=== PATIENT | female | born 1970 | race Caucasian/White ===

== ENCOUNTER → 2016-04-17 | Outpatient (CLI) | payer MEDICARE, MEDICAID ==
[~2016-04-17] MED LIST: AMLO10TA2 PO; ASPI325T PO; ATOR1TAB21 PO; BUPR75TA5 PO; BUTA50TA PO; CETI10TA PO; COLA100C PO; CYCL5TA PO; LEVO100T5 PO; MELO7.5S PO; NEXI20CA PO; ULTR50TA PO; VITA100T20 PO; VITA50003 PO; ZANA2CAP PO
--- NOTE | 2016-04-17 15:49 | REP ---
Pelvic ultrasound performed transabdominally and transvaginally, 04/17/2016: Indication: History of complex right adnexal cyst. Prior hysterectomy 10/18; patient is not on hormonal replacement therapy. Findings: The patient is G2, P2. Uterus is surgically absent. Right ovary measures 7 x 6 x 4.8 cm and contains multiple cysts, the largest measures 4.3 x 6 x 3.8 cm and is simple. There are septations within the right ovary. Perfusion was also noted within the right ovary. Left ovary measures 4.2 x 2.6 x 2.4 cm and contains small follicles as well as a small hyperechoic focus of 4 mm diameter, which could represent calcification and/or tiny dermoid. Perfusion was also documented to the left ovary. There are a few left ovarian follicles, largest 11.8 mm in maximal dimension. There is no free fluid in cul-de-sac. Impression:1. Prior hysterectomy.2. Enlarged right ovary with multiple cysts, largest 4.3 x 6 x 3.8 cm and simple. Right adnexa has complex cystic apperance. This does represent a new finding when compared with prior pelvic ultrasound 10/30/2013. MIL[employer] POW[employer] GR[employer]ER evaluation is recommended.3. 4 mm echogenic focus and/or calcification within left ovary. Tiny dermoid is not excluded. Additionally there are two left ovarian follicles, largest 10.5 mm diameter.4. Perfusion noted to bilateral ovaries; therefore no evidence of torsion.5. No free fluid in cul-de-sac. Signed by Ana Squires MD 04/18/2016 07:51 P
== END ==
LOC: M SMT 14:06
PROVIDERS: ATTEND Specialist
DX: N83.291 Other ovarian cyst, right side (principal); Z90.710 Acquired absence of both cervix and uterus; Q50.39 Other congenital malformation of ovary; I10 Essential (primary) hypertension

== ENCOUNTER 2016-05-02 12:30 | Outpatient (RCR) | payer MEDICAID, MEDICARE ==
[2016-05-06] MEDS ORDERED: LEVO137T2 PO (11:21)
[2016-05-06] MEDS ORDERED: BUPR1TAB17 PO (11:21)
[2016-05-08] MEDS ORDERED: TRAZ100T4 PO (08:57)
== END 2016-05-07 ==
LOC: M PT 12:30
PROVIDERS: ATTEND Psychiatry & Neurology Neurology
DX: Z51.89 Encounter for other specified aftercare (principal); M54.2 Cervicalgia; K21.9 Gastro-esophageal reflux disease without esophagitis
CPT/HCPCS: 92507; 92524; 97161; G8978; G8979; G9171; G9172

== ENCOUNTER 2016-05-08 08:01 | Day surgery (SDC) | payer MEDICARE ==
[~2016-05-08] VITALS: Ht 172.7 cm; Wt 75.1 kg
[~2016-05-08 08:01] MED LIST changes: +BUPR1TAB17 PO; +LEVO137T2 PO
[2016-05-08] MEDS ORDERED: LR 1,000 ML IV SCH ×2 (08:15→14:45)
[2016-05-08] MEDS ORDERED: TRAZ100T4 PO (08:57)
[2016-05-08] MEDS ORDERED: ATENOLOL 25 MG TAB PO ONE (09:00)
[2016-05-08] MEDS: buPROPion **XL** TABLET 150MG (WELLBUTRIN XL) PO SCH (09:00)
[2016-05-08] MEDS ORDERED: BUPIVACAINE HCL 0.25% 30 ML VIAL As Ordered ONE (09:38)
[2016-05-08] MEDS ORDERED: SCOPOLAMINE 1.5 MG TRANSDERMAL As Ordered ONE (09:57)
[2016-05-08] MEDS ORDERED: BUPIVACAINE HCL 0.25% 30 ML VIAL XX ONE (10:00)
[2016-05-08] MEDS ORDERED: SCOPOLAMINE 1.5 MG TRANSDERMAL TOP ONE (10:15)
[2016-05-08] MEDS ORDERED: dexameTHASONE 4 MG/ML 1ML VIAL (J1100) As Ordered ONE (10:17)
[2016-05-08] MEDS ORDERED: MIDAZOLAM INJ 2 MG/2 ML VIAL (J2250) As Ordered ONE (10:17)
[2016-05-08] MEDS ORDERED: fentaNYL 100 MCG/2 ML INJECTION (J3010) As Ordered ONE (10:17)
[2016-05-08] MEDS ORDERED: METOCLOPRAMIDE INJ 10MG/2ML VIAL (J2765) As Ordered ONE (10:18)
[2016-05-08] MEDS ORDERED: HYDROmorphone HCL 2 MG/ML 1ML VIAL (J1170) As Ordered ONE (10:36)
[2016-05-08] MEDS ORDERED: PROPOFOL 200 MG/20 ML VIAL As Ordered ONE ×2 (10:38→14:01)
[2016-05-08] MEDS ORDERED: ROCURONIUM BROMIDE 50 MG/5 ML VIAL As Ordered ONE ×2 (10:38→12:28)
[2016-05-08] MEDS ORDERED: ONDANSETRON 4MG/2ML VIAL (J2405) As Ordered ONE ×2 (10:39→16:39)
[2016-05-08] MEDS ORDERED: KETOROLAC 60 MG/2 ML VIAL (J1885) As Ordered ONE (11:04)
[2016-05-08] MEDS ORDERED: DESFLURANE 240 ML INHALANT As Ordered ONE (11:13)
[2016-05-08] MEDS ORDERED: ePHEDrine SULFATE 25 MG/5 ML(5MG/ML) SYRINGE As Ordered ONE (12:55)
[2016-05-08] MEDS ORDERED: GLYCOPYRROLATE INJ 0.2 MG/ML 2 ML VIAL As Ordered ONE ×2 (14:05)
[2016-05-08] MEDS ORDERED: NEOSTIGMINE 1MG/ML 5 ML SYRINGE (J2710) As Ordered ONE (14:05)
[2016-05-08] MEDS ORDERED: PERCOCET 5MG/325MG TAB PO PRN ×3 (14:30→14:45)
[2016-05-08] MEDS ORDERED: fentaNYL 100 MCG/2 ML INJECTION (J3010) IV PRN (14:45)
[2016-05-08] MEDS ORDERED: HYDROmorphone HCL 1 MG/ML SYRINGE (J1170) IV PRN (14:45)
[2016-05-08] MEDS ORDERED: ONDANSETRON 4MG/2ML VIAL (J2405) IV PRN ×2 (14:45→17:30)
[2016-05-08] MEDS: LR 1,000 ML IV SCH (17:30)
[2016-05-08 17:50] VITALS: BP 152/86
[2016-05-08] MEDS ORDERED: tiZANidine 4 MG TAB PO PRN (18:15)
[2016-05-08 18:20] VITALS: BP 153/72
[2016-05-08] MEDS: amLODIPine 10 MG TAB PO SCH (18:46)
[2016-05-08] MEDS: PANTOPRAZOLE 40MG TAB (PROTONIX) PO SCH (18:46)
[2016-05-08 18:50] VITALS: BP 153/73
[2016-05-08 19:50] VITALS: BP 156/85
[2016-05-08 21:00] VITALS: BP 162/57
[2016-05-08] MEDS ORDERED: traZODone 100 MG TAB PO SCH (21:00)
[2016-05-08] MEDS ORDERED: NORCO, ANEXSIA 5/325MG TABLET (HYDROcodone/ACETAMINOPHEN) PO PRN (21:45)
[2016-05-08] MEDS: NORCO, ANEXSIA 5/325MG TABLET (HYDROcodone/ACETAMINOPHEN) PO PRN (22:00)
[2016-05-08 22:30] VITALS: BP 144/80
[2016-05-09] MEDS: LR 1,000 ML IV SCH (01:30)
[2016-05-09 04:00] VITALS: BP 105/59
[2016-05-09] MEDS ORDERED: LEVOTHYROXINE 0.137 MG TAB (137MCG) PO SCH (06:00)
[2016-05-09] MEDS: NORCO, ANEXSIA 5/325MG TABLET (HYDROcodone/ACETAMINOPHEN) PO PRN (07:55)
[2016-05-09 08:00] VITALS: BP 124/75
--- NOTE | 2016-05-09 08:02 | RO ---
DATE OF PROCEDURE: 05/08/2016 PREPROCEDURE DIAGNOSIS: Right ovarian complex mass. POSTPROCEDURE DIAGNOSIS: Right ovarian complex mass. PROCEDURE: Laparoscopic bilateral salpingo-oophorectomy. SURGEON: Dr. Spencer Miner SUPERVISOR KENNEL: Dr. Shona Dacosta ANESTHESIA: General endotracheal. ESTIMATED BLOOD LOSS: 100 mL. FINDINGS: 6 cm complex cystic mass involving the right ovary. Surgically absent uterus. Adhesions of the normal appearing left ovary to the left pelvic sidewall and sigmoid colon. OPERATIVE SUMMARY: The patient taken to the operating room where general endotracheal anesthesia was induced. She was prepped and draped in sterile fashion in the dorsal lithotomy position. A sponge stick was placed in the vagina. A Randall catheter was placed. A periumbilical incision was made with a scalpel. Veress needle was placed through the incision while tenting up on the skin of the abdomen. Intraabdominal location of the Veress needle was assessed with use of a saline filled syringe. The pneumoperitoneum was created. A 10 mm trocar using Visiport was inserted through this incision. Three 5 mm suprapubic ports were placed under direct visualization without difficulty. Attention was turned to the right ovary. with one grasping instrument. The IP ligament was coagulated using the harmonic scalpel and incised. Specimen was left in the lateral part of the pelvis. Attention was turned to the left ovary. The left ovary was densely adherent to the sigmoid colon and pelvic sidewall. Grasping instrument used to elevate the ovary. Endoshears were used to sharply dissect adhesions from the ovary. Once the ovary was freed from surrounding attachments, the IP ligament was isolated and coagulated with the harmonic scalpel and incised. The remainder of the ovary was then dissected sharply off the left pelvic sidewall. The left ovary was removed through the umbilical port. The large right ovarian mass which had previously been left in pelvis could not initially be found. The patient was placed in several different positions to help locate the lost specimen. Fluid was placed in the abdomen to see if that would help visualize the specimen. After several attempts, the ultrasound was used on the abdomen externally to see if the cystic mass could be identified. There appeared to be a cystic mass in the right upper quadrant near the liver. However, there was still difficulty in identifying the location of the specimen. Dr. Grant Levy from general surgery was asked to assist and through a concerted effort of multiple surgeons the specimen was located in the right upper quadrant under the gallbladder. The specimen was removed, placed in an Endo Catch bag and removed through the umbilical port. The pneumoperitoneum was released. All instruments were removed. The umbilical port was closed with interrupted suture of #0 Vicryl. The skin was closed with #4-0 Monocryl subcuticular sutures. Sponge, instrument and needle counts were correct. The patient was extubated and went to recovery room in stable condition.
[2016-05-09] MEDS: buPROPion **XL** TABLET 150MG (WELLBUTRIN XL) PO SCH (09:43)
[2016-05-09] MEDS: PANTOPRAZOLE 40MG TAB (PROTONIX) PO SCH (09:43)
[2016-05-09 09:44] VITALS: BP 124/75
[2016-05-09] MEDS: amLODIPine 10 MG TAB PO SCH (09:44)
[2016-05-11] MEDS ORDERED: **NOTE PATIENT COMMENT** MISC XX ONE (10:00)
== END 2016-05-09 12:45 | disposition home or self-care (01) ==
LOC: M SDC 08:01 → M MSPAV 17:50 → M PED 22:30 → M SDC 05-09 12:45
PROVIDERS: ATTEND Specialist
DX: N83.201 Unspecified ovarian cyst, right side (principal); E03.9 Hypothyroidism, unspecified; G47.33 Obstructive sleep apnea (adult) (pediatric); G43.909 Migraine, unspecified, not intractable, without status migrainosus; I10 Essential (primary) hypertension; T88.59XD Other complications of anesthesia, subsequent encounter; R94.31 Abnormal electrocardiogram [ECG] [EKG]; E78.00 Pure hypercholesterolemia, unspecified; D64.9 Anemia, unspecified; R06.83 Snoring; Z88.0 Allergy status to penicillin; Z91.040 Latex allergy status; Z91.018 Allergy to other foods; Z79.899 Other long term (current) drug therapy; Z86.73 Personal history of transient ischemic attack (TIA), and cerebral infarction without residual deficits; Z96.1 Presence of intraocular lens
CPT/HCPCS: 36415; 58661; 85014; 85018; 88307; J1100; J1170; J1885; J2250; J2405; J2710; J2765; J3010

== ENCOUNTER → 2016-07-24 | Outpatient (CLI) | payer MEDICARE ==
[~2016-07-24] MED LIST changes: -COLA100C PO; +COLA100C3 PO; +TRAZ100T4 PO
--- NOTE | 2016-07-24 12:17 | REP ---
MRI LUMBAR SPINE WITHOUT CONTRAST: HISTORY: Back pain. COMPARISON: 03/23/2008 Decreased signal intensity on T2-weighted images is present in the L1-2 and L5-S1 intervertebral discs. The discs are decreased in height. These findings are consistent with disc degeneration. A disc bulge is present at the T12-L1 level. There is minimal effacement of the thecal sac without spinal cord compression. The T12 neural foramina are patent on sagittal images. There is no disc bulge or herniation at the L1-2 through L3-4 levels. There is hypertrophy of the posterior articulating facets at the L2-3 and L3-4 levels. The nerves exit the neural foramina without compression. A diffuse disc bulge is present at the L4-5 level. There is minimal compression of the thecal sac. There is hypertrophy of the posterior articulating facets. The L4 nerves exit the neural foramina without compression. A diffuse disc bulge and small central disc extrusion are present at the L5-S1 level. The disc extrusion is slightly increased in size. There is minimal compression of the left S1 nerve. The disc extrusion abuts the thecal sac and right S1 nerve. There is hypertrophy of the posterior articulating facets. There is compression of the L5 nerves in the neural foramina. The conus medullaris is normal in appearance terminating at the level of the T12-L1 intervertebral disc. Increased signal intensity on T2-weighted images is present in the endplates of the L5 and S1 vertebral bodies. This represents degenerative change. IMPRESSION: 1. Diffuse disc bulge at the L4-5 level with minimal thecal sac compression. 2. Diffuse disc bulge and small central disc extrusion at the L5-S1 level with minimal compression at the left S1 nerve. There is compression of the L5 nerves in the neural foramina. The disc extrusion is slightly increased in size. The left S1 nerve compression is a new finding. Signed by Spencer Stock MD 07/24/2016 12:21 P
== END ==
LOC: M RAD 10:05
PROVIDERS: ATTEND Orthopaedic Surgery
DX: M51.27 Other intervertebral disc displacement, lumbosacral region (principal)

== ENCOUNTER → 2016-08-26 | Outpatient (CLI) | payer MEDICARE ==
[~2016-08-26] VITALS: Ht 154.9 cm; Wt 68.0 kg
[~2016-08-26] MED LIST changes: +ATEN25TA PO; +CLOP75TA2 PO; +LIDOCAINE 2% INJ 100 MG/5 ML SDV (FOR ANES.) As Ordered ONE; +LYRI100C10 PO; +METH-107 PO; +NS 1,000 ML IV ONE; +PERCOCET PO; +PRED10TA PO; +PROPOFOL 200 MG/20 ML VIAL As Ordered ONE; +ROBA500T PO; +XANA0.25 PO
--- NOTE | 2016-08-26 11:16 | ROOR ---
Patient Name: Pina Grider Procedure Date: 08/26/2016 10:57 AM Date of : 1970 Age: 45 Room: [facility] Gender: Female Note Status: Finalized Procedure: Upper Endoscopy + Biopsies Indications: Dysphagia, Heartburn Providers: Berto Tom MD Referring MD: DARSHAN MERCADO Requesting Provider: Medicines: Monitored Anesthesia Care Complications: No immediate complications. Procedure: Pre-Anesthesia Assessment: - The heart rate, respiratory rate, oxygen saturations, blood pressure, adequacy of pulmonary ventilation, and response to care were monitored throughout the procedure. The Endoscope was introduced through the mouth, and advanced to the second part of duodenum. The upper GI endoscopy was accomplished without difficulty. The patient tolerated the procedure well. Findings: The Z-line was irregular and was found 30 cm from the incisors. Multiple biopsies were obtained with cold forceps for evaluation to rule out Miner's Esophagus randomly at the gastroesophageal junction. A small hiatal hernia was present. No other significant abnormalities were identified in a careful examination of the stomach. The exam of the duodenum was otherwise normal. Impression: - Z-line irregular, 30 cm from the incisors. - Small hiatal hernia. - Multiple biopsies were obtained at the gastroesophageal junction. - The examination was otherwise normal. Recommendation: - Patient has a contact number available for emergencies. The signs and symptoms of potential delayed complications were discussed with the patient. Return to normal activities tomorrow. Written discharge instructions were provided to the patient. - High fiber diet. - Discharge patient to home. - Follow an antireflux regimen. - Continue present medications. - Await pathology results. - Telephone GI clinic for pathology results in 1 week. - Check Portal Online for Path Results.([email or web address]) - Repeat upper endoscopy for surveillance based on pathology results. - Return to referring physician. - The findings and recommendations were discussed with the patient's family. Berto Tom MD Berto Tom MD 08/26/2016 11:15:46 AM This report has been signed electronically. Number of Addenda: 0 Note Initiated On: 08/26/2016 10:57 AM Estimated Blood Loss: Estimated blood loss: none.
[2016-08-26 11:45] VITALS: BP 137/86
== END | disposition home or self-care (01) ==
LOC: M OPP 10:12
PROVIDERS: ATTEND Internal Medicine Gastroenterology
DX: R12 Heartburn (principal); R13.10 Dysphagia, unspecified; K22.8 Other specified diseases of esophagus; K44.9 Diaphragmatic hernia without obstruction or gangrene; I10 Essential (primary) hypertension; E78.5 Hyperlipidemia, unspecified; E03.9 Hypothyroidism, unspecified; D64.9 Anemia, unspecified; F41.9 Anxiety disorder, unspecified; F32.9 Major depressive disorder, single episode, unspecified; G47.8 Other sleep disorders; G47.30 Sleep apnea, unspecified; R06.83 Snoring; K25.9 Gastric ulcer, unspecified as acute or chronic, without hemorrhage or perforation; K21.9 Gastro-esophageal reflux disease without esophagitis; Z88.0 Allergy status to penicillin; Z91.040 Latex allergy status; Z79.82 Long term (current) use of aspirin; Z79.899 Other long term (current) drug therapy; Z80.42 Family history of malignant neoplasm of prostate; Z80.3 Family history of malignant neoplasm of breast

== ENCOUNTER → 2016-08-27 | Outpatient (CLI) | payer MEDICARE ==
[~2016-08-27] MED LIST changes: -LIDOCAINE 2% INJ 100 MG/5 ML SDV (FOR ANES.) As Ordered ONE; -NS 1,000 ML IV ONE; -PROPOFOL 200 MG/20 ML VIAL As Ordered ONE
--- NOTE | 2016-08-27 10:23 | REP ---
Chest two views HISTORY: Bronchitis Comparison: 01/15/2016 The lungs are clear. The heart is upper limits of normal in size. The pulmonary vasculature is normal in appearance. The bony structure is intact. IMPRESSION: No acute disease. Signed by Spencer Stock MD 08/27/2016 10:16 A
== END ==
LOC: M WUC 09:41
PROVIDERS: ATTEND Emergency Medicine
DX: J20.9 Acute bronchitis, unspecified (principal); S83.411A Sprain of medial collateral ligament of right knee, initial encounter; S93.602A Unspecified sprain of left foot, initial encounter; M17.11 Unilateral primary osteoarthritis, right knee; X58.XXXA Exposure to other specified factors, initial encounter; Y93.9 Activity, unspecified; Y92.9 Unspecified place or not applicable; Y99.8 Other external cause status

== ENCOUNTER → 2016-08-27 | Outpatient (CLI) | payer MEDICARE ==
--- NOTE | 2016-08-27 10:21 | REP ---
Clinical: Pain without history of trauma Technique: AP, lateral, bilateral oblique views left foot . Findings: The osseous structures and joint spaces are intact and normal. There is no evidence for acute fracture or dislocation. Surrounding soft tissues are unremarkable. No subcutaneous emphysema or radiodense foreign body. Impression: Normal examination. Signed by Sekou Robert MD 08/27/2016 10:13 A
--- NOTE | 2016-08-27 10:22 | REP ---
Clinical: Sprain. Technique: AP, lateral, bilateral oblique and sunrise views of the right knee. Findings: Mild to early moderate tricompartmental arthritic degenerative changes are appreciated including cortical irregularities to the femoral condyles, subtle early osteophyte formation along the lateral tibial plateau and femoral condyle as well as spurring along the lateral margin of the patella. Increased sclerosis to the tibial plateau and posterior margin of the patella are noted with associated joint space narrowing. There is no acute fracture dislocation. No obvious effusion. Impression: Early moderate tricompartmental osteoarthritic degenerative changes. Signed by Sekou Robert MD 08/27/2016 10:15 A
== END ==
LOC: M WUC 09:32
PROVIDERS: ATTEND Physician Assistant
DX: S83.411A Sprain of medial collateral ligament of right knee, initial encounter (principal); S93.602A Unspecified sprain of left foot, initial encounter; M17.11 Unilateral primary osteoarthritis, right knee; X58.XXXA Exposure to other specified factors, initial encounter; Y93.9 Activity, unspecified; Y92.9 Unspecified place or not applicable; Y99.8 Other external cause status; J20.9 Acute bronchitis, unspecified

== ENCOUNTER 2016-08-28 14:27 | Outpatient (RCR) | payer MEDICARE ==
[~2016-08-28 14:27] MED LIST changes: -PRED10TA PO; -ROBA500T PO; -XANA0.25 PO
[2016-08-29] MEDS ORDERED: XANA0.25 PO (18:21)
[2016-08-29] MEDS ORDERED: ROBA500T PO (20:17)
[2016-08-29] MEDS ORDERED: PRED10TA PO (20:17)
== END 2016-09-04 ==
LOC: M PT 14:27
PROVIDERS: ATTEND Orthopaedic Surgery
DX: Z51.89 Encounter for other specified aftercare (principal); M51.26 Other intervertebral disc displacement, lumbar region
CPT/HCPCS: 97110; 97140; 97162; G8978; G8979

== ENCOUNTER 2016-08-29 18:02 | Emergency (ER) | payer MEDICAID, MEDICARE, OTHER ==
[~2016-08-29] VITALS: Ht 154.9 cm; Wt 68.0 kg
[2016-08-29] MEDS ORDERED: XANA0.25 PO (18:21)
[2016-08-29] MEDS ORDERED: predniSONE 20 MG TAB PO ONE (20:00)
[2016-08-29] MEDS ORDERED: KETOROLAC 60 MG/2 ML VIAL (J1885) IM ONE (20:00)
[2016-08-29] MEDS ORDERED: METHOCARBAMOL 500 MG TAB PO ONE (20:00)
[2016-08-29] MEDS ORDERED: PERCOCET 5MG/325MG TAB PO ONE (20:00)
[2016-08-29] MEDS ORDERED: ROBA500T PO (20:17)
[2016-08-29] MEDS ORDERED: PRED10TA PO (20:17)
[2016-08-29 21:21] VITALS: BP 132/90
== END 2016-08-29 21:23 | disposition home or self-care (01) ==
LOC: M ED 19:25
DX: M54.16 Radiculopathy, lumbar region (principal); M54.31 Sciatica, right side; M25.561 Pain in right knee; G89.29 Other chronic pain; F33.9 Major depressive disorder, recurrent, unspecified; G47.33 Obstructive sleep apnea (adult) (pediatric); E07.9 Disorder of thyroid, unspecified; Z79.899 Other long term (current) drug therapy; Z79.82 Long term (current) use of aspirin; Z88.0 Allergy status to penicillin; Z91.040 Latex allergy status
CPT/HCPCS: 96372; 99282; J1885

== ENCOUNTER 2016-09-12 16:34 | Emergency (ER) | payer MEDICARE, MEDICAID ==
[~2016-09-12] VITALS: Ht 154.9 cm; Wt 68.0 kg
[~2016-09-12 16:34] MED LIST changes: -BUPR1TAB17 PO; +BUPR1TAB53 PO; -COLA100C3 PO; +COLA100C5 PO; -LYRI100C10 PO; -METH-107 PO; +METH1TAB40 PO; +PRED10TA2 PO; +PREG100CA PO; +ROBA500T PO; +TRAZ-136 PO; -TRAZ100T4 PO; -ULTR50TA PO; +ULTR50TA8 PO; +VITA1CAP40 PO; -VITA50003 PO; +XANA0.25 PO
[2016-09-12] MEDS ORDERED: METHOCARBAMOL 500 MG TAB PO ONE (17:30)
[2016-09-12] MEDS ORDERED: HYDROmorphone HCL 1 MG/ML SYRINGE (J1170) IM ONE (17:30)
[2016-09-12 18:03] VITALS: BP 162/91
== END 2016-09-12 18:57 | disposition home or self-care (01) ==
LOC: M ED 17:09
DX: M25.561 Pain in right knee (principal); I10 Essential (primary) hypertension; E78.00 Pure hypercholesterolemia, unspecified; G47.30 Sleep apnea, unspecified; E03.9 Hypothyroidism, unspecified; F32.9 Major depressive disorder, single episode, unspecified; D75.9 Disease of blood and blood-forming organs, unspecified; Z86.39 Personal history of other endocrine, nutritional and metabolic disease; E66.9 Obesity, unspecified; Z88.0 Allergy status to penicillin; Z91.040 Latex allergy status; Z79.82 Long term (current) use of aspirin; Z79.899 Other long term (current) drug therapy
CPT/HCPCS: 96372; 99283; J1170

== ENCOUNTER → 2016-10-16 | Outpatient (CLI) | payer MEDICARE, MEDICAID ==
[~2016-10-16] MED LIST changes: +CLAR1TAB2 PO; +DEBR6.5S4 AS; +FLUC10TA PO; +FOLI400T PO; +KETO10TAB PO; +MELO7.5T7 PO; +PRED20TA PO; +RISP0.5T3 PO; +ROPI0.5T PO; +VITA100072 PO; +ZITHTAB PO; +ZONI100C2 PO
[2016-10-17 10:23] LABS: ALBUMIN 3.8 GM/DL (3.2-5.2); ALBUMIN/GLOBULIN RATIO 1.23 (1.00-1.93); ALKALINE PHOSPHATASE 66 U/L (45-117); ALT/SGPT 15 U/L (12-78); ANION GAP 5 MEQ/L (8-16); AST/SGOT 9 U/L (15-37); BILIRUBIN,TOTAL 0.3 MG/DL (0.2-1.0); BLOOD UREA NITROGEN 14 MG/DL (7-18); CALCIUM LEVEL 9.3 MG/DL (8.5-10.1); CARBON DIOXIDE LEVEL 31 MEQ/L (21-32); CHLORIDE LEVEL 104 MEQ/L (98-107); GLOMERULAR FILTRATION RATE > 60.0 (>58); GLUCOSE, FASTING 97 MG/DL (70-105); POTASSIUM SERUM 3.9 MEQ/L (3.5-5.1); SODIUM LEVEL 140 MEQ/L (136-145); THYROXINE (T4) 12.1 UG/DL (4.5-12.0); TOTAL PROTEIN 6.9 GM/DL (6.4-8.2)
[2016-10-21 10:29] LABS: ALBUMIN 4.13 GM/DL (3.29-5.55); ALBUMIN % 59.8 % (55.8-66.1); GAMMA GLOBULIN % 14.4 % (11.1-18.8)
[2016-10-22 00:11] LABS: Lyme Disease IgG/IgM Antibodie <0.91 ISR (0.00-0.90); Lyme Disease IgM Ab Quantitati <0.80 index (0.00-0.79); SJOGREN'S ANTI SS-A <0.2 AI (0.0-0.9); SJOGREN'S ANTI SS-B <0.2 AI (0.0-0.9)
== END ==
LOC: M SMT 12:13
PROVIDERS: ATTEND Psychiatry & Neurology Neurology
DX: D50.9 Iron deficiency anemia, unspecified (principal); I10 Essential (primary) hypertension; E03.9 Hypothyroidism, unspecified; E78.5 Hyperlipidemia, unspecified; Z79.899 Other long term (current) drug therapy

== ENCOUNTER → 2016-10-24 | Outpatient (REF) | payer MEDICARE, MEDICAID | LOC: M LAB REF 17:12 | PROVIDERS: ATTEND Physician Assistant Medical | DX: N76.0 Acute vaginitis (principal) ==

== ENCOUNTER 2016-11-09 18:38 | Emergency (ER) | payer MEDICARE, MEDICAID ==
[~2016-11-09] VITALS: Ht 154.9 cm; Wt 70.5 kg
[~2016-11-09 18:38] MED LIST changes: -CLAR1TAB2 PO; -DEBR6.5S4 AS; -FLUC10TA PO; -FOLI400T PO; -KETO10TAB PO; -MELO7.5T7 PO; -PRED20TA PO; -RISP0.5T3 PO; -ROPI0.5T PO; -VITA100072 PO; -ZITHTAB PO; -ZONI100C2 PO
[2016-11-09] MEDS ORDERED: NS 1,000 ML IV ONE (20:45)
--- NOTE | 2016-11-09 21:10 | REPUSA ---
CT of the head Clinical history: CVA. Technique: Multiple axial CT images were obtained through the head without administration of contrast . Findings: The ventricles and sulci are symmetric bilaterally. There is no evidence of acute hemorrhag e or infarct. There is no midline shift, mass effect, or extra-axial fluid collection. The osseous st ructures are unremarkable. The visualized paranasal sinuses and mastoid air cells are clear. Impression: Negative study.
[2016-11-09 21:19] LABS: BASO % 0.6 % (0.0-1.0); EOS # 0.2 K/mm3 (0.0-0.50); LARGE UNSTAINED CELL # 0.1 K/mm3 (0.0-0.4); LARGE UNSTAINED CELL % 1.9 % (0.0-4.0); LYMPH # 1.5 K/mm3 (1.5-4.5); LYMPH % 30.6 % (24.0-44.0); MEAN CORPUSCULAR HGB CONC 33.3 g/dl (32.0-36.5); MONO # 0.2 K/mm3 (0.0-0.8); MONO % 4.9 % (0.0-5.0); NEUTROPHILS # 2.9 K/mm3 (1.8-7.7); NEUTROPHILS % 56.9 % (36.0-66.0); PLATELET COUNT, AUTOMATED 242 k/mm3 (150-450); RED CELL DISTRIBUTION WIDTH 14.4 % (11.5-14.5)
[2016-11-09 21:46] LABS: ALBUMIN 4.2 GM/DL (3.2-5.2); ALBUMIN/GLOBULIN RATIO 1.24 (1.00-1.93); ALKALINE PHOSPHATASE 77 U/L (45-117); ALT/SGPT 17 U/L (12-78); AST/SGOT 12 U/L (15-37); BILIRUBIN,DIRECT < 0.1 MG/DL (0.0-0.2); BILIRUBIN,TOTAL 0.3 MG/DL (0.2-1.0); TOTAL PROTEIN 7.6 GM/DL (6.4-8.2)
[2016-11-09 21:48] LABS: ANION GAP 9 MEQ/L (8-16); BLOOD UREA NITROGEN 17 MG/DL (7-18); CALCIUM LEVEL 9.2 MG/DL (8.5-10.1); CARBON DIOXIDE LEVEL 27 MEQ/L (21-32); CHLORIDE LEVEL 106 MEQ/L (98-107); CREATININE FOR GFR 1.07 MG/DL (0.55-1.02); GLOMERULAR FILTRATION RATE > 60.0 (>58); GLUCOSE, FASTING 107 MG/DL (70-105); POTASSIUM SERUM 3.4 MEQ/L (3.5-5.1); SODIUM LEVEL 142 MEQ/L (136-145)
[2016-11-09 23:32] VITALS: BP 144/98
[2016-11-09] MEDS ORDERED: FLUC10TA PO (23:52)
[2016-11-09] MEDS ORDERED: DEBR6.5S4 AS (23:54)
--- NOTE | 2016-11-10 08:09 | ECGEPIP ---
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
--- NOTE | 2016-11-10 11:25 | REP ---
CHEST PA AND LATERAL: 11/09/2016. Comparison: 08/27/2016, 01/15/2016. Clinical history: Cough. Findings: Two-view show the lungs well inflated. CP angles are sharply defined. Heart has left ventricular configuration. Slight left ventricular enlargement on the lateral view. Transverse diameter is upper limits normal. The aorta is normal and the airway intact. There is no mediastinal or hilar mass. No infiltrate, nodule, atelectasis or other acute finding. Cervical fusion noted with anterior and posterior hardware in the lower cervical spine. Impression: 1. Borderline heart size with some left ventricular enlargement suggested on the lateral view but no vascular redistribution, pulmonary edema or acute infiltrate. No definite effusion. Signed by Scar Yu MD 11/10/2016 06:01 P
== END 2016-11-10 00:13 | disposition home or self-care (01) ==
LOC: M ED 18:38
DX: B34.9 Viral infection, unspecified (principal); B37.0 Candidal stomatitis; H61.22 Impacted cerumen, left ear

== ENCOUNTER 2016-11-14 01:27 | Emergency (ER) | payer MEDICARE, MEDICAID ==
[~2016-11-14] VITALS: Ht 154.9 cm; Wt 68.2 kg
[~2016-11-14 01:27] MED LIST changes: +DEBR6.5S4 AS; +FLUC10TA PO
[2016-11-14 01:38] VITALS: BP 113/77
[2016-11-14] MEDS ORDERED: FOLI400T PO (01:52)
[2016-11-14] MEDS ORDERED: MELO7.5T7 PO (01:52)
[2016-11-14] MEDS ORDERED: ROPI0.5T PO (01:52)
[2016-11-14] MEDS ORDERED: VITA100072 PO (01:52)
[2016-11-14] MEDS ORDERED: RISP0.5T3 PO (01:52)
[2016-11-14] MEDS ORDERED: ZONI100C2 PO (01:52)
[2016-11-14] MEDS ORDERED: NS 1,000 ML IV ONE (04:15)
[2016-11-14 04:41] LABS: BASO % 0.5 % (0.0-1.0); EOS # 0.3 K/mm3 (0.0-0.50); EOS % 5.8 % (0.0-3.0); LARGE UNSTAINED CELL # 0.1 K/mm3 (0.0-0.4); LARGE UNSTAINED CELL % 1.4 % (0.0-4.0); LYMPH # 1.6 K/mm3 (1.5-4.5); LYMPH % 31.9 % (24.0-44.0); MEAN CORPUSCULAR HEMOGLOBIN 29.2 pg (27.0-33.0); MEAN CORPUSCULAR HGB CONC 34.1 g/dl (32.0-36.5); MEAN CORPUSCULAR VOLUME 85.6 fl (80.0-96.0); MONO # 0.3 K/mm3 (0.0-0.8); MONO % 5.6 % (0.0-5.0); NEUTROPHILS # 2.7 K/mm3 (1.8-7.7); NEUTROPHILS % 54.7 % (36.0-66.0); PLATELET COUNT, AUTOMATED 241 k/mm3 (150-450); RED CELL DISTRIBUTION WIDTH 14.7 % (11.5-14.5); WHITE BLOOD COUNT 4.8 K/mm3 (4.0-10.0)
[2016-11-14 04:55] LABS: ERYTHROCYTE SEDIMENTATION RATE 21 mm/hr (0-20)
[2016-11-14 04:59] LABS: ANION GAP 8 MEQ/L (8-16); BLOOD UREA NITROGEN 12 MG/DL (7-18); CALCIUM LEVEL 8.9 MG/DL (8.5-10.1); CARBON DIOXIDE LEVEL 27 MEQ/L (21-32); CHLORIDE LEVEL 108 MEQ/L (98-107); CREATININE FOR GFR 0.89 MG/DL (0.55-1.02); GLOMERULAR FILTRATION RATE > 60.0 (>58); GLUCOSE, FASTING 94 MG/DL (70-105); POTASSIUM SERUM 3.4 MEQ/L (3.5-5.1); SODIUM LEVEL 143 MEQ/L (136-145)
[2016-11-14] MEDS ORDERED: dexameTHASONE 20 MG/5 ML VIAL (J1100) IV ONE (05:30)
[2016-11-14] MEDS ORDERED: KETOROLAC 30 MG/ML VIAL (J1885) IV ONE (05:30)
[2016-11-14 05:57] LABS: ABG BASE EXCESS -4.1 (-2.0-2.0); ABG PARTIAL PRESSURE CO2 38.3 mmHg (35.0-45.0); ABG PARTIAL PRESSURE O2 98.6 mmHg (75.0-100.0); ABG STANDARD HCO3 21.1 MEQ/L (22.0-26.0); ABG TOTAL CO2 22.2 MEQ/L (22.0-29.0); ABG pH (ARTERIAL) 7.357 UNITS (7.350-7.450)
[2016-11-14] MEDS ORDERED: KETO10TAB PO (06:36)
[2016-11-14] MEDS ORDERED: PRED20TA PO (06:36)
--- NOTE | 2016-11-14 09:44 | REP ---
PA and lateral chest: Comparison is 11/09/2016. The lung bowie are clear and unchanged. Cardiac size is borderline enlarged, unchanged. The manny and mediastinum are normal. There is internal fixation of the visualized cervical spine, unchanged. There is thoracic scoliosis convex right, unchanged. Impression: There are no acute cardiopulmonary findings. Signed by Gino Oseguera MD 11/14/2016 08:08 A
== END 2016-11-14 06:58 | disposition home or self-care (01) ==
LOC: M ED 01:27
DX: J20.8 Acute bronchitis due to other specified organisms (principal)
CPT/HCPCS: 36600; 71020; 80048; 82550; 82803; 83605; 85025; 85652; 87040; 96374; 96375; 99283; J1100; J1885

== ENCOUNTER → 2016-12-16 | Outpatient (CLI) | payer MEDICARE, MEDICAID ==
[~2016-12-16] MED LIST changes: +CLAR1TAB2 PO; +FOLI400T PO; +KETO10TAB PO; +MELO7.5T7 PO; +PRED20TA PO; +RISP0.5T3 PO; +ROPI0.5T PO; +VITA100072 PO; +ZITHTAB PO; +ZONI100C2 PO
[2016-12-16 13:58] LABS: MEAN CORPUSCULAR HGB CONC 32.7 g/dl (32.0-36.5); MEAN CORPUSCULAR VOLUME 88.7 fl (80.0-96.0); RED CELL DISTRIBUTION WIDTH 15.2 % (11.5-14.5); WHITE BLOOD COUNT 4.8 K/mm3 (4.0-10.0)
[2016-12-16 14:35] LABS: BASOPHILS 2 % (0-4); EOSINOPHILS 9 % (0-5)
[2016-12-16 15:06] LABS: URIC ACID 4.5 MG/DL (2.6-6.0)
[2016-12-18 00:06] LABS: Lyme Disease IgG/IgM Antibodie <0.91 ISR (0.00-0.90); Lyme Disease IgM Ab Quantitati <0.80 index (0.00-0.79)
== END ==
LOC: M SMT 11:54
PROVIDERS: ATTEND Physician Assistant Surgical
DX: M17.11 Unilateral primary osteoarthritis, right knee (principal); Z79.899 Other long term (current) drug therapy

== ENCOUNTER → 2016-12-20 | Outpatient (CLI) | payer MEDICARE, MEDICAID ==
--- NOTE | 2016-12-20 11:50 | REP ---
BILATERAL SI JOINTS: 12/20/2016. COMPARISON: CT 02/23/2016. FINDINGS: Four views are provided. Pelvic ring is intact. The SI joints are without narrowing or sclerosis inferiorly. There is no erosive change. There are degenerative disc changes at L5-S1 with vacuum phenomenon and sclerosis of the endplates. Multiple pelvic phleboliths are noted. There is a metallic density over the lower abdomen upper pelvis seen on CT just deep to the rectus fascia in the anterior abdomen as a metallic surgical density. Hip joint spaces are symmetric. IMPRESSION: 1. Negative SI joint series for erosion, narrowing or acute finding. There is minor sclerosis on the iliac margins in the mid and upper aspect of the joints in a symmetric fashion as on previous CT. 2. Degenerative disc disease at L5-S1 with vacuum phenomenon and sclerosis. Minor degenerative changes in the hips. Signed by Scar Yu MD 12/20/2016 03:53 P
[2016-12-20 13:43] LABS: ALBUMIN 4.2 GM/DL (3.2-5.2); ALKALINE PHOSPHATASE 84 U/L (45-117); ALT/SGPT 17 U/L (12-78); ANION GAP 8 MEQ/L (8-16); AST/SGOT 8 U/L (15-37); BILIRUBIN,TOTAL 0.4 MG/DL (0.2-1.0); BLOOD UREA NITROGEN 11 MG/DL (7-18); CALCIUM LEVEL 9.3 MG/DL (8.5-10.1); CARBON DIOXIDE LEVEL 29 MEQ/L (21-32); CHLORIDE LEVEL 106 MEQ/L (98-107); GLOMERULAR FILTRATION RATE > 60.0 (>58); GLUCOSE, FASTING 96 MG/DL (70-105); POTASSIUM SERUM 4.1 MEQ/L (3.5-5.1); SODIUM LEVEL 143 MEQ/L (136-145); TOTAL PROTEIN 7.7 GM/DL (6.4-8.2)
[2016-12-20 13:56] LABS: VITAMIN B12 LEVEL 458 PG/ML (247-911)
[2016-12-23 12:06] LABS: ALBUMIN % 59.7 % (55.8-66.1); GAMMA GLOBULIN % 14.1 % (11.1-18.8)
== END ==
LOC: M SMT 10:31
PROVIDERS: ATTEND Internal Medicine Rheumatology
DX: M35.9 Systemic involvement of connective tissue, unspecified (principal); D51.0 Vitamin B12 deficiency anemia due to intrinsic factor deficiency; Z79.899 Other long term (current) drug therapy; M51.37 Other intervertebral disc degeneration, lumbosacral region; M54.5 Low back pain

== ENCOUNTER → 2016-12-31 | Outpatient (CLI) | payer MEDICARE, MEDICAID ==
[2017-01-06 10:24] LABS: E005-IgE Dog Dander 2.98 kU/L (Class III); G002-IgE Bermuda Grass 1.32 kU/L (Class II); G008-IgE Kentucky Bluegrass 4.13 kU/L (Class IV); M002 IgE Cladosporium herbaru < 0.10 kU/L (Class 0); M003 IgE Aspergillus fumigatu 3.05 kU/L (Class III); T001-IgE Maple/Box Elder 2.11 kU/L (Class III); T003-IgE Common Silver Birch 8.75 kU/L (Class IV); T007-IgE Oak, White 7.18 kU/L (Class IV); T008-IgE Elm, American 5.43 kU/L (Class IV); T041-IgE Hickory, White 9.58 kU/L (Class IV); W001-IgE Ragweed, Short 9.46 kU/L (Class IV); W009-IgE Plantain, English 2.95 kU/L (Class III); W014-IgE Pigweed, Rough 2.05 kU/L (Class III)
[2017-01-07 00:06] LABS: IGE RECEPTOR ABY 1 3.5 (<10)
[2017-01-17 14:50] LABS: ANTI-IgA ANTIBODY 235
== END ==
LOC: M SMT 13:07
PROVIDERS: ATTEND Physician Assistant Medical
DX: R53.83 Other fatigue (principal); R05 Cough

== ENCOUNTER 2017-02-02 21:08 | Emergency (ER) | payer MEDICARE, MEDICAID ==
[~2017-02-02] VITALS: Ht 154.9 cm; Wt 68.2 kg
[2017-02-02 21:08] VITALS: BP 164/102
[~2017-02-02 21:08] MED LIST changes: -CLAR1TAB2 PO; -ZITHTAB PO
[2017-02-02] MEDS ORDERED: ZITHTAB PO (22:09)
[2017-02-02] MEDS ORDERED: CLAR1TAB2 PO (22:09)
[2017-02-02] MEDS ORDERED: PSEUDOEPHEDRINE 30 MG TAB PO ONE (22:10)
[2017-02-02] MEDS ORDERED: AZITHROMYCIN 250 MG TAB PO ONE (22:15)
== END 2017-02-02 22:39 | disposition home or self-care (01) ==
LOC: M ED 21:08
DX: J02.9 Acute pharyngitis, unspecified (principal); J01.90 Acute sinusitis, unspecified

== ENCOUNTER → 2017-03-10 | Outpatient (REF) | payer MEDICARE, MEDICAID ==
[~2017-03-10] MED LIST changes: +CLAR1TAB2 PO; +ZITHTAB PO
== END ==
LOC: M LAB REF 13:31
PROVIDERS: ATTEND Nurse Practitioner Family
DX: R35.0 Frequency of micturition (principal)
CPT/HCPCS: 51798; 81001; 87086; G0463

== ENCOUNTER → 2017-04-11 | Outpatient (REF) | payer MEDICARE, MEDICAID | LOC: M LAB REF 16:32 | DX: J02.9 Acute pharyngitis, unspecified (principal) | CPT/HCPCS: 87081 ==

== ENCOUNTER → 2017-05-02 | Outpatient (CLI) | payer MEDICARE, MEDICAID | LOC: M PAIN 09:15 | DX: G89.29 Other chronic pain (principal); M79.7 Fibromyalgia; M54.2 Cervicalgia; M15.9 Polyosteoarthritis, unspecified; G43.909 Migraine, unspecified, not intractable, without status migrainosus; E78.5 Hyperlipidemia, unspecified; G47.33 Obstructive sleep apnea (adult) (pediatric); J45.909 Unspecified asthma, uncomplicated; E07.9 Disorder of thyroid, unspecified; Z79.01 Long term (current) use of anticoagulants; Z79.82 Long term (current) use of aspirin; Z79.899 Other long term (current) drug therapy; Z88.0 Allergy status to penicillin; Z91.040 Latex allergy status; Z91.041 Radiographic dye allergy status; Z86.73 Personal history of transient ischemic attack (TIA), and cerebral infarction without residual deficits | CPT/HCPCS: G0463 ==

== ENCOUNTER → 2017-05-05 | Outpatient (CLI) | payer MEDICARE, MEDICAID ==
[2017-05-05 20:44] LABS: ALBUMIN 4.1 GM/DL (3.2-5.2); ALBUMIN/GLOBULIN RATIO 1.28 (1.00-1.93); ALKALINE PHOSPHATASE 65 U/L (45-117); ALT/SGPT 35 U/L (12-78); ANION GAP 5 MEQ/L (8-16); AST/SGOT 15 U/L (7-37); BILIRUBIN,TOTAL 0.6 MG/DL (0.2-1.0); BLOOD UREA NITROGEN 14 MG/DL (7-18); C REACTIVE PROTEIN QUANTITATIV < 0.30 MG/DL (0.00-0.30); CALCIUM LEVEL 8.7 MG/DL (8.5-10.1); CARBON DIOXIDE LEVEL 33 MEQ/L (21-32); CHLORIDE LEVEL 100 MEQ/L (98-107); CREATININE FOR GFR 0.95 MG/DL (0.55-1.30); FREE T4 0.78 NG/DL (0.76-1.46); GLOMERULAR FILTRATION RATE > 60.0 (>58); GLUCOSE, FASTING 89 MG/DL (70-100); POTASSIUM SERUM 3.8 MEQ/L (3.5-5.1); SODIUM LEVEL 138 MEQ/L (136-145); TOTAL PROTEIN 7.3 GM/DL (6.4-8.2)
[2017-05-05 20:57] LABS: BASO % 0.2 % (0.0-1.0); EOS # 0.1 10^3/uL (0.0-0.50); EOS % 1.2 % (0.0-3.0); HEMATOCRIT 35.5 % (36.0-47.0); HEMOGLOBIN 11.3 g/dl (12.0-16.0); IMMATURE GRANULOCYTE # 0.1 10^3/uL (0-0); IMMATURE GRANULOCYTE % 1.2 % (0-0); LYMPH # 3.6 10^3/uL (1.5-4.5); LYMPH % 31.6 % (24.0-44.0); MEAN CORPUSCULAR HEMOGLOBIN 28.6 pg (27.0-33.0); MEAN CORPUSCULAR HGB CONC 31.8 g/dl (32.0-36.5); MEAN CORPUSCULAR VOLUME 89.9 fl (80.0-96.0); MONO # 0.8 10^3/uL (0.0-0.8); MONO % 7.2 % (0.0-5.0); NEUTROPHILS # 6.6 10^3/uL (1.8-7.7); NEUTROPHILS % 58.6 % (36.0-66.0); PLATELET COUNT, AUTOMATED 272 10^3/uL (150-450); RED BLOOD COUNT 3.95 10^6/uL (4.00-5.40); RED CELL DISTRIBUTION WIDTH 15.1 % (11.5-14.5); WHITE BLOOD COUNT 11.3 10^3/uL (4.0-10.0)
[2017-05-05 21:00] LABS: ESTIMATED AVERAGE GLUCOSE 131 MG/DL (60-110); HEMOGLOBIN A1c 6.2 %
[2017-05-05 21:41] LABS: ERYTHROCYTE SEDIMENTATION RATE 12 mm/hr (0-20)
[2017-05-08 00:06] LABS: Lyme Disease IgG/IgM Antibodie <0.91 ISR (0.00-0.90); Lyme Disease IgM Ab Quantitati <0.80 index (0.00-0.79); MUMPS VIRUS IgM ANTIBODY <0.80 AU (0.00-0.79)
== END ==
LOC: M WUC 14:43
DX: B37.0 Candidal stomatitis (principal); Z79.899 Other long term (current) drug therapy
CPT/HCPCS: 84443

== ENCOUNTER → 2017-05-06 | Outpatient (CLI) | payer MEDICARE, MEDICAID ==
[2017-05-10 15:10] LABS: CLASS DESCRIPTION 0 (.); F010-IGE SESAME SEED 5.02 kU/L (Class IV); F023-IGE CRAB <0.10 kU/L (Class 0); F024-IGE SHRIMP 0.41 kU/L (Class I); F033-IGE ORANGE 0.12 kU/L (Class 0/I); F036-IGE COCONUT 0.81 kU/L (Class II); F037-IGE MUSSEL 0.25 kU/L (Class 0/I); F044-IGE STRAWBERRY 0.67 kU/L (Class II); F049-IGE APPLE 3.47 kU/L (Class III); F080-IGE LOBSTER <0.10 kU/L (Class 0); F084-IGE KIWI FRUIT 0.51 kU/L (Class I); F087-IGE MELON <0.10 kU/L (Class 0); F094-IGE PEAR 3.55 kU/L (Class III); F095-IGE PEACH/NECTARINE 3.48 kU/L (Class III); F096-IGE AVOCADO 0.36 kU/L (Class I); F207-IGE CLAM <0.10 kU/L (Class 0); F210-IGE PINEAPPLE 0.68 kU/L (Class II); F224-IGE POPPY SEED 0.22 kU/L (Class 0/I); F242-IGE BING CHERRY 2.49 kU/L (Class III); F259-IGE GRAPE/WINE VINEGAR <0.10 kU/L (Class 0); F290-IGE OYSTER 0.34 kU/L (Class I); F338-IGE SCALLOP 0.14 kU/L (Class 0/I); F341-IGE CRANBERRY <0.10 kU/L (Class 0); F343-IGE RASPBERRY 0.18 kU/L (Class 0/I); IgE CANOLA/RAPE SEED <0.10 kU/L (<0.35); K084-IGE SUNFLOWER SEED 0.91 kU/L (Class II)
== END ==
LOC: M SMT 10:12
DX: T78.04XA Anaphylactic reaction due to fruits and vegetables, initial encounter (principal); T78.05XA Anaphylactic reaction due to tree nuts and seeds, initial encounter; Z91.018 Allergy to other foods
CPT/HCPCS: 82785

== ENCOUNTER → 2017-05-07 | Outpatient (RCR) | payer MEDICARE, MEDICAID | END | disposition home or self-care (01) | LOC: M PT 09:28 | DX: Z51.89 Encounter for other specified aftercare (principal); M79.7 Fibromyalgia; M54.2 Cervicalgia; M15.9 Polyosteoarthritis, unspecified | CPT/HCPCS: 97162 ==

== ENCOUNTER 2017-05-14 09:56 | Outpatient (RCR) | payer MEDICARE, MEDICAID | END 2017-06-04 | LOC: M PT 09:56 | DX: Z51.89 Encounter for other specified aftercare (principal); M79.7 Fibromyalgia; M54.2 Cervicalgia; M15.9 Polyosteoarthritis, unspecified | CPT/HCPCS: 97140 ==

== ENCOUNTER → 2017-05-23 | Outpatient (CLI) | payer MEDICARE, MEDICAID ==
[~2017-05-23] MED LIST changes: -AMLO10TA2 PO; -ASPI325T PO; -ATEN25TA PO; -ATOR1TAB21 PO; +BUPIVACAINE HCL 0.25% 10 ML VIAL As Ordered; +BUPIVACAINE HCL 0.25% 30 ML VIAL As Ordered; -BUPR1TAB53 PO; -BUPR75TA5 PO; -BUTA50TA PO; -CETI10TA PO; -CLAR1TAB2 PO; -CLOP75TA2 PO; -COLA100C5 PO; -CYCL5TA PO; -DEBR6.5S4 AS; -FLUC10TA PO; -FOLI400T PO; -KETO10TAB PO; -LEVO100T5 PO; -LEVO137T2 PO; -MELO7.5S PO; -MELO7.5T7 PO; -METH1TAB40 PO; -NEXI20CA PO; -PERCOCET PO; -PRED10TA2 PO; -PRED20TA PO; -PREG100CA PO; -RISP0.5T3 PO; -ROBA500T PO; -ROPI0.5T PO; -TRAZ-136 PO; +TRIAMCINOLONE ACETONIDE SUSP 40 MG/ML VIAL (J3301) As Ordered; -ULTR50TA8 PO; -VITA100072 PO; -VITA100T20 PO; -VITA1CAP40 PO; -XANA0.25 PO; -ZANA2CAP PO; -ZITHTAB PO; -ZONI100C2 PO; +diazePAM 5 MG TAB As Ordered; +oxyCODONE 5MG TAB As Ordered
== END ==
LOC: M PAIN 09:00
DX: G89.29 Other chronic pain (principal); M54.2 Cervicalgia; M25.511 Pain in right shoulder; M25.512 Pain in left shoulder; M54.5 Low back pain; M79.1 Myalgia; G43.909 Migraine, unspecified, not intractable, without status migrainosus; E78.5 Hyperlipidemia, unspecified; G47.33 Obstructive sleep apnea (adult) (pediatric); J30.89 Other allergic rhinitis; Z79.82 Long term (current) use of aspirin; Z79.899 Other long term (current) drug therapy; Z88.0 Allergy status to penicillin; Z91.040 Latex allergy status; Z91.02 Food additives allergy status; Z86.73 Personal history of transient ischemic attack (TIA), and cerebral infarction without residual deficits
CPT/HCPCS: J3301

== ENCOUNTER → 2017-06-17 | Outpatient (CLI) | payer MEDICARE, MEDICAID ==
[2017-06-18 09:29] LABS: HIV 1&2 SCREEN CENTAUR NEGATIVE (NEGATIVE)
== END ==
LOC: M WUC 11:46
DX: J02.9 Acute pharyngitis, unspecified (principal)
CPT/HCPCS: 36415

== ENCOUNTER → 2017-07-08 | Outpatient (CLI) | payer MEDICARE, MEDICAID | LOC: M PAIN 14:45 | DX: G89.29 Other chronic pain (principal); M79.1 Myalgia; M54.2 Cervicalgia; M25.511 Pain in right shoulder; M25.512 Pain in left shoulder; M54.5 Low back pain; E78.5 Hyperlipidemia, unspecified; G47.33 Obstructive sleep apnea (adult) (pediatric); J45.909 Unspecified asthma, uncomplicated; G43.909 Migraine, unspecified, not intractable, without status migrainosus; Z79.01 Long term (current) use of anticoagulants; Z79.82 Long term (current) use of aspirin; Z79.899 Other long term (current) drug therapy; Z88.0 Allergy status to penicillin; Z91.030 Bee allergy status; Z91.048 Other nonmedicinal substance allergy status | CPT/HCPCS: J3301 ==

== ENCOUNTER → 2017-07-31 | Outpatient (CLI) | payer MEDICARE, MEDICAID | LOC: M PAIN 10:45 | DX: G89.29 Other chronic pain (principal); M79.7 Fibromyalgia; M54.2 Cervicalgia; M15.9 Polyosteoarthritis, unspecified; G43.909 Migraine, unspecified, not intractable, without status migrainosus; D64.9 Anemia, unspecified; E78.5 Hyperlipidemia, unspecified; G47.33 Obstructive sleep apnea (adult) (pediatric); J45.909 Unspecified asthma, uncomplicated; Z86.73 Personal history of transient ischemic attack (TIA), and cerebral infarction without residual deficits; Z79.82 Long term (current) use of aspirin; Z79.891 Long term (current) use of opiate analgesic; Z79.899 Other long term (current) drug therapy; Z88.0 Allergy status to penicillin; Z91.040 Latex allergy status; Z91.048 Other nonmedicinal substance allergy status | CPT/HCPCS: G0463 ==

== ENCOUNTER → 2017-08-25 | Outpatient (CLI) | payer MEDICARE, MEDICAID ==
[2017-08-25 17:23] LABS: BASO % 0.3 % (0.0-1.0); EOS # 0.2 10^3/uL (0.0-0.50); EOS % 3.2 % (0.0-3.0); HEMATOCRIT 33.1 % (36.0-47.0); HEMOGLOBIN 10.9 g/dl (12.0-15.5); IMMATURE GRANULOCYTE % 0.3 % (0-3.0); LYMPH # 1.8 10^3/uL (1.5-4.5); LYMPH % 28.8 % (24.0-44.0); MEAN CORPUSCULAR HEMOGLOBIN 29.8 pg (27.0-33.0); MEAN CORPUSCULAR HGB CONC 32.9 g/dl (32.0-36.5); MEAN CORPUSCULAR VOLUME 90.4 fl (80.0-96.0); MONO # 0.5 10^3/uL (0.0-0.8); MONO % 7.4 % (0.0-5.0); NEUTROPHILS # 3.8 10^3/uL (1.8-7.7); PLATELET COUNT, AUTOMATED 229 10^3/uL (150-450); RED BLOOD COUNT 3.66 10^6/uL (4.00-5.40); RED CELL DISTRIBUTION WIDTH 14.7 % (11.5-14.5); WHITE BLOOD COUNT 6.3 10^3/uL (4.0-10.0)
[2017-08-25 17:35] LABS: TOTAL 25(OH) VITAMIN D 52.8 NG/ML (30.0-100.0)
[2017-08-25 17:36] LABS: ESTIMATED AVERAGE GLUCOSE 131 MG/DL (60-110); HEMOGLOBIN A1c 6.2 %
[2017-08-25 17:43] LABS: ALBUMIN 3.9 GM/DL (3.2-5.2); ALBUMIN/GLOBULIN RATIO 1.22 (1.00-1.93); ALKALINE PHOSPHATASE 69 U/L (45-117); ALT/SGPT 17 U/L (12-78); ANION GAP 6 MEQ/L (8-16); AST/SGOT 9 U/L (7-37); BILIRUBIN,TOTAL 0.3 MG/DL (0.2-1.0); BLOOD UREA NITROGEN 10 MG/DL (7-18); CALCIUM LEVEL 8.5 MG/DL (8.5-10.1); CARBON DIOXIDE LEVEL 30 MEQ/L (21-32); CHLORIDE LEVEL 105 MEQ/L (98-107); CHOLESTEROL LEVEL 195 MG/DL (<200); CHOLESTEROL RISK RATIO 2.954 (<5); CREATININE FOR GFR 0.91 MG/DL (0.55-1.30); FREE T4 0.88 NG/DL (0.76-1.46); GLOMERULAR FILTRATION RATE > 60.0 (>58); GLUCOSE, FASTING 99 MG/DL (70-100); HDL CHOLESTEROL 66 MG/DL (>40); LDL CHOLESTEROL 112.8 MG/DL (<100); NON-HDL-C 129 MG/DL; POTASSIUM SERUM 3.5 MEQ/L (3.5-5.1); SODIUM LEVEL 141 MEQ/L (136-145); TOTAL PROTEIN 7.1 GM/DL (6.4-8.2); TRIGLYCERIDES LEVEL 81 MG/DL (<150)
== END ==
LOC: M SMT 14:58
DX: E03.9 Hypothyroidism, unspecified (principal); R53.83 Other fatigue; I10 Essential (primary) hypertension; E55.9 Vitamin D deficiency, unspecified; Z79.899 Other long term (current) drug therapy
CPT/HCPCS: 84443

== ENCOUNTER → 2017-11-18 | Outpatient (CLI) | payer MEDICARE, MEDICAID | LOC: M PAIN 13:45 | DX: G89.29 Other chronic pain (principal); M79.1 Myalgia; M25.511 Pain in right shoulder; M25.512 Pain in left shoulder; M54.6 Pain in thoracic spine; M54.5 Low back pain; G43.909 Migraine, unspecified, not intractable, without status migrainosus; E78.5 Hyperlipidemia, unspecified; G47.33 Obstructive sleep apnea (adult) (pediatric); J45.909 Unspecified asthma, uncomplicated; Z79.01 Long term (current) use of anticoagulants; Z79.82 Long term (current) use of aspirin; Z79.899 Other long term (current) drug therapy; Z88.0 Allergy status to penicillin; Z91.040 Latex allergy status; Z91.02 Food additives allergy status; Z90.710 Acquired absence of both cervix and uterus; Z86.73 Personal history of transient ischemic attack (TIA), and cerebral infarction without residual deficits | CPT/HCPCS: J3301 ==

== ENCOUNTER 2017-12-10 05:33 | Emergency (ER) | payer MEDICARE, MEDICAID ==
[2017-12-10] MEDS: NALOXONE INJ 2 MG/2 ML SYRINGE (J2310) IV (06:23)
[2017-12-10 06:27] LABS: BEDSIDE GLUCOSE 124 MG/DL (70-105)
[2017-12-10 06:48] LABS: BASO % 0.3 % (0.0-1.0); EOS # 0.1 10^3/uL (0.0-0.50); EOS % 1.4 % (0.0-3.0); HEMOGLOBIN 12.3 g/dl (12.0-15.5); IMMATURE GRANULOCYTE % 0.2 % (0-3.0); LYMPH # 1.5 10^3/uL (1.5-4.5); LYMPH % 23.6 % (24.0-44.0); MEAN CORPUSCULAR HEMOGLOBIN 29.5 pg (27.0-33.0); MEAN CORPUSCULAR HGB CONC 33.2 g/dl (32.0-36.5); MEAN CORPUSCULAR VOLUME 88.7 fl (80.0-96.0); MONO # 0.6 10^3/uL (0.0-0.8); MONO % 8.8 % (0.0-5.0); NEUTROPHILS # 4.2 10^3/uL (1.8-7.7); NEUTROPHILS % 65.7 % (36.0-66.0); PLATELET COUNT, AUTOMATED 227 10^3/uL (150-450); RED BLOOD COUNT 4.17 10^6/uL (4.00-5.40); RED CELL DISTRIBUTION WIDTH 14.1 % (11.5-14.5); WHITE BLOOD COUNT 6.4 10^3/uL (4.0-10.0)
[2017-12-10 07:02] LABS: AMMONIA 28 uMOL/L (<32)
[2017-12-10 07:12] LABS: ALBUMIN 4.1 GM/DL (3.2-5.2); ALBUMIN/GLOBULIN RATIO 1.17 (1.00-1.93); ALKALINE PHOSPHATASE 72 U/L (45-117); ALT/SGPT 21 U/L (12-78); ANION GAP 10 MEQ/L (8-16); AST/SGOT 10 U/L (7-37); BILIRUBIN,DIRECT 0.2 MG/DL (0.0-0.2); BILIRUBIN,TOTAL 0.5 MG/DL (0.2-1.0); BLOOD UREA NITROGEN 9 MG/DL (7-18); CARBON DIOXIDE LEVEL 26 MEQ/L (21-32); CHLORIDE LEVEL 102 MEQ/L (98-107); CREATININE FOR GFR 0.92 MG/DL (0.55-1.30); ETHYL ALCOHOL (ETHANOL) < 0.003 % (0.000-0.010); FREE THYROXINE INDEX 4.4 % (1.3-4.8); GLOMERULAR FILTRATION RATE > 60.0 (>58); GLUCOSE, FASTING 132 MG/DL (70-100); POTASSIUM SERUM 3.2 MEQ/L (3.5-5.1); SODIUM LEVEL 138 MEQ/L (136-145); T UPTAKE 33 % (30-39); THYROXINE (T4) 13.4 UG/DL (4.5-12.0); TOTAL PROTEIN 7.6 GM/DL (6.4-8.2)
[2017-12-10 07:19] LABS: ACETAMINOPHEN LEVEL < 2.0 UG/ML (10.0-30.0)
[2017-12-10] MEDS: POTASSIUM CHLORIDE 10 MEQ SR TABLET PO (08:39)
[2017-12-10 10:33] LABS: AMPHETAMINES LEVEL URINE NEGATIVE (NEGATIVE); BARBITURATES URINE NEGATIVE (NEGATIVE); BENZODIAZEPINES URINE NEGATIVE (NEGATIVE); CANNABINOIDS URINE NEGATIVE (NEGATIVE); COCAINE METABOLITE URINE NEGATIVE (NEGATIVE); METHADONE URINE NEGATIVE (NEGATIVE); OPIATES URINE NEGATIVE (NEGATIVE); PHENCYCLIDINE URINE NEGATIVE (NEGATIVE)
== END 2017-12-10 11:09 | disposition home or self-care (01) ==
LOC: M ED 05:33
DX: R53.83 Other fatigue (principal); R25.1 Tremor, unspecified; I10 Essential (primary) hypertension; E78.5 Hyperlipidemia, unspecified; E03.9 Hypothyroidism, unspecified; F33.9 Major depressive disorder, recurrent, unspecified; M54.9 Dorsalgia, unspecified; G89.29 Other chronic pain; K21.9 Gastro-esophageal reflux disease without esophagitis; Z86.69 Personal history of other diseases of the nervous system and sense organs; Z91.040 Latex allergy status; Z91.02 Food additives allergy status; Z79.01 Long term (current) use of anticoagulants; Z88.0 Allergy status to penicillin; Z79.82 Long term (current) use of aspirin; Z79.899 Other long term (current) drug therapy; Z79.890 Hormone replacement therapy
CPT/HCPCS: J2310

== ENCOUNTER → 2017-12-11 | Outpatient (REF) | payer MEDICARE, MEDICAID ==
[2017-12-11 13:10] LABS: BASO % 0.4 % (0.0-1.0); EOS # 0.1 10^3/uL (0.0-0.50); EOS % 2.5 % (0.0-3.0); HEMATOCRIT 35.5 % (36.0-47.0); HEMOGLOBIN 11.2 g/dl (12.0-15.5); IMMATURE GRANULOCYTE % 0.4 % (0-3.0); LYMPH # 1.8 10^3/uL (1.5-4.5); LYMPH % 35.1 % (24.0-44.0); MEAN CORPUSCULAR HEMOGLOBIN 28.9 pg (27.0-33.0); MEAN CORPUSCULAR HGB CONC 31.5 g/dl (32.0-36.5); MEAN CORPUSCULAR VOLUME 91.5 fl (80.0-96.0); MONO # 0.5 10^3/uL (0.0-0.8); NEUTROPHILS # 2.7 10^3/uL (1.8-7.7); NEUTROPHILS % 51.6 % (36.0-66.0); PLATELET COUNT, AUTOMATED 225 10^3/uL (150-450); RED BLOOD COUNT 3.88 10^6/uL (4.00-5.40); RED CELL DISTRIBUTION WIDTH 14.4 % (11.5-14.5); WHITE BLOOD COUNT 5.2 10^3/uL (4.0-10.0)
[2017-12-11 13:32] LABS: ERYTHROCYTE SEDIMENTATION RATE 17 mm/hr (0-20)
[2017-12-11 15:13] LABS: ALBUMIN 4.1 GM/DL (3.2-5.2); ALBUMIN/GLOBULIN RATIO 1.32 (1.00-1.93); ALKALINE PHOSPHATASE 65 U/L (45-117); ALT/SGPT 19 U/L (12-78); ANION GAP 8 MEQ/L (8-16); AST/SGOT 8 U/L (7-37); BILIRUBIN,TOTAL 0.3 MG/DL (0.2-1.0); BLOOD UREA NITROGEN 12 MG/DL (7-18); C REACTIVE PROTEIN QUANTITATIV < 0.30 MG/DL (0.00-0.30); CALCIUM LEVEL 9.2 MG/DL (8.5-10.1); CARBON DIOXIDE LEVEL 29 MEQ/L (21-32); CHLORIDE LEVEL 105 MEQ/L (98-107); CREATININE FOR GFR 1.09 MG/DL (0.55-1.30); GLOMERULAR FILTRATION RATE > 60.0 (>58); GLUCOSE, FASTING 83 MG/DL (70-100); IMMUNOGLOBULIN G 962 MG/DL (681-1648); IMMUNOGLOBULIN M 78.7 MG/DL (40-230); POTASSIUM SERUM 3.9 MEQ/L (3.5-5.1); RHEUMATOID FACTOR QUANT < 10.0 IU/ML (<15.0); SODIUM LEVEL 142 MEQ/L (136-145); TOTAL PROTEIN 7.2 GM/DL (6.4-8.2)
[2017-12-14 00:07] LABS: ANA (HEP2) Negative (.)
[2017-12-14 00:07] LABS: CYCLIC CITRULLINATED PEPTIDE 5 units (0-19)
== END ==
LOC: M SFHCPLAZ 11:55
DX: R05 Cough (principal); M25.50 Pain in unspecified joint; Z23 Encounter for immunization
CPT/HCPCS: 80053

== ENCOUNTER → 2017-12-23 | Outpatient (CLI) | payer MEDICARE, MEDICAID | LOC: M RAD 15:46 | DX: I51.7 Cardiomegaly (principal); R05 Cough; F33.1 Major depressive disorder, recurrent, moderate | CPT/HCPCS: 71046 ==

== ENCOUNTER → 2017-12-24 | Outpatient (CLI) | payer MEDICARE, MEDICAID | LOC: M PAIN 10:45 | DX: M43.07 Spondylolysis, lumbosacral region (principal); M15.9 Polyosteoarthritis, unspecified; F32.9 Major depressive disorder, single episode, unspecified; F41.9 Anxiety disorder, unspecified; E03.9 Hypothyroidism, unspecified; I10 Essential (primary) hypertension; K21.9 Gastro-esophageal reflux disease without esophagitis; E78.5 Hyperlipidemia, unspecified; G47.30 Sleep apnea, unspecified; Z79.891 Long term (current) use of opiate analgesic; Z79.899 Other long term (current) drug therapy; J30.2 Other seasonal allergic rhinitis; Z88.0 Allergy status to penicillin; Z91.040 Latex allergy status; Z91.048 Other nonmedicinal substance allergy status | CPT/HCPCS: G0463 ==

== ENCOUNTER → 2018-01-01 | Outpatient (CLI) | payer MEDICARE, MEDICAID ==
[~2018-01-01] MED LIST changes: -BUPIVACAINE HCL 0.25% 10 ML VIAL As Ordered; -BUPIVACAINE HCL 0.25% 30 ML VIAL As Ordered; +ISOVUE-370 76% 100ML VIAL (Q9967) As Ordered; -TRIAMCINOLONE ACETONIDE SUSP 40 MG/ML VIAL (J3301) As Ordered; -diazePAM 5 MG TAB As Ordered; -oxyCODONE 5MG TAB As Ordered
== END ==
LOC: M RAD 15:50
DX: R05 Cough (principal); I51.7 Cardiomegaly
CPT/HCPCS: Q9967

== ENCOUNTER → 2018-01-19 | Outpatient (CLI) | payer MEDICARE, MEDICAID ==
[~2018-01-19] MED LIST changes: +BUPIVACAINE HCL 0.25% 30 ML VIAL As Ordered; -ISOVUE-370 76% 100ML VIAL (Q9967) As Ordered; +ISOVUE-M 300 61% 15ML VIAL (Q9967) As Ordered; +LIDOCAINE 1% SDV INJ 30 ML VIAL As Ordered; +TRIAMCINOLONE ACETONIDE SUSP 40 MG/ML VIAL (J3301) As Ordered; +diazePAM 5 MG TAB As Ordered; +oxyCODONE 5MG TAB As Ordered
== END ==
LOC: M PAIN 11:00
DX: G89.29 Other chronic pain (principal); M47.816 Spondylosis without myelopathy or radiculopathy, lumbar region; M47.817 Spondylosis without myelopathy or radiculopathy, lumbosacral region; F32.9 Major depressive disorder, single episode, unspecified; F41.9 Anxiety disorder, unspecified; F43.10 Post-traumatic stress disorder, unspecified; I10 Essential (primary) hypertension; E78.5 Hyperlipidemia, unspecified; I69.952 Hemiplegia and hemiparesis following unspecified cerebrovascular disease affecting left dominant side; M19.90 Unspecified osteoarthritis, unspecified site; G43.909 Migraine, unspecified, not intractable, without status migrainosus; G47.33 Obstructive sleep apnea (adult) (pediatric); J45.909 Unspecified asthma, uncomplicated; Z79.01 Long term (current) use of anticoagulants; Z79.891 Long term (current) use of opiate analgesic; Z79.899 Other long term (current) drug therapy; Z88.0 Allergy status to penicillin; Z91.02 Food additives allergy status; Z91.040 Latex allergy status; Z86.2 Personal history of diseases of the blood and blood-forming organs and certain disorders involving the immune mechanism; Z86.79 Personal history of other diseases of the circulatory system
CPT/HCPCS: J3301

== ENCOUNTER → 2018-01-28 | Outpatient (REF) | payer MEDICARE, MEDICAID ==
[2018-01-28 18:25] LABS: APPEARANCE, URINE CLEAR (CLEAR); BACTERIA, URINE AUTO NEGATIVE (NEGATIVE); BILIRUBIN, URINE AUTO NEGATIVE (NEGATIVE); BLOOD, URINE BLOOD NEGATIVE (NEGATIVE); COLOR, URINE STRAW (YELLOW); GLUCOSE, URINE (UA) AUTO NEGATIVE (NEGATIVE); KETONE, URINE AUTO NEGATIVE (NEGATIVE); LEUKOCYTE ESTERASE, URINE AUTO NEGATIVE (NEGATIVE); MUCUS, URINE SMALL (NEGATIVE); NITRITE, URINE AUTO NEGATIVE (NEGATIVE); PROTEIN, URINE AUTO NEGATIVE (NEGATIVE); RBC, URINE AUTO 0 /HPF (0-3); SPECIFIC GRAVITY URINE AUTO 1.012 (1.002-1.035); SQUAMOUS EPITHELIAL CELL UR AU 0 /HPF (0-6); UROBILINOGEN, URINE AUTO 0.2 mg/dL (0.0-2.0); WBC, URINE AUTO 1 /HPF (0-3)
== END ==
LOC: M LABNEURO 15:49
DX: N39.0 Urinary tract infection, site not specified (principal); R30.0 Dysuria
CPT/HCPCS: 81001

== ENCOUNTER → 2018-02-09 | Outpatient (CLI) | payer MEDICARE, MEDICAID | LOC: M PAIN 11:30 | DX: M79.7 Fibromyalgia (principal); M54.2 Cervicalgia; M15.9 Polyosteoarthritis, unspecified; I10 Essential (primary) hypertension; E78.5 Hyperlipidemia, unspecified; I69.354 Hemiplegia and hemiparesis following cerebral infarction affecting left non-dominant side; G43.909 Migraine, unspecified, not intractable, without status migrainosus; G47.33 Obstructive sleep apnea (adult) (pediatric); J45.909 Unspecified asthma, uncomplicated; F32.9 Major depressive disorder, single episode, unspecified; F41.9 Anxiety disorder, unspecified; F43.10 Post-traumatic stress disorder, unspecified; Z79.891 Long term (current) use of opiate analgesic; Z79.899 Other long term (current) drug therapy; Z88.0 Allergy status to penicillin; Z91.02 Food additives allergy status; Z91.040 Latex allergy status | CPT/HCPCS: G0463 ==

== ENCOUNTER → 2018-03-10 | Outpatient (REF) | payer MEDICARE, MEDICAID ==
[2018-03-10 19:19] LABS: ALBUMIN 3.8 GM/DL (3.2-5.2); ALBUMIN/GLOBULIN RATIO 1.23 (1.00-1.93); ALKALINE PHOSPHATASE 70 U/L (45-117); ALT/SGPT 21 U/L (12-78); ANION GAP 5 MEQ/L (8-16); AST/SGOT 9 U/L (7-37); BASO % 0.5 % (0.0-1.0); BILIRUBIN,TOTAL 0.3 MG/DL (0.2-1.0); BLOOD UREA NITROGEN 16 MG/DL (7-18); CALCIUM LEVEL 8.5 MG/DL (8.5-10.1); CARBON DIOXIDE LEVEL 32 MEQ/L (21-32); CHLORIDE LEVEL 103 MEQ/L (98-107); CREATININE FOR GFR 1.07 MG/DL (0.55-1.30); EOS # 0.1 10^3/uL (0.0-0.50); EOS % 2.2 % (0.0-3.0); GLOMERULAR FILTRATION RATE > 60.0 (>58); GLUCOSE, FASTING 80 MG/DL (70-100); HEMATOCRIT 35.8 % (36.0-47.0); HEMOGLOBIN 11.4 g/dl (12.0-15.5); IMMATURE GRANULOCYTE % 0.4 % (0-3.0); LYMPH # 1.7 10^3/uL (1.5-4.5); LYMPH % 31.1 % (24.0-44.0); MEAN CORPUSCULAR HEMOGLOBIN 28.8 pg (27.0-33.0); MEAN CORPUSCULAR HGB CONC 31.8 g/dl (32.0-36.5); MEAN CORPUSCULAR VOLUME 90.4 fl (80.0-96.0); MONO # 0.6 10^3/uL (0.0-0.8); MONO % 10.5 % (0.0-5.0); NEUTROPHILS # 3.1 10^3/uL (1.8-7.7); NEUTROPHILS % 55.3 % (36.0-66.0); PLATELET COUNT, AUTOMATED 252 10^3/uL (150-450); POTASSIUM SERUM 3.5 MEQ/L (3.5-5.1); RED BLOOD COUNT 3.96 10^6/uL (4.00-5.40); RED CELL DISTRIBUTION WIDTH 15.1 % (11.5-14.5); SODIUM LEVEL 140 MEQ/L (136-145); TOTAL PROTEIN 6.9 GM/DL (6.4-8.2); WHITE BLOOD COUNT 5.5 10^3/uL (4.0-10.0)
[2018-03-14 00:11] LABS: ZONISAMIDE LEVEL 7.5 ug/mL (10.0-40.0)
[2018-03-14 00:11] LABS: PREGABALIN LEVEL <0.5 ug/mL (.)
== END ==
LOC: M LABNEURO 11:52
DX: G43.909 Migraine, unspecified, not intractable, without status migrainosus (principal); G40.909 Epilepsy, unspecified, not intractable, without status epilepticus
CPT/HCPCS: 80053

== ENCOUNTER → 2018-04-09 | Outpatient (CLI) | payer MEDICARE, MEDICAID ==
[~2018-04-09] MED LIST changes: +AMLO10TA4 PO; +ASPI325T PO; +ATEN25TA PO; +ATOR1TAB21 PO; -BUPIVACAINE HCL 0.25% 30 ML VIAL As Ordered; +BUPR1TAB53 PO; +BUPR75TA5 PO; +BUTA50TA PO; +CETI10TA PO; +CLAR1TAB2 PO; +CLOP75TA2 PO; +COLA100C5 PO; +CYCL5TA PO; +DEBR6.5S4 AS; +E-Z-GAS II EFFERVESCENT PACKET (SODIUM BICARB./CITRIC ACID/SIMETHICONE) As Ordered ONE; +E-Z-HD 98% w/w 340GM SUSP BTL As Ordered ONE; +E-Z-PAQUE 96% w/w SUSP 176GM BTL As Ordered ONE; +FLUC10TA PO; +FOLI400T PO; -ISOVUE-M 300 61% 15ML VIAL (Q9967) As Ordered; +KETO10TAB PO; +LEVO100T5 PO; +LEVO137T2 PO; -LIDOCAINE 1% SDV INJ 30 ML VIAL As Ordered; +MELO7.5S PO; +MELO7.5T7 PO; +METH1TAB40 PO; +NEXI20CA PO; +PERCOCET PO; +PRED10TA2 PO; +PRED20TA PO; +PREG100CA PO; +RISP0.5T3 PO; +ROBA500T PO; +ROPI0.5T PO; +TRAZ-163 PO; -TRIAMCINOLONE ACETONIDE SUSP 40 MG/ML VIAL (J3301) As Ordered; +ULTR50TA8 PO; +VITA100072 PO; +VITA100T20 PO; +VITA50005 PO; +XANA0.25 PO; +ZANA2CAP PO; +ZITHTAB PO; +ZONI100C2 PO; -diazePAM 5 MG TAB As Ordered; -oxyCODONE 5MG TAB As Ordered
--- NOTE | 2018-04-09 17:00 | REP ---
Upper GI air contrast The procedure was performed under the direct supervision of Dr. Wilhelm. The images were reviewed with Dr. Wilhelm The varnish supervisor film shows no organomegaly or pathological masses. The intestinal gas pattern is non-specific. Liquid barium and gas producing crystals were given in the erect position as well as liquid barium in the prone oblique position in order to perform a double contrast upper GI examination. The oral and pharyngeal stages of deglutition are unremarkable. Esophageal transport is prompt and efficient and there is no esophagitis, stricture or mucosal ring. There is a hiatal hernia. There is gastroesophageal reflux demonstrated to the level of the thoracic inlet. Note is made of cervical fixation hardware. The stomach abbott are normally outlined . The rugal folds are smooth and regular. There is no gastritis neoplasm or ulcer disease. The duodenal abbott are normally outlined . The mucosal folds are smooth and regular. There is no duodenitis pancreatitis peptic ulcer disease or neoplasm. The visualized portion of the proximal small bowel appears normal in course and caliber. Impression: There is a hiatal hernia present. There is gastroesophageal reflux demonstrated to the level of the thoracic inlet. Otherwise, unremarkable double contrast upper GI examination. 1.6 minutes of fluoro time was utilized for this procedure. Reviewed by JOHN Johnson 04/09/2018 04:04 P Electronically Signed by Wm Wilhelm MD 04/09/2018 04:50 P
== END ==
LOC: M RAD 09:01
PROVIDERS: ATTEND Internal Medicine Gastroenterology
DX: K44.9 Diaphragmatic hernia without obstruction or gangrene (principal); K21.9 Gastro-esophageal reflux disease without esophagitis; R12 Heartburn; R05 Cough; M25.751 Osteophyte, right hip; M25.752 Osteophyte, left hip; M15.0 Primary generalized (osteo)arthritis

== ENCOUNTER → 2018-04-09 | Outpatient (CLI) | payer MEDICARE, MEDICAID ==
[~2018-04-09] MED LIST changes: -E-Z-GAS II EFFERVESCENT PACKET (SODIUM BICARB./CITRIC ACID/SIMETHICONE) As Ordered ONE; -E-Z-HD 98% w/w 340GM SUSP BTL As Ordered ONE; -E-Z-PAQUE 96% w/w SUSP 176GM BTL As Ordered ONE
--- NOTE | 2018-04-09 13:05 | REP ---
AP KNEES, ONE VIEW: HISTORY: Primary osteoarthritis. There is no acute fracture or dislocation. There is moderate narrowing of the medial knee joint spaces and mild narrowing of the lateral knee joint spaces. IMPRESSION: Degenerative change as described above. Electronically Signed by Spencer Stock MD 04/09/2018 01:12 P
--- NOTE | 2018-04-09 13:07 | REP ---
BILATERAL HANDS EIGHT VIEWS: HISTORY: Primary osteoarthritis. RIGHT HAND: There is no acute fracture or dislocation. The joint spaces are normal in appearance. IMPRESSION:There is no acute fracture or dislocation. LEFT HAND: There is no acute fracture or dislocation. The joint spaces are normal in appearance. IMPRESSION:There is no acute fracture or dislocation. Electronically Signed by Spencer Stock MD 04/09/2018 01:12 P
--- NOTE | 2018-04-09 13:08 | REP ---
Bilateral hip series: Four views: History: Primary osteoarthritis. Findings: Femoral heads are smooth and rounded bilaterally. Hip joint spaces are preserved. There is mild superior acetabular spurring noted bilaterally consistent with early osteoarthritis. Periarticular soft tissues are unremarkable. Barium is seen in small intestinal bowel loops from today's upper GI series. Impression: Minimal bilateral acetabular spurring superiorly. Otherwise negative. Electronically Signed by Wm Wilhelm MD 04/09/2018 05:05 P
== END ==
LOC: M RAD 10:47
PROVIDERS: ATTEND Internal Medicine Rheumatology
DX: M25.751 Osteophyte, right hip (principal); M25.752 Osteophyte, left hip; M15.0 Primary generalized (osteo)arthritis

== ENCOUNTER → 2018-05-05 | Outpatient (REF) | payer MEDICARE, MEDICAID ==
[~2018-05-05] MED LIST changes: -AMLO10TA4 PO; +AMLO10TA5 PO
[2018-05-05 19:11] LABS: APPEARANCE, URINE HAZY (CLEAR); BACTERIA, URINE AUTO NEGATIVE (NEGATIVE); BILIRUBIN, URINE AUTO NEGATIVE (NEGATIVE); BLOOD, URINE BLOOD 1+ (NEGATIVE); CALCIUM OXALATE CRYSTALS LARGE; COLOR, URINE YELLOW (YELLOW); GLUCOSE, URINE (UA) AUTO NEGATIVE (NEGATIVE); KETONE, URINE AUTO NEGATIVE (NEGATIVE); LEUKOCYTE ESTERASE, URINE AUTO NEGATIVE (NEGATIVE); MUCUS, URINE SMALL (NEGATIVE); NITRITE, URINE AUTO NEGATIVE (NEGATIVE); PROTEIN, URINE AUTO NEGATIVE (NEGATIVE); RBC, URINE AUTO 4 /HPF (0-3); SPECIFIC GRAVITY URINE AUTO 1.019 (1.002-1.035); SQUAMOUS EPITHELIAL CELL UR AU 1 /HPF (0-6); UROBILINOGEN, URINE AUTO 0.2 mg/dL (0.0-2.0); WBC, URINE AUTO 1 /HPF (0-3)
== END ==
LOC: M SMT 17:21
PROVIDERS: ATTEND Nurse Practitioner Family
DX: R31.29 Other microscopic hematuria (principal)
CPT/HCPCS: 51798; 81001; 87086; 88108; G0463

== ENCOUNTER → 2018-06-04 | Outpatient (CLI) | payer MEDICARE, MEDICAID ==
[~2018-06-04] MED LIST changes: +ISOVUE-370 76% 100ML VIAL (Q9967) As Ordered ONE
--- NOTE | 2018-06-04 13:50 | REP ---
Nickel: Microscopic hematuria. Technique: Pre post contrast CT examination using CT urogram technique including precontrast, contrast enhanced, and delayed images of the abdomen and pelvis with coronal and sagittal re-formations. 100 ml Isovue 370 intravenous contrast material administered without complication. Findings: Evaluation of the urinary tract system demonstrates normal appearance to the bilateral kidneys and ureters and bladder. No evidence for nephroureterolithiasis, renal cystic or mass lesion. No hydronephrosis or perinephric stranding. Liver, spleen, pancreas, gallbladder, and bilateral adrenal glands are normal. The enteric system is without obstruction or acute inflammatory process. Normal terminal ileum and appendix identified in the right lower quadrant. Pelvis demonstrates collapsed normal bladder and evidence of prior hysterectomy. No ascites. No free air. No adenopathy. Abdominal aorta without aneurysm or dissection. Surrounding musculoskeletal structures are intact. Lung bases are clear. Impression: 1. Normal appearance to the urinary tract system. 2. No acute abdominopelvic pathology appreciated. Electronically Signed by Sekou Robert MD 06/04/2018 01:42 P
== END ==
LOC: M RAD 12:38
PROVIDERS: ATTEND Nurse Practitioner Family
DX: R31.1 Benign essential microscopic hematuria (principal)
CPT/HCPCS: 74178; Q9967

== ENCOUNTER → 2018-06-29 | Outpatient (CLI) | payer MEDICARE, MEDICAID ==
[~2018-06-29] MED LIST changes: -ISOVUE-370 76% 100ML VIAL (Q9967) As Ordered ONE
--- NOTE | 2018-06-29 15:13 | REP ---
Clinical: Back pain. Comparison: 12/23/2017 . Technique: PA and lateral. Findings: The mediastinum and cardiac silhouette are normal. The lung bowie are clear and without acute consolidation, effusion, or pneumothorax. The skeletal structures are intact and normal. Impression: 1. No acute cardiopulmonary process. Electronically Signed by Sekou Robert MD 06/29/2018 03:05 P
--- NOTE | 2018-06-29 15:17 | REP ---
Clinical: Back pain. Disc like symptoms. Technique: AP and lateral views of the thoracic spine. Findings: Alignment is maintained. Moderate multilevel degenerative changes include endplate sclerosis with minimal disc space narrowing and marginal spurring/osteophyte formation. There is no evidence for acute fracture / compression injury or subluxation. Impression: Moderate multilevel degenerative spondylosis. Electronically Signed by Sekou Robert MD 06/29/2018 03:08 P
--- NOTE | 2018-06-29 15:18 | REP ---
Clinical: Back pain with disc like symptoms. Technique: AP and lateral views of the lumbosacral spine. Findings: Alignment and lordosis maintained. No evidence for acute fracture / dislocation. Advanced degenerative disc osteophyte complex and L5-S1 and T12-L1 as well as L1-L2 with endplate sclerosis, marginal osteophytosis, and disc space narrowing. Remainder examination is relatively normal for age. Impression: Advanced degenerative changes at the L5-L1, T12-L1, and L1-L2. Electronically Signed by Sekou Robert MD 06/29/2018 03:10 P
--- NOTE | 2018-06-29 15:29 | REP ---
CERVICAL SPINE, TWO VIEWS: HISTORY: Disc symptoms. COMPARISON: CT 06/25/2013. The patient is status post C4 to C6 anterior and C3 to C7 posterior spinal fusion. Metal hardware and bone graft material are present. There is no acute fracture or subluxation. The C3-4, C6-7, and C7-T1 intervertebral discs are decreased in height consistent with disc degeneration. Osteophytes are present on C6 and C7. There is loss of the normal lordotic curve. IMPRESSION: The patient is status post C4 to C6 anterior and C3 to C7 posterior spinal fusion. There is anatomic alignment. Electronically Signed by Spencer Stock MD 06/29/2018 03:46 P
== END ==
LOC: M RAD 14:26
PROVIDERS: ATTEND Chiropractor
DX: M25.78 Osteophyte, vertebrae (principal); Z98.1 Arthrodesis status; M47.817 Spondylosis without myelopathy or radiculopathy, lumbosacral region; M47.815 Spondylosis without myelopathy or radiculopathy, thoracolumbar region; M54.41 Lumbago with sciatica, right side; M99.01 Segmental and somatic dysfunction of cervical region; M54.13 Radiculopathy, cervicothoracic region

== ENCOUNTER → 2018-08-03 | Outpatient (CLI) | payer MEDICARE, MEDICAID ==
[~2018-08-03] MED LIST changes: +ASPI-1 PO; -ASPI325T PO; -CYCL5TA PO; +CYCL5TAB5 PO; +VITA100018 PO; -VITA100072 PO; -VITA100T20 PO; +VITA100T51 PO
--- NOTE | 2018-08-04 07:34 | REP ---
REASON: Knee pain. COMPARISON: None. There is tricompartmental marginal osteophytosis with medial compartmental and patellofemoral joint space narrowing. There is no acute fracture. IMPRESSION: Chronic changes as described above. Electronically Signed by Boris Kellogg DO 08/04/2018 04:33 P
== END ==
LOC: M WUC 19:25
PROVIDERS: ATTEND Physician Assistant
DX: M25.761 Osteophyte, right knee (principal)

== ENCOUNTER → 2018-10-16 | Outpatient (CLI) | payer MEDICARE, MEDICAID ==
--- NOTE | 2018-10-16 12:21 | REP ---
LEFT ANKLE SERIES: Two views. HISTORY: Plantar fascia fibromatosis. Comparison left ankle radiographs are from March 02, 2011. FINDINGS: AP and lateral views of the left ankle demonstrate minimal plantar calcaneal spurring. No soft tissue abnormality is appreciated. Ankle mortise is intact. No other bony finding. IMPRESSION: Minimal plantar calcaneal spurring. No erosive change. Otherwise negative. Electronically Signed by Wm Wilhelm MD 10/16/2018 12:41 P
--- NOTE | 2018-10-16 12:23 | REP ---
Left os calcis: Two views. History: Plantar fascial fibromatosis. Findings: Axial and lateral views of the left calcaneus compared with left foot radiographs from August 27, 2016. No erosive change is appreciated. The soft tissues about the calcaneus are unremarkable. Impression: Negative radiographs of the left os calcis. Electronically Signed by Wm Wilhelm MD 10/16/2018 12:42 P
[2018-10-16 14:22] LABS: FREE T4 0.51 NG/DL (0.76-1.46)
== END ==
LOC: M SMT 09:42
PROVIDERS: ATTEND Physician Assistant Medical
DX: M77.32 Calcaneal spur, left foot (principal); M72.2 Plantar fascial fibromatosis; E03.9 Hypothyroidism, unspecified
CPT/HCPCS: 36415; 73600; 73650; 84439; 84443; G0463

== ENCOUNTER → 2018-11-24 | Outpatient (CLI) | payer MEDICARE, MEDICAID ==
--- NOTE | 2018-11-24 19:53 | REP ---
LEFT HAND, FOUR VIEWS: There is no evidence of an acute fracture, dislocation or intrinsic bone disease. IMPRESSION: No fracture or dislocation. Electronically Signed by Gino Szymanski MD 11/25/2018 02:34 P
== END ==
LOC: M WUC 16:57
PROVIDERS: ATTEND Physician Assistant
DX: M79.642 Pain in left hand (principal)

== ENCOUNTER → 2019-03-10 | Outpatient (REF) | payer MEDICARE, MEDICAID ==
[~2019-03-10] MED LIST changes: +LEVO112T2 PO; +MONT10TA2 PO
== END ==
LOC: M LAB REF 16:55
PROVIDERS: ATTEND Physician Assistant Medical
DX: N39.0 Urinary tract infection, site not specified (principal)

== ENCOUNTER → 2019-03-26 | Outpatient (REF) | payer MEDICARE, MEDICAID ==
[2019-03-26 18:24] LABS: APPEARANCE, URINE CLEAR (CLEAR); BACTERIA, URINE AUTO NEGATIVE (NEGATIVE); BILIRUBIN, URINE AUTO NEGATIVE (NEGATIVE); BLOOD, URINE BLOOD NEGATIVE (NEGATIVE); COLOR, URINE YELLOW (YELLOW); GLUCOSE, URINE (UA) AUTO NEGATIVE (NEGATIVE); KETONE, URINE AUTO NEGATIVE (NEGATIVE); LEUKOCYTE ESTERASE, URINE AUTO NEGATIVE (NEGATIVE); MUCUS, URINE SMALL (NEGATIVE); NITRITE, URINE AUTO NEGATIVE (NEGATIVE); PROTEIN, URINE AUTO NEGATIVE (NEGATIVE); RBC, URINE AUTO 3 /HPF (0-3); SPECIFIC GRAVITY URINE AUTO 1.016 (1.002-1.035); SQUAMOUS EPITHELIAL CELL UR AU 3 /HPF (0-6); UROBILINOGEN, URINE AUTO 0.2 mg/dL (0.0-2.0); WBC, URINE AUTO 0 /HPF (0-3)
== END ==
LOC: M SMT 16:55
PROVIDERS: ATTEND Nurse Practitioner Family
DX: R10.9 Unspecified abdominal pain (principal)
CPT/HCPCS: 81001; 87086; G0463

== ENCOUNTER → 2019-04-13 | Outpatient (CLI) | payer MEDICARE, MEDICAID ==
--- NOTE | 2019-04-13 13:17 | REP ---
URINARY BLADDER ULTRASOUND: Real-time sonographic evaluation of the urinary bladder performed. Bladder measures 7.1 x 8.2 x 5.5 cm for a total volume of 209 mL. After voiding the postvoid residual is 23 mL which is 11% of the original volume. No bladder mass or calculus is seen. There are bilateral ureteral jets in the urinary bladder with Doppler color evaluation. IMPRESSION: Essentially unremarkable bladder ultrasound with mild postvoid residual of 11%. Electronically Signed by Gino Szymanski MD 04/14/2019 09:50 A
--- NOTE | 2019-04-13 13:33 | REP ---
RENAL ULTRASOUND: Real-time sonographic evaluation of the kidneys performed. Kidneys are normal in size and echotexture, right kidney measuring 10.2 x 4.3 x 4.1 cm and left kidney 11.3 x 4.6 x 5.0 cm. There is no hydronephrosis, renal mass, or nephrolithiasis bilaterally. IMPRESSION: Negative renal ultrasound. Electronically Signed by Gino Szymanski MD 04/14/2019 09:52 A
== END ==
LOC: M RAD 12:06
PROVIDERS: ATTEND Nurse Practitioner Family
DX: R10.9 Unspecified abdominal pain (principal)

== ENCOUNTER → 2019-11-04 | Outpatient (REF) | payer MEDICARE, MEDICAID ==
[~2019-11-04] MED LIST changes: -AMLO10TA5 PO; +AMLO1TAB25 PO; -MONT10TA2 PO; +MONT10TA4 PO; -ROPI0.5T PO; +ROPI0.5T3 PO; -TRAZ-163 PO; +TRAZ-257 PO; +ZONI100C17 PO; -ZONI100C2 PO
[2019-12-08 12:46] LABS: ALBUMIN 4.2 GM/DL (3.2-5.2); ALT/SGPT 18 U/L (12-78); BILIRUBIN,TOTAL 0.3 MG/DL (0.2-1.0); BLOOD UREA NITROGEN 11 MG/DL (7-18); CALCIUM LEVEL 8.8 MG/DL (8.5-10.1); CARBON DIOXIDE LEVEL 28 MEQ/L (21-32); CHLORIDE LEVEL 105 MEQ/L (98-107); CHOLESTEROL LEVEL 232 MG/DL (<200); CHOLESTEROL RISK RATIO 3.803 (<5); CREATININE FOR GFR 0.86 MG/DL (0.55-1.30); FREE T4 0.64 NG/DL (0.76-1.46); GLOMERULAR FILTRATION RATE > 60.0 (>51); GLUCOSE, FASTING 92 MG/DL (70-100); HDL CHOLESTEROL 61 MG/DL (>40); LDL CHOLESTEROL 144 MG/DL (<100); NON-HDL-C 171 MG/DL; POTASSIUM SERUM 3.9 MEQ/L (3.5-5.1); SODIUM LEVEL 140 MEQ/L (136-145); TOTAL PROTEIN 7.7 GM/DL (6.4-8.2); TRIGLYCERIDES LEVEL 135 MG/DL (<150)
== END ==
LOC: M SMT 16:52
PROVIDERS: ATTEND Physician Assistant Medical
DX: E78.2 Mixed hyperlipidemia (principal); E03.9 Hypothyroidism, unspecified

== ENCOUNTER 2020-03-24 13:53 | Outpatient (RCR) | payer MEDICAID, MEDICARE ==
[~2020-03-24 13:53] MED LIST changes: -MONT10TA4 PO; +MONT5TAB2 PO; +RISP-7 PO; -RISP0.5T3 PO
== END 2020-04-06 ==
LOC: M PT 13:53
PROVIDERS: ATTEND Nurse Practitioner Family
DX: Z51.89 Encounter for other specified aftercare (principal); M79.18 Myalgia, other site

== ENCOUNTER → 2020-04-26 | Outpatient (REF) | payer MEDICARE, MEDICAID ==
[~2020-04-26] MED LIST changes: +ADVA230A INH; +AMMO12CR7 TOP; +ASPI325T45 PO; +ATEN50TA2 PO; +AZEL0.05 OU; +AZIT-10 PO; +BUPR150T4 PO; +CLOB-24 TOP; +DEXI60CA2 PO; +DICL1GEL3 TOP; +FLUC150T PO; +FLUT05CR TOP; +FLUT15.820; +HYDR1CRE9 EXT; +HYDR50TA30 PO; +IPRA0.00 INH; +METH-1164 PO; -METH1TAB40 PO; +MONT10TA10 PO; -MONT5TAB2 PO; +NYST50SS SS; +OXYB10TA23 PO; +PANT40TA29 PO; +PREG50CA PO; +PROAAER10 INH; +TIZA4TAB4 PO; +TRAZ-189 PO
[2020-04-26 17:58] LABS: APPEARANCE, URINE CLEAR (CLEAR); BACTERIA, URINE AUTO NEGATIVE (NEGATIVE); BILIRUBIN, URINE AUTO NEGATIVE (NEGATIVE); BLOOD, URINE BLOOD NEGATIVE (NEGATIVE); COLOR, URINE YELLOW (YELLOW); GLUCOSE, URINE (UA) AUTO NEGATIVE (NEGATIVE); KETONE, URINE AUTO NEGATIVE (NEGATIVE); LEUKOCYTE ESTERASE, URINE AUTO TRACE (NEGATIVE); MUCUS, URINE SMALL (NEGATIVE); NITRITE, URINE AUTO NEGATIVE (NEGATIVE); PROTEIN, URINE AUTO 1+ mg/dL (NEGATIVE); RBC, URINE AUTO 1 /HPF (0-3); SQUAMOUS EPITHELIAL CELL UR AU 0 /HPF (0-6); UROBILINOGEN, URINE AUTO 0.2 mg/dL (0.0-2.0); WBC, URINE AUTO 3 /HPF (0-3)
== END ==
LOC: M SMT 17:02
PROVIDERS: ATTEND Nurse Practitioner Family
DX: R31.29 Other microscopic hematuria (principal)

== ENCOUNTER → 2020-04-26 | Outpatient (CLI) | payer MEDICARE, OTHER ==
[~2020-04-26] MED LIST changes: -METH-1164 PO; +METH1TAB40 PO; -MONT10TA10 PO; +MONT5TAB2 PO
== END ==
LOC: M LABSMTC 13:37
PROVIDERS: ATTEND Anesthesiology
DX: Z01.812 Encounter for preprocedural laboratory examination (principal); Z11.52 Encounter for screening for COVID-19; R31.29 Other microscopic hematuria
CPT/HCPCS: 81001; 87086; U0003

== ENCOUNTER → 2020-05-01 | Outpatient (CLI) | payer OTHER, MEDICAID ==
[~2020-05-01] MED LIST changes: +BUPIVACAINE HCL 0.25% 10ML VIAL As Ordered ONE; +BUPIVACAINE HCL 0.25% 30ML VIAL As Ordered ONE; +METH-1164 PO; -METH1TAB40 PO; +MONT10TA10 PO; -MONT5TAB2 PO; +diazePAM 5MG TABLET As Ordered ONE; +oxyCODONE 5MG TAB As Ordered ONE
--- NOTE | 2020-05-03 01:53 | ECWPNPC ---
PATIENT NAME: JESSICA SPARKS : 1970 GENDER: FEMALE VISIT DATE: 05/01/2020 DISCHARGE DATE: 05/01/20 1539 VISIT LOCKED DATE TIME: PHYSICIAN: CANDELARIO MORTENSEN MD RESOURCE: CANDELARIO MORTENSEN MD REASON FOR APPOINTMENT 1. TRIGGER POINT INJECTIONS BILATERAL LOW BACK HISTORY OF PRESENT ILLNESS GENERAL: -. FALL RISK SCREENING: SCREENING :NO FALLS REPORTED IN THE LAST YEAR PAIN SCREENING: PATIENT HAS A COMPLAINT OF ACUTE OR CHRONIC PAIN :YES LOCATION OF PAIN:LOW BACK, RIGHT HIP, THIGH(S) RIGHT LOW BACK THRU RIGHT BUTTOCK/HIP DOWN TO MID POSTERIOR RIGHT THIGH 10/10 LEFT LOW BACK RATED 5/10 INTENSITY OF PAIN (SCALE OF 1 TO 10):10 WHAT DOES YOUR PAIN FEEL LIKE:ACHING, BURNING, CONTINOUS, SHARP, STABBING, TENDER, THROBBING, SORE, SHOOTING DURATION:CONTINOUS, CONSTANT PAIN IS INCREASED BY:ACTIVITIES PAIN IS DECREASED BY:USE OF PAIN MEDICATIONS, OTHERS REST WITH PILLOW SUPPORT NURSING NOTE: -. PAIN CENTER INTAKE QUESTIONS: DO YOU HAVE A HISTORY OF MRSA? :YES WOUND DO YOU TAKE A BLOOD THINNERS? :YES ON PLAVIX. LAST DOSE 04/24 DO YOU HAVE ANY BLEEDING DISORDERS? :YES HX OF TRANSFUSION POSTOP ANY NEW NUMBNESS OR WEAKNESS IN YOUR LEGS OR ARMS? :NO ANY PACEMAKER,DEFIBRILLATOR, OR DORSAL COLUMN STIMULATOR? :NO DO YOU HAVE ANY RASHES OR OPEN SORES? :NO ARE YOU ALLERGIC TO IV DYE? :NO ARE YOU DIABETIC? :NO ANY NEW PROBLEMS WITH YOUR MEDICATIONS? :NO HAVE YOU RECEIVED A VACCINE IN THE PAST 30 DAYS? :NO DO YOU PLAN TO RECEIVE A VACCINE IN THE NEXT 21 DAYS? :NO DO YOU TAKE ANY IMMUNOSUPPRESSIVE MEDICATIONS? :NO ANY HISTORY OF SEIZURES? :YES LAST SEIZURE 03/26 ANY HISTORY OF CARDIAC ISSUES OR EVENTS? :NO DO YOU HAVE SLEEP APNEA? :YES DO YOU WEAR A CPAP?YES ANY RECENT HEAD INJURY? :NO DO YOU HAVE ANY NEW INFECTIONS? :NO IS THERE A CHANCE YOU COULD BE ? :NO ARE YOU BREAST FEEDING? :NO WHEN DID YOU LAST EAT? : -04/30 2100 WHEN DID YOU LAST DRINK? : -05/01 1130 WHAT DID YOU LAST DRINK? : -KOOLAID NAME OF PERSON DRIVING YOU HOME? : -SON JETT DO YOU HAVE ANY OTHER QUESTIONS OR CONCERNS? : - CURRENT MEDICATIONS TAKING VOLTAREN 1 % GEL 2G MAX 8G IN 24 HOURS TRANSDERMAL THREE TIMES DAILY NEEDED TAKING TRAZODONE HCL 100 MG TABLET 1 TABLET AT BEDTIME ORAL BEFORE BEDTIME NEEDED, NOTES: 04/30 TAKING FLUTICASONE PROPIONATE 50 MCG/ACT SUSPENSION NASAL DAILY TAKING TIZANIDINE HCL 4 MG TABLET 1 TAB ORAL BEFORE BEDTIME, NOTES: 04/30 TAKING BUPROPION HCL ER (XL) 150 MG TABLET EXTENDED RELEASE 24 HOUR 1 TAB ORALLY ONCE A DAY TAKING CLOPIDOGREL BISULFATE 75 MG TABLET 1 TAB ORAL DAILY, NOTES: 04/24 TAKING ATORVASTATIN CALCIUM 20 MG TABLET 1 TAB ORAL DAILY TAKING ATENOLOL 25 MG TABLET 1 TABLET ORAL BEFORE BEDTIME TAKING PRIMIDONE 50 MG TABLET 1 TAB ORAL TWICE DAILY TAKING ZONISAMIDE 100 MG CAPSULE 1 CAP ORAL TWICE DAILY TAKING OXYCODONE-ACETAMINOPHEN 7.5-325 MG TABLET (SCHEDULE II DRUG) (PRIOR AUTH: RX REF#:[id number]) ORAL BEFORE BEDTIME, NOTES: 04/27 TAKING MONTELUKAST SODIUM 10 MG TABLET 1 TAB ORAL BEFORE BEDTIME TAKING ADVAIR HFA 230-21 MCG/ACT AEROSOL (PRIOR AUTH: RX REF#:[id number]) INHALATION BEFORE BEDTIME TAKING PROAIR HFA 108 (90 BASE) MCG/ACT AEROSOL SOLUTION (PRIOR AUTH: RX REF#:[id number]) INHALATION BEFORE BEDTIME TAKING AMLODIPINE BESYLATE 10 MG TABLET 1 TAB ORAL DAILY, NOTES: 04/30 TAKING LEVOTHYROXINE SODIUM 200 MCG TABLET 1 TAB ORALLY DAILY TAKING DEXILANT 60 MG CAPSULE DELAYED RELEASE 1 CAPSULE ORAL BEFORE BEDTIME TAKING ASPIRIN 325 MG TABLET 1 TABLET ORALLY ONCE A DAY TAKING CETIRIZINE HCL 10 MG TABLET 1 TABLET ORALLY ONCE A DAY TAKING VITAMIN D (ERGOCALCIFEROL) 08632 UNIT CAPSULE 1 CAPSULE ORALLY TAKING LYRICA 100 MG CAPSULE 1 CAPSULE ORALLY AT BEDTIME, NOTES: 04/30 TAKING OXYBUTYNIN CHLORIDE ER 10 MG TABLET EXTENDED RELEASE 24 HOUR 1 TABLET ORALLY ONCE A DAY NOT-TAKING ROPINIROLE HCL 0.5 MG TABLET 1 TABLET ORAL THREE TIMES DAILY NOT-TAKING SERTRALINE HCL 100 MG TABLET 1 TAB ORALLY DAILY NOT-TAKING OMEPRAZOLE 40 MG CAPSULE DELAYED RELEASE 1 CAPSULE ORALLY ONCE A DAY NOT-TAKING FOLIC ACID 400 MCG TABLET 1 TABLET ORALLY ONCE A DAY, NOTES: NOT LATELY MEDICATION LIST REVIEWED AND RECONCILED WITH THE PATIENT PAST MEDICAL HISTORY MEDICAL HISTORY VERIFIED. ALLERGIES PENICILLIN (FOR ALLERGIES USE ONLY): HIVES - ALLERGY RED DYE: HIVES, RASH AND ITCHING - ALLERGY LATEX (FOR ALLERGY USE ONLY): HIVES - ALLERGY FRUITS: HIVES - ALLERGY NUTS: ANAPHYLAXIS - ALLERGY SURGICAL HISTORY HYSTERECTOMY TONSILLECTOMY CERVICAL FUSION 2008 FAMILY HISTORY FATHER: DIAGNOSED WITH UNSPECIFIED HEART DISEASE, OTHER MALIGNANT NEOPLASM OF UNSPECIFIED SITE MOTHER: UNSPECIFIED HEART DISEASE SIBLINGS: UNSPECIFIED HEART DISEASE, OTHER MALIGNANT NEOPLASM OF UNSPECIFIED SITE FATHER-LUNG CASIBLINGS-BROTHER PROSTATE CA( 03/2017),SISTER-LUNG& BONE CA, KIDNEY FAILURE. HEART DISEASE, DIABETES ALSO MEDICAL HX OF SIBLINGSMATERNAL SIDE- RHEUMATOID ARTHRITIS. SOCIAL HISTORY GENERAL: TOBACCO USE ARE YOU A:NONSMOKER LATEX QUESTIONNAIRE LATEX ALLERGY : HAVE YOU EVER DEVELOPED ANY TYPE OF REACTION AFTER HANDLING LATEX PRODUCTS SUCH RUBBER GLOVES, CONDOMS, DIAPHRAGMS, BALLOONS, SOCKS, OR UNDERWEAR?YES - PLEASE INDICATE :RUBBER GLOVES LATEX ALLERGY : HAVE YOU EVER DEVELOPED ANY TYPE OF REACTION DURING OR AFTER DENTAL APPOINTMENT, VAGINAL/RECTAL EXAMINATION, SURGICAL PROCEDURE, OR ANY OTHER EXPOSURE?YES - PLEASE INDICATE :DENTAL PROCEDURE LATEX RISK : HAVE YOU EVER HAD ANY DIFFICULTY BREATHING OR HIVES AFTER EATING OR HANDLING ANY FRUITS, OR VEGETABLES; SUCH KIWI, BANANAS, STONE FRUITS, OR CHESTNUTSYES - PLEASE INDICATE : KIWI, BANANAS, STONE FRUITS, CHESTNUTS LATEX RISK : DO YOU HAVE A PREVIOUS PERSONAL HISTORY OF MORE THAN NINE SURGERIES, SPINA BIFIDA, OR REPEATED CATHERIZATIONS? NO LATEX RISK : ARE YOU FREQUENTLY EXPOSED TO LATEX PRODUCTS IN YOUR OCCUPATION?NO DATE ASKED : 04/26/2020 TESTED BY PILL PACKER. POSITIVE FOR LATEX ALLERGY RECREATIONAL DRUG USE DRUG USE?NO CAFFEINE CAFFEINE USE?NO SABIANIST SABIANIST NO HOAHAOISM BELIEFS THAT WOULD IMPACT HEALTH CARE. LANGUAGE LANGUAGES SPOKEN:KINYARWANDA LEARNING BARRIERS / SPECIAL NEEDS BARRIERS TO LEARNING?NO HEARING IMPAIRED?YES :HEARING AIDES BLATERAL VISION IMPAIRED?YES :CORRECTIVE LENSES SPECIAL DEVICES?YES :CANE - HAS THE PATIENT BEEN EDUCATED REGARDING HIS/HER PLAN OF CARE?YES HAS THE PATIENT BEEN EDUCATED REGARDING PAIN, THE RISK FOR PAIN, THE IMPORTANCE OF EFFECTIVE PAIN MANAGEMENT, AND THE PAIN ASSESSMENT PROCESS?YES 09/11/17 1445 REVIEWED WITH PT. AD11/18/17 1505 REVIEWED WITH PT. AD01/19/18 REVIEWED WITH PTLinnea VALLADARES WITH PATIENT 02/09/18 1157. HOSPITALIZATION/MAJOR DIAGNOSTIC PROCEDURE SURGICALY RELATED VITAL SIGNS WT 161.0 LBS, HT 61 IN, BMI 30.42 INDEX, BP 158/81 MM HG, HR 78 /MIN, RR 18 /MIN, TEMP 97.9 F, OXYGEN SAT % 98%, SAFE IN ENV? (Y/N) YES, NA INITIALS AW 1356, REVIEWED BY: MILES RN. EXAMINATION GENERAL EXAMINATION: THE PATIENT IS ALERT, ORIENTED TIMES THREE AND COOPERATIVE. LUNGS ARE CLEAR TO AUSCULTATION. HEART SHOWS REGULAR RHYTHM, NO MURMURS AND NO GALLOPS. ASSESSMENTS MYALGIA - M79.1 (PRIMARY) TREATMENT MYALGIA MEDICATION: VALIUM TAB 10MG ORALLY (DIAZEPAM)LORE MONTANO 05/01/2020 2:35:08 PM > LOT# [id number]. EXP DATE 01/2022. ELBA MOORE 05/01/2020 2:37:18 PM > VERIFIED. LORE MONTANO 05/01/2020 2:42:10 PM > ADMINISTERED MEDICATION: OXYCODONE HCL TAB 10MG ORALLYFURMJETT,LORE 05/01/2020 2:35:49 PM > LOT# [id number]. EXP DATE 05/2021. ELBA MOORE 05/01/2020 2:37:55 PM > VERIFIED. LORE MONTANO 05/01/2020 2:42:31 PM > ADMINISTERED COMPLETION OF PROCEDURAL VISIT WHEN MEETS CRITERIA OTHERS NOTES: 04/28/20 1450 ATTEMPTED TO REACH PATIENT FOR PAT, PATIENT REPORTS ON PHONE WITH INSURANCE COMPANY ASKING FOR PHONE CALL BACK IN A HALF AN HOUR. Xuan MOORE RN BSN. PROCEDURES PAIN NURSING RECORD PROCEDURE IN ROOM 1350, PHYSICIAN IN ROOM 1511, START 1515, FINISH 1517, PHYSICIAN OUT OF ROOM 1518, OUT OF ROOM 1535, ECG N/A, PATIENT SHIELDED N/A, SAFETY STRAP N/A, PREP ALCOHOL BY DR MORTENSEN, DRESSING TEGADERM BY Harvey MONTANO RN LOC: LORE MONTANO 05/01/2020 2:52:56 PM > , 1. ALERT, ORIENTED RESP: LORE MONTANO 05/01/2020 2:52:59 PM > , 1. REGULAR, NO DYSPNEA COLOR: LORE MONTANO 05/01/2020 2:53:03 PM > , 1. PINK SKIN: LORE MONTANO 05/01/2020 2:53:08 PM > , 1. WARM, DRY POSITION: LORE MONTANO 05/01/2020 2:53:14 PM > , 5. SITTING VITALS: LORE MONTANO 05/01/2020 3:25:32 PM > 173/88 HR 66 16 100% R/A D/C V/S COMPLETION OF PROCEDURE APPOINTMENT: POST PAIN 9, DRESSING SITE DRY AND INTACT, IV N/A, GAIT STEADY, TEACHING COMPLETED, PATIENT ACKNOWLEDGES UNDERSTANDING YES, PROCEDURE APPOINTMENT COMPLETED AT 1535 PN TRIGGER POINT INJECTION NO STEROIDS PRE PROCEDURE DIAGNOSIS 1. MYALGIA 2. PAIN AT BILATERAL LOWER BACK AREA POST PROCEDURE DIAGNOSIS 1. MYALGIA 2. PAIN AT BILATERAL LOWER BACK AREA PROCEDURE TRIGGER POINT INJECTION AT BILATERAL LOWER BACK AREA SURGEON DR. CANDELARIO MORTENSEN EDITOR PUBLICATIONS NONE ANESTHESIA LOCAL PRE PROCEDURE NOTE THE PATIENT WITH HISTORY OF CHRONIC PAIN AT RIGHT AND LEFT LOWER BACK AREA. I EVALUATED THE PATIENT AND REVIEWED THE CHART. THERE IS EVIDENCE OF BANDS OF TISSUE WITH RESTRICTION OF MOVEMENT AND PRESENCE OF TRIGGER POINT AT THE RIGHT AND LEFT LOWER BACK AREA. I WENT OVER THE RISKS, ALTERNATIVES, AND BENEFITS ASSOCIATED WITH THIS PROCEDURE. THE PATIENT WOULD LIKE TO PROCEED AND GAVE CONSENT TO PERFORM THE PROCEDURE. THE PATIENT DENIES UNEXPLAINABLE WEIGHT LOSS, FEVER, CHILLS, OR NEW CHANGES IN URINARY OR BOWEL CONTROL. THE PATIENT IS COVID-19 NEGATIVE DESCRIPTION OF PROCEDURE THE PATIENT WAS BROUGHT TO THE PROCEDURE ROOM AND PLACED IN THE SITTING POSITION. THE AREA WAS CLEANED WITH ALCOHOL. THE PROCEDURE WAS DONE USING ASEPTIC STERILE TECHNIQUES. I CHECKED LATERALITY AND THE LEVEL WHERE THE PROCEDURE WAS GOING TO BE PERFORMED WITH THE PATIENT AND THE SUPPORTING STAFF AT THE MOMENT OF THE TIME OUT IN THE PROCEDURE ROOM. USING A 25-GAUGE NEEDLE, TRIGGER POINTS WERE INJECTED INTO THE RIGHT AND LEFT LOWER BACK AREA WITH A TOTAL OF 40 ML OF BUPIVACAINE 0.25%. AGREED WITH THE PATIENT THE PROCEDURE WAS DONE WITHOUT STEROIDS. THERE WAS NO EVIDENCE OF BLOOD, PARESTHESIA OR CEREBROSPINAL FLUID DURING THE PROCEDURE. THE PATIENT WAS SENT TO THE RECOVERY ROOM. THE PATIENT WAS MOVING THE EXTREMITIES AND DOING WELL. THERE WAS NO COMPLICATION DURING THE PROCEDURE. EBL LESS THAN 5 ML. POST PROCEDURE NOTE THE PROCEDURE DONE WAS DISCUSSED WITH THE PATIENT. THE PATIENT WILL BE SEEN IN A FOLLOW UP IN THE NEXT FEW WEEKS. I AM LOOKING FOR LONG LASTING PAIN RELIEF FOR THE PATIENT WITH THIS INTERVENTION. INSTRUCTIONS WERE GIVEN, QUESTIONS WERE ANSWERED, AND THE PATIENT EXPRESSED UNDERSTANDING AND AGREES WITH THE PLAN. I, SHIMON SORIANO, DOCUMENTED THE ABOVE INFORMATION ACTING A SCRIBE FOR DR. MORTENSEN. I HAVE REVIEWED THE ABOVE DOCUMENT, WRITTEN BY SHIMON SORIANO, WELLNESS NURSE, AND I VERIFY THAT IT IS ACCURATE PROCEDURE CODES 16814 INJ TRIGGER POINT / MUSCL DISPOSITION & COMMUNICATION FOLLOW UP FOLLOW UP WITH HAT BODY SORTER (REASON: POST TRIGGER POINT INJECTIONS BILATERAL LOW BACK) ELECTRONICALLY SIGNED BY CANDELARIO MORTENSEN MD, MD ON 05/02/2020 AT 01:54 PM EST DISCLAIMER : THIS IS A VISIT SUMMARY EXTRACTED FROM THE [employer] CHART. IT IS NOT A COPY OF THE [employer] PROGRESS NOTE. ELBERT
== END ==
LOC: M PAIN 13:30
PROVIDERS: ATTEND Anesthesiology
DX: M79.18 Myalgia, other site (principal); Z79.82 Long term (current) use of aspirin; Z79.899 Other long term (current) drug therapy; Z79.891 Long term (current) use of opiate analgesic; Z79.02 Long term (current) use of antithrombotics/antiplatelets; Z88.0 Allergy status to penicillin; Z91.018 Allergy to other foods; Z91.040 Latex allergy status; Z91.048 Other nonmedicinal substance allergy status

== ENCOUNTER → 2020-05-15 | Outpatient (CLI) | payer MEDICARE ==
[~2020-05-15] MED LIST changes: -BUPIVACAINE HCL 0.25% 10ML VIAL As Ordered ONE; -BUPIVACAINE HCL 0.25% 30ML VIAL As Ordered ONE; -diazePAM 5MG TABLET As Ordered ONE; -oxyCODONE 5MG TAB As Ordered ONE
--- NOTE | 2020-05-15 15:53 | REP ---
INDICATION: MODERATE PERSISTENT ASTHMA, UNCOMPLICATED COMPARISON: 03/31/2020 TECHNIQUE: PA and lateral. FINDINGS: The mediastinum and cardiac silhouette are normal. The lung bowie are clear and without acute consolidation, effusion, or pneumothorax. The skeletal structures are intact and normal. IMPRESSION: No acute cardiopulmonary process. <Electronically signed by Sekou Robert > 05/15/20 [id number]
== END ==
LOC: M RAD 15:14
PROVIDERS: ATTEND Nurse Practitioner Adult Health
DX: J45.40 Moderate persistent asthma, uncomplicated (principal)

== ENCOUNTER → 2020-05-15 | Outpatient (CLI) | payer MEDICARE, OTHER ==
--- NOTE | 2020-05-19 05:45 | ECWPNPC ---
PATIENT NAME: JESSICA SPARKS : 1970 GENDER: FEMALE VISIT DATE: 05/15/2020 DISCHARGE DATE: 05/15/20 1450 VISIT LOCKED DATE TIME: PHYSICIAN: QUINCY GONZALEZ RESOURCE: QUINCY GONZALEZ REASON FOR APPOINTMENT 1. POST TRIGGER POINT INJECTION BILATERAL NECK/MED HOLD HISTORY OF PRESENT ILLNESS GENERAL: HERE FOR POST PROCEDURE FOLLOW-UP. HAD TRIGGER POINT INJECTIONS BILATERAL LOW BACK ON 05/01/2020. REPORTING MARKED REDUCTION IN LOW BACK PAIN. STATES PAIN IS NOT INTENSE. CONTINUES TO HAVE SIGNIFICANT LOW BACK PAIN. MRI OF THE LUMBAR SPINE THAT I ORDERED AND WAS DONE ON 04/26/2020 IS REVIEWED WITH PATIENT. 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 DISCUSSED TREATMENT OPTIONS. PATIENT IS ON PLAVIX 75 MG DAILY. [facility] [place] IS PRIMARY CARE PROVIDER. WE WILL HAVE TO SEND A MED HOLD REQUEST.-. FALL RISK SCREENING: SCREENING :NO FALLS REPORTED IN THE LAST YEAR PAIN SCREENING: PATIENT HAS A COMPLAINT OF ACUTE OR CHRONIC PAIN :YES LOCATION OF PAIN:LOW BACK INTENSITY OF PAIN (SCALE OF 1 TO 10):4 WHAT DOES YOUR PAIN FEEL LIKE:TENDER, SHOOTING DURATION:INTERMITTENT PAIN IS INCREASED BY:ACTIVITIES PAIN IS DECREASED BY:USE OF PAIN MEDICATIONS NURSING NOTE: -. PAIN CENTER INTAKE QUESTIONS: DO YOU HAVE A HISTORY OF MRSA? :NO DO YOU TAKE A BLOOD THINNERS? :YES PLAVIX DO YOU HAVE ANY BLEEDING DISORDERS? :NO ANY NEW NUMBNESS OR WEAKNESS IN YOUR LEGS OR ARMS? :NO ANY PACEMAKER,DEFIBRILLATOR, OR DORSAL COLUMN STIMULATOR? :NO DO YOU HAVE ANY RASHES OR OPEN SORES? :NO ARE YOU ALLERGIC TO IV DYE? :NO ARE YOU DIABETIC? :NO ANY NEW PROBLEMS WITH YOUR MEDICATIONS? :NO HAVE YOU RECEIVED A VACCINE IN THE PAST 30 DAYS? :NO DO YOU PLAN TO RECEIVE A VACCINE IN THE NEXT 21 DAYS? :NO DO YOU NEED ANY PRESCRIPTION? :NO DO YOU TAKE ANY IMMUNOSUPPRESSIVE MEDICATIONS? :NO IS THERE A CHANCE YOU COULD BE ? :NO ARE YOU BREAST FEEDING? :NO CURRENT MEDICATIONS TAKING VOLTAREN 1 % GEL 2G MAX 8G IN 24 HOURS TRANSDERMAL THREE TIMES DAILY NEEDED TAKING TRAZODONE HCL 100 MG TABLET 1 TABLET AT BEDTIME ORAL BEFORE BEDTIME NEEDED, NOTES: 04/30 TAKING FLUTICASONE PROPIONATE 50 MCG/ACT SUSPENSION NASAL DAILY TAKING TIZANIDINE HCL 4 MG TABLET 1 TAB ORAL BEFORE BEDTIME TAKING BUPROPION HCL ER (XL) 150 MG TABLET EXTENDED RELEASE 24 HOUR 1 TAB ORALLY ONCE A DAY TAKING CLOPIDOGREL BISULFATE 75 MG TABLET 1 TAB ORAL DAILY TAKING ATORVASTATIN CALCIUM 20 MG TABLET 1 TAB ORAL DAILY TAKING ATENOLOL 25 MG TABLET 1 TABLET ORAL BEFORE BEDTIME TAKING PRIMIDONE 50 MG TABLET 1 TAB ORAL TWICE DAILY TAKING ZONISAMIDE 100 MG CAPSULE 1 CAP ORAL TWICE DAILY TAKING MONTELUKAST SODIUM 10 MG TABLET 1 TAB ORAL BEFORE BEDTIME TAKING ADVAIR HFA 230-21 MCG/ACT AEROSOL (PRIOR AUTH: RX REF#:[id number]) INHALATION BEFORE BEDTIME TAKING PROAIR HFA 108 (90 BASE) MCG/ACT AEROSOL SOLUTION (PRIOR AUTH: RX REF#:[id number]) INHALATION BEFORE BEDTIME TAKING AMLODIPINE BESYLATE 10 MG TABLET 1 TAB ORAL DAILY TAKING LEVOTHYROXINE SODIUM 200 MCG TABLET 1 TAB ORALLY DAILY TAKING DEXILANT 60 MG CAPSULE DELAYED RELEASE 1 CAPSULE ORAL BEFORE BEDTIME TAKING ASPIRIN 325 MG TABLET 1 TABLET ORALLY ONCE A DAY TAKING CETIRIZINE HCL 10 MG TABLET 1 TABLET ORALLY ONCE A DAY TAKING VITAMIN D (ERGOCALCIFEROL) 56253 UNIT CAPSULE 1 CAPSULE ORALLY TAKING LYRICA 100 MG CAPSULE 1 CAPSULE ORALLY AT BEDTIME TAKING OXYBUTYNIN CHLORIDE ER 10 MG TABLET EXTENDED RELEASE 24 HOUR 1 TABLET ORALLY ONCE A DAY TAKING OXYCODONE-ACETAMINOPHEN 7.5-325 MG TABLET (SCHEDULE II DRUG) (PRIOR AUTH: RX REF#:[id number]) ORAL BEFORE BEDTIME NOT-TAKING ROPINIROLE HCL 0.5 MG TABLET 1 TABLET ORAL THREE TIMES DAILY NOT-TAKING SERTRALINE HCL 100 MG TABLET 1 TAB ORALLY DAILY NOT-TAKING OMEPRAZOLE 40 MG CAPSULE DELAYED RELEASE 1 CAPSULE ORALLY ONCE A DAY NOT-TAKING FOLIC ACID 400 MCG TABLET 1 TABLET ORALLY ONCE A DAY, NOTES: NOT LATELY MEDICATION LIST REVIEWED AND RECONCILED WITH THE PATIENT PAST MEDICAL HISTORY MEDICAL HISTORY VERIFIED. ALLERGIES PENICILLIN (FOR ALLERGIES USE ONLY): HIVES - ALLERGY RED DYE: HIVES, RASH AND ITCHING - ALLERGY LATEX (FOR ALLERGY USE ONLY): HIVES - ALLERGY FRUITS: HIVES - ALLERGY SOCIAL HISTORY GENERAL: TOBACCO USE ARE YOU A:NONSMOKER ARE YOU A:NONSMOKER LATEX QUESTIONNAIRE LATEX ALLERGY : HAVE YOU EVER DEVELOPED ANY TYPE OF REACTION AFTER HANDLING LATEX PRODUCTS SUCH RUBBER GLOVES, CONDOMS, DIAPHRAGMS, BALLOONS, SOCKS, OR UNDERWEAR?YES - PLEASE INDICATE :RUBBER GLOVES LATEX ALLERGY : HAVE YOU EVER DEVELOPED ANY TYPE OF REACTION DURING OR AFTER DENTAL APPOINTMENT, VAGINAL/RECTAL EXAMINATION, SURGICAL PROCEDURE, OR ANY OTHER EXPOSURE?NO LATEX RISK : HAVE YOU EVER HAD ANY DIFFICULTY BREATHING OR HIVES AFTER EATING OR HANDLING ANY FRUITS, OR VEGETABLES; SUCH KIWI, BANANAS, STONE FRUITS, OR CHESTNUTSNO LATEX RISK : DO YOU HAVE A PREVIOUS PERSONAL HISTORY OF MORE THAN NINE SURGERIES, SPINA BIFIDA, OR REPEATED CATHERIZATIONS? NO LATEX RISK : ARE YOU FREQUENTLY EXPOSED TO LATEX PRODUCTS IN YOUR OCCUPATION?NO DATE ASKED : 05/15/2020 ALCOHOL USE: NO. RECREATIONAL DRUG USE DRUG USE?NO CAFFEINE CAFFEINE USE?YES SODA JUDAISM JUDAISM NONDEMOMINATIONAL [id number] YAZIDI LANGUAGE LANGUAGES SPOKEN:LIBYAN LEARNING BARRIERS / SPECIAL NEEDS CHANGE FROM LAST VISIT?YES BARRIERS TO LEARNING?NO HEARING IMPAIRED?YES TANGIRNAQ BOTH EARS, HEARING AID LEFT EAR. VISION IMPAIRED?YES GLASSES COGNITIVELY IMPAIRED?NO READINESS TO LEARN?YES LEARNING PREFERENCES?YES PREFERS HER EDUCATION VERBALLY AND ALSO WRITTEN LEARNING CAPABILITIES PRESENT?YES EMOTIONAL BARRIERS?NO SPECIAL DEVICES?YES :CANE NEEDED RN IMCU NEEDED?NO - HAS THE PATIENT BEEN EDUCATED REGARDING HIS/HER PLAN OF CARE?YES HAS THE PATIENT BEEN EDUCATED REGARDING PAIN, THE RISK FOR PAIN, THE IMPORTANCE OF EFFECTIVE PAIN MANAGEMENT, AND THE PAIN ASSESSMENT PROCESS?YES REVIEW OF SYSTEMS CONSTITUTIONAL: ANY RECENT FEVER NO . CHILLS NO . WEIGHT CHANGE OF UNKNOWN REASONS NO . GASTROENTEROLOGY: NEW UNEXPLAINABLE CHANGES IN BOWEL CONTROL NO . CONSTIPATION NO . GENITOURINARY: ANY NEW CHANGE IN BLADDER CONTROL? NO . NEUROLOGY: NEW ONSET DIZZINESS OR NEUROLOGICAL CHANGES NOT MENTIONED NO . NEW NUMBNESS OR PAIN PATTERNS NOT MENTIONED AND PERTINENT TO TODAY'S VISIT NO . CARDIOLOGY: NEW CHEST PRESSURE NO . NEW CHEST PAIN NO . RESPIRATORY: UNEXPLAINABLE COUGH NO . NEW SHORTNESS OF BREATH NO . VITAL SIGNS WT 159.8 LBS, HT 61 IN, BMI 30.19 INDEX, BP 130/77 MM HG, HR 70 /MIN, RR 18 /MIN, TEMP 97.5 F, OXYGEN SAT % 98%, SAFE IN ENV? (Y/N) YES, NA INITIALS HI 13:44T.CARL BUENO. EXAMINATION GENERAL EXAMINATION: GENERALAWAKE,ALERT ,PLEASANT . PSYCHAFFECT NORMAL . LUNGS:LUNG RAZO ARE CLEAR TO AUSCULTATION BILATERALLY. GOOD MOVEMENT OF AIR . HEART:S1, S2 IN A REGULAR RATE AND RHYTHM. NO SIGNIFICANT MURMURS, RUBS OR GALLOPS NOTED . LUMBAR:PALPATION: + FOR PAIN OVER L/S SPINE. + FOR PAIN OVER L/S PARASPINALS SPECIFIC POINT TENDERNESS OVER LUMBAR FACETS WITH FACET LOADING. NEUROLOGIC EXAM:NORMAL SENSATION LIGHT TOUCH BILAT. LOWER EXTREMITIES . ASSESSMENTS OTHER CHRONIC PAIN - G89.29 (PRIMARY) LUMBOSACRAL SPONDYLOLYSIS - M43.07 TREATMENT OTHER CHRONIC PAIN PAIN PROCEDURE LOGDATE OF PROCEDURE05/01/20PROCEDURE:TRIGGER POINT INJECTIONS BILATERAL LOW BACKAMOUNT OF PRE SEDATEVALIUM 10 MG & OXYCODONE 10 MGRESULT:IMPROVEMENT FOR SHORT TIME NOTES: BILATERAL LUMBAR THERAPEUTIC FACET BLOCK L4-5, L5-S1/MED HOLD SEND STOP PLAVIX 7 DAYS PRE-PROCEDURE TO DR. LINA LEMON [facility] [place]. SCHEDULE ONCE RECEIVED. PRINTED AND REVIEWD PRE-PROCEDURE WITH PATIENT BAIRON BUENO. PROCEDURE CODES FA211 ESTABILISHED PATIENT [facility] CHARGE DISPOSITION & COMMUNICATION FOLLOW UP POSTPROCEDURE (REASON: BILATERAL LUMBAR THERAPEUTIC FACET BLOCK L4-5, L5-S1/MED HOLD) ELECTRONICALLY SIGNED BY NANI LEONE ON 05/18/2020 AT 08:13 PM EST DISCLAIMER : THIS IS A VISIT SUMMARY EXTRACTED FROM THE [employer] CHART. IT IS NOT A COPY OF THE [employer] PROGRESS NOTE. ELBERT
== END ==
LOC: M PAIN 13:30
PROVIDERS: ATTEND Nurse Practitioner Family
DX: M43.07 Spondylolysis, lumbosacral region (principal); G89.29 Other chronic pain; Z88.0 Allergy status to penicillin; Z91.018 Allergy to other foods; Z91.02 Food additives allergy status; Z91.040 Latex allergy status; Z79.82 Long term (current) use of aspirin; Z79.891 Long term (current) use of opiate analgesic; Z79.899 Other long term (current) drug therapy
CPT/HCPCS: 71046; G0463

== ENCOUNTER → 2020-05-25 | Outpatient (CLI) | payer MEDICARE | LOC: M LABSMTC 13:24 | PROVIDERS: ATTEND Anesthesiology | DX: Z20.822 Contact with and (suspected) exposure to COVID-19 (principal) ==

== ENCOUNTER → 2020-05-30 | Outpatient (CLI) | payer MEDICARE ==
[~2020-05-30] MED LIST changes: +BUPIVACAINE HCL 0.25% 30ML VIAL As Ordered ONE; +ISOVUE-M 300 61% 15ML VIAL As Ordered ONE; +LIDOCAINE 1% SDV 30ML VIAL As Ordered ONE; +TRIAMCINOLONE ACETONIDE SUSP 40 MG/ML VIAL (J3301) As Ordered ONE; +diazePAM 5MG TABLET As Ordered ONE; +oxyCODONE 5MG TAB As Ordered ONE
--- NOTE | 2020-05-30 16:30 | REP ---
INDICATION: BILATERAL THERAPEUTIC LUMBAR FACET BLOCK L4-5, L5-S1. COMPARISON: None. TECHNIQUE: Four views. 24.8 seconds of fluoroscopy time is reported. FINDINGS: A sequence of 4 last image hold fluoroscopically obtained spot radiograph(s) of the lumbar spine document(s) needle position(s) and contrast injection associated with injection procedure. IMPRESSION: Procedural imaging. <Electronically signed by Lester Wilhelm > 05/30/20 6950
--- NOTE | 2020-06-01 01:11 | ECWPNPC ---
PATIENT NAME: JESSICA SPARKS : 1970 GENDER: FEMALE VISIT DATE: 05/30/2020 DISCHARGE DATE: 05/30/20 1416 VISIT LOCKED DATE TIME: PHYSICIAN: CANDELARIO MORTENSEN MD RESOURCE: CANDELARIO MORTENSEN MD REASON FOR APPOINTMENT 1. BILATERAL THERAPEUTIC LUMBAR FACET BLOCK L4-L5, L5-S1 HISTORY OF PRESENT ILLNESS GENERAL: -. FALL RISK SCREENING: SCREENING :NO FALLS REPORTED IN THE LAST YEAR PAIN SCREENING: PATIENT HAS A COMPLAINT OF ACUTE OR CHRONIC PAIN :YES LOCATION OF PAIN:LOW BACK, LEG(S) INTENSITY OF PAIN (SCALE OF 1 TO 10):4 WHAT DOES YOUR PAIN FEEL LIKE:ACHING, CONTINOUS, SHARP, STABBING, TENDER, THROBBING, SORE, SHOOTING DURATION:CONTINOUS, CONSTANT, AWAKENS FROM SLEEP THE PAIN KEEPS HER AWAKE PAIN IS INCREASED BY:ACTIVITIES ANYTHING PAIN IS DECREASED BY:OTHERS HEAT OCCASSIONALLY HELPS BUT FOR A SHORT PERIOD OF TIME PAIN HAS INTERFERED WITH THE FOLLOWING: EVERYTHING NURSING NOTE: -. PAIN CENTER INTAKE QUESTIONS: DO YOU HAVE A HISTORY OF MRSA? :YES WHEN SHE HAD NECK SURGERY DO YOU TAKE A BLOOD THINNERS? :YES PLAVIX LAST DOSE 05/01/20 DO YOU HAVE ANY BLEEDING DISORDERS? :NO ANY NEW NUMBNESS OR WEAKNESS IN YOUR LEGS OR ARMS? :NO ANY PACEMAKER,DEFIBRILLATOR, OR DORSAL COLUMN STIMULATOR? :NO DO YOU HAVE ANY RASHES OR OPEN SORES? :NO ARE YOU ALLERGIC TO IV DYE? :NO ARE YOU DIABETIC? :NO ANY NEW PROBLEMS WITH YOUR MEDICATIONS? :NO HAVE YOU RECEIVED A VACCINE IN THE PAST 30 DAYS? :NO DO YOU PLAN TO RECEIVE A VACCINE IN THE NEXT 21 DAYS? :NO DO YOU TAKE ANY IMMUNOSUPPRESSIVE MEDICATIONS? :NO ANY HISTORY OF SEIZURES? :YES FOLLOWS WITH [place] NEUROLOGICAL EEG TECHNICIAN [facility] [phone] ANY HISTORY OF CARDIAC ISSUES OR EVENTS? :YES STROKE AND HYPERTENSION DO YOU HAVE SLEEP APNEA? :YES DO YOU WEAR A CPAP?YES ANY RECENT HEAD INJURY? :NO DO YOU HAVE ANY NEW INFECTIONS? :NO IS THERE A CHANCE YOU COULD BE ? :NO ARE YOU BREAST FEEDING? :NO WHEN DID YOU LAST EAT? : 05/29 2099 WHEN DID YOU LAST DRINK? : 05/30 999 WHAT DID YOU LAST DRINK? : [place] NAME OF PERSON DRIVING YOU HOME? : SON JETT DO YOU HAVE ANY OTHER QUESTIONS OR CONCERNS? : NONE CURRENT MEDICATIONS TAKING VOLTAREN 1 % GEL 2G MAX 8G IN 24 HOURS TRANSDERMAL THREE TIMES DAILY NEEDED TAKING TRAZODONE HCL 100 MG TABLET 1 TABLET AT BEDTIME ORAL BEFORE BEDTIME NEEDED, NOTES: 05/28 TAKING FLUTICASONE PROPIONATE 50 MCG/ACT SUSPENSION NASAL DAILY TAKING TIZANIDINE HCL 4 MG TABLET 1 TAB ORAL BEFORE BEDTIME, NOTES: 05/28 TAKING BUPROPION HCL ER (XL) 150 MG TABLET EXTENDED RELEASE 24 HOUR 1 TAB ORALLY ONCE A DAY TAKING CLOPIDOGREL BISULFATE 75 MG TABLET 1 TAB ORAL DAILY, NOTES: 05/01 TAKING ATORVASTATIN CALCIUM 20 MG TABLET 1 TAB ORAL DAILY TAKING ATENOLOL 25 MG TABLET 1 TABLET ORAL BEFORE BEDTIME TAKING ZONISAMIDE 100 MG CAPSULE 1 CAP ORAL TWICE DAILY TAKING MONTELUKAST SODIUM 10 MG TABLET 1 TAB ORAL BEFORE BEDTIME TAKING ADVAIR HFA 230-21 MCG/ACT AEROSOL (PRIOR AUTH: RX REF#:[id number]) INHALATION BEFORE BEDTIME, NOTES: 05/29 999 TAKING PROAIR HFA 108 (90 BASE) MCG/ACT AEROSOL SOLUTION (PRIOR AUTH: RX REF#:[id number]) INHALATION BEFORE BEDTIME, NOTES: NONE RECENT TAKING AMLODIPINE BESYLATE 10 MG TABLET 1 TAB ORAL DAILY, NOTES: 05/29 999 TAKING LEVOTHYROXINE SODIUM 200 MCG TABLET 1 TAB ORALLY DAILY TAKING DEXILANT 60 MG CAPSULE DELAYED RELEASE 1 CAPSULE ORAL BEFORE BEDTIME TAKING ASPIRIN 325 MG TABLET 1 TABLET ORALLY ONCE A DAY TAKING CETIRIZINE HCL 10 MG TABLET 1 TABLET ORALLY ONCE A DAY TAKING VITAMIN D (ERGOCALCIFEROL) 21389 UNIT CAPSULE 1 CAPSULE ORALLY 2X/WEEK TAKING LYRICA 100 MG CAPSULE 1 CAPSULE ORALLY AT BEDTIME TAKING OXYBUTYNIN CHLORIDE ER 10 MG TABLET EXTENDED RELEASE 24 HOUR 1 TABLET ORALLY ONCE A DAY TAKING OXYCODONE-ACETAMINOPHEN 7.5-325 MG TABLET 1 TAB ORAL BEFORE BEDTIME-TAKES NEEDED, NOTES: 05/27 NOT-TAKING PRIMIDONE 50 MG TABLET 1 TAB ORAL TWICE DAILY NOT-TAKING ROPINIROLE HCL 0.5 MG TABLET 1 TABLET ORAL THREE TIMES DAILY NOT-TAKING SERTRALINE HCL 100 MG TABLET 1 TAB ORALLY DAILY NOT-TAKING OMEPRAZOLE 40 MG CAPSULE DELAYED RELEASE 1 CAPSULE ORALLY ONCE A DAY NOT-TAKING FOLIC ACID 400 MCG TABLET 1 TABLET ORALLY ONCE A DAY, NOTES: NOT LATELY MEDICATION LIST REVIEWED AND RECONCILED WITH THE PATIENT PAST MEDICAL HISTORY CVA 2011 URINARY FREQUENCY,MICROSCOPIC HEMATURIA,NOCTURIA MARJOR DEPRESSIVE DISORDER FIBROMYALGIA MYALGIA CHRONIC COUGH POLYARTHRALGIA GERD LOW BACK PAIN-SPONDYLOSIS OF LUMBOSACRAL REGION PERIPHERAL POLYNEUROPATHY ESSENTIAL HYPERTENSION AQUIRED HYPOTHYROIDISM PRIMARYY OSTEOARTHRITIS OF BOTH KNEES RIGHT FLANK PAIN SEIZURE ALLERGIES PENICILLIN (FOR ALLERGIES USE ONLY): HIVES - ALLERGY RED DYE: HIVES, RASH AND ITCHING - ALLERGY LATEX (FOR ALLERGY USE ONLY): HIVES - ALLERGY FRUITS: HIVES - ALLERGY SOCIAL HISTORY GENERAL: TOBACCO USE ARE YOU A:NONSMOKER LATEX QUESTIONNAIRE LATEX ALLERGY : HAVE YOU EVER DEVELOPED ANY TYPE OF REACTION AFTER HANDLING LATEX PRODUCTS SUCH RUBBER GLOVES, CONDOMS, DIAPHRAGMS, BALLOONS, SOCKS, OR UNDERWEAR?YES - PLEASE INDICATE :RUBBER GLOVES LATEX ALLERGY : HAVE YOU EVER DEVELOPED ANY TYPE OF REACTION DURING OR AFTER DENTAL APPOINTMENT, VAGINAL/RECTAL EXAMINATION, SURGICAL PROCEDURE, OR ANY OTHER EXPOSURE?NO LATEX RISK : HAVE YOU EVER HAD ANY DIFFICULTY BREATHING OR HIVES AFTER EATING OR HANDLING ANY FRUITS, OR VEGETABLES; SUCH KIWI, BANANAS, STONE FRUITS, OR CHESTNUTSNO LATEX RISK : DO YOU HAVE A PREVIOUS PERSONAL HISTORY OF MORE THAN NINE SURGERIES, SPINA BIFIDA, OR REPEATED CATHERIZATIONS? NO LATEX RISK : ARE YOU FREQUENTLY EXPOSED TO LATEX PRODUCTS IN YOUR OCCUPATION?NO DATE ASKED : 05/30/2020 RECREATIONAL DRUG USE DRUG USE?NO CAFFEINE CAFFEINE USE?NO MUSLIM MUSLIM NO BAPTIST BELIEFS THAT WOULD IMPACT HEALTH CARE. LANGUAGE LANGUAGES SPOKEN:JORDANIAN LEARNING BARRIERS / SPECIAL NEEDS CHANGE FROM LAST VISIT?YES BARRIERS TO LEARNING?NO HEARING IMPAIRED?YES [place] BOTH EARS, HEARING AID LEFT EAR. 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 (Y/N) Y, NA INITIALS ND 11:30, REVIEWED BY: Ramona GUTHRIE RN 1135. EXAMINATION GENERAL EXAMINATION: THE PATIENT IS ALERT, ORIENTED TIMES THREE AND COOPERATIVE. LUNGS ARE CLEAR TO AUSCULTATION. HEART SHOWS REGULAR RHYTHM, NO MURMURS AND NO GALLOPS. ASSESSMENTS SPONDYLOSIS WITHOUT MYELOPATHY OR RADICULOPATHY, LUMBAR REGION - M47.816 (PRIMARY) SPONDYLOSIS WITHOUT MYELOPATHY OR RADICULOPATHY, LUMBOSACRAL REGION - M47.817 TREATMENT SPONDYLOSIS WITHOUT MYELOPATHY OR RADICULOPATHY, LUMBAR REGION LAB: IV LACTATED RINGER'S AT [facility] (ORDERED FOR 05/30/2020) RONA GUTHRIE 05/30/2020 12:43:36 PM > IV STARTED 1ST ATTEMPT WITH # 22G IN LEFT HAND. RL INFUSING WITHOUT REDNESS OR SWELLING. RONA GUTHRIE 05/30/2020 2:17:48 PM > 100 ML TOTAL INFUSED SMC FACET BLOCK (PAIN)[id number] MEDICATION: VALIUM TAB 10MG ORALLY (DIAZEPAM)LYLA GUZMAN 05/30/2020 12:21:05 PM > VERIFIED RONA GUTHRIE 05/30/2020 12:24:24 PM > ADMINISTERED MEDICATION: OXYCODONE HCL TAB 10MG ORALLYLYLA GUZMAN 05/30/2020 12:21:17 PM > VERIFIED RONA GUTHRIE 05/30/2020 12:24:48 PM > ADMINISTERED COMPLETION OF PROCEDURAL VISIT WHEN MEETS CRITERIA PROCEDURES PAIN NURSING RECORD PROCEDURE IN ROOM 1318, PHYSICIAN IN ROOM 1324, START 1329, FINISH 1335, PHYSICIAN OUT OF ROOM 1336, ECG NORMAL SINUS, PATIENT SHIELDED YES, SAFETY STRAP YES, PREP CHLOROPREP, DRESSING TEGADERM BY DR. MORTENSEN LOC: RONA GUTHRIE 05/30/2020 12:41:22 PM > 1. ALERT, ORIENTED RONA GUTHRIE 05/30/2020 2:06:23 PM > 1. ALERT, ORIENTED RESP: RONA GUTHRIE 05/30/2020 12:41:25 PM > 1. REGULAR, NO DYSPNEA RONA GUTHRIE 05/30/2020 2:06:27 PM > 1. REGULAR, NO DYSPNEA COLOR: RONA GUTHRIE 05/30/2020 12:41:29 PM > 1. PINK RONA GUTHRIE 05/30/2020 2:06:31 PM > 1. PINK SKIN: RONA GUTHRIE 05/30/2020 12:41:33 PM > 1. WARM, DRY RONA GUTHRIE 05/30/2020 2:06:34 PM > 1. WARM, DRY POSITION: RONA GUTHRIE 05/30/2020 12:41:37 PM > 5. SITTING RONA GUTHRIE 05/30/2020 1:18:25 PM > 1. PRONE RONA GUTHRIE 05/30/2020 2:07:45 PM > 5. SITTING VITALS: RONA GUTHRIE 05/30/2020 1:20:19 PM > 146/96,67,16,100% RONA GUTHRIE 05/30/2020 1:35:23 PM > 147/94,80,16,99% RONA GUTHRIE 05/30/2020 1:43:01 PM > 149/92,74,16,99% RONA GUTHRIE 05/30/2020 2:07:52 PM > 169/96, 85,16,99% COMPLETION OF PROCEDURE APPOINTMENT: POST PAIN 0, DRESSING SITE DRY AND INTACT, IV DISCONTINUED, SITE CLEAR, CATHETER INTACT, GAIT STEADY, TEACHING COMPLETED, PATIENT ACKNOWLEDGES UNDERSTANDING YES, PROCEDURE APPOINTMENT COMPLETED AT 1415 PN LUMBAR FACET BLOCK THERAPEUTIC PRE PROCEDURE DIAGNOSIS LUMBAR SPONDYLOSIS, LUMBOSACRAL SPONDYLOSIS POST PROCEDURE DIAGNOSIS LUMBAR SPONDYLOSIS, LUMBOSACRAL SPONDYLOSIS PROCEDURE BILATERAL L4-L5 AND BILATERAL L5-S1 LUMBAR FACET THERAPEUTIC BLOCK SURGEON DR. CANDELARIO MORTENSEN CLASP MACHINE OPERATOR NONE ANESTHESIA LOCAL PRE PROCEDURE NOTE THE PATIENT HAS A HISTORY OF CHRONIC LOW BACK PAIN. I EVALUATED THE PATIENT AND REVIEWED THE CHART. I WENT OVER THE RISKS, ALTERNATIVES, AND BENEFITS ASSOCIATED WITH THIS PROCEDURE. THE PATIENT WOULD LIKE TO PROCEED AND GIVES CONSENT TO PERFORM THE PROCEDURE. THE PATIENT DENIES UNEXPLAINABLE WEIGHT LOSS, FEVER, CHILLS, OR NEW CHANGES IN URINARY OR BOWEL CONTROL. THE PATIENT IS COVID-19 NEGATIVE DESCRIPTION OF PROCEDURE THE PATIENT WAS BROUGHT TO THE PROCEDURE ROOM AND PLACED IN THE PRONE POSITION. THE LUMBOSACRAL AREA WAS CLEANED WITH CHLORAPREP SOLUTION AND DRAPED ASEPTICALLY. THE PROCEDURE WAS DONE UNDER STERILE CONDITIONS. A TIMEOUT WAS PERFORMED WHERE THE CONSENTED SITE WAS VERIFIED WITH EVERYONE IN THE ROOM. UNDER FLUOROSCOPIC GUIDANCE, THE TARGET POINT WAS SELECTED AT THE RIGHT AND LEFT L4-L5 AND RIGHT AND LEFT L5-S1 FACET JOINTS. TARGET POINT WAS SELECTED AFTER LATERAL ROTATION AND TILT OF THE MAGNIFIER OF THE C-ARM. I CONFIRMED AGAIN THE SITE OF TARGET. LIDOCAINE 0.5% WAS USED TO NUMB THE SKIN AND THE SUBCUTANEOUS TISSUE BELOW IT. SPINAL NEEDLES, 22-GAUGE, WERE ADVANCED UNDER FLUOROSCOPIC GUIDANCE AND FOLLOWING PATIENT FEEDBACK UNTIL THE TARGETS WERE TOUCHED. THE POSITION OF THE NEEDLES WAS VERIFIED WITH AP AND LATERAL VIEWS. AFTER PROPER POSITION OF THE NEEDLES WAS ACHIEVED, ISOVUE-M DYE 30%, 0.1 ML, WAS INJECTED SHOWING ADEQUATE SPREAD OF THE DYE. KENALOG 10MG WAS INJECTED AT EACH SITE. THEN, A SOLUTION OF 1.0 ML OF BUPIVACAINE 0.125% OF WAS USED TO FLUSH EACH SITE. THE MEDICATION WAS VERIFIED WITH THE NURSE. THERE WAS NO EVIDENCE OF BLOOD, PARESTHESIA OR CEREBROSPINAL FLUID DURING THE PROCEDURE. THE PATIENT WAS SENT TO THE RECOVERY ROOM. THE PATIENT WAS MOVING THE EXTREMITIES AND DOING WELL. THERE WERE NO COMPLICATIONS DURING THE PROCEDURE. ESTIMATED BLOOD LOSS WAS LESS THAN 5 ML. FLUOROSCOPY TIME WAS 24 SECONDS POST PROCEDURE NOTE THE PATIENT HAS A HISTORY OF SEIZURES. I WOULD LIKE FOR A CLEARANCE FROM [facility] NEUROLOGICAL EEG TECHNICIAN [facility] [phone]. I WOULD LIKE TO KNOW THE NATURE OF THE SEIZURES AND HOW WE SHOULD MOVE FORWARD FROM AN INTERVENTIONAL STAND POINT. THE PATIENT WILL BE SEEN IN A FOLLOW UP IN THE NEXT FEW WEEKS. I AM LOOKING FOR LONG LASTING RELIEF FOR THE PATIENT WITH THIS INTERVENTION. INSTRUCTIONS WERE GIVEN, QUESTIONS WERE ANSWERED, AND THE PATIENT EXPRESSED UNDERSTANDING AND AGREES WITH THE PLAN. I, SHIMON SORIANO, DOCUMENTED THE ABOVE INFORMATION ACTING A SCRIBE FOR DR. MORTENSEN. I HAVE REVIEWED THE ABOVE DOCUMENT, WRITTEN BY SHIMON SORIANO, MAINTENANCE SERVICE TECHNICIAN, AND I VERIFY THAT IT IS ACCURATE PROCEDURE CODES 30417 INJ PARAVERT F JNT L/S 1 LEV, MODIFIERS: 50 [id number] INJ PARAVERT F JNT L/S 2 LEV, MODIFIERS: 50 DISPOSITION & COMMUNICATION FOLLOW UP FOLLOW UP WITH DIRECTOR [employer] (REASON: POST BILATERAL LUMBAR FACET BLOCK THERAPEUTIC L4-L5, L5-S1.) ELECTRONICALLY SIGNED BY CANDELARIO MORTENSEN MD, MD ON 05/31/2020 AT 02:45 PM EST DISCLAIMER : THIS IS A VISIT SUMMARY EXTRACTED FROM THE [employer] CHART. IT IS NOT A COPY OF THE [employer] PROGRESS NOTE. ELBERT
== END ==
LOC: M PAIN 11:20
PROVIDERS: ATTEND Anesthesiology
DX: M47.816 Spondylosis without myelopathy or radiculopathy, lumbar region (principal); M47.817 Spondylosis without myelopathy or radiculopathy, lumbosacral region; G47.30 Sleep apnea, unspecified; M79.7 Fibromyalgia; K21.9 Gastro-esophageal reflux disease without esophagitis; E03.9 Hypothyroidism, unspecified; Z86.14 Personal history of Methicillin resistant Staphylococcus aureus infection; Z86.73 Personal history of transient ischemic attack (TIA), and cerebral infarction without residual deficits; Z86.59 Personal history of other mental and behavioral disorders; Z88.0 Allergy status to penicillin; Z91.018 Allergy to other foods; Z91.02 Food additives allergy status; Z91.040 Latex allergy status; Z79.82 Long term (current) use of aspirin; Z79.899 Other long term (current) drug therapy
CPT/HCPCS: 64493; 64494; J3301; Q9967

== ENCOUNTER → 2020-06-13 | Outpatient (CLI) | payer MEDICARE ==
[~2020-06-13] MED LIST changes: -BUPIVACAINE HCL 0.25% 30ML VIAL As Ordered ONE; +BUPR150T12 PO; -BUPR150T4 PO; -FOLI400T PO; +FOLI400T13 PO; -ISOVUE-M 300 61% 15ML VIAL As Ordered ONE; -LIDOCAINE 1% SDV 30ML VIAL As Ordered ONE; -TRIAMCINOLONE ACETONIDE SUSP 40 MG/ML VIAL (J3301) As Ordered ONE; -diazePAM 5MG TABLET As Ordered ONE; -oxyCODONE 5MG TAB As Ordered ONE
--- NOTE | 2020-06-14 01:56 | ECWPNPC ---
PATIENT NAME: JESSICA SPARKS : 1970 GENDER: FEMALE VISIT DATE: 06/13/2020 DISCHARGE DATE: 06/13/20 1515 VISIT LOCKED DATE TIME: PHYSICIAN: QUINCY GONZALEZ RESOURCE: QUINCY GONZALEZ REASON FOR APPOINTMENT 1. POST BILATERAL THERAPEUTIC LUMBAR FACET BLOCK L4-L5, L5-S1 HISTORY OF PRESENT ILLNESS GENERAL: HERE FOR POST PROCEDURE FOLLOW-UP. HAD BILATERAL THERAPEUTIC LUMBAR FACET BLOCK L4-5, L5-S1 ON 05/30/2020. REPORTING MARKED REDUCTION IN LOW BACK PAIN THAT CONTINUES TODAY. CHIEF AREA OF PAIN IS NECK PAIN. PAIN IS AGGRAVATED WITH RANGE OF JOINT MOTION OF HER NECK. HAS RESPONDED WELL TO TRIGGER POINT INJECTIONS IN THE PAST. -. FALL RISK SCREENING: SCREENING : NO FALLS REPORTED IN THE LAST YEAR. PAIN SCREENING: PATIENT HAS A COMPLAINT OF ACUTE OR CHRONIC PAIN :YES LOCATION OF PAIN:LOW BACK INTENSITY OF PAIN (SCALE OF 1 TO 10):2 WHAT DOES YOUR PAIN FEEL LIKE:STABBING, SHOOTING DURATION:CONTINOUS, CONSTANT, ALL DAY PAIN IS INCREASED BY:ACTIVITIES PAIN IS DECREASED BY:USE OF PAIN MEDICATIONS NURSING NOTE: -. PAIN CENTER INTAKE QUESTIONS: DO YOU HAVE A HISTORY OF MRSA? :NO DO YOU TAKE A BLOOD THINNERS? :YES PLAVIX DO YOU HAVE ANY BLEEDING DISORDERS? :NO ANY NEW NUMBNESS OR WEAKNESS IN YOUR LEGS OR ARMS? :NO ANY PACEMAKER,DEFIBRILLATOR, OR DORSAL COLUMN STIMULATOR? :NO DO YOU HAVE ANY RASHES OR OPEN SORES? :NO ARE YOU ALLERGIC TO IV DYE? :NO ARE YOU DIABETIC? :NO ANY NEW PROBLEMS WITH YOUR MEDICATIONS? :NO HAVE YOU RECEIVED A VACCINE IN THE PAST 30 DAYS? :NO DO YOU PLAN TO RECEIVE A VACCINE IN THE NEXT 21 DAYS? :NO DO YOU NEED ANY PRESCRIPTION? :NO DO YOU TAKE ANY IMMUNOSUPPRESSIVE MEDICATIONS? :NO IS THERE A CHANCE YOU COULD BE ? :NO ARE YOU BREAST FEEDING? :NO CURRENT MEDICATIONS TAKING VOLTAREN 1 % GEL 2G MAX 8G IN 24 HOURS TRANSDERMAL THREE TIMES DAILY NEEDED TAKING TRAZODONE HCL 100 MG TABLET 1 TABLET AT BEDTIME ORAL BEFORE BEDTIME NEEDED TAKING FLUTICASONE PROPIONATE 50 MCG/ACT SUSPENSION NASAL DAILY TAKING TIZANIDINE HCL 4 MG TABLET 1 TAB ORAL BEFORE BEDTIME TAKING BUPROPION HCL ER (XL) 150 MG TABLET EXTENDED RELEASE 24 HOUR 1 TAB ORALLY ONCE A DAY TAKING CLOPIDOGREL BISULFATE 75 MG TABLET 1 TAB ORAL DAILY TAKING ATORVASTATIN CALCIUM 20 MG TABLET 1 TAB ORAL DAILY TAKING ATENOLOL 25 MG TABLET 1 TABLET ORAL BEFORE BEDTIME TAKING ZONISAMIDE 100 MG CAPSULE 1 CAP ORAL TWICE DAILY TAKING MONTELUKAST SODIUM 10 MG TABLET 1 TAB ORAL BEFORE BEDTIME TAKING ADVAIR HFA 230-21 MCG/ACT AEROSOL (PRIOR AUTH: RX REF#:[id number]) INHALATION BEFORE BEDTIME TAKING PROAIR HFA 108 (90 BASE) MCG/ACT AEROSOL SOLUTION (PRIOR AUTH: RX REF#:[id number]) INHALATION BEFORE BEDTIME TAKING AMLODIPINE BESYLATE 10 MG TABLET 1 TAB ORAL DAILY TAKING LEVOTHYROXINE SODIUM 200 MCG TABLET 1 TAB ORALLY DAILY TAKING DEXILANT 60 MG CAPSULE DELAYED RELEASE 1 CAPSULE ORAL BEFORE BEDTIME TAKING ASPIRIN 325 MG TABLET 1 TABLET ORALLY ONCE A DAY TAKING CETIRIZINE HCL 10 MG TABLET 1 TABLET ORALLY ONCE A DAY TAKING VITAMIN D (ERGOCALCIFEROL) 31857 UNIT CAPSULE 1 CAPSULE ORALLY 2X/WEEK TAKING LYRICA 100 MG CAPSULE 1 CAPSULE ORALLY AT BEDTIME TAKING OXYBUTYNIN CHLORIDE ER 10 MG TABLET EXTENDED RELEASE 24 HOUR 1 TABLET ORALLY ONCE A DAY TAKING OXYCODONE-ACETAMINOPHEN 7.5-325 MG TABLET 1 TAB ORAL BEFORE BEDTIME-TAKES NEEDED NOT-TAKING PRIMIDONE 50 MG TABLET 1 TAB ORAL TWICE DAILY NOT-TAKING ROPINIROLE HCL 0.5 MG TABLET 1 TABLET ORAL THREE TIMES DAILY NOT-TAKING SERTRALINE HCL 100 MG TABLET 1 TAB ORALLY DAILY NOT-TAKING OMEPRAZOLE 40 MG CAPSULE DELAYED RELEASE 1 CAPSULE ORALLY ONCE A DAY NOT-TAKING FOLIC ACID 400 MCG TABLET 1 TABLET ORALLY ONCE A DAY, NOTES: NOT LATELY MEDICATION LIST REVIEWED AND RECONCILED WITH THE PATIENT PAST MEDICAL HISTORY MEDICAL HISTORY VERIFIED. ALLERGIES PENICILLIN (FOR ALLERGIES USE ONLY): HIVES - ALLERGY RED DYE: HIVES, RASH AND ITCHING - ALLERGY LATEX (FOR ALLERGY USE ONLY): HIVES - ALLERGY FRUITS: HIVES - ALLERGY SOCIAL HISTORY GENERAL: TOBACCO USE ARE YOU A:NONSMOKER LATEX QUESTIONNAIRE LATEX ALLERGY : HAVE YOU EVER DEVELOPED ANY TYPE OF REACTION AFTER HANDLING LATEX PRODUCTS SUCH RUBBER GLOVES, CONDOMS, DIAPHRAGMS, BALLOONS, SOCKS, OR UNDERWEAR?YES - PLEASE INDICATE :RUBBER GLOVES LATEX ALLERGY : HAVE YOU EVER DEVELOPED ANY TYPE OF REACTION DURING OR AFTER DENTAL APPOINTMENT, VAGINAL/RECTAL EXAMINATION, SURGICAL PROCEDURE, OR ANY OTHER EXPOSURE?NO LATEX RISK : HAVE YOU EVER HAD ANY DIFFICULTY BREATHING OR HIVES AFTER EATING OR HANDLING ANY FRUITS, OR VEGETABLES; SUCH KIWI, BANANAS, STONE FRUITS, OR CHESTNUTSNO LATEX RISK : DO YOU HAVE A PREVIOUS PERSONAL HISTORY OF MORE THAN NINE SURGERIES, SPINA BIFIDA, OR REPEATED CATHERIZATIONS? NO LATEX RISK : ARE YOU FREQUENTLY EXPOSED TO LATEX PRODUCTS IN YOUR OCCUPATION?NO DATE ASKED : 06/13/2020 ALCOHOL USE: NO. RECREATIONAL DRUG USE DRUG USE?NO CAFFEINE CAFFEINE USE?NO YARSANISM YARSANISM NO CONGREGATION BELIEFS THAT WOULD IMPACT HEALTH CARE. LANGUAGE LANGUAGES SPOKEN:TURKISH LEARNING BARRIERS / SPECIAL NEEDS CHANGE FROM LAST VISIT?YES BARRIERS TO LEARNING?NO HEARING IMPAIRED?YES [place] BOTH EARS, HEARING AID LEFT EAR. 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 CHILLS NO . WEIGHT CHANGE OF UNKNOWN REASONS NO . GASTROENTEROLOGY: NEW UNEXPLAINABLE CHANGES IN BOWEL CONTROL NO . CONSTIPATION NO . GENITOURINARY: ANY NEW CHANGE IN BLADDER CONTROL? NO . NEUROLOGY: NEW ONSET DIZZINESS OR NEUROLOGICAL CHANGES NOT MENTIONED NO . NEW NUMBNESS OR PAIN PATTERNS NOT MENTIONED AND PERTINENT TO TODAY'S VISIT NO . CARDIOLOGY: NEW CHEST PRESSURE NO . PATIENT DENIES NO . RESPIRATORY: UNEXPLAINABLE COUGH NO . NEW SHORTNESS OF BREATH NO . VITAL SIGNS WT 161 LBS, HT 61 IN, BMI 30.42 INDEX, BP 138/73 MM HG, HR 51 /MIN, RR 18 /MIN, TEMP 97.7 F, OXYGEN SAT % 100%, SAFE IN ENV? (Y/N) YEST.CARL BUENO. EXAMINATION GENERAL EXAMINATION: GENERAL AWAKE,ALERT ,PLEAASANT . PSYCH AFFECT NORMAL . LUNGS: LUNG RAZO ARE CLEAR TO AUSCULTATION BILATERALLY. GOOD MOVEMENT OF AIR . HEART: S1, S2 IN A REGULAR RATE AND RHYTHM. NO SIGNIFICANT MURMURS, RUBS OR GALLOPS NOTED . CERVICAL:TRIGGER POINTS: CERVICAL AND TRAPEZIUS BILAT..PAIN IS AGGREVATED WITH ROJM NECK. ASSESSMENTS OTHER CHRONIC PAIN - G89.29 (PRIMARY) MYALGIA, OTHER SITE - M79.18 TREATMENT OTHER CHRONIC PAIN PAIN PROCEDURE LOGDATE OF PROCEDURE05/30/2020ROCEDURE:BILATERAL THERAPEUTIC LUMBAR FACET BLOCK L4-L5,L5-L1ZZQIFV OF PRE SEDATEVALIUM 10MG, OXYCODONE 10MGRESULT:MARKED REDUCTION IN PAIN CONTINUES TODAY MEDICATION: VALIUM TAB 10MG ORALLY (DIAZEPAM) (ORDERED FOR 06/20/2020) MEDICATION: OXYCODONE HCL TAB 10MG ORALLY (ORDERED FOR 06/20/2020) NOTES: TRIGGER POINT INJECTIONS BILATERAL NECK, BILATERAL SHOULDERS, BILATERAL THORACIC. PROCEDURE CODES FA211 ESTABILISHED PATIENT [facility] CHARGE DISPOSITION & COMMUNICATION FOLLOW UP POST PROEDURE (REASON: TRIGGER POINT INJECTIONS BILATERAL NECK, BILATERAL SHOULDERS, BILATERAL THORACIC) ELECTRONICALLY SIGNED BY NANI LEONE ON 06/13/2020 AT 03:20 PM EST DISCLAIMER : THIS IS A VISIT SUMMARY EXTRACTED FROM THE [employer] CHART. IT IS NOT A COPY OF THE [employer] PROGRESS NOTE. ELBERT
== END ==
LOC: M PAIN 14:45
PROVIDERS: ATTEND Nurse Practitioner Family
DX: G89.29 Other chronic pain (principal); M79.18 Myalgia, other site; Z88.0 Allergy status to penicillin; Z91.018 Allergy to other foods; Z91.02 Food additives allergy status; Z91.040 Latex allergy status; Z79.82 Long term (current) use of aspirin; Z79.899 Other long term (current) drug therapy

== ENCOUNTER → 2020-06-25 | Outpatient (CLI) | payer MEDICARE | LOC: M LABSMTC 11:36 | PROVIDERS: ATTEND Anesthesiology | DX: Z20.828 Contact with and (suspected) exposure to other viral communicable diseases (principal) ==

== ENCOUNTER → 2020-06-30 | Outpatient (CLI) | payer MEDICARE ==
[~2020-06-30] MED LIST changes: +BUPIVACAINE HCL 0.25% 10ML VIAL As Ordered ONE; +BUPIVACAINE HCL 0.25% 30ML VIAL As Ordered ONE; +TRIAMCINOLONE ACETONIDE SUSP 40 MG/ML VIAL (J3301) As Ordered ONE; +diazePAM 5MG TABLET As Ordered ONE; +oxyCODONE 5MG TAB As Ordered ONE
--- NOTE | 2020-07-06 03:08 | ECWPNPC ---
PATIENT NAME: JESSICA SPARKS : 1970 GENDER: FEMALE VISIT DATE: 06/30/2020 DISCHARGE DATE: 06/30/20 1522 VISIT LOCKED DATE TIME: PHYSICIAN: CANDELARIO MORTENSEN MD RESOURCE: CANDELARIO MORTENSEN MD REASON FOR APPOINTMENT 1. TRIGGER POINT INJECTIONS BILATERAL NECK, BILATERAL SHOULDERS, BILATERAL THORACIC HISTORY OF PRESENT ILLNESS GENERAL: -. FALL RISK SCREENING: SCREENING : NO FALLS REPORTED IN THE LAST YEAR. PAIN SCREENING: PATIENT HAS A COMPLAINT OF ACUTE OR CHRONIC PAIN :YES LOCATION OF PAIN:NECK, LEFT SHOULDER, RIGHT SHOULDER, UPPER BACK, MID BACK INTENSITY OF PAIN (SCALE OF 1 TO 10):6 WHAT DOES YOUR PAIN FEEL LIKE:CONTINOUS, OTHER TIGHTNESS DURATION:CONTINOUS PAIN IS INCREASED BY:ACTIVITIES PAIN IS DECREASED BY:SITTING NURSING NOTE: -. PAIN CENTER INTAKE QUESTIONS: DO YOU HAVE A HISTORY OF MRSA? :NO DO YOU TAKE A BLOOD THINNERS? :YES PLAVIX DO YOU HAVE ANY BLEEDING DISORDERS? :NO ANY NEW NUMBNESS OR WEAKNESS IN YOUR LEGS OR ARMS? :NO ANY PACEMAKER,DEFIBRILLATOR, OR DORSAL COLUMN STIMULATOR? :NO DO YOU HAVE ANY RASHES OR OPEN SORES? :NO ARE YOU ALLERGIC TO IV DYE? :NO ARE YOU DIABETIC? :NO ANY NEW PROBLEMS WITH YOUR MEDICATIONS? :NO HAVE YOU RECEIVED A VACCINE IN THE PAST 30 DAYS? :NO DO YOU PLAN TO RECEIVE A VACCINE IN THE NEXT 21 DAYS? :NO DO YOU TAKE ANY IMMUNOSUPPRESSIVE MEDICATIONS? :NO ANY HISTORY OF SEIZURES? :YES EPILEPSY ANY HISTORY OF CARDIAC ISSUES OR EVENTS? :YES CVA 2007 DO YOU HAVE ANY KIDNEY OR LIVER DISEASE? :NO DO YOU HAVE SLEEP APNEA? :YES DO YOU WEAR A CPAP?YES ANY RECENT HEAD INJURY? :NO DO YOU HAVE ANY NEW INFECTIONS? :NO IS THERE A CHANCE YOU COULD BE ? :NO ARE YOU BREAST FEEDING? :NO WHEN DID YOU LAST EAT? : 06/29/20 1900 WHEN DID YOU LAST DRINK? : 1000 WHAT DID YOU LAST DRINK? : WATER NAME OF PERSON DRIVING YOU HOME? : SON DO YOU HAVE ANY OTHER QUESTIONS OR CONCERNS? : DENIES CURRENT MEDICATIONS TAKING VOLTAREN 1 % GEL 2G MAX 8G IN 24 HOURS TRANSDERMAL THREE TIMES DAILY NEEDED TAKING TRAZODONE HCL 100 MG TABLET 1 TABLET AT BEDTIME ORAL BEFORE BEDTIME NEEDED, NOTES: 06/29/20 2100 TAKING FLUTICASONE PROPIONATE 50 MCG/ACT SUSPENSION NASAL DAILY TAKING TIZANIDINE HCL 4 MG TABLET 1 TAB ORAL BEFORE BEDTIME, NOTES: 06/27/20 TAKING BUPROPION HCL ER (XL) 150 MG TABLET EXTENDED RELEASE 24 HOUR 1 TAB ORALLY ONCE A DAY TAKING CLOPIDOGREL BISULFATE 75 MG TABLET 1 TAB ORAL DAILY, NOTES: 06/30/20 0900 TAKING ATORVASTATIN CALCIUM 20 MG TABLET 1 TAB ORAL DAILY TAKING ATENOLOL 25 MG TABLET 1 TABLET ORAL BEFORE BEDTIME, NOTES: 06/30/20 0900 TAKING ZONISAMIDE 100 MG CAPSULE 1 CAP ORAL TWICE DAILY TAKING MONTELUKAST SODIUM 10 MG TABLET 1 TAB ORAL BEFORE BEDTIME TAKING ADVAIR HFA 230-21 MCG/ACT AEROSOL (PRIOR AUTH: RX REF#:[id number]) INHALATION BEFORE BEDTIME TAKING PROAIR HFA 108 (90 BASE) MCG/ACT AEROSOL SOLUTION (PRIOR AUTH: RX REF#:[id number]) INHALATION BEFORE BEDTIME TAKING AMLODIPINE BESYLATE 10 MG TABLET 1 TAB ORAL DAILY, NOTES: 06/30/20 0900 TAKING LEVOTHYROXINE SODIUM 200 MCG TABLET 1 TAB ORALLY DAILY TAKING DEXILANT 60 MG CAPSULE DELAYED RELEASE 1 CAPSULE ORAL BEFORE BEDTIME TAKING ASPIRIN 325 MG TABLET 1 TABLET ORALLY ONCE A DAY TAKING CETIRIZINE HCL 10 MG TABLET 1 TABLET ORALLY ONCE A DAY TAKING VITAMIN D (ERGOCALCIFEROL) 85236 UNIT CAPSULE 1 CAPSULE ORALLY 2X/WEEK TAKING LYRICA 100 MG CAPSULE 1 CAPSULE ORALLY AT BEDTIME TAKING OXYBUTYNIN CHLORIDE ER 10 MG TABLET EXTENDED RELEASE 24 HOUR 1 TABLET ORALLY ONCE A DAY TAKING OXYCODONE-ACETAMINOPHEN 7.5-325 MG TABLET 1 TAB ORAL BEFORE BEDTIME-TAKES NEEDED, NOTES: NOT RECENTLY NOT-TAKING PRIMIDONE 50 MG TABLET 1 TAB ORAL TWICE DAILY NOT-TAKING ROPINIROLE HCL 0.5 MG TABLET 1 TABLET ORAL THREE TIMES DAILY NOT-TAKING SERTRALINE HCL 100 MG TABLET 1 TAB ORALLY DAILY NOT-TAKING OMEPRAZOLE 40 MG CAPSULE DELAYED RELEASE 1 CAPSULE ORALLY ONCE A DAY NOT-TAKING FOLIC ACID 400 MCG TABLET 1 TABLET ORALLY ONCE A DAY, NOTES: NOT LATELY MEDICATION LIST REVIEWED AND RECONCILED WITH THE PATIENT PAST MEDICAL HISTORY EPILEPSY CVA-2008 GERD ALLERGIES PENICILLIN (FOR ALLERGIES USE ONLY): HIVES - ALLERGY RED DYE: HIVES, RASH AND ITCHING - ALLERGY LATEX (FOR ALLERGY USE ONLY): HIVES - ALLERGY FRUITS: HIVES - ALLERGY SURGICAL HISTORY HYSTERECTOMY TONSILLECTOMY CERVICAL FUSION 2009 SOCIAL HISTORY GENERAL: TOBACCO USE ARE YOU A:NONSMOKER ARE YOU A:NONSMOKER LATEX QUESTIONNAIRE LATEX ALLERGY : HAVE YOU EVER DEVELOPED ANY TYPE OF REACTION AFTER HANDLING LATEX PRODUCTS SUCH RUBBER GLOVES, CONDOMS, DIAPHRAGMS, BALLOONS, SOCKS, OR UNDERWEAR?YES - PLEASE INDICATE :RUBBER GLOVES LATEX ALLERGY : HAVE YOU EVER DEVELOPED ANY TYPE OF REACTION DURING OR AFTER DENTAL APPOINTMENT, VAGINAL/RECTAL EXAMINATION, SURGICAL PROCEDURE, OR ANY OTHER EXPOSURE?NO LATEX RISK : HAVE YOU EVER HAD ANY DIFFICULTY BREATHING OR HIVES AFTER EATING OR HANDLING ANY FRUITS, OR VEGETABLES; SUCH KIWI, BANANAS, STONE FRUITS, OR CHESTNUTSNO LATEX RISK : DO YOU HAVE A PREVIOUS PERSONAL HISTORY OF MORE THAN NINE SURGERIES, SPINA BIFIDA, OR REPEATED CATHERIZATIONS? NO LATEX RISK : ARE YOU FREQUENTLY EXPOSED TO LATEX PRODUCTS IN YOUR OCCUPATION?NO DATE ASKED : 06/28/2020 ALCOHOL USE: NO. ALCOHOL SCREENING DID YOU HAVE A DRINK CONTAINING ALCOHOL IN THE PAST YEAR?YES HOW OFTEN DID YOU HAVE A DRINK CONTAINING ALCOHOL IN THE PAST YEAR?MONTHLY OR LESS (1 POINT) HOW MANY DRINKS DID YOU HAVE ON A TYPICAL DAY WHEN YOU WERE DRINKING IN THE PAST YEAR?1 OR 2 (0 POINTS) HOW OFTEN DID YOU HAVE SIX OR MORE DRINKS ON ONE OCCASION IN THE PAST YEAR?NEVER (0 POINTS) POINTS1 INTERPRETATIONNEGATIVE RECREATIONAL DRUG USE DRUG USE?NO CAFFEINE CAFFEINE USE?YES SODA TAOISM TAOISM NONDEMOMINATIONAL [id number] ZOROASTRIANISM LANGUAGE LANGUAGES SPOKEN:LITHUANIAN LEARNING BARRIERS / SPECIAL NEEDS CHANGE FROM LAST VISIT?NO BARRIERS TO LEARNING?NO HEARING IMPAIRED?NO VISION IMPAIRED?NO COGNITIVELY IMPAIRED?NO READINESS TO LEARN?YES LEARNING PREFERENCES?NO LEARNING CAPABILITIES PRESENT?YES EMOTIONAL BARRIERS?NO SPECIAL DEVICES?NO 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 (Y/N) YES, NA INITIALS SC 13:38, REVIEWED BY: APA. KATE RN. EXAMINATION GENERAL EXAMINATION: A HISTORY AND PHYSICAL EXAM ON THE PATIENT WAS DONE ON 06/13/2020 (DATE OF ORIGINAL ASSESSMENT) IN PREPARATION OF SURGERY/PROCEDURE. I HAVE NOW REASSESSED THIS PATIENT'S HEALTH STATUS AND PERFORMED AN UPDATED EXAM TODAY. ALL CHANGES IN THE PATIENT'S HISTORY, PHYSICAL EXAM, PRE-EXISTING CONDITONS, AND INDICATIONS/CONTRAINDICATIONS TO THE PLANNED PROCEDURE AND ANESTHESIA ARE DOCUMENTED AND EVALUATED BELOW. I ATTEST TO THE ADEQUACY AND APPROPRIATENESS OF MY ASSESSMENT, AND CONFIRM THE NECESSITY FOR THE PLANNED PROCEDURE. THE PATIENT IS ALERT, ORIENTED TIMES THREE AND COOPERATIVE. LUNGS ARE CLEAR TO AUSCULTATION. HEART SHOWS REGULAR RHYTHM, NO MURMURS AND NO GALLOPS. ASSESSMENTS OTHER CHRONIC PAIN - G89.29 (PRIMARY) TREATMENT OTHER CHRONIC PAIN COMPLETION OF PROCEDURAL VISIT WHEN MEETS CRITERIAPEROB ASHBYIL R 06/30/2020 3:04:48 PM > CRITERIA MET MEDICATION: VALIUM TAB 10MG ORALLY (DIAZEPAM)MICHAEL ESPARZA 06/30/2020 1:59:33 PM > VERIFIED. KATEJUAN R 06/30/2020 2:03:15 PM > ADMINISTERED MEDICATION: OXYCODONE HCL TAB 10MG ORALLYMICHAEL ESPARZA 06/30/2020 2:01:38 PM > VERIFIED. KATEJUAN R 06/30/2020 2:03:56 PM > ADMINISTERED OTHERS NOTES: 06/28/2020 1130 PRE PROCEDURE PHONE CALL COMPLETED WITH PATIENT Kush FIELDS RN. PROCEDURES PAIN NURSING RECORD PROCEDURE IN ROOM 1333, PHYSICIAN IN ROOM 1425, START 1433, FINISH 1436, PHYSICIAN OUT OF ROOM 1439, OUT OF ROOM 1532, ECG N/A, PATIENT SHIELDED N/A, SAFETY STRAP N/A, PREP ALCOHOL DR. MORTENSEN, DRESSING TEGADERM Ramona LOVE RN LOC: KATEJUAN R 06/30/2020 2:33:28 PM > , 1. ALERT, ORIENTED RESP: KATE,JUAN R 06/30/2020 2:33:31 PM > , 1. REGULAR, NO DYSPNEA COLOR: KATEJUAN R 06/30/2020 2:33:34 PM > , 1. PINK SKIN: KATEJUAN R 06/30/2020 2:33:37 PM > , 1. WARM, DRY POSITION: JUAN LOVE R 06/30/2020 2:33:41 PM > , 5. SITTING VITALS: JUAN LOVE R 06/30/2020 2:49:00 PM > 134/90, 70, 18, 94% NOTES PATIENT FEELING SLEEPY AFTER PROCEDURE. THIS CRUTCH MAKER WHEELED PATIENT DOWN AND ASSISTED HER INTO HER SON'S VEHICLE. INSTRUCTED PATIENT'S SON PER POST PROCEDURE INSTRUCTIONS TO MONITOR PATIENT AT HOME. PATIENT FOLLOWING COMMANDS, ANSWERING QUESTIONS AND ABLE TO AMBULATE TO CAR, JUST REPORTS FEELING "SLEEPY", Ramona LOVE RN COMPLETION OF PROCEDURE APPOINTMENT: POST PAIN 4, DRESSING SITE DRY AND INTACT, IV N/A, GAIT WHEELCHAIR, TEACHING COMPLETED, PATIENT ACKNOWLEDGES UNDERSTANDING YES, PROCEDURE APPOINTMENT COMPLETED AT 1532 BY: Ramona LOVE RN PN TRIGGER POINT INJECTION NO STEROIDS PRE PROCEDURE DIAGNOSIS 1. MYALGIA 2. PAIN AT BILATERAL NECK AREA, BILATERAL SHOULDER AREA AND BILATERAL THORACIC AREA POST PROCEDURE DIAGNOSIS 1. MYALGIA 2. PAIN AT BILATERAL NECK AREA, BILATERAL SHOULDER AREA AND BILATERAL THORACIC AREA PROCEDURE TRIGGER POINT INJECTION AT BILATERAL NECK AREA, BILATERAL SHOULDER AREA AND BILATERAL THORACIC AREA SURGEON DR. CANDELARIO MORTENSEN CERTIFIER NONE ANESTHESIA LOCAL PRE PROCEDURE NOTE PATIENT WITH HISTORY OF CHRONIC PAIN AT RIGHT AND LEFT NECK AREA, RIGHT AND LEFT SHOULDER AREA AND RIGHT AND LEFT THORACIC AREA. I EVALUATED THE PATIENT AND REVIEWED THE CHART. THERE IS EVIDENCE OF BANDS OF TISSUE WITH RESTRICTION OF MOVEMENT AND PRESENCE OF TRIGGER POINT AT THE RIGHT AND LEFT NECK AREA, RIGHT AND LEFT SHOULDER AREA AND RIGHT AND LEFT THORACIC AREA. I WENT OVER THE RISKS, ALTERNATIVES, AND BENEFITS ASSOCIATED WITH THIS PROCEDURE. THE PATIENT WOULD LIKE TO PROCEED AND GAVE CONSENT TO PERFORM THE PROCEDURE. THE PATIENT DENIES UNEXPLAINABLE WEIGHT LOSS, FEVER, CHILLS, OR NEW CHANGES IN URINARY OR BOWEL CONTROL. THE PATIENT IS COVID-19 NEGATIVE DESCRIPTION OF PROCEDURE THE PATIENT WAS BROUGHT TO THE PROCEDURE ROOM AND PLACED IN THE SITTING POSITION. THE AREA WAS CLEANED WITH ALCOHOL. THE PROCEDURE WAS DONE USING ASEPTIC STERILE TECHNIQUES. A TIMEOUT WAS PERFORMED WHERE THE CONSENTED SITE WAS VERIFIED WITH EVERYONE IN THE ROOM. USING A 25-GAUGE NEEDLE, TRIGGER POINTS WERE INJECTED INTO THE RIGHT AND LEFT NECK AREA, RIGHT AND LEFT SHOULDER AREA AND RIGHT AND LEFT THORACIC AREA WITH A TOTAL OF 40 ML OF BUPIVACAINE 0.25%. AGREED WITH THE PATIENT THE PROCEDURE WAS DONE WITHOUT STEROIDS. THERE WAS NO EVIDENCE OF BLOOD, PARESTHESIA OR CEREBROSPINAL FLUID DURING THE PROCEDURE. THE PATIENT WAS SENT TO THE RECOVERY ROOM. THE PATIENT WAS MOVING THE EXTREMITIES AND DOING WELL. THERE WAS NO COMPLICATION DURING THE PROCEDURE. EBL LESS THAN 5 ML. POST PROCEDURE NOTE DEPENDING ON THE RESULTS, CONSIDER DOING C2-C3, C3-C4, C4-C5 BILATERAL THERAPEUTIC CERVICAL FACET BLOCKS. THE PATIENT WAS A LITTLE SLEEPY. WE SHOULD CONSIDER USING LESS MEDICATION NEXT TIME. THE PROCEDURE DONE WAS DISCUSSED WITH THE PATIENT. THE PATIENT WILL BE SEEN IN A FOLLOW UP IN THE NEXT FEW WEEKS. I AM LOOKING FOR LONG LASTING PAIN RELIEF FOR THE PATIENT WITH THIS INTERVENTION. INSTRUCTIONS WERE GIVEN, QUESTIONS WERE ANSWERED, AND THE PATIENT EXPRESSED UNDERSTANDING AND AGREES WITH THE PLAN. I, SHIMON SORIANO, DOCUMENTED THE ABOVE INFORMATION ACTING A SCRIBE FOR DR. MORTENSEN. I HAVE REVIEWED THE ABOVE DOCUMENT, WRITTEN BY SHIMON SORIANO, MERCHANDISING EXECUTION ASSOCIATE, AND I VERIFY THAT IT IS ACCURATE PROCEDURE CODES 49162 INJECT TRIGGER POINTS 3/> DISPOSITION & COMMUNICATION FOLLOW UP FOLLOW UP WITH CLINICAL TRIAL SPECIALIST (REASON: POST TRIGGER POINT INJECTIONS BILATERAL NECK, BILATERAL SHOULDER AND BILATERAL THORACIC) ELECTRONICALLY SIGNED BY CANDELARIO MORTENSEN MD, MD ON 07/05/2020 AT 04:45 PM EDT DISCLAIMER : THIS IS A VISIT SUMMARY EXTRACTED FROM THE [facility] CHART. IT IS NOT A COPY OF THE [facility] PROGRESS NOTE. ELBERT
== END ==
LOC: M PAIN 13:30
PROVIDERS: ATTEND Anesthesiology
DX: M79.18 Myalgia, other site (principal); G40.909 Epilepsy, unspecified, not intractable, without status epilepticus; G47.30 Sleep apnea, unspecified; K21.9 Gastro-esophageal reflux disease without esophagitis; Z86.73 Personal history of transient ischemic attack (TIA), and cerebral infarction without residual deficits; Z88.0 Allergy status to penicillin; Z91.018 Allergy to other foods; Z91.02 Food additives allergy status; Z91.040 Latex allergy status; Z79.82 Long term (current) use of aspirin; Z79.899 Other long term (current) drug therapy

== ENCOUNTER → 2020-07-14 | Outpatient (CLI) | payer MEDICARE ==
[~2020-07-14] MED LIST changes: -BUPIVACAINE HCL 0.25% 10ML VIAL As Ordered ONE; -BUPIVACAINE HCL 0.25% 30ML VIAL As Ordered ONE; -TRIAMCINOLONE ACETONIDE SUSP 40 MG/ML VIAL (J3301) As Ordered ONE; -diazePAM 5MG TABLET As Ordered ONE; -oxyCODONE 5MG TAB As Ordered ONE
--- NOTE | 2020-07-18 04:00 | ECWPNPC ---
PATIENT NAME: JESSICA SPARKS : 1970 GENDER: FEMALE VISIT DATE: 07/14/2020 DISCHARGE DATE: 07/14/20 1459 VISIT LOCKED DATE TIME: PHYSICIAN: QUINCY GONZALEZ RESOURCE: QUINCY GONZALEZ REASON FOR APPOINTMENT 1. POST TRIGGER POINT INJECTIONS BILATERAL NECK, BILATERAL SHOULDERS, BILATERAL THORACIC HISTORY OF PRESENT ILLNESS GENERAL: HERE FOR POST PROCEDURE FOLLOW-UP. HAD BILATERAL TRIGGER POINT INJECTIONS TO HER NECK, SHOULDERS AND THORACIC AREA ON 06/30/2020. DOING VERY WELL WITH IMPROVED RANGE OF JOINT MOTION OF HER NECK AND LESS PAIN. CHIEF AREA OF PAIN IS LOW BACK. HAD SIGNIFICANT IMPROVEMENT FOR SEVERAL WEEKS AND CONTINUES WITH IMPROVEMENT IN HER THIGH PAIN POST LUMBAR THERAPEUTIC FACET BLOCK IN MAY. DISCUSSED DIAGNOSTIC TESTING AND RADIOFREQUENCY PROCEDURE. REVIEWED MRI OF THE LS-SPINE. -. FALL RISK SCREENING: SCREENING : NO FALLS REPORTED IN THE LAST YEAR. PAIN SCREENING: PATIENT HAS A COMPLAINT OF ACUTE OR CHRONIC PAIN :YES LOCATION OF PAIN:NECK, BOTH SHOULDERS, UPPER BACK INTENSITY OF PAIN (SCALE OF 1 TO 10):4 WHAT DOES YOUR PAIN FEEL LIKE:ACHING, BURNING, STABBING, TENDER, SORE, SHOOTING DURATION:CONTINOUS, CONSTANT PAIN IS INCREASED BY:ACTIVITIES PAIN IS DECREASED BY:USE OF PAIN MEDICATIONS NURSING NOTE: -. PAIN CENTER INTAKE QUESTIONS: DO YOU HAVE A HISTORY OF MRSA? :NO DO YOU TAKE A BLOOD THINNERS? :YES PLAVIX DO YOU HAVE ANY BLEEDING DISORDERS? :NO ANY NEW NUMBNESS OR WEAKNESS IN YOUR LEGS OR ARMS? :NO ANY PACEMAKER,DEFIBRILLATOR, OR DORSAL COLUMN STIMULATOR? :NO DO YOU HAVE ANY RASHES OR OPEN SORES? :NO ARE YOU ALLERGIC TO IV DYE? :NO ARE YOU DIABETIC? :NO ANY NEW PROBLEMS WITH YOUR MEDICATIONS? :NO HAVE YOU RECEIVED A VACCINE IN THE PAST 30 DAYS? :NO DO YOU PLAN TO RECEIVE A VACCINE IN THE NEXT 21 DAYS? :NO DO YOU NEED ANY PRESCRIPTION? :NO DO YOU TAKE ANY IMMUNOSUPPRESSIVE MEDICATIONS? :NO IS THERE A CHANCE YOU COULD BE ? :NO ARE YOU BREAST FEEDING? :NO CURRENT MEDICATIONS TAKING VOLTAREN 1 % GEL 2G MAX 8G IN 24 HOURS TRANSDERMAL THREE TIMES DAILY NEEDED TAKING TRAZODONE HCL 100 MG TABLET 1 TABLET AT BEDTIME ORAL BEFORE BEDTIME NEEDED TAKING FLUTICASONE PROPIONATE 50 MCG/ACT SUSPENSION NASAL DAILY TAKING TIZANIDINE HCL 4 MG TABLET 1 TAB ORAL BEFORE BEDTIME TAKING BUPROPION HCL ER (XL) 150 MG TABLET EXTENDED RELEASE 24 HOUR 1 TAB ORALLY ONCE A DAY TAKING CLOPIDOGREL BISULFATE 75 MG TABLET 1 TAB ORAL DAILY TAKING ATORVASTATIN CALCIUM 20 MG TABLET 1 TAB ORAL DAILY TAKING ATENOLOL 25 MG TABLET 1 TABLET ORAL BEFORE BEDTIME TAKING ZONISAMIDE 100 MG CAPSULE 1 CAP ORAL TWICE DAILY TAKING MONTELUKAST SODIUM 10 MG TABLET 1 TAB ORAL BEFORE BEDTIME TAKING ADVAIR HFA 230-21 MCG/ACT AEROSOL (PRIOR AUTH: RX REF#:[id number]) INHALATION BEFORE BEDTIME TAKING PROAIR HFA 108 (90 BASE) MCG/ACT AEROSOL SOLUTION (PRIOR AUTH: RX REF#:[id number]) INHALATION BEFORE BEDTIME TAKING AMLODIPINE BESYLATE 10 MG TABLET 1 TAB ORAL DAILY TAKING LEVOTHYROXINE SODIUM 200 MCG TABLET 1 TAB ORALLY DAILY TAKING DEXILANT 60 MG CAPSULE DELAYED RELEASE 1 CAPSULE ORAL BEFORE BEDTIME TAKING ASPIRIN 325 MG TABLET 1 TABLET ORALLY ONCE A DAY TAKING CETIRIZINE HCL 10 MG TABLET 1 TABLET ORALLY ONCE A DAY TAKING VITAMIN D (ERGOCALCIFEROL) 10211 UNIT CAPSULE 1 CAPSULE ORALLY 2X/WEEK TAKING LYRICA 100 MG CAPSULE 1 CAPSULE ORALLY AT BEDTIME TAKING OXYBUTYNIN CHLORIDE ER 10 MG TABLET EXTENDED RELEASE 24 HOUR 1 TABLET ORALLY ONCE A DAY TAKING OXYCODONE-ACETAMINOPHEN 7.5-325 MG TABLET 1 TAB ORAL BEFORE BEDTIME-TAKES NEEDED, NOTES: NOT RECENTLY NOT-TAKING PRIMIDONE 50 MG TABLET 1 TAB ORAL TWICE DAILY NOT-TAKING ROPINIROLE HCL 0.5 MG TABLET 1 TABLET ORAL THREE TIMES DAILY NOT-TAKING SERTRALINE HCL 100 MG TABLET 1 TAB ORALLY DAILY NOT-TAKING OMEPRAZOLE 40 MG CAPSULE DELAYED RELEASE 1 CAPSULE ORALLY ONCE A DAY NOT-TAKING FOLIC ACID 400 MCG TABLET 1 TABLET ORALLY ONCE A DAY, NOTES: NOT LATELY MEDICATION LIST REVIEWED AND RECONCILED WITH THE PATIENT PAST MEDICAL HISTORY CHRONIC NECK PAIN ALLERGIES PENICILLIN (FOR ALLERGIES USE ONLY): HIVES - ALLERGY RED DYE: HIVES, RASH AND ITCHING - ALLERGY LATEX (FOR ALLERGY USE ONLY): HIVES - ALLERGY FRUITS: HIVES - ALLERGY SURGICAL HISTORY HYSTERECTOMY TONSILLECTOMY CERVICAL FUSION 2008 SOCIAL HISTORY GENERAL: TOBACCO USE ARE YOU A:NONSMOKER LATEX QUESTIONNAIRE LATEX ALLERGY : HAVE YOU EVER DEVELOPED ANY TYPE OF REACTION AFTER HANDLING LATEX PRODUCTS SUCH RUBBER GLOVES, CONDOMS, DIAPHRAGMS, BALLOONS, SOCKS, OR UNDERWEAR?YES - PLEASE INDICATE :RUBBER GLOVES LATEX ALLERGY : HAVE YOU EVER DEVELOPED ANY TYPE OF REACTION DURING OR AFTER DENTAL APPOINTMENT, VAGINAL/RECTAL EXAMINATION, SURGICAL PROCEDURE, OR ANY OTHER EXPOSURE?NO LATEX RISK : HAVE YOU EVER HAD ANY DIFFICULTY BREATHING OR HIVES AFTER EATING OR HANDLING ANY FRUITS, OR VEGETABLES; SUCH KIWI, BANANAS, STONE FRUITS, OR CHESTNUTSNO LATEX RISK : DO YOU HAVE A PREVIOUS PERSONAL HISTORY OF MORE THAN NINE SURGERIES, SPINA BIFIDA, OR REPEATED CATHERIZATIONS? NO LATEX RISK : ARE YOU FREQUENTLY EXPOSED TO LATEX PRODUCTS IN YOUR OCCUPATION?NO DATE ASKED : 07/14/2020 ALCOHOL USE: NO. RECREATIONAL DRUG USE DRUG USE?NO CAFFEINE CAFFEINE USE?NO TEMPLE TEMPLE NO ADVENTISM BELIEFS THAT WOULD IMPACT HEALTH CARE. LANGUAGE LANGUAGES SPOKEN:MOHAWK LEARNING BARRIERS / SPECIAL NEEDS CHANGE FROM LAST VISIT?NO BARRIERS TO LEARNING?NO HEARING IMPAIRED?NO VISION IMPAIRED?YES :CORRECTIVE LENSES COGNITIVELY IMPAIRED?NO READINESS TO LEARN?YES LEARNING PREFERENCES?NO LEARNING CAPABILITIES PRESENT?YES EMOTIONAL BARRIERS?NO SPECIAL DEVICES?YES :CANE NEEDED OVERNIGHT BABYSITTER NEEDED?NO DOMESTIC VIOLENCE DO YOU FEEL SAFE IN YOUR ENVIRONMENT?YES - HAS THE PATIENT BEEN EDUCATED REGARDING HIS/HER PLAN OF CARE?YES HAS THE PATIENT BEEN EDUCATED REGARDING PAIN, THE RISK FOR PAIN, THE IMPORTANCE OF EFFECTIVE PAIN MANAGEMENT, AND THE PAIN ASSESSMENT PROCESS?YES HOSPITALIZATION/MAJOR DIAGNOSTIC PROCEDURE SURGICALY RELATED REVIEW OF SYSTEMS CONSTITUTIONAL: ANY RECENT FEVER NO . CHILLS NO . WEIGHT CHANGE OF UNKNOWN REASONS NO . GASTROENTEROLOGY: NEW UNEXPLAINABLE CHANGES IN BOWEL CONTROL NO . CONSTIPATION NO . GENITOURINARY: ANY NEW CHANGE IN BLADDER CONTROL? NO . NEUROLOGY: NEW ONSET DIZZINESS OR NEUROLOGICAL CHANGES NOT MENTIONED NO . NEW NUMBNESS OR PAIN PATTERNS NOT MENTIONED AND PERTINENT TO TODAY'S VISIT NO . CARDIOLOGY: NEW CHEST PRESSURE NO . PATIENT DENIES NO . RESPIRATORY: UNEXPLAINABLE COUGH NO . NEW SHORTNESS OF BREATH NO . VITAL SIGNS WT 160.0 LBS, HT 61 IN, BMI 30.23 INDEX, BP 129/82 MM HG, HR 69 /MIN, RR 18 /MIN, TEMP 97.1 F, OXYGEN SAT % 96%, SAFE IN ENV? (Y/N) YES, NA INITIALS AW 1419T.CARL BUENO. EXAMINATION GENERAL EXAMINATION: GENERALAWAKE,ALERT ,PLEASANT . PSYCHAFFECT NORMAL . LUNGS:LUNG RAZO ARE CLEAR TO AUSCULTATION BILATERALLY. GOOD MOVEMENT OF AIR . HEART:S1, S2 IN A REGULAR RATE AND RHYTHM. NO SIGNIFICANT MURMURS, RUBS OR GALLOPS NOTED . LUMBAR:PALPATION: + FOR PAIN OVER L/S SPINE. + FOR PAIN OVER L/S PARASPINALS SPECIFIC POINT TENDERNESS OVER LUMBAR FACETS WITH FACET LOADING. NEUROLOGIC EXAM:NORMAL SENSATION LIGHT TOUCH BILAT. LOWER EXTREMITIES . ASSESSMENTS LUMBOSACRAL SPONDYLOLYSIS - M43.07 (PRIMARY) OTHER CHRONIC PAIN - G89.29 TREATMENT LUMBOSACRAL SPONDYLOLYSIS NOTES: BILATERAL DIAGNOSTIC LUMBAR FACET BLOCK L4-5,L5-S1/MED HOLD PRINTED AND REVIEWED PRE PROCEDURE TEACHING WITH PATIENT BAIRON BUENO. OTHER CHRONIC PAIN PAIN PROCEDURE LOGDATE OF PROCEDURE1PROCEDURE:TRIGGER POINT INJECTION BILATERAL NECK, BILATERAL SHOULDERS, BILATERAL THORACICAMOUNT OF PRE SEDATEVALIUM 10MG, OXYCODONE 10MGRESULT:MARKED IMPROVEMENT IN PAIN CONTINUES TODAY DISPOSITION & COMMUNICATION FOLLOW UP POST PROCEDURE (REASON: BILATERAL DIAGNOSTIC LUMBAR FACET BLOCK L4-5,L5-S1/MED HOLD) ELECTRONICALLY SIGNED BY NANI LEONE ON 07/17/2020 AT 01:37 PM EDT DISCLAIMER : THIS IS A VISIT SUMMARY EXTRACTED FROM THE [facility] CHART. IT IS NOT A COPY OF THE [facility] PROGRESS NOTE. ELBERT
== END ==
LOC: M PAIN 14:00
PROVIDERS: ATTEND Nurse Practitioner Family
DX: M43.07 Spondylolysis, lumbosacral region (principal); G89.29 Other chronic pain; Z88.0 Allergy status to penicillin; Z91.018 Allergy to other foods; Z91.02 Food additives allergy status; Z91.040 Latex allergy status; Z79.82 Long term (current) use of aspirin; Z79.899 Other long term (current) drug therapy

== ENCOUNTER → 2020-08-04 | Outpatient (CLI) | payer MEDICARE | LOC: M LABSMTC 13:56 | PROVIDERS: ATTEND Anesthesiology | DX: Z20.822 Contact with and (suspected) exposure to COVID-19 (principal) ==

== ENCOUNTER → 2020-08-09 | Outpatient (CLI) | payer MEDICARE, MEDICAID ==
[~2020-08-09] MED LIST changes: +BUPIVACAINE HCL 0.25% 30ML VIAL As Ordered ONE; +ISOVUE-M 300 61% 15ML VIAL As Ordered ONE; +LIDOCAINE 1% SDV 30ML VIAL As Ordered ONE; +TESS100C PO
--- NOTE | 2020-08-09 15:54 | REP ---
INDICATION: BILATERAL DIAGNOSTIC LUMBAR FACET BLOCK. COMPARISON: None. TECHNIQUE: Two views. 33.2 seconds of fluoroscopy time is reported. FINDINGS: A sequence of 2 last image hold fluoroscopically obtained spot radiograph(s) of the lumbar spine document(s) needle position(s) and contrast injection associated with injection procedure. IMPRESSION: Procedural imaging. <Electronically signed by Lester Wilhelm > 08/09/20 3101
--- NOTE | 2020-08-16 02:03 | ECWPNPC ---
PATIENT NAME: JESSICA SPARKS : 1970 GENDER: FEMALE VISIT DATE: 08/09/2020 DISCHARGE DATE: 08/09/20 1445 VISIT LOCKED DATE TIME: PHYSICIAN: CANDELARIO MORTENSEN MD RESOURCE: CANDELARIO MORTENSEN MD REASON FOR APPOINTMENT 1. BILATERAL DIAGNOSTIC LUMBAR FACET BLOCK #1 L4-L5,L5-S1 HISTORY OF PRESENT ILLNESS GENERAL: -. FALL RISK SCREENING: SCREENING : NO FALLS REPORTED IN THE LAST YEAR. PAIN SCREENING: PATIENT HAS A COMPLAINT OF ACUTE OR CHRONIC PAIN :YES LOCATION OF PAIN:NECK, LOW BACK INTENSITY OF PAIN (SCALE OF 1 TO 10):10 "OFF THE CHARTS" WHAT DOES YOUR PAIN FEEL LIKE:ACHING, BURNING, CONTINOUS, THROBBING, SHOOTING DURATION:CONTINOUS, AWAKENS FROM SLEEP PAIN IS INCREASED BY:ACTIVITIES, PROLONGED STANDING PAIN IS DECREASED BY:USE OF PAIN MEDICATIONS, OTHERS TREATMENT/MEDICATIONS USED TO MANAGE PAIN:OPIOIDS PLAN/GOALS/TREATMENT/INTERVENTION/FOLLOW UP:SEE PLAN NURSING NOTE: -. PAIN CENTER INTAKE QUESTIONS: DO YOU HAVE A HISTORY OF MRSA? :NO DO YOU TAKE A BLOOD THINNERS? :YES PLAVIX (LD: 07/29/20) DO YOU HAVE ANY BLEEDING DISORDERS? :NO ANY NEW NUMBNESS OR WEAKNESS IN YOUR LEGS OR ARMS? :NO ANY PACEMAKER,DEFIBRILLATOR, OR DORSAL COLUMN STIMULATOR? :NO DO YOU HAVE ANY RASHES OR OPEN SORES? :NO ARE YOU ALLERGIC TO IV DYE? :NO ARE YOU DIABETIC? :NO ANY NEW PROBLEMS WITH YOUR MEDICATIONS? :NO HAVE YOU RECEIVED A VACCINE IN THE PAST 30 DAYS? :NO DO YOU PLAN TO RECEIVE A VACCINE IN THE NEXT 21 DAYS? :NO DO YOU TAKE ANY IMMUNOSUPPRESSIVE MEDICATIONS? :NO ANY HISTORY OF SEIZURES? :YES EPILEPSY, (FOLLOWS CNY NEURO.) ANY HISTORY OF CARDIAC ISSUES OR EVENTS? :YES CVA 2008 DO YOU HAVE ANY KIDNEY OR LIVER DISEASE? :NO DO YOU HAVE SLEEP APNEA? :YES DO YOU WEAR A CPAP?YES ANY RECENT HEAD INJURY? :NO DO YOU HAVE ANY NEW INFECTIONS? :NO IS THERE A CHANCE YOU COULD BE ? :N/A ARE YOU BREAST FEEDING? :N/A WHEN DID YOU LAST EAT? : 08/08/20 WHEN DID YOU LAST DRINK? : 08/08/20 WHAT DID YOU LAST DRINK? : [place] NAME OF PERSON DRIVING YOU HOME? : SON (JETT) DO YOU HAVE ANY OTHER QUESTIONS OR CONCERNS? : DENIES CURRENT MEDICATIONS TAKING VOLTAREN 1 % GEL 2G MAX 8G IN 24 HOURS TRANSDERMAL THREE TIMES DAILY NEEDED TAKING TRAZODONE HCL 100 MG TABLET 1 TABLET AT BEDTIME ORAL BEFORE BEDTIME NEEDED TAKING FLUTICASONE PROPIONATE 50 MCG/ACT SUSPENSION NASAL DAILY TAKING TIZANIDINE HCL 4 MG TABLET 1 TAB ORAL BEFORE BEDTIME TAKING BUPROPION HCL ER (XL) 150 MG TABLET EXTENDED RELEASE 24 HOUR 1 TAB ORALLY ONCE A DAY TAKING CLOPIDOGREL BISULFATE 75 MG TABLET 1 TAB ORAL DAILY, NOTES: LD: 07/29/20 TAKING ATORVASTATIN CALCIUM 20 MG TABLET 1 TAB ORAL DAILY TAKING ATENOLOL 25 MG TABLET 1 TABLET ORAL BEFORE BEDTIME, NOTES: 08/08/20 TAKING ZONISAMIDE 100 MG CAPSULE 1 CAP ORAL TWICE DAILY TAKING MONTELUKAST SODIUM 10 MG TABLET 1 TAB ORAL BEFORE BEDTIME TAKING ADVAIR HFA 230-21 MCG/ACT AEROSOL (PRIOR AUTH: RX REF#:[id number]) INHALATION BEFORE BEDTIME TAKING PROAIR HFA 108 (90 BASE) MCG/ACT AEROSOL SOLUTION (PRIOR AUTH: RX REF#:[id number]) INHALATION BEFORE BEDTIME TAKING AMLODIPINE BESYLATE 10 MG TABLET 1 TAB ORAL DAILY, NOTES: 08/08/20 TAKING LEVOTHYROXINE SODIUM 200 MCG TABLET 1 TAB ORALLY DAILY TAKING DEXILANT 60 MG CAPSULE DELAYED RELEASE 1 CAPSULE ORAL BEFORE BEDTIME TAKING ASPIRIN 325 MG TABLET 1 TABLET ORALLY ONCE A DAY TAKING CETIRIZINE HCL 10 MG TABLET 1 TABLET ORALLY ONCE A DAY TAKING VITAMIN D (ERGOCALCIFEROL) 08726 UNIT CAPSULE 1 CAPSULE ORALLY 2X/WEEK TAKING LYRICA 100 MG CAPSULE 1 CAPSULE ORALLY AT BEDTIME, NOTES: 08/08/20 TAKING OXYBUTYNIN CHLORIDE ER 10 MG TABLET EXTENDED RELEASE 24 HOUR 1 TABLET ORALLY ONCE A DAY TAKING OXYCODONE-ACETAMINOPHEN 7.5-325 MG TABLET 1 TAB ORAL BEFORE BEDTIME-TAKES NEEDED, NOTES: 08/07/20 NOT-TAKING PRIMIDONE 50 MG TABLET 1 TAB ORAL TWICE DAILY NOT-TAKING ROPINIROLE HCL 0.5 MG TABLET 1 TABLET ORAL THREE TIMES DAILY NOT-TAKING SERTRALINE HCL 100 MG TABLET 1 TAB ORALLY DAILY NOT-TAKING OMEPRAZOLE 40 MG CAPSULE DELAYED RELEASE 1 CAPSULE ORALLY ONCE A DAY NOT-TAKING FOLIC ACID 400 MCG TABLET 1 TABLET ORALLY ONCE A DAY, NOTES: NOT LATELY MEDICATION LIST REVIEWED AND RECONCILED WITH THE PATIENT PAST MEDICAL HISTORY MAJOR DEPRESSIVE DISORDER FIBROMYALGIA ENDEMIC GENERALIZED OSTEO-ARTHROSIS MYALGIA ASTHMA POLYARTHRALGIA GERD PERIPHERAL POLYNEUROPATHY ESSENTIAL HYPERTENSION HYPOTHYROIDISM CHRONIC LOW BACK PAIN PRIMARY OSTEOARTHRITIS ALLERGIES PENICILLIN (FOR ALLERGIES USE ONLY): HIVES - ALLERGY RED DYE: HIVES, RASH AND ITCHING - ALLERGY LATEX (FOR ALLERGY USE ONLY): HIVES - ALLERGY FRUITS: HIVES - ALLERGY SURGICAL HISTORY HYSTERECTOMY TONSILLECTOMY CERVICAL FUSION 2009 SOCIAL HISTORY GENERAL: TOBACCO USE ARE YOU A:NONSMOKER LATEX QUESTIONNAIRE LATEX ALLERGY : HAVE YOU EVER DEVELOPED ANY TYPE OF REACTION AFTER HANDLING LATEX PRODUCTS SUCH RUBBER GLOVES, CONDOMS, DIAPHRAGMS, BALLOONS, SOCKS, OR UNDERWEAR?YES - PLEASE INDICATE :RUBBER GLOVES LATEX ALLERGY : HAVE YOU EVER DEVELOPED ANY TYPE OF REACTION DURING OR AFTER DENTAL APPOINTMENT, VAGINAL/RECTAL EXAMINATION, SURGICAL PROCEDURE, OR ANY OTHER EXPOSURE?NO LATEX RISK : HAVE YOU EVER HAD ANY DIFFICULTY BREATHING OR HIVES AFTER EATING OR HANDLING ANY FRUITS, OR VEGETABLES; SUCH KIWI, BANANAS, STONE FRUITS, OR CHESTNUTSNO LATEX RISK : DO YOU HAVE A PREVIOUS PERSONAL HISTORY OF MORE THAN NINE SURGERIES, SPINA BIFIDA, OR REPEATED CATHERIZATIONS? NO LATEX RISK : ARE YOU FREQUENTLY EXPOSED TO LATEX PRODUCTS IN YOUR OCCUPATION?NO DATE ASKED : 08/07/2020 RECREATIONAL DRUG USE DRUG USE?NO CAFFEINE CAFFEINE USE?NO YARSANISM YARSANISM NO ZOROASTRIAN BELIEFS THAT WOULD IMPACT HEALTH CARE. LANGUAGE LANGUAGES SPOKEN:AZERBAIJANI LEARNING BARRIERS / SPECIAL NEEDS CHANGE FROM LAST VISIT?NO BARRIERS TO LEARNING?NO HEARING IMPAIRED?NO VISION IMPAIRED?YES COGNITIVELY IMPAIRED?NO :CORRECTIVE LENSES READINESS TO LEARN?YES LEARNING PREFERENCES?NO LEARNING CAPABILITIES PRESENT?YES EMOTIONAL BARRIERS?NO SPECIAL DEVICES?YES :CANE NEEDED BATTALION CHIEF NEEDED?NO DOMESTIC VIOLENCE DO YOU FEEL SAFE IN YOUR ENVIRONMENT?YES - HAS THE PATIENT BEEN EDUCATED REGARDING HIS/HER PLAN OF CARE?YES HAS THE PATIENT BEEN EDUCATED REGARDING PAIN, THE RISK FOR PAIN, THE IMPORTANCE OF EFFECTIVE PAIN MANAGEMENT, AND THE PAIN ASSESSMENT PROCESS?YES HOSPITALIZATION/MAJOR DIAGNOSTIC PROCEDURE SURGICALY RELATED SEVERE UNCONTROLLABLE PAIN ([facility]) 07/2020 VITAL SIGNS WT 165.8 LBS, HT 61 IN, BMI 31.32 INDEX, BP 164/90 MM HG, HR 76 /MIN, RR 18 /MIN, TEMP 97.0 F, OXYGEN SAT % 98%, SAFE IN ENV? (Y/N) Y, NA INITIALS AW 1140, REVIEWED BY: EM. EXAMINATION GENERAL: A HISTORY AND PHYSICAL EXAM ON THE PATIENT WAS DONE ON 07/14/2020 (DATE OF ORIGINAL ASSESSMENT) IN PREPARATION OF SURGERY/PROCEDURE. I HAVE NOW REASSESSED THIS PATIENT'S HEALTH STATUS AND PERFORMED AN UPDATED EXAM TODAY. ALL CHANGES IN THE PATIENT'S HISTORY, PHYSICAL EXAM, PRE-EXISTING CONDITONS, AND INDICATIONS/CONTRAINDICATIONS TO THE PLANNED PROCEDURE AND ANESTHESIA ARE DOCUMENTED AND EVALUATED BELOW. I ATTEST TO THE ADEQUACY AND APPROPRIATENESS OF MY ASSESSMENT, AND CONFIRM THE NECESSITY FOR THE PLANNED PROCEDURE. THE PATIENT IS ALERT, ORIENTED TIMES THREE AND COOPERATIVE. LUNGS ARE CLEAR TO AUSCULTATION. HEART SHOWS REGULAR RHYTHM, NO MURMURS AND NO GALLOPS. ASSESSMENTS SPONDYLOSIS WITHOUT MYELOPATHY OR RADICULOPATHY, LUMBOSACRAL REGION - M47.817 (PRIMARY) SPONDYLOSIS WITHOUT MYELOPATHY OR RADICULOPATHY, LUMBAR REGION - M47.816 TREATMENT SPONDYLOSIS WITHOUT MYELOPATHY OR RADICULOPATHY, LUMBOSACRAL REGION SMC FACET BLOCK (PAIN)[id number] COMPLETION OF PROCEDURAL VISIT WHEN MEETS CRITERIALYLA GUZMAN 08/09/2020 2:40:56 PM > CRITERIA MET OTHERS NOTES: 08/07/20 1635 PAT COMPLETED, PATIENT ADVISED NOT TO TAKE PAIN MEDICATIONS OR MUSCLE RELAXANTS AFTER MIDNIGHT THE EVENING OF THE PROCEDURE, PATIENT VERBALIZED UNDERSTANDING. Xuan MOORE RN BSN. PROCEDURES PAIN NURSING RECORD PROCEDURE IN ROOM 1350, PHYSICIAN IN ROOM 1405, START 1412, FINISH 1421, PHYSICIAN OUT OF ROOM 1423, OUT OF ROOM 1428, ECG NORMAL SINUS, PATIENT SHIELDED YES, SAFETY STRAP YES, PREP CHLORHEXIDINE AND DURAPREP Vicki ESPARZA RN, DRESSING TEGADERM DR. MORTENSEN LOC: MICHAEL ESPARZA 08/09/2020 2:13:10 PM > , 1. ALERT, ORIENTED RESP: MICHAEL ESPARZA 08/09/2020 2:13:14 PM > , 1. REGULAR, NO DYSPNEA COLOR: MICHAEL ESPARZA 08/09/2020 2:13:19 PM > , 1. PINK SKIN: MICHAEL ESPARZA 08/09/2020 2:13:23 PM > , 1. WARM, DRY POSITION: MICHAEL ESPARZA 08/09/2020 2:13:27 PM > , 1. PRONE VITALS: MICHAEL ESPARZA 08/09/2020 1:53:47 PM > 170/81, 62, 16, 99% MICHAEL ESPARZA 08/09/2020 1:58:00 PM > 170/87, 64, 16, 99% MICHAEL ESPARZA 08/09/2020 1:59:45 PM > 159/93, 68, 16, 98% MICHAEL ESPARZA 08/09/2020 2:14:39 PM > 159/88, 62, 16, 98% MICHAEL ESPARZA 08/09/2020 2:24:45 PM > 163/91, 67, 16, 96% LYLA GUZMAN 08/09/2020 2:39:43 PM > 172/99, 62,16,99% NOTES Vicki ESPARZA RN COMPLETION OF PROCEDURE APPOINTMENT: POST PAIN 1, DRESSING SITE DRY AND INTACT, IV N/A, GAIT STEADY, TEACHING COMPLETED, PATIENT ACKNOWLEDGES UNDERSTANDING YES, PROCEDURE APPOINTMENT COMPLETED AT 1440 BY: Suhail GUZMAN RN PN LUMBAR FACET BLOCK DIAGNOSTIC PRE PROCEDURE DIAGNOSIS LUMBAR SPONDYLOSIS, LUMBOSACRAL SPONDYLOSIS POST PROCEDURE DIAGNOSIS LUMBAR SPONDYLOSIS, LUMBOSACRAL SPONDYLOSIS PROCEDURE BILATERAL L4-L5 AND BILATERAL L5-S1 FACET BLOCK DIAGNOSTIC NUMBER [address] CANDELARIO MORTENSEN SCREEN PRINTER HELPER NONE ANESTHESIA LOCAL PRE PROCEDURE NOTE THE PATIENT WITH HISTORY OF CHRONIC LOW BACK PAIN. I EVALUATED THE PATIENT AND REVIEWED THE CHART. I WENT OVER THE RISKS, ALTERNATIVES, AND BENEFITS ASSOCIATED WITH THIS PROCEDURE. THE PATIENT WOULD LIKE TO PROCEED AND GAVE CONSENT TO PERFORM THE PROCEDURE. AGREED WITH THE PATIENT, WE ARE DOING THIS PROCEDURE TO DETERMINE IF THE PATIENT IS A CANDIDATE FOR A RADIOFREQUENCY ABLATION OF THE FACETS JOINTS. THE PATIENT DENIES UNEXPLAINABLE WEIGHT LOSS, FEVER, CHILLS, OR NEW CHANGES IN URINARY OR BOWEL CONTROL. THE PATIENT IS COVID-19 NEGATIVE DESCRIPTION OF PROCEDURE THE PATIENT WAS BROUGHT TO THE PROCEDURE ROOM AND PLACED IN THE PRONE POSITION. THE LUMBOSACRAL AREA WAS CLEANED WITH CHLORHEXIDINE AND DURAPREP SOLUTION AND DRAPED ASEPTICALLY. THE PROCEDURE WAS DONE UNDER STERILE CONDITIONS. A TIMEOUT WAS PERFORMED WHERE THE CONSENTED SITE WAS VERIFIED WITH EVERYONE IN THE ROOM. UNDER FLUOROSCOPIC GUIDANCE, TARGETS WERE SELECTED AT THE INTERSECTION OF THE RIGHT AND LEFT TRANSVERSE PROCESS OF L4, L5 AND ALA OF S1 WITH ITS RESPECTIVE SUPERIOR ARTICULAR PROCESS WITH A TARGET OF THE MEDIAN BRANCHES OF L3, L4 AND THE DORSAL RAMI OF L5. I CONFIRMED AGAIN THE SITE OF TARGET. LIDOCAINE WAS USED TO NUMB THE SKIN AND THE SUBCUTANEOUS TISSUE BELOW IT. SPINAL NEEDLE, 22-GAUGE, WAS ADVANCED UNDER FLUOROSCOPIC GUIDANCE AND FOLLOWING PATIENT FEEDBACK UNTIL THE TARGETS WERE REACHED. POSITION OF THE NEEDLES WAS VERIFIED WITH AP AND LATERAL VIEWS. AFTER PROPER POSITION OF THE NEEDLES WAS ACHIEVED, ISOVUE-M DYE 30%, 0.1 ML, WAS INJECTED AT EACH SITE SHOWING ADEQUATE SPREAD OF THE DYE. THEN, A SOLUTION OF 0.4 ML OF BUPIVACAINE 0.25% WAS INJECTED AT EACH SITE. THE MEDICATIONS WERE VERIFIED WITH THE NURSE. THERE WAS NO EVIDENCE OF BLOOD, PARESTHESIA OR CEREBROSPINAL FLUID DURING THE PROCEDURE. THE PATIENT WAS SENT TO THE RECOVERY ROOM. THE PATIENT WAS MOVING THE EXTREMITIES AND DOING WELL. THERE WERE NO COMPLICATIONS DURING THE PROCEDURE. ESTIMATED BLOOD LOSS WAS LESS THAN 5 ML. FLUOROSCOPY TIME WAS 33 SECONDS POST PROCEDURE NOTE THE PATIENT WILL DOCUMENT THE PAIN LEVEL AND RESPONSE TO THIS PROCEDURE PER PAIN DIARY. THE PATIENT WILL BE SEEN IN A FOLLOW UP IN THE NEXT FEW WEEKS. FURTHER DETERMINATION FOR THE PATIENT'S CASE WILL BE DONE AT THE NEXT VISIT. INSTRUCTIONS WERE GIVEN, QUESTIONS WERE ANSWERED, AND THE PATIENT EXPRESSED UNDERSTANDING AND AGREED WITH THE PLAN. I, SHIMON SORIANO, DOCUMENTED THE ABOVE INFORMATION ACTING A SCRIBE FOR DR. MORTENSEN. I HAVE REVIEWED THE ABOVE DOCUMENT, WRITTEN BY SHIMON SORIANO, FUELER, AND I VERIFY THAT IT IS ACCURATE PROCEDURE CODES 48244 INJ PARAVERT F JNT L/S 1 LEV, MODIFIERS: 50 [id number] INJ PARAVERT F JNT L/S 2 LEV, MODIFIERS: 50 DISPOSITION & COMMUNICATION FOLLOW UP FOLLOW UP WITH SHREDDER OPERATOR (REASON: POST BILATERAL DIAGNOSTIC LUMBAR FACET BLOCK #1 L4-L5, L5-S1) ELECTRONICALLY SIGNED BY CANDELARIO MORTENSEN MD, MD ON 08/15/2020 AT 12:52 PM EDT DISCLAIMER : THIS IS A VISIT SUMMARY EXTRACTED FROM THE [employer] CHART. IT IS NOT A COPY OF THE [employer] PROGRESS NOTE. SHOD
== END ==
LOC: M PAIN 11:20
PROVIDERS: ATTEND Anesthesiology
DX: M47.817 Spondylosis without myelopathy or radiculopathy, lumbosacral region (principal); M47.816 Spondylosis without myelopathy or radiculopathy, lumbar region; G40.909 Epilepsy, unspecified, not intractable, without status epilepticus; G47.30 Sleep apnea, unspecified; M79.7 Fibromyalgia; J45.909 Unspecified asthma, uncomplicated; K21.9 Gastro-esophageal reflux disease without esophagitis; E03.9 Hypothyroidism, unspecified; Z86.59 Personal history of other mental and behavioral disorders; Z88.0 Allergy status to penicillin; Z91.018 Allergy to other foods; Z91.02 Food additives allergy status; Z91.040 Latex allergy status; Z79.82 Long term (current) use of aspirin; Z79.899 Other long term (current) drug therapy
CPT/HCPCS: 64493; 64494; Q9967

== ENCOUNTER 2020-08-16 15:02 | Emergency (ER) | payer MEDICAID, MEDICARE ==
[~2020-08-16] VITALS: Ht 152.4 cm; Wt 76.0 kg
[~2020-08-16 15:02] MED LIST changes: -TESS100C PO
--- NOTE | 2020-08-16 15:36 | REP ---
INDICATION: DYSPNEA/COUGH. COMPARISON: 05/15/2020. TECHNIQUE: Single portable AP view of the chest was performed. FINDINGS: There is no acute infiltrate or pulmonary edema. Lungs are clear. The heart is not significantly enlarged. The mediastinal silhouette is unremarkable. The visualized osseous structures are intact.There are degenerative changes of the spine. Metallic fixation is noted in the cervical spine. IMPRESSION: No acute pulmonary disease. <Electronically signed by Gino Szymanski > 08/16/20 [id number]
[2020-08-16 15:45] LABS: BASO % 0.3 % (0.0-1.0); EOS # 0.2 10^3/uL (0.0-0.5); EOS % 2.3 % (0.0-3.0); HEMATOCRIT 37.5 % (36.0-47.0); LYMPH # 3.3 10^3/uL (1.5-5.0); LYMPH % 36.9 % (24.0-44.0); MEAN CORPUSCULAR HEMOGLOBIN 28.4 pg (27.0-33.0); MEAN CORPUSCULAR VOLUME 88.9 fl (80.0-96.0); MONO # 0.8 10^3/uL (0.0-0.8); MONO % 8.4 % (2.0-8.0); NEUTROPHILS # 4.6 10^3/uL (1.5-8.5); NEUTROPHILS % 51.4 % (36.0-66.0); PLATELET COUNT, AUTOMATED 260 10^3/uL (150-450); RED BLOOD COUNT 4.22 10^6/uL (4.00-5.40)
[2020-08-16 16:18] LABS: ALBUMIN 3.8 GM/DL (3.2-5.2); ALT/SGPT 15 U/L (12-78); BILIRUBIN,DIRECT 0.1 MG/DL (0.0-0.2); BILIRUBIN,TOTAL 0.3 MG/DL (0.2-1.0); BLOOD UREA NITROGEN 9 MG/DL (7-18); CALCIUM LEVEL 8.9 MG/DL (8.5-10.1); CARBON DIOXIDE LEVEL 31 MEQ/L (21-32); CHLORIDE LEVEL 106 MEQ/L (98-107); CK-MB VALUE MASS < 1.0 NG/ML (<3.6); CPK CREATINE PHOSPHOKINASE 65 U/L (26-192); GLOMERULAR FILTRATION RATE > 60.0 (>51); GLUCOSE, FASTING 99 MG/DL (70-100); MB/CK RELATIVE INDEX 1.54 (< OR =4); NT-PRO BNP 27 PG/ML (<125); POTASSIUM SERUM 3.4 MEQ/L (3.5-5.1); SODIUM LEVEL 141 MEQ/L (136-145); TOTAL PROTEIN 7.2 GM/DL (6.4-8.2); TROPONIN I < 0.02 NG/ML (< 0.10)
[2020-08-16] MEDS ORDERED: ISOVUE-370 76% 100ML VIAL As Ordered ONE (16:38)
[2020-08-16] MEDS: IPRATROPIUM 0.5MG/ALBUTEROL 2.5MG INH SOL UD 3ML (DUONEB) NEB ONE (17:19)
--- NOTE | 2020-08-16 17:26 | REPVR ---
PROCEDURE INFORMATION: Exam: CTA Chest With Contrast Exam date and time: 08/16/2020 4:55 PM Age: 49 years old Clinical indication: Chest wall pain; Additional info: SOB; R/O pe TECHNIQUE: Imaging protocol: Computed tomographic angiography of the chest with contrast. 3D rendering (Not supervised by radiologist): MIP and/or 3D reconstructed images were created by the technologist. Radiation optimization: All CT scans at this facility use at least one of these dose optimization techniques: automated exposure control; mA and/or kV adjustment per patient size (includes targeted exams where dose is matched to clinical indication); or iterative reconstruction. Contrast material: ISO 370; Contrast volume: 75 ml; Contrast route: INTRAVENOUS (IV); COMPARISON: CT Chest with contrast 01/01/2018 4:10 PM FINDINGS: Pulmonary arteries: Normal. No pulmonary emboli. Aorta: Ascending aortic ectasia at 34 mm. Lungs: Mild linear atelectasis stable in the left base just above the hemidiaphragm. Pleural spaces: Unremarkable. No pneumothorax. No pleural effusion. Heart: Unremarkable. No cardiomegaly. No pericardial effusion. Lymph nodes: Unremarkable. No enlarged lymph nodes. Gallbladder and bile ducts: Cholelithiasis stable. Bones/joints: Unremarkable. No acute fracture. Soft tissues: Unremarkable. IMPRESSION: No acute abnormality. No pulmonary emboli. Electronically signed by: Alexis Singer On 08/16/2020 17:26:30 PM
[2020-08-16 17:45] VITALS: BP 143/95
[2020-08-16] MEDS ORDERED: TESS100C PO ×2 (17:50→18:06)
--- NOTE | 2020-08-17 02:44 | ECGEPIP ---
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
== END 2020-08-16 18:05 | disposition home or self-care (01) ==
LOC: M ED 15:02
DX: J40 Bronchitis, not specified as acute or chronic (principal); R94.31 Abnormal electrocardiogram [ECG] [EKG]; I10 Essential (primary) hypertension; E03.9 Hypothyroidism, unspecified; I25.10 Atherosclerotic heart disease of native coronary artery without angina pectoris; J44.9 Chronic obstructive pulmonary disease, unspecified; E78.5 Hyperlipidemia, unspecified; R06.02 Shortness of breath; Z79.01 Long term (current) use of anticoagulants; Z79.82 Long term (current) use of aspirin; Z79.899 Other long term (current) drug therapy; Z86.73 Personal history of transient ischemic attack (TIA), and cerebral infarction without residual deficits; Z88.0 Allergy status to penicillin; Z91.040 Latex allergy status; Z91.02 Food additives allergy status
CPT/HCPCS: 36415; 71045; 71275; 80053; 80061; 82306; 82550; 82553; 83880; 84439; 84443; 84484; 85025; 93005; 94640; 94760; 99285; G0463; Q9967

== ENCOUNTER → 2020-08-16 | Outpatient (CLI) | payer MEDICARE, MEDICAID ==
[~2020-08-16] MED LIST changes: -BUPIVACAINE HCL 0.25% 30ML VIAL As Ordered ONE; -ISOVUE-M 300 61% 15ML VIAL As Ordered ONE; -LIDOCAINE 1% SDV 30ML VIAL As Ordered ONE
--- NOTE | 2020-08-19 03:01 | ECWPNPC ---
PATIENT NAME: JESSICA SPARKS : 1970 GENDER: FEMALE VISIT DATE: 08/16/2020 DISCHARGE DATE: 08/16/20 1413 VISIT LOCKED DATE TIME: PHYSICIAN: QUINCY GONZALEZ RESOURCE: QUINCY GONZALEZ REASON FOR APPOINTMENT 1. POST BILATERAL DIAGNOSTIC LUMBAR FACET BLOCK L4-5,L5-S1 HISTORY OF PRESENT ILLNESS GENERAL: HERE FOR POST PROCEDURE FOLLOW-UP. HAD BILATERAL DIAGNOSTIC LUMBAR FACET BLOCK RECENTLY. CONTINUES TO BENEFIT IN A THERAPEUTIC WAY FROM DIAGNOSTIC BLOCK. DISCUSSED TREATMENT PLAN. -. FALL RISK SCREENING: SCREENING : NO FALLS REPORTED IN THE LAST YEAR. PAIN SCREENING: PATIENT HAS A COMPLAINT OF ACUTE OR CHRONIC PAIN :YES LOCATION OF PAIN:LOW BACK INTENSITY OF PAIN (SCALE OF 1 TO 10):0 WHAT DOES YOUR PAIN FEEL LIKE:SHOOTING DURATION:ONLY WITH SPECIFIC ACTIVITIES PAIN IS INCREASED BY:OTHERS LIFTING PAIN IS DECREASED BY:SITTING NURSING NOTE: -. PAIN CENTER INTAKE QUESTIONS: DO YOU HAVE A HISTORY OF MRSA? :NO DO YOU TAKE A BLOOD THINNERS? :YES PLAVIX DO YOU HAVE ANY BLEEDING DISORDERS? :NO ANY NEW NUMBNESS OR WEAKNESS IN YOUR LEGS OR ARMS? :NO ANY PACEMAKER,DEFIBRILLATOR, OR DORSAL COLUMN STIMULATOR? :NO DO YOU HAVE ANY RASHES OR OPEN SORES? :NO ARE YOU ALLERGIC TO IV DYE? :NO ARE YOU DIABETIC? :NO ANY NEW PROBLEMS WITH YOUR MEDICATIONS? :NO HAVE YOU RECEIVED A VACCINE IN THE PAST 30 DAYS? :NO DO YOU PLAN TO RECEIVE A VACCINE IN THE NEXT 21 DAYS? :NO DO YOU NEED ANY PRESCRIPTION? :NO DO YOU TAKE ANY IMMUNOSUPPRESSIVE MEDICATIONS? :NO IS THERE A CHANCE YOU COULD BE ? :NO ARE YOU BREAST FEEDING? :NO CURRENT MEDICATIONS TAKING VOLTAREN 1 % GEL 2G MAX 8G IN 24 HOURS TRANSDERMAL THREE TIMES DAILY NEEDED TAKING TRAZODONE HCL 100 MG TABLET 1 TABLET AT BEDTIME ORAL BEFORE BEDTIME NEEDED TAKING FLUTICASONE PROPIONATE 50 MCG/ACT SUSPENSION NASAL DAILY TAKING TIZANIDINE HCL 4 MG TABLET 1 TAB ORAL BEFORE BEDTIME TAKING BUPROPION HCL ER (XL) 150 MG TABLET EXTENDED RELEASE 24 HOUR 1 TAB ORALLY ONCE A DAY TAKING CLOPIDOGREL BISULFATE 75 MG TABLET 1 TAB ORAL DAILY TAKING ATORVASTATIN CALCIUM 20 MG TABLET 1 TAB ORAL DAILY TAKING ATENOLOL 25 MG TABLET 1 TABLET ORAL BEFORE BEDTIME TAKING ZONISAMIDE 100 MG CAPSULE 1 CAP ORAL TWICE DAILY TAKING MONTELUKAST SODIUM 10 MG TABLET 1 TAB ORAL BEFORE BEDTIME TAKING ADVAIR HFA 230-21 MCG/ACT AEROSOL (PRIOR AUTH: RX REF#:[id number]) INHALATION BEFORE BEDTIME TAKING PROAIR HFA 108 (90 BASE) MCG/ACT AEROSOL SOLUTION (PRIOR AUTH: RX REF#:[id number]) INHALATION BEFORE BEDTIME TAKING AMLODIPINE BESYLATE 10 MG TABLET 1 TAB ORAL DAILY TAKING LEVOTHYROXINE SODIUM 200 MCG TABLET 1 TAB ORALLY DAILY TAKING DEXILANT 60 MG CAPSULE DELAYED RELEASE 1 CAPSULE ORAL BEFORE BEDTIME TAKING ASPIRIN 325 MG TABLET 1 TABLET ORALLY ONCE A DAY TAKING CETIRIZINE HCL 10 MG TABLET 1 TABLET ORALLY ONCE A DAY TAKING VITAMIN D (ERGOCALCIFEROL) 30035 UNIT CAPSULE 1 CAPSULE ORALLY 2X/WEEK TAKING LYRICA 100 MG CAPSULE 1 CAPSULE ORALLY AT BEDTIME, NOTES: 08/08/20 TAKING OXYBUTYNIN CHLORIDE ER 10 MG TABLET EXTENDED RELEASE 24 HOUR 1 TABLET ORALLY ONCE A DAY TAKING OXYCODONE-ACETAMINOPHEN 7.5-325 MG TABLET 1 TAB ORAL BEFORE BEDTIME-TAKES NEEDED, NOTES: 08/07/20 NOT-TAKING PRIMIDONE 50 MG TABLET 1 TAB ORAL TWICE DAILY NOT-TAKING ROPINIROLE HCL 0.5 MG TABLET 1 TABLET ORAL THREE TIMES DAILY NOT-TAKING SERTRALINE HCL 100 MG TABLET 1 TAB ORALLY DAILY NOT-TAKING OMEPRAZOLE 40 MG CAPSULE DELAYED RELEASE 1 CAPSULE ORALLY ONCE A DAY NOT-TAKING FOLIC ACID 400 MCG TABLET 1 TABLET ORALLY ONCE A DAY, NOTES: NOT LATELY MEDICATION LIST REVIEWED AND RECONCILED WITH THE PATIENT PAST MEDICAL HISTORY MAJOR DEPRESSIVE DISORDER FIBROMYALGIA ENDEMIC GENERALIZED OSTEO-ARTHROSIS MYALGIA ASTHMA POLYARTHRALGIA GERD PERIPHERAL POLYNEUROPATHY ESSENTIAL HYPERTENSION HYPOTHYROIDISM CHRONIC LOW BACK PAIN PRIMARY OSTEOARTHRITIS ALLERGIES PENICILLIN (FOR ALLERGIES USE ONLY): HIVES - ALLERGY RED DYE: HIVES, RASH AND ITCHING - ALLERGY LATEX (FOR ALLERGY USE ONLY): HIVES - ALLERGY FRUITS: HIVES - ALLERGY SOCIAL HISTORY GENERAL: TOBACCO USE ARE YOU A:NONSMOKER ARE YOU A:NONSMOKER LATEX QUESTIONNAIRE LATEX ALLERGY : HAVE YOU EVER DEVELOPED ANY TYPE OF REACTION AFTER HANDLING LATEX PRODUCTS SUCH RUBBER GLOVES, CONDOMS, DIAPHRAGMS, BALLOONS, SOCKS, OR UNDERWEAR?YES - PLEASE INDICATE :RUBBER GLOVES LATEX ALLERGY : HAVE YOU EVER DEVELOPED ANY TYPE OF REACTION DURING OR AFTER DENTAL APPOINTMENT, VAGINAL/RECTAL EXAMINATION, SURGICAL PROCEDURE, OR ANY OTHER EXPOSURE?NO LATEX RISK : HAVE YOU EVER HAD ANY DIFFICULTY BREATHING OR HIVES AFTER EATING OR HANDLING ANY FRUITS, OR VEGETABLES; SUCH KIWI, BANANAS, STONE FRUITS, OR CHESTNUTSNO LATEX RISK : DO YOU HAVE A PREVIOUS PERSONAL HISTORY OF MORE THAN NINE SURGERIES, SPINA BIFIDA, OR REPEATED CATHERIZATIONS? NO LATEX RISK : ARE YOU FREQUENTLY EXPOSED TO LATEX PRODUCTS IN YOUR OCCUPATION?NO DATE ASKED : 08/16/2020 ALCOHOL USE: NO. RECREATIONAL DRUG USE DRUG USE?NO CAFFEINE CAFFEINE USE?YES SODA JEW JEW NONDEMOMINATIONAL [id number] [employer]IN[employer] LANGUAGE LANGUAGES SPOKEN:AZERI LEARNING BARRIERS / SPECIAL NEEDS BARRIERS TO LEARNING?NO HEARING IMPAIRED?YES AGDAAGUX BOTH EARS, HEARING AID LEFT EAR. VISION IMPAIRED?YES GLASSES :CORRECTIVE LENSES COGNITIVELY IMPAIRED?NO READINESS TO LEARN?YES LEARNING PREFERENCES?YES PREFERS HER EDUCATION VERBALLY AND ALSO WRITTEN LEARNING CAPABILITIES PRESENT?YES EMOTIONAL BARRIERS?NO SPECIAL DEVICES?YES :CANE NEEDED DIRECTOR OF GLOBAL TALENT NEEDED?NO DOMESTIC VIOLENCE DO YOU FEEL SAFE IN YOUR ENVIRONMENT?YES - HAS THE PATIENT BEEN EDUCATED REGARDING HIS/HER PLAN OF CARE?YES HAS THE PATIENT BEEN EDUCATED REGARDING PAIN, THE RISK FOR PAIN, THE IMPORTANCE OF EFFECTIVE PAIN MANAGEMENT, AND THE PAIN ASSESSMENT PROCESS?YES REVIEW OF SYSTEMS CONSTITUTIONAL: ANY RECENT FEVER NO . CHILLS NO . WEIGHT CHANGE OF UNKNOWN REASONS NO . GASTROENTEROLOGY: NEW UNEXPLAINABLE CHANGES IN BOWEL CONTROL NO . CONSTIPATION NO . GENITOURINARY: ANY NEW CHANGE IN BLADDER CONTROL? NO . NEUROLOGY: NEW ONSET DIZZINESS OR NEUROLOGICAL CHANGES NOT MENTIONED NO . NEW NUMBNESS OR PAIN PATTERNS NOT MENTIONED AND PERTINENT TO TODAY'S VISIT NO . CARDIOLOGY: NEW CHEST PRESSURE NO . PATIENT DENIES NO . RESPIRATORY: UNEXPLAINABLE COUGH NO . NEW SHORTNESS OF BREATH NO . VITAL SIGNS WT 166.0 LBS, HT 61 IN, BMI 31.36 INDEX, BP 148/82 MM HG, HR 63 /MIN, RR 18 /MIN, TEMP 97.0 F, OXYGEN SAT % 99%, SAFE IN ENV? (Y/N) YES, NA INITIALS AW 1359T.CARL. EXAMINATION GENERAL EXAMINATION: GENERALAWAKE,ALERT ,PLEASANT . PSYCHAFFECT NORMAL . LUNGS:LUNG RAZO ARE CLEAR TO AUSCULTATION BILATERALLY. GOOD MOVEMENT OF AIR . HEART:S1, S2 IN A REGULAR RATE AND RHYTHM. NO SIGNIFICANT MURMURS, RUBS OR GALLOPS NOTED . ASSESSMENTS OTHER CHRONIC PAIN - G89.29 (PRIMARY) SPONDYLOSIS WITHOUT MYELOPATHY OR RADICULOPATHY, LUMBOSACRAL REGION - M47.817 TREATMENT OTHER CHRONIC PAIN PAIN PROCEDURE LOGDATE OF PROCEDURE1PROCEDURE:BILATERAL DIAGNOSTIC LUMBAR FACET BLOCK #1 L4-L5,L5-B1DOPGKD OF PRE SEDATE0/0RESULT:MARKED REDUCTION IN PAIN CONTINUES TODAY PROCEDURE CODES FA211 ESTABILISHED PATIENT [facility] CHARGE DISPOSITION & COMMUNICATION FOLLOW UP 2 MONTHS (REASON: LOW BACK PAIN/THERAPEUTIC EFFECT LFBDX #1) ELECTRONICALLY SIGNED BY NANI LEONE ON 08/18/2020 AT 09:02 AM EDT DISCLAIMER : THIS IS A VISIT SUMMARY EXTRACTED FROM THE [employer] CHART. IT IS NOT A COPY OF THE [employer] PROGRESS NOTE. EL[place]ERT
== END ==
LOC: M PAIN 13:45
PROVIDERS: ATTEND Nurse Practitioner Family
DX: M47.817 Spondylosis without myelopathy or radiculopathy, lumbosacral region (principal); G89.29 Other chronic pain; M79.7 Fibromyalgia; J45.909 Unspecified asthma, uncomplicated; K21.9 Gastro-esophageal reflux disease without esophagitis; E03.9 Hypothyroidism, unspecified; Z86.59 Personal history of other mental and behavioral disorders; Z88.0 Allergy status to penicillin; Z91.018 Allergy to other foods; Z91.02 Food additives allergy status; Z91.040 Latex allergy status; Z79.82 Long term (current) use of aspirin; Z79.899 Other long term (current) drug therapy

== ENCOUNTER → 2020-08-16 | Outpatient (CLI) | payer MEDICARE, MEDICAID ==
[2020-08-16 15:48] LABS: BASO % 0.2 % (0.0-1.0); EOS # 0.2 10^3/uL (0.0-0.5); EOS % 2.9 % (0.0-3.0); HEMATOCRIT 37.7 % (36.0-47.0); LYMPH # 2.9 10^3/uL (1.5-5.0); LYMPH % 34.9 % (24.0-44.0); MEAN CORPUSCULAR HEMOGLOBIN 28.6 pg (27.0-33.0); MEAN CORPUSCULAR HGB CONC 31.8 g/dl (32.0-36.5); MEAN CORPUSCULAR VOLUME 89.8 fl (80.0-96.0); MONO # 0.7 10^3/uL (0.0-0.8); MONO % 8.7 % (2.0-8.0); NEUTROPHILS # 4.4 10^3/uL (1.5-8.5); NEUTROPHILS % 52.6 % (36.0-66.0); PLATELET COUNT, AUTOMATED 267 10^3/uL (150-450); WHITE BLOOD COUNT 8.3 10^3/uL (4.0-10.0)
[2020-08-16 16:29] LABS: ALBUMIN 3.6 GM/DL (3.2-5.2); ALT/SGPT 16 U/L (12-78); BILIRUBIN,TOTAL 0.3 MG/DL (0.2-1.0); BLOOD UREA NITROGEN 9 MG/DL (7-18); CARBON DIOXIDE LEVEL 32 MEQ/L (21-32); CHLORIDE LEVEL 106 MEQ/L (98-107); CHOLESTEROL LEVEL 228 MG/DL (<200); CHOLESTEROL RISK RATIO 3.352 (<5); CREATININE FOR GFR 0.87 MG/DL (0.55-1.30); FREE T4 0.89 NG/DL (0.76-1.46); GLOMERULAR FILTRATION RATE > 60.0 (>51); GLUCOSE, FASTING 105 MG/DL (70-100); HDL CHOLESTEROL 68 MG/DL (>40); LDL CHOLESTEROL 102 MG/DL (<100); NON-HDL-C 160 MG/DL; POTASSIUM SERUM 3.4 MEQ/L (3.5-5.1); SODIUM LEVEL 142 MEQ/L (136-145); TOTAL 25(OH) VITAMIN D 16.3 NG/ML (30.0-100.0); TOTAL PROTEIN 6.6 GM/DL (6.4-8.2); TRIGLYCERIDES LEVEL 288 MG/DL (<150)
== END ==
LOC: M LAB 14:44
PROVIDERS: ATTEND Nurse Practitioner Family
DX: I10 Essential (primary) hypertension (principal); E03.9 Hypothyroidism, unspecified; Z79.899 Other long term (current) drug therapy

== ENCOUNTER → 2020-09-14 | Outpatient (CLI) | payer MEDICARE, MEDICAID ==
[~2020-09-14] MED LIST changes: +TESS100C PO
--- NOTE | 2020-09-20 01:15 | ECWPNPC ---
PATIENT NAME: JESSICA SPARKS : 1970 GENDER: FEMALE VISIT DATE: 09/14/2020 DISCHARGE DATE: 09/14/20 1515 VISIT LOCKED DATE TIME: PHYSICIAN: QUINCY GONZALEZ RESOURCE: QUINCY GONZALEZ REASON FOR APPOINTMENT 1. NBP-KNEES HISTORY OF PRESENT ILLNESS GENERAL: HERE TODAY TO DISCUSS A NEW BODY PART THAT HAS CHRONIC PAIN. WE USUALLY SEE JESSICA FOR TREATMENT OF CHRONIC BACK PAIN. SHE GENERALLY HURTS ALL OVER. WORST AREA OF PAIN LATELY IS BILATERAL KNEES. HAS BEEN TOLD THAT SHE HAS BONE ON BONE. HAS BEEN SEEING [facility] AND RECEIVING INJECTIONS OVER THE YEARS. THIS HAS BEEN A CHRONIC ISSUE FOR HER FOR SEVERAL YEARS. IT HAS GOTTEN WORSE OVER THE PAST 2 YEARS. SHE WOULD LIKE TO AVOID HAVING SURGERY. -. FALL RISK SCREENING: SCREENING : NO FALLS REPORTED IN THE LAST YEAR. PAIN SCREENING: PATIENT HAS A COMPLAINT OF ACUTE OR CHRONIC PAIN :YES LOCATION OF PAIN:RIGHT SHOULDER, KNEES INTENSITY OF PAIN (SCALE OF 1 TO 10):9 WHAT DOES YOUR PAIN FEEL LIKE:ACHING, SHARP DURATION:CONTINOUS, CONSTANT PAIN IS INCREASED BY:ACTIVITIES PAIN IS DECREASED BY:USE OF PAIN MEDICATIONS NURSING NOTE: -. PAIN CENTER INTAKE QUESTIONS: DO YOU HAVE A HISTORY OF MRSA? :NO DO YOU TAKE A BLOOD THINNERS? :YES PLAVIX DO YOU HAVE ANY BLEEDING DISORDERS? :NO ANY NEW NUMBNESS OR WEAKNESS IN YOUR LEGS OR ARMS? :NO ANY PACEMAKER,DEFIBRILLATOR, OR DORSAL COLUMN STIMULATOR? :NO DO YOU HAVE ANY RASHES OR OPEN SORES? :NO ARE YOU ALLERGIC TO IV DYE? :NO ARE YOU DIABETIC? :NO ANY NEW PROBLEMS WITH YOUR MEDICATIONS? :NO HAVE YOU RECEIVED A VACCINE IN THE PAST 30 DAYS? :NO DO YOU PLAN TO RECEIVE A VACCINE IN THE NEXT 21 DAYS? :NO DO YOU NEED ANY PRESCRIPTION? :YES PT ASKING FOR SOMETHING FOR PAIN DO YOU TAKE ANY IMMUNOSUPPRESSIVE MEDICATIONS? :NO IS THERE A CHANCE YOU COULD BE ? :NO ARE YOU BREAST FEEDING? :NO CURRENT MEDICATIONS TAKING VOLTAREN 1 % GEL 2G MAX 8G IN 24 HOURS TRANSDERMAL THREE TIMES DAILY NEEDED TAKING TRAZODONE HCL 100 MG TABLET 1 TABLET AT BEDTIME ORAL BEFORE BEDTIME NEEDED TAKING FLUTICASONE PROPIONATE 50 MCG/ACT SUSPENSION NASAL DAILY TAKING TIZANIDINE HCL 4 MG TABLET 1 TAB ORAL BEFORE BEDTIME TAKING BUPROPION HCL ER (XL) 150 MG TABLET EXTENDED RELEASE 24 HOUR 1 TAB ORALLY ONCE A DAY TAKING CLOPIDOGREL BISULFATE 75 MG TABLET 1 TAB ORAL DAILY TAKING ATORVASTATIN CALCIUM 20 MG TABLET 1 TAB ORAL DAILY TAKING ATENOLOL 25 MG TABLET 1 TABLET ORAL BEFORE BEDTIME TAKING ZONISAMIDE 100 MG CAPSULE 1 CAP ORAL TWICE DAILY TAKING MONTELUKAST SODIUM 10 MG TABLET 1 TAB ORAL BEFORE BEDTIME TAKING ADVAIR HFA 230-21 MCG/ACT AEROSOL (PRIOR AUTH: RX REF#:[id number]) INHALATION BEFORE BEDTIME TAKING PROAIR HFA 108 (90 BASE) MCG/ACT AEROSOL SOLUTION (PRIOR AUTH: RX REF#:[id number]) INHALATION BEFORE BEDTIME TAKING AMLODIPINE BESYLATE 10 MG TABLET 1 TAB ORAL DAILY TAKING LEVOTHYROXINE SODIUM 200 MCG TABLET 1 TAB ORALLY DAILY TAKING DEXILANT 60 MG CAPSULE DELAYED RELEASE 1 CAPSULE ORAL BEFORE BEDTIME TAKING ASPIRIN 325 MG TABLET 1 TABLET ORALLY ONCE A DAY TAKING CETIRIZINE HCL 10 MG TABLET 1 TABLET ORALLY ONCE A DAY TAKING VITAMIN D (ERGOCALCIFEROL) 47726 UNIT CAPSULE 1 CAPSULE ORALLY 2X/WEEK TAKING OXYBUTYNIN CHLORIDE ER 10 MG TABLET EXTENDED RELEASE 24 HOUR 1 TABLET ORALLY ONCE A DAY TAKING OXYCODONE-ACETAMINOPHEN 7.5-325 MG TABLET 1 TAB ORAL BEFORE BEDTIME-TAKES NEEDED, NOTES: 08/07/20 TAKING HYDROXYZINE HCL 50 MG TABLET 1 TABLET NEEDED ORALLY EVERY 6 HRS TAKING LYRICA 25 MG CAPSULE 1 CAPSULE ORALLY ONCE A DAY TAKING TIZANIDINE HCL 4 MG TABLET 1 TABLET NEEDED ORALLY THREE TIMES A DAY TAKING GABAPENTIN 300 MG CAPSULE 1 CAPSULE ORALLY TWICE A DAY NOT-TAKING LYRICA 100 MG CAPSULE 1 CAPSULE ORALLY AT BEDTIME, NOTES: 08/08/20 NOT-TAKING PRIMIDONE 50 MG TABLET 1 TAB ORAL TWICE DAILY NOT-TAKING ROPINIROLE HCL 0.5 MG TABLET 1 TABLET ORAL THREE TIMES DAILY NOT-TAKING SERTRALINE HCL 100 MG TABLET 1 TAB ORALLY DAILY NOT-TAKING OMEPRAZOLE 40 MG CAPSULE DELAYED RELEASE 1 CAPSULE ORALLY ONCE A DAY NOT-TAKING FOLIC ACID 400 MCG TABLET 1 TABLET ORALLY ONCE A DAY, NOTES: NOT LATELY MEDICATION LIST REVIEWED AND RECONCILED WITH THE PATIENT PAST MEDICAL HISTORY MYALGIA MAJOR DEPRESSIVE DISORDER, RECURRENT, MODERATE FIBROMYALGIA ENDEMIC GENERALIZED OSTEO-ARTHROSIS MYALGIA MODERATE PERSISTENT ASTHMA WITHOUT COMPLICATION CHRONIC COUGH POLYARTHRALGIA GASTROESOPHAGEAL REFLUX DISEASE WITHOUT ESOPHAGITIS PERIPHERAL POLYNEUROPATHY ESSENTIAL HYPERTENSION ACQUIRED HYPOTHYROIDISM MICROSCOPIC HEMATURIA MICROSCOPIC HEMATURIA URINARY FREQUENCY NOCTURIA ACQUIRED HYPOTHYROIDISM 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 LUMBOSACRAL REGION WITHOUT MYELOPATHY OR RADICULOPATHY PRIMARY OSTEOARTHRITIS OF BOTH KNEES RIGHT FLANK PAIN OTHER SPONDYLOSIS, LUMBOSACRAL REGION OTHER CHRONIC PAIN SPONDYLOSIS WITHOUT MYELOPATHY OR RADICULOPATHY, 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 MYELOPATHY OR RADICULOPATHY, LUMBOSACRAL REGION ALLERGIES PENICILLIN (FOR ALLERGIES USE ONLY): HIVES - ALLERGY RED DYE: HIVES, RASH AND ITCHING - ALLERGY LATEX (FOR ALLERGY USE ONLY): HIVES - ALLERGY FRUITS: HIVES - ALLERGY SOCIAL HISTORY GENERAL: TOBACCO USE ARE YOU A:NONSMOKER LATEX QUESTIONNAIRE LATEX ALLERGY : HAVE YOU EVER DEVELOPED ANY TYPE OF REACTION AFTER HANDLING LATEX PRODUCTS SUCH RUBBER GLOVES, CONDOMS, DIAPHRAGMS, BALLOONS, SOCKS, OR UNDERWEAR?YES LATEX ALLERGY : HAVE YOU EVER DEVELOPED ANY TYPE OF REACTION DURING OR AFTER DENTAL APPOINTMENT, VAGINAL/RECTAL EXAMINATION, SURGICAL PROCEDURE, OR ANY OTHER EXPOSURE?NO - PLEASE INDICATE :RUBBER GLOVES DATE ASKED : 08/16/2020 LATEX RISK : HAVE YOU EVER HAD ANY DIFFICULTY BREATHING OR HIVES AFTER EATING OR HANDLING ANY FRUITS, OR VEGETABLES; SUCH KIWI, BANANAS, STONE FRUITS, OR CHESTNUTSNO LATEX RISK : DO YOU HAVE A PREVIOUS PERSONAL HISTORY OF MORE THAN NINE SURGERIES, SPINA BIFIDA, OR REPEATED CATHERIZATIONS? NO LATEX RISK : ARE YOU FREQUENTLY EXPOSED TO LATEX PRODUCTS IN YOUR OCCUPATION?NO RECREATIONAL DRUG USE DRUG USE?NO CAFFEINE CAFFEINE USE?NO SABIANISM SABIANISM NO UATSDIN BELIEFS THAT WOULD IMPACT HEALTH CARE. LANGUAGE LANGUAGES SPOKEN:TAJIK LEARNING BARRIERS / SPECIAL NEEDS BARRIERS TO LEARNING?NO HEARING IMPAIRED?YES NINILCHIK BOTH EARS, HEARING AID LEFT EAR. VISION IMPAIRED?YES GLASSES COGNITIVELY IMPAIRED?NO :CORRECTIVE LENSES READINESS TO LEARN?YES LEARNING PREFERENCES?YES PREFERS HER EDUCATION VERBALLY AND ALSO WRITTEN LEARNING CAPABILITIES PRESENT?YES EMOTIONAL BARRIERS?NO SPECIAL DEVICES?YES :CANE NEEDED PROGRAM MANAGER SLP NEEDED?NO DOMESTIC VIOLENCE DO YOU FEEL SAFE IN YOUR ENVIRONMENT?YES - HAS THE PATIENT BEEN EDUCATED REGARDING HIS/HER PLAN OF CARE?YES HAS THE PATIENT BEEN EDUCATED REGARDING PAIN, THE RISK FOR PAIN, THE IMPORTANCE OF EFFECTIVE PAIN MANAGEMENT, AND THE PAIN ASSESSMENT PROCESS?YES REVIEW OF SYSTEMS CONSTITUTIONAL: ANY RECENT FEVER NO . CHILLS NO . WEIGHT CHANGE OF UNKNOWN REASONS NO . GASTROENTEROLOGY: NEW UNEXPLAINABLE CHANGES IN BOWEL CONTROL NO . CONSTIPATION NO . GENITOURINARY: ANY NEW CHANGE IN BLADDER CONTROL? NO . NEUROLOGY: NEW ONSET DIZZINESS OR NEUROLOGICAL CHANGES NOT MENTIONED NO . NEW NUMBNESS OR PAIN PATTERNS NOT MENTIONED AND PERTINENT TO TODAY'S VISIT NO . CARDIOLOGY: NEW CHEST PRESSURE NO . PATIENT DENIES NO . RESPIRATORY: UNEXPLAINABLE COUGH NO . NEW SHORTNESS OF BREATH NO . VITAL SIGNS WT 171.2 LBS, HT 61 IN, BMI 32.34 INDEX, BP 144/73 MM HG, HR 85 /MIN, RR 18 /MIN, TEMP 97.6 F, OXYGEN SAT % 99%, SAFE IN ENV? (Y/N) Y, NA INITIALS AW 1354, REVIEWED BY: EM. EXAMINATION GENERAL EXAMINATION: GENERALNO ACUTE DISTRESS, WELL NOURISHED AND HYDRATED. PSYCHAPPROPRIATE MOOD AND AFFECT . LUNGS:CLEAR TO AUSCULTATION BILATERALLY, NO WHEEZES, RHONCHI, RALES. HEART:NO MURMURS, REGULAR RATE AND RHYTHM. MUSCULOSKELETAL:NORMAL RANGE OF MOTION. MUSCLE STRENGTH TESTING 4/5 BILATERAL LOWER EXTREMITIES.. NEUROLOGIC EXAM:NORMAL SENSATION TO LIGHT TOUCH LOWER EXTREMITIES . KNEE / FELIPE: KNEE: BILATERAL. INSPECTION:MILD SWELLING .NO REDNESS. PALPATION: TENDERNESS ON JOINTLINES AND COLLATERAL LIGAMENTS. ASSESSMENTS PAIN IN LEFT KNEE - M25.562 (PRIMARY) CHRONIC PAIN OF RIGHT KNEE - M25.561 TREATMENT PAIN IN LEFT KNEE NOTES: DISCUSS [facility] WITH PRIMARY CARE FOR GENERALIZED JOINT PAIN/KNEE PAIN.SHE IS CURRENTLY ON BUPROPRION FOR DEPRESSION.RETURN TO CLINIC TO DISCUSS DIAGNOSTIC KNEE INJECTIONS TO CONSIDER RADIOFREQUENCY ABLATION THERAPY FOR KNEES.PATIENT IS CONCERNED ABOUT PAIN WITH THIS PROCEDURE.RECOMMEND RHEUMATOLOGY EVALUATION DUE TO CHRONIC GENERALIZED JOINT PAIN. PROCEDURE CODES FA211 ESTABILISHED PATIENT [facility] FACILITY CHARGE DISPOSITION & COMMUNICATION FOLLOW UP F/U W DR Gabriel TO DISCUSS DIAGNOSTIC KNEE BLOCKS (REASON: BILAT. KNEE PAIN R>L) ELECTRONICALLY SIGNED BY NANI LEONE ON 09/19/2020 AT 08:50 AM EDT DISCLAIMER : THIS IS A VISIT SUMMARY EXTRACTED FROM THE [facility] CHART. IT IS NOT A COPY OF THE [employer] PROGRESS NOTE. ELBERT
== END ==
LOC: M PAIN 14:15
PROVIDERS: ATTEND Nurse Practitioner Family
DX: M25.562 Pain in left knee (principal); M25.561 Pain in right knee; G89.29 Other chronic pain; M79.7 Fibromyalgia; J45.40 Moderate persistent asthma, uncomplicated; K21.9 Gastro-esophageal reflux disease without esophagitis; E03.9 Hypothyroidism, unspecified; Z86.59 Personal history of other mental and behavioral disorders; Z88.0 Allergy status to penicillin; Z91.018 Allergy to other foods; Z91.02 Food additives allergy status; Z91.040 Latex allergy status; Z79.82 Long term (current) use of aspirin; Z79.899 Other long term (current) drug therapy

== ENCOUNTER → 2020-09-25 | Outpatient (CLI) | payer MEDICARE, MEDICAID ==
[~2020-09-25] MED LIST changes: +ERGO500029 PO; -HYDR1CRE9 EXT; +SFHHYD1CR EXT
== END ==
LOC: M PLALAB 10:45
PROVIDERS: ATTEND Surgery
DX: Z13.79 Encounter for other screening for genetic and chromosomal anomalies (principal); Z80.41 Family history of malignant neoplasm of ovary; Z80.3 Family history of malignant neoplasm of breast

== ENCOUNTER → 2020-10-17 | Outpatient (CLI) | payer MEDICARE, MEDICAID ==
[~2020-10-17] MED LIST changes: +EPIN0.3I11 IM; +GABA-282 PO
--- NOTE | 2020-10-19 04:04 | ECWPNPC ---
PATIENT NAME: JESSICA SPARKS : 1970 GENDER: FEMALE VISIT DATE: 10/17/2020 DISCHARGE DATE: 10/17/20 1448 VISIT LOCKED DATE TIME: PHYSICIAN: QUINCY GONZALEZ RESOURCE: QUINCY GONZALEZ REASON FOR APPOINTMENT 1. LOW BACK NECK KNEE HISTORY OF PRESENT ILLNESS GENERAL: HERE FOR FOLLOW-UP OF CHRONIC LOW BACK PAIN. PATIENT CONTINUES TO BENEFIT FROM DIAGNOSTIC LUMBAR FACET BLOCKS THAT WAS DONE IN AUGUST. DOES FEEL THOUGH PAIN HAS RETURNED BUT AT A LOW LEVEL. DISCUSSED WAITING FOR PAIN TO GET TO A HIGHER LEVEL TO CONSIDER DOING LUMBAR FACET BLOCK DIAGNOSTIC #2. -. FALL RISK SCREENING: SCREENING : NO FALLS REPORTED IN THE LAST YEAR. PAIN SCREENING: PATIENT HAS A COMPLAINT OF ACUTE OR CHRONIC PAIN :YES LOCATION OF PAIN:NECK, LOW BACK, KNEES INTENSITY OF PAIN (SCALE OF 1 TO 10):4 WHAT DOES YOUR PAIN FEEL LIKE:ACHING, CONTINOUS, TENDER DURATION:CONTINOUS, CONSTANT, ALL DAY PAIN IS INCREASED BY:ACTIVITIES PAIN IS DECREASED BY:OTHERS HEAT NURSING NOTE: -. PAIN CENTER INTAKE QUESTIONS: DO YOU HAVE A HISTORY OF MRSA? :NO DO YOU TAKE A BLOOD THINNERS? :YES PLAVIX DO YOU HAVE ANY BLEEDING DISORDERS? :NO ANY NEW NUMBNESS OR WEAKNESS IN YOUR LEGS OR ARMS? :NO ANY PACEMAKER,DEFIBRILLATOR, OR DORSAL COLUMN STIMULATOR? :NO DO YOU HAVE ANY RASHES OR OPEN SORES? :NO ARE YOU ALLERGIC TO IV DYE? :NO ARE YOU DIABETIC? :NO ANY NEW PROBLEMS WITH YOUR MEDICATIONS? :NO HAVE YOU RECEIVED A VACCINE IN THE PAST 30 DAYS? :NO DO YOU PLAN TO RECEIVE A VACCINE IN THE NEXT 21 DAYS? :NO DO YOU NEED ANY PRESCRIPTION? :NO DO YOU TAKE ANY IMMUNOSUPPRESSIVE MEDICATIONS? :NO IS THERE A CHANCE YOU COULD BE ? :NO ARE YOU BREAST FEEDING? :NO CURRENT MEDICATIONS TAKING VOLTAREN 1 % GEL 2G MAX 8G IN 24 HOURS TRANSDERMAL THREE TIMES DAILY NEEDED TAKING TRAZODONE HCL 100 MG TABLET 1 TABLET AT BEDTIME ORAL BEFORE BEDTIME NEEDED TAKING FLUTICASONE PROPIONATE 50 MCG/ACT SUSPENSION NASAL DAILY TAKING TIZANIDINE HCL 4 MG TABLET 1 TAB ORAL BEFORE BEDTIME TAKING BUPROPION HCL ER (XL) 150 MG TABLET EXTENDED RELEASE 24 HOUR 1 TAB ORALLY ONCE A DAY TAKING CLOPIDOGREL BISULFATE 75 MG TABLET 1 TAB ORAL DAILY TAKING ATORVASTATIN CALCIUM 20 MG TABLET 1 TAB ORAL DAILY TAKING ATENOLOL 25 MG TABLET 1 TABLET ORAL BEFORE BEDTIME TAKING ZONISAMIDE 100 MG CAPSULE 1 CAP ORAL TWICE DAILY TAKING MONTELUKAST SODIUM 10 MG TABLET 1 TAB ORAL BEFORE BEDTIME TAKING ADVAIR HFA 230-21 MCG/ACT AEROSOL (PRIOR AUTH: RX REF#:[id number]) INHALATION BEFORE BEDTIME TAKING PROAIR HFA 108 (90 BASE) MCG/ACT AEROSOL SOLUTION (PRIOR AUTH: RX REF#:[id number]) INHALATION BEFORE BEDTIME TAKING AMLODIPINE BESYLATE 10 MG TABLET 1 TAB ORAL DAILY TAKING LEVOTHYROXINE SODIUM 200 MCG TABLET 1 TAB ORALLY DAILY TAKING DEXILANT 60 MG CAPSULE DELAYED RELEASE 1 CAPSULE ORAL BEFORE BEDTIME TAKING ASPIRIN 325 MG TABLET 1 TABLET ORALLY ONCE A DAY TAKING CETIRIZINE HCL 10 MG TABLET 1 TABLET ORALLY ONCE A DAY TAKING VITAMIN D (ERGOCALCIFEROL) 37443 UNIT CAPSULE 1 CAPSULE ORALLY 2X/WEEK TAKING OXYBUTYNIN CHLORIDE ER 10 MG TABLET EXTENDED RELEASE 24 HOUR 1 TABLET ORALLY ONCE A DAY TAKING OXYCODONE-ACETAMINOPHEN 7.5-325 MG TABLET 1 TAB ORAL BEFORE BEDTIME-TAKES NEEDED TAKING HYDROXYZINE HCL 50 MG TABLET 1 TABLET NEEDED ORALLY EVERY 6 HRS TAKING LYRICA 25 MG CAPSULE 1 CAPSULE ORALLY ONCE A DAY TAKING GABAPENTIN 300 MG CAPSULE 1 CAPSULE ORALLY TWICE A DAY NOT-TAKING TIZANIDINE HCL 4 MG TABLET 1 TABLET NEEDED ORALLY THREE TIMES A DAY NOT-TAKING LYRICA 100 MG CAPSULE 1 CAPSULE ORALLY AT BEDTIME, NOTES: 08/08/20 NOT-TAKING PRIMIDONE 50 MG TABLET 1 TAB ORAL TWICE DAILY NOT-TAKING ROPINIROLE HCL 0.5 MG TABLET 1 TABLET ORAL THREE TIMES DAILY NOT-TAKING SERTRALINE HCL 100 MG TABLET 1 TAB ORALLY DAILY NOT-TAKING OMEPRAZOLE 40 MG CAPSULE DELAYED RELEASE 1 CAPSULE ORALLY ONCE A DAY NOT-TAKING FOLIC ACID 400 MCG TABLET 1 TABLET ORALLY ONCE A DAY, NOTES: NOT LATELY MEDICATION LIST REVIEWED AND RECONCILED WITH THE PATIENT PAST MEDICAL HISTORY MICROSCOPIC HEMATURIA SPONDYLOSIS WITHOUT MYELOPATHY OR RADICULOPATHY, LUMBOSACRAL REGION MAJOR DEPRESSIVE DISORDER, RECURRENT, MODERATE OTHER CHRONIC PAIN SPONDYLOSIS WITHOUT MYELOPATHY OR RADICULOPATHY, LUMBAR REGION URINARY FREQUENCY FIBROMYALGIA NOCTURIA MYALGIA ARTHRALGIA, UNSPECIFIED JOINT MODERATE PERSISTENT ASTHMA WITHOUT COMPLICATION CERVICALGIA RIGHT FLANK PAIN CHRONIC COUGH POLYARTHRALGIA PRIMARY OSTEOARTHRITIS INVOLVING MULTIPLE JOINTS LUMBOSACRAL SPONDYLOLYSIS PRIMARY OSTEOARTHRITIS OF BOTH KNEES ACQUIRED HYPOTHYROIDISM DRY MOUTH MYALGIA, OTHER SITE SPONDYLOSIS OF LUMBAR REGION WITHOUT MYELOPATHY OR RADICULOPATHY SPONDYLOSIS OF LUMBOSACRAL REGION WITHOUT MYELOPATHY OR RADICULOPATHY ASPIRIN LONG-TERM USE FAMILY HISTORY OF CANCER PAIN IN LEFT KNEE CHRONIC PAIN OF RIGHT KNEE OTHER MICROSCOPIC HEMATURIA ALLERGIES PENICILLIN (FOR ALLERGIES USE ONLY): HIVES - ALLERGY RED DYE: HIVES, RASH AND ITCHING - ALLERGY LATEX (FOR ALLERGY USE ONLY): HIVES - ALLERGY FRUITS: HIVES - ALLERGY SURGICAL HISTORY HYSTERECTOMY AND B/L OOPHORECTOMY 2019 TONSILLECTOMY CERVICAL FUSION 2009 2 BREAST BENIGN BIOPSY, LEFT BREAST CERVICAL LYMPH NODE EXCISIONAL BIOPSY BENIGN 2005 LEFT POSTERIOR TRIANGLE LYMPH NODE BIOPSY BENIGN 2003 STOMACH/ANTRUM BIOPSY-MILD CHRONIC INFLAMMATION, BENIGN 2006 SOCIAL HISTORY GENERAL: TOBACCO USE ARE YOU A:NONSMOKER LATEX QUESTIONNAIRE LATEX ALLERGY : HAVE YOU EVER DEVELOPED ANY TYPE OF REACTION AFTER HANDLING LATEX PRODUCTS SUCH RUBBER GLOVES, CONDOMS, DIAPHRAGMS, BALLOONS, SOCKS, OR UNDERWEAR?YES - PLEASE INDICATE :RUBBER GLOVES LATEX ALLERGY : HAVE YOU EVER DEVELOPED ANY TYPE OF REACTION DURING OR AFTER DENTAL APPOINTMENT, VAGINAL/RECTAL EXAMINATION, SURGICAL PROCEDURE, OR ANY OTHER EXPOSURE?YES - PLEASE INDICATE :DENTAL PROCEDURE SOMEONE USED LATEX GLOVES LATEX RISK : HAVE YOU EVER HAD ANY DIFFICULTY BREATHING OR HIVES AFTER EATING OR HANDLING ANY FRUITS, OR VEGETABLES; SUCH KIWI, BANANAS, STONE FRUITS, OR CHESTNUTSYES LATEX RISK : DO YOU HAVE A PREVIOUS PERSONAL HISTORY OF MORE THAN NINE SURGERIES, SPINA BIFIDA, OR REPEATED CATHERIZATIONS? NO LATEX RISK : ARE YOU FREQUENTLY EXPOSED TO LATEX PRODUCTS IN YOUR OCCUPATION?NO DATE ASKED : 10/17/2020 ALCOHOL USE: NO. RECREATIONAL DRUG USE DRUG USE?NO CAFFEINE CAFFEINE USE?NO SCIENTOLOGIST SCIENTOLOGIST NO YAZIDISM BELIEFS THAT WOULD IMPACT HEALTH CARE. LANGUAGE LANGUAGES SPOKEN:POLISH LEARNING BARRIERS / SPECIAL NEEDS CHANGE FROM LAST VISIT?NO BARRIERS TO LEARNING?NO HEARING IMPAIRED?YES [place] BOTH EARS, HEARING AID LEFT EAR. VISION IMPAIRED?YES GLASSES :CORRECTIVE LENSES COGNITIVELY IMPAIRED?NO READINESS TO LEARN?YES LEARNING PREFERENCES?YES PREFERS HER EDUCATION VERBALLY AND ALSO WRITTEN LEARNING CAPABILITIES PRESENT?YES EMOTIONAL BARRIERS?NO SPECIAL DEVICES?YES :CANE NEEDED DINKEY DRIVER NEEDED?NO DOMESTIC VIOLENCE DO YOU FEEL SAFE IN YOUR ENVIRONMENT?YES - HAS THE PATIENT BEEN EDUCATED REGARDING HIS/HER PLAN OF CARE?YES HAS THE PATIENT BEEN EDUCATED REGARDING PAIN, THE RISK FOR PAIN, THE IMPORTANCE OF EFFECTIVE PAIN MANAGEMENT, AND THE PAIN ASSESSMENT PROCESS?YES HOSPITALIZATION/MAJOR DIAGNOSTIC PROCEDURE SURGICALY RELATED REVIEW OF SYSTEMS CONSTITUTIONAL: ANY RECENT FEVER NO . CHILLS NO . WEIGHT CHANGE OF UNKNOWN REASONS NO . GASTROENTEROLOGY: NEW UNEXPLAINABLE CHANGES IN BOWEL CONTROL NO . CONSTIPATION NO . GENITOURINARY: ANY NEW CHANGE IN BLADDER CONTROL? NO . NEUROLOGY: NEW ONSET DIZZINESS OR NEUROLOGICAL CHANGES NOT MENTIONED NO . NEW NUMBNESS OR PAIN PATTERNS NOT MENTIONED AND PERTINENT TO TODAY'S VISIT NO . CARDIOLOGY: NEW CHEST PRESSURE NO . PATIENT DENIES NO . RESPIRATORY: UNEXPLAINABLE COUGH NO . NEW SHORTNESS OF BREATH NO . VITAL SIGNS WT 166 LBS, HT 61 IN, BMI 31.36 INDEX, BP 128/92 MM HG, HR 60 /MIN, RR 18 /MIN, TEMP 98.4 F, OXYGEN SAT % 87%, SAFE IN ENV? (Y/N) YEST.CARL BUNEO. EXAMINATION GENERAL EXAMINATION: GENERALAWAKE,ALERT ,PLEASANT . PSYCHAFFECT NORMAL . LUNGS:LUNG RAZO ARE CLEAR TO AUSCULTATION BILATERALLY. GOOD MOVEMENT OF AIR . HEART:S1, S2 IN A REGULAR RATE AND RHYTHM. NO SIGNIFICANT MURMURS, RUBS OR GALLOPS NOTED . ASSESSMENTS SPONDYLOSIS WITHOUT MYELOPATHY OR RADICULOPATHY, LUMBOSACRAL REGION - M47.817 (PRIMARY) MYALGIA, OTHER SITE - M79.18 TREATMENT SPONDYLOSIS WITHOUT MYELOPATHY OR RADICULOPATHY, LUMBOSACRAL REGION MEDICATION: PAIN VALIUM TAB 10MG ORALLY (DIAZEPAM) (ORDERED FOR 10/31/2020) MEDICATION: PAIN OXYCODONE HCL TAB 10MG ORALLY (ORDERED FOR 10/31/2020) NOTES: TRIGGER POINT INJECTIONS BILATERAL NECK,BILATERAL SHOULDERS,BILATERAL THORACIC REVIEWED PRE PROCEDURE INFORMATION, PATIENT VERBALIZED UNDERSTANDING BAIRON GATES PROCEDURE CODES FA211 ESTABILISHED PATIENT [facility] FACILITY CHARGE DISPOSITION & COMMUNICATION FOLLOW UP POST PROCEDURE (REASON: TRIGGER POINT INJECTIONS BILATERAL NECK,BILATERAL SHOULDERS,BILATERAL THORACIC) ELECTRONICALLY SIGNED BY NANI LEONE ON 10/18/2020 AT 01:24 PM EDT DISCLAIMER : THIS IS A VISIT SUMMARY EXTRACTED FROM THE [employer] CHART. IT IS NOT A COPY OF THE [employer] PROGRESS NOTE. MTDD
== END ==
LOC: M PAIN 14:00
PROVIDERS: ATTEND Nurse Practitioner Family
DX: M47.817 Spondylosis without myelopathy or radiculopathy, lumbosacral region (principal); M79.18 Myalgia, other site; Z86.59 Personal history of other mental and behavioral disorders; Z88.0 Allergy status to penicillin; Z91.018 Allergy to other foods; Z91.02 Food additives allergy status; Z91.040 Latex allergy status; Z79.82 Long term (current) use of aspirin; Z79.899 Other long term (current) drug therapy

== ENCOUNTER → 2020-10-20 | Outpatient (CLI) | payer MEDICAID, MEDICARE | LOC: M LABSMTC 11:12 | PROVIDERS: ATTEND Anesthesiology | DX: Z01.812 Encounter for preprocedural laboratory examination (principal); Z20.822 Contact with and (suspected) exposure to COVID-19 ==

== ENCOUNTER 2020-10-25 12:02 | Day surgery (SDC) | payer MEDICAID, MEDICARE ==
[~2020-10-25] VITALS: Ht 154.9 cm; Wt 74.8 kg
[~2020-10-25 12:02] MED LIST changes: +NS 1,000 ML IV ONE
[2020-10-25] MEDS ORDERED: propofoL 200 MG/20 ML VIAL As Ordered ONE (12:59)
[2020-10-25] MEDS ORDERED: fentaNYL 100 MCG/2 ML INJECTION (J3010) As Ordered ONE (12:59)
[2020-10-25] MEDS ORDERED: LIDOCAINE 2% 100MG/5ML SDV (FOR ANES.) As Ordered ONE (12:59)
--- NOTE | 2020-10-25 13:23 | ROOR ---
Patient Name: Pina Grider Procedure Date: 10/25/2020 1:05 PM Date of : 1970 Age: 50 Room: [facility] Gender: Female Note Status: Finalized Procedure: Upper Endoscopy + Biopsies Indications: Heartburn, Exclusion of Miner's esophagus Providers: Berto Tom MD Referring MD: Asia Valenzuela NP Requesting Provider: Medicines: Monitored Anesthesia Care Complications: No immediate complications. Procedure: Pre-Anesthesia Assessment: - The heart rate, respiratory rate, oxygen saturations, blood pressure, adequacy of pulmonary ventilation, and response to care were monitored throughout the procedure. The Endoscope was introduced through the mouth, and advanced to the second part of duodenum. The upper GI endoscopy was accomplished without difficulty. The patient tolerated the procedure well. Findings: The Z-line was irregular and was found 33 cm from the incisors. Multiple biopsies were obtained with cold forceps for evaluation to rule out Miner's Esophagus randomly at the gastroesophageal junction. A small hiatal hernia was present. No other significant abnormalities were identified in a careful examination of the stomach. The exam of the duodenum was otherwise normal. Impression: - Z-line irregular, 33 cm from the incisors. - Small hiatal hernia. - Multiple biopsies were obtained at the gastroesophageal junction. - The examination was otherwise normal. Recommendation: - Patient has a contact number available for emergencies. The signs and symptoms of potential delayed complications were discussed with the patient. Return to normal activities tomorrow. Written discharge instructions were provided to the patient. - High fiber diet. - Discharge patient to home. - Follow an antireflux regimen. - Continue present medications. - Await pathology results. - Telephone GI clinic for pathology results in 1 week. - Repeat upper endoscopy for surveillance based on pathology results. - Return to referring physician. - The findings and recommendations were discussed with the patient's family. Procedure Code(s): --- Professional --- 65028, Esophagogastroduodenoscopy, flexible, transoral; with biopsy, single or multiple Diagnosis Code(s): --- Professional --- K22.8, Other specified diseases of esophagus K44.9, Diaphragmatic hernia without obstruction or gangrene R12, Heartburn CPT copyright 2019 [employer]. All rights reserved. The codes documented in this report are preliminary and upon regrader review may be revised to meet current compliance requirements. Berto Tom MD Berto Tom MD 10/25/2020 1:23:12 PM Electronically signed by Berto Tom MD Number of Addenda: 0 Note Initiated On: 10/25/2020 1:05 PM Estimated Blood Loss: Estimated blood loss: none.
--- NOTE | 2020-10-25 13:42 | ROOR ---
Patient Name: Pina Grider Procedure Date: 10/25/2020 1:07 PM Date of : 1970 Age: 50 Room: [facility] Gender: Female Note Status: Finalized Procedure: Total Colonoscopy to Cecum + Cold Snare Polypectomy Indications: Screening for colorectal malignant neoplasm Providers: Berto Tom MD Referring MD: Asia Valenzuela NP Requesting Provider: Medicines: Monitored Anesthesia Care Complications: No immediate complications. Procedure: Pre-Anesthesia Assessment: - The heart rate, respiratory rate, oxygen saturations, blood pressure, adequacy of pulmonary ventilation, and response to care were monitored throughout the procedure. The Colonoscope was introduced through the anus and advanced to the cecum, identified by appendiceal orifice and ileocecal valve. The colonoscopy was performed without difficulty. The patient tolerated the procedure well. The quality of the bowel preparation was good. Findings: The perianal and digital rectal examinations were normal. Non-bleeding internal hemorrhoids were found during retroflexion. The hemorrhoids were small and Grade I (internal hemorrhoids that do not prolapse). Scattered small-mouthed diverticula were found in the recto-sigmoid colon, sigmoid colon and descending colon. A small polyp was found at 30 cm proximal to the anus. The polyp was sessile. The polyp was removed with a cold snare. Resection and retrieval were complete. The exam was otherwise without abnormality on direct and retroflexion views. Impression: - Non-bleeding internal hemorrhoids. - Diverticulosis in the recto-sigmoid colon, in the sigmoid colon and in the descending colon. - One small polyp at 30 cm proximal to the anus, removed with a cold snare. Resected and retrieved. - The examination was otherwise normal on direct and retroflexion views. - The exam was otherwise normal to the cecum. Recommendation: - Patient has a contact number available for emergencies. The signs and symptoms of potential delayed complications were discussed with the patient. Return to normal activities tomorrow. Written discharge instructions were provided to the patient. - High fiber diet. - Discharge patient to home. - Continue present medications. - Await pathology results. - Telephone GI clinic for pathology results in 1 week. - Repeat colonoscopy in 5 years for surveillance based on pathology results. - Return to referring physician. - The findings and recommendations were discussed with the patient's family. Procedure Code(s): --- Professional --- 33181, Colonoscopy, flexible; with removal of tumor(s), polyp(s), or other lesion(s) by snare technique Diagnosis Code(s): --- Professional --- Z12.11, Encounter for screening for malignant neoplasm of colon K64.0, First degree hemorrhoids K63.5, Polyp of colon K57.30, Diverticulosis of large intestine without perforation or abscess without bleeding CPT copyright 2019 [employer]. All rights reserved. The codes documented in this report are preliminary and upon operations team leader review may be revised to meet current compliance requirements. Berto Tom MD Berto Tom MD 10/25/2020 1:42:12 PM Electronically signed by Berto Tom MD Number of Addenda: 0 Note Initiated On: 10/25/2020 1:07 PM Estimated Blood Loss: Estimated blood loss: none.
[2020-10-25 14:10] VITALS: BP 166/75
== END 2020-10-25 14:12 | disposition home or self-care (01) ==
LOC: M OPP 12:02
PROVIDERS: ATTEND Internal Medicine Gastroenterology
DX: Z12.11 Encounter for screening for malignant neoplasm of colon (principal); K63.5 Polyp of colon; K57.30 Diverticulosis of large intestine without perforation or abscess without bleeding; K64.0 First degree hemorrhoids; K22.8 Other specified diseases of esophagus; K44.9 Diaphragmatic hernia without obstruction or gangrene; R12 Heartburn; E05.00 Thyrotoxicosis with diffuse goiter without thyrotoxic crisis or storm; Z92.3 Personal history of irradiation; Z79.82 Long term (current) use of aspirin; Z79.899 Other long term (current) drug therapy; Z88.0 Allergy status to penicillin; Z91.040 Latex allergy status; Z91.048 Other nonmedicinal substance allergy status; Z86.73 Personal history of transient ischemic attack (TIA), and cerebral infarction without residual deficits
CPT/HCPCS: 43239; 45385; 88305; J3010

== ENCOUNTER → 2020-11-03 | Outpatient (REF) | payer MEDICARE ==
[~2020-11-03] MED LIST changes: -NS 1,000 ML IV ONE
[2020-11-03 18:20] LABS: BASO % 0.6 % (0.0-1.0); EOS # 0.2 10^3/uL (0.0-0.5); EOS % 2.9 % (0.0-3.0); HEMATOCRIT 36.3 % (36.0-47.0); HEMOGLOBIN 11.7 g/dl (12.0-15.5); LYMPH % 39.2 % (24.0-44.0); MEAN CORPUSCULAR HEMOGLOBIN 28.3 pg (27.0-33.0); MEAN CORPUSCULAR HGB CONC 32.2 g/dl (32.0-36.5); MEAN CORPUSCULAR VOLUME 87.9 fl (80.0-96.0); MONO # 0.5 10^3/uL (0.0-0.8); MONO % 10.2 % (2.0-8.0); NEUTROPHILS # 2.4 10^3/uL (1.5-8.5); NEUTROPHILS % 46.7 % (36.0-66.0); PLATELET COUNT, AUTOMATED 259 10^3/uL (150-450); RED BLOOD COUNT 4.13 10^6/uL (4.00-5.40); WHITE BLOOD COUNT 5.1 10^3/uL (4.0-10.0)
[2020-11-03 18:24] LABS: HEMOGLOBIN A1c 6.1 %
== END ==
LOC: M LAB REF 17:11
PROVIDERS: ATTEND Internal Medicine Pulmonary Disease
DX: J45.50 Severe persistent asthma, uncomplicated (principal); Z79.899 Other long term (current) drug therapy

== ENCOUNTER → 2020-11-08 | Outpatient (CLI) | payer MEDICARE | LOC: M LABSMTC 12:11 | PROVIDERS: ATTEND Anesthesiology | DX: Z01.812 Encounter for preprocedural laboratory examination (principal); Z20.822 Contact with and (suspected) exposure to COVID-19 ==

== ENCOUNTER → 2020-11-09 | Outpatient (CLI) | payer MEDICARE | LOC: M LABSMTC 11:04 | PROVIDERS: ATTEND Anesthesiology | DX: Z01.812 Encounter for preprocedural laboratory examination (principal); Z20.822 Contact with and (suspected) exposure to COVID-19 ==

== ENCOUNTER → 2020-11-13 | Outpatient (CLI) | payer MEDICARE ==
[~2020-11-13] MED LIST changes: +BUPIVACAINE HCL 0.25% 10ML VIAL As Ordered ONE; +BUPIVACAINE HCL 0.25% 30ML VIAL As Ordered ONE; +NORCO, ANEXSIA 5/325MG TABLET (HYDROcodone/ACETAMINOPHEN) As Ordered ONE; +TRIAMCINOLONE ACETONIDE SUSP 40 MG/ML VIAL (J3301) As Ordered ONE; +diazePAM 2 MG TAB As Ordered ONE
--- NOTE | 2020-11-16 01:05 | ECWPNPC ---
PATIENT NAME: JESSICA SPARKS : 1970 GENDER: FEMALE VISIT DATE: 11/13/2020 DISCHARGE DATE: 11/13/20 1007 VISIT LOCKED DATE TIME: PHYSICIAN: CANDELARIO MORTENSEN MD RESOURCE: CANDELARIO MORTENSEN MD REASON FOR APPOINTMENT 1. TRIGGER POINT INJECTIONS BILATERAL NECK,BILATERAL SHOULDERS,BILATERAL THORACIC HISTORY OF PRESENT ILLNESS GENERAL: -. -. FALL RISK SCREENING: SCREENING : NO FALLS REPORTED IN THE LAST YEAR. PAIN SCREENING: PATIENT HAS A COMPLAINT OF ACUTE OR CHRONIC PAIN :YES LOCATION OF PAIN:NECK, LOW BACK, KNEES INTENSITY OF PAIN (SCALE OF 1 TO 10):7 4-10+/10 WHAT DOES YOUR PAIN FEEL LIKE:SHARP, STABBING, THROBBING DURATION:CONTINOUS, AWAKENS FROM SLEEP PAIN IS INCREASED BY:ACTIVITIES, PROLONGED STANDING PAIN IS DECREASED BY:USE OF PAIN MEDICATIONS, OTHERS HEAT PLAN/GOALS/TREATMENT/INTERVENTION/FOLLOW UP:SEE PLAN NURSING NOTE: -. PAIN CENTER INTAKE QUESTIONS: DO YOU HAVE A HISTORY OF MRSA? :NO DO YOU TAKE A BLOOD THINNERS? :YES PLAVIX (LD: 11/06/20, RESUME AFTER PROCEDURE 11/14/20) DO YOU HAVE ANY BLEEDING DISORDERS? :NO ANY NEW NUMBNESS OR WEAKNESS IN YOUR LEGS OR ARMS? :NO ANY PACEMAKER,DEFIBRILLATOR, OR DORSAL COLUMN STIMULATOR? :NO DO YOU HAVE ANY RASHES OR OPEN SORES? :NO ARE YOU ALLERGIC TO IV DYE? :NO ARE YOU DIABETIC? :NO ANY NEW PROBLEMS WITH YOUR MEDICATIONS? :NO HAVE YOU RECEIVED A VACCINE IN THE PAST 30 DAYS? :NO DO YOU PLAN TO RECEIVE A VACCINE IN THE NEXT 21 DAYS? :NO DO YOU TAKE ANY IMMUNOSUPPRESSIVE MEDICATIONS? :NO ANY HISTORY OF SEIZURES? :YES EPILEPSY LAST YEAR ANY HISTORY OF CARDIAC ISSUES OR EVENTS? :YES FOLLOWS DR. BULL D/T H/O STROKE AND HEART MURMUR DO YOU HAVE ANY KIDNEY OR LIVER DISEASE? :NO DO YOU HAVE SLEEP APNEA? :YES DO YOU WEAR A CPAP?YES ANY RECENT HEAD INJURY? :NO DO YOU HAVE ANY NEW INFECTIONS? :NO IS THERE A CHANCE YOU COULD BE ? :NO ARE YOU BREAST FEEDING? :NO WHEN DID YOU LAST EAT? : 11/12/20 WHEN DID YOU LAST DRINK? : 11/12/20 WHAT DID YOU LAST DRINK? : CARLOS HALL NAME OF PERSON DRIVING YOU HOME? : SON DO YOU HAVE ANY OTHER QUESTIONS OR CONCERNS? : NO CURRENT MEDICATIONS TAKING VOLTAREN 1 % GEL 2G MAX 8G IN 24 HOURS TRANSDERMAL THREE TIMES DAILY NEEDED TAKING TRAZODONE HCL 100 MG TABLET 1 TABLET AT BEDTIME ORAL BEFORE BEDTIME NEEDED, NOTES: 11/12/20 TAKING FLUTICASONE PROPIONATE 50 MCG/ACT SUSPENSION NASAL DAILY TAKING TIZANIDINE HCL 4 MG TABLET 1 TAB ORAL BEFORE BEDTIME, NOTES: 11/12/20 TAKING BUPROPION HCL ER (XL) 150 MG TABLET EXTENDED RELEASE 24 HOUR 1 TAB ORALLY ONCE A DAY TAKING CLOPIDOGREL BISULFATE 75 MG TABLET 1 TAB ORAL DAILY, NOTES: LD: 11/06/20 RESUME 11/14/20 TAKING ATORVASTATIN CALCIUM 20 MG TABLET 1 TAB ORAL DAILY TAKING ATENOLOL 25 MG TABLET 1 TABLET ORAL BEFORE BEDTIME, NOTES: 11/12/20 TAKING ZONISAMIDE 100 MG CAPSULE 1 CAP ORAL TWICE DAILY TAKING MONTELUKAST SODIUM 10 MG TABLET 1 TAB ORAL BEFORE BEDTIME TAKING ADVAIR HFA 230-21 MCG/ACT AEROSOL (PRIOR AUTH: RX REF#:[id number]) INHALATION BEFORE BEDTIME TAKING PROAIR HFA 108 (90 BASE) MCG/ACT AEROSOL SOLUTION (PRIOR AUTH: RX REF#:[id number]) INHALATION BEFORE BEDTIME TAKING AMLODIPINE BESYLATE 10 MG TABLET 1 TAB ORAL DAILY, NOTES: 11/12/20 TAKING LEVOTHYROXINE SODIUM 200 MCG TABLET 1 TAB ORALLY DAILY TAKING DEXILANT 60 MG CAPSULE DELAYED RELEASE 1 CAPSULE ORAL BEFORE BEDTIME, NOTES: NOT RECENTLT TAKING ASPIRIN 325 MG TABLET 1 TABLET ORALLY ONCE A DAY TAKING CETIRIZINE HCL 10 MG TABLET 1 TABLET ORALLY ONCE A DAY TAKING VITAMIN D (ERGOCALCIFEROL) 81521 UNIT CAPSULE 1 CAPSULE ORALLY 2X/WEEK TAKING OXYBUTYNIN CHLORIDE ER 10 MG TABLET EXTENDED RELEASE 24 HOUR 1 TABLET ORALLY ONCE A DAY TAKING OXYCODONE-ACETAMINOPHEN 7.5-325 MG TABLET 1 TAB ORAL BEFORE BEDTIME-TAKES NEEDED, NOTES: LAST WEEK TAKING HYDROXYZINE HCL 50 MG TABLET 1 TABLET NEEDED ORALLY EVERY 6 HRS TAKING LYRICA 25 MG CAPSULE 1 CAPSULE ORALLY ONCE A DAY, NOTES: NONE LATELY TAKING GABAPENTIN 300 MG CAPSULE 1 CAPSULE ORALLY TWICE A DAY, NOTES: 11/12/20 NOT-TAKING TIZANIDINE HCL 4 MG TABLET 1 TABLET NEEDED ORALLY THREE TIMES A DAY NOT-TAKING LYRICA 100 MG CAPSULE 1 CAPSULE ORALLY AT BEDTIME NOT-TAKING PRIMIDONE 50 MG TABLET 1 TAB ORAL TWICE DAILY NOT-TAKING ROPINIROLE HCL 0.5 MG TABLET 1 TABLET ORAL THREE TIMES DAILY NOT-TAKING SERTRALINE HCL 100 MG TABLET 1 TAB ORALLY DAILY NOT-TAKING OMEPRAZOLE 40 MG CAPSULE DELAYED RELEASE 1 CAPSULE ORALLY ONCE A DAY NOT-TAKING FOLIC ACID 400 MCG TABLET 1 TABLET ORALLY ONCE A DAY, NOTES: NOT LATELY MEDICATION LIST REVIEWED AND RECONCILED WITH THE PATIENT PAST MEDICAL HISTORY HEMATURIA CHRONIC DEPRESSION MYALGIA ASTHMA MAJOR DEPRESSIVE DISORDER, RECURRENT, MODERATE URINARY FREQUENCY FIBROMYALGIA ENDEMIC GENERALIZED OSTEO-ARTHROSIS CHRONIC COUGH POLYARTHRALGIA GASTROESOPHAGEAL REFLUX DISEASE WITHOUT ESOPHAGITIS PERIPHERAL POLYNEUROPATHY ESSENTIAL HYPERTENSION ACQUIRED HYPOTHYROIDISM 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 LUMBOSACRAL REGION WITHOUT MYELOPATHY OR RADICULOPATHY PRIMARY OSTEOARTHRITIS INVOLVING MULTIPLE JOINTS PRIMARY OSTEOARTHRITIS OF BOTH KNEES RIGHT FLANK PAIN OTHER SPONDYLOSIS, LUMBOSACRAL REGION OTHER CHRONIC PAIN ENCOUNTER FOR BREAST CANCER SCREENING OTHER THAN MAMMOGRAM ALLERGIES PENICILLIN (FOR ALLERGIES USE ONLY): HIVES - ALLERGY RED DYE: HIVES, RASH AND ITCHING - ALLERGY LATEX (FOR ALLERGY USE ONLY): HIVES - ALLERGY FRUITS: HIVES - ALLERGY SOCIAL HISTORY GENERAL: TOBACCO USE ARE YOU A:NONSMOKER ARE YOU A:NONSMOKER LATEX QUESTIONNAIRE LATEX ALLERGY : HAVE YOU EVER DEVELOPED ANY TYPE OF REACTION AFTER HANDLING LATEX PRODUCTS SUCH RUBBER GLOVES, CONDOMS, DIAPHRAGMS, BALLOONS, SOCKS, OR UNDERWEAR?YES - PLEASE INDICATE :RUBBER GLOVES LATEX ALLERGY : HAVE YOU EVER DEVELOPED ANY TYPE OF REACTION DURING OR AFTER DENTAL APPOINTMENT, VAGINAL/RECTAL EXAMINATION, SURGICAL PROCEDURE, OR ANY OTHER EXPOSURE?NO LATEX RISK : HAVE YOU EVER HAD ANY DIFFICULTY BREATHING OR HIVES AFTER EATING OR HANDLING ANY FRUITS, OR VEGETABLES; SUCH KIWI, BANANAS, STONE FRUITS, OR CHESTNUTSNO LATEX RISK : DO YOU HAVE A PREVIOUS PERSONAL HISTORY OF MORE THAN NINE SURGERIES, SPINA BIFIDA, OR REPEATED CATHERIZATIONS? NO LATEX RISK : ARE YOU FREQUENTLY EXPOSED TO LATEX PRODUCTS IN YOUR OCCUPATION?NO DATE ASKED : 11/10/2020 ALCOHOL USE: NO. RECREATIONAL DRUG USE DRUG USE?NO CAFFEINE CAFFEINE USE?YES [employer] [id number] [employer] NONDEMOMINATIONAL LANGUAGE LANGUAGES SPOKEN:CZECH LEARNING BARRIERS / SPECIAL NEEDS BARRIERS TO LEARNING?NO BARRIERS TO LEARNING?NO HEARING IMPAIRED?YES NUIQSUT BOTH EARS, HEARING AID LEFT EAR. HEARING IMPAIRED?NO VISION IMPAIRED?NO VISION IMPAIRED?YES GLASSES COGNITIVELY IMPAIRED?NO READINESS TO LEARN?YES LEARNING PREFERENCES?YES PREFERS HER EDUCATION VERBALLY AND ALSO WRITTEN READINESS TO LEARN?YES LEARNING PREFERENCES?NO LEARNING CAPABILITIES PRESENT?YES EMOTIONAL BARRIERS?NO SPECIAL DEVICES?NO DENTAL LABORATORY ASSISTANT NEEDED?NO DOMESTIC VIOLENCE DO YOU FEEL SAFE IN YOUR ENVIRONMENT?YES DO YOU FEEL SAFE IN YOUR ENVIRONMENT?YES - HAS THE PATIENT BEEN EDUCATED REGARDING HIS/HER PLAN OF CARE?YES HAS THE PATIENT BEEN EDUCATED REGARDING PAIN, THE RISK FOR PAIN, THE IMPORTANCE OF EFFECTIVE PAIN MANAGEMENT, AND THE PAIN ASSESSMENT PROCESS?YES VITAL SIGNS WT 171.8 LBS, WT-KG 77.93 KG, HT 61 IN, BMI 32.46 INDEX, BP 111/66 MM HG, HR 65 /MIN, RR 18 /MIN, TEMP 97.4 F, OXYGEN SAT % 98%, SAFE IN ENV? (Y/N) Y, NA INITIALS AW 0845, REVIEWED BY: EM. EXAMINATION GENERAL: THE PATIENT IS ALERT, ORIENTED TIMES THREE AND COOPERATIVE. LUNGS ARE CLEAR TO AUSCULTATION. HEART SHOWS REGULAR RHYTHM, NO MURMURS AND NO GALLOPS. ASSESSMENTS MYALGIA - M79.1 (PRIMARY) TREATMENT MYALGIA MEDICATION: PAIN VALIUM TAB 2MG ORALLY ([id number],NICOLE 11/13/2020 9:18:22 AM > VERIFIED LYLA GUZMAN 11/13/2020 9:26:49 AM > ADMINISTERED COMPLETION OF PROCEDURAL VISIT WHEN MEETS [id number] MED: PAIN NORCO TABLET 5MG/325MG ORALLY HYDROCODONE/[id number],NICOLE 11/13/2020 9:18:35 AM > VERIFIED LYLA GUZMAN 11/13/2020 9:27:08 AM > ADMINISTERED OTHERS NOTES: 11/10/20 JUAN MIGUEL MOORE SUPERVISOR BORDER DEPARTMENT. PROCEDURES PAIN NURSING RECORD PROCEDURE IN ROOM 0840, PHYSICIAN IN ROOM 0941, START 0945, FINISH 0948, PHYSICIAN OUT OF ROOM 0949, OUT OF ROOM 1006, ECG N/A, PATIENT SHIELDED N/A, SAFETY STRAP N/A, PREP ALCOHOL DR. MORTENSEN, DRESSING TEGADERM Suhail GUZMAN RN LOC: 1. ALERT, ORIENTED, LYLA GUZMAN 11/13/2020 9:46:03 AM > RESP: 1. REGULAR, NO DYSPNEA, LYLA GUZMAN 11/13/2020 9:46:07 AM > COLOR: 1. PINKTHOMAS ELIZABETH 11/13/2020 9:46:11 AM > SKIN: 1. WARM, DRY, LYLA GUZMAN 11/13/2020 9:46:16 AM > POSITION: 5. SITTING, LYLA GUZMAN 11/13/2020 9:43:14 AM > VITALS: 138/85, 58, 16, 98%, LYLA GUZMAN 11/13/2020 10:00:53 AM > NOTES Suhail GUZMAN RN, LYLA GUZMAN 11/13/2020 9:43:21 AM > COMPLETION OF PROCEDURE APPOINTMENT: POST PAIN 2, DRESSING SITE DRY AND INTACT, IV N/A, GAIT STEADY, TEACHING COMPLETED, PATIENT ACKNOWLEDGES UNDERSTANDING YES, PROCEDURE APPOINTMENT COMPLETED AT 1006 PN TRIGGER POINT INJECTION WITH STEROIDS PRE PROCEDURE DIAGNOSIS 1. MYALGIA 2. PAIN AT BILATERAL NECK AREA, BILATERAL SHOULDER AREA AND BILATERAL THORACIC AREA POST PROCEDURE DIAGNOSIS 1. MYALGIA 2. PAIN AT BILATERAL NECK AREA, BILATERAL SHOULDER AREA AND BILATERAL THORACIC AREA PROCEDURE TRIGGER POINT INJECTION AT BILATERAL NECK AREA, BILATERAL SHOULDER AREA AND BILATERAL THORACIC AREA SURGEON DR. CANDELARIO MORTENSEN EQUIPMENT TECH NONE ANESTHESIA LOCAL PRE PROCEDURE NOTE THE PATIENT HAS A HISTORY OF CHRONIC PAIN AT THE RIGHT AND LEFT NECK AREA, RIGHT AND LEFT SHOULDER AREA AND RIGHT AND LEFT THORACIC AREA. I EVALUATED THE PATIENT AND REVIEWED THE CHART. THERE IS EVIDENCE OF BANDS OF TISSUE WITH RESTRICTION OF MOVEMENT AND PRESENCE OF TRIGGER POINT AT THE RIGHT AND LEFT NECK AREA, RIGHT AND LEFT SHOULDER AREA AND RIGHT AND LEFT THORACIC AREA. I WENT OVER THE RISKS, ALTERNATIVES, AND BENEFITS ASSOCIATED WITH THIS PROCEDURE. THE PATIENT WOULD LIKE TO PROCEED AND GIVE CONSENT TO PERFORMED THE PROCEDURE. THE PATIENT DENIES UNEXPLAINABLE WEIGHT LOSS, FEVER, CHILLS, OR NEW CHANGES IN URINARY OR BOWEL CONTROL. THE PATIENT IS COVID-19 NEGATIVE DESCRIPTION OF PROCEDURE THE PATIENT WAS BROUGHT TO THE PROCEDURE ROOM AND PLACED IN THE SITTING POSITION. THE AREA WAS CLEANED WITH ALCOHOL. THE PROCEDURE WAS DONE USING ASEPTIC STERILE TECHNIQUE. A TIMEOUT WAS PERFORMED WHERE THE CONSENTED SITE WAS VERIFIED WITH EVERYONE IN THE ROOM. USING A 25-GAUGE NEEDLE, TRIGGER POINTS WERE INJECTED AT THE RIGHT AND LEFT NECK AREA, RIGHT AND LEFT SHOULDER AREA AND RIGHT AND LEFT THORACIC AREA WITH A TOTAL OF 40 ML OF BUPIVACAINE 0.25% AND KENALOG 40 MG. THE MEDICATIONS WERE VERIFIED WITH THE NURSE. THERE WAS NO EVIDENCE OF BLOOD OR PARESTHESIA DURING THE PROCEDURE. THE PATIENT WAS SENT TO THE RECOVERY ROOM. THE PATIENT WAS MOVING THE EXTREMITIES AND DOING WELL. THERE WERE NO COMPLICATIONS DURING THE PROCEDURE. ESTIMATED BLOOD LOSS WAS LESS THAN 5 ML POST PROCEDURE NOTE THE PATIENT ALSO HAS LOW BACK PAIN. WE SHOULD CONSIDER WORKING WITH HER FACETS IN THE FUTURE. THE PATIENT HAS A LOT OF AREAS THAT BOTHER HER, IN THE FUTURE, WE SHOULD CONCENTRATE OUR EFFORTS ON SMALLER AREAS AT A TIME. THE PROCEDURE DONE WAS DISCUSSED WITH THE PATIENT. THE PATIENT WILL BE SEEN IN A FOLLOW UP IN THE NEXT FEW WEEKS. I AM LOOKING FOR LONG LASTING PAIN RELIEF FOR THE PATIENT WITH THIS INTERVENTION. INSTRUCTIONS WERE GIVEN, QUESTIONS WERE ANSWERED, AND THE PATIENT EXPRESSED UNDERSTANDING AND AGREES WITH THE PLAN. I, SHIMON SORIANO, DOCUMENTED THE ABOVE INFORMATION ACTING A SCRIBE FOR DR. MORTENSEN. I HAVE REVIEWED THE ABOVE DOCUMENT, WRITTEN BY SHIMON SORIANO, MOTOR BIKE MECHANIC, AND I VERIFY THAT IT IS ACCURATE VISIT CODES PROCEDURE CODES 60328 INJECT TRIGGER POINTS 3/> DISPOSITION & COMMUNICATION FOLLOW UP FOLLOW UP WITH PROFESSOR OF GEOGRAPHY (REASON: POST TRIGGER POINT INJECTIONS BILATERAL NECK, BILATERAL SHOULDER AND BILATERAL THORACIC) ELECTRONICALLY SIGNED BY CANDELARIO MORTENSEN MD, MD ON 11/15/2020 AT 04:56 PM EDT DISCLAIMER : THIS IS A VISIT SUMMARY EXTRACTED FROM THE [employer] CHART. IT IS NOT A COPY OF THE [employer] PROGRESS NOTE. MTDD
== END ==
LOC: M PAIN 08:30
PROVIDERS: ATTEND Anesthesiology
DX: M79.18 Myalgia, other site (principal); G47.30 Sleep apnea, unspecified; J45.909 Unspecified asthma, uncomplicated; K21.9 Gastro-esophageal reflux disease without esophagitis; E03.9 Hypothyroidism, unspecified; Z86.59 Personal history of other mental and behavioral disorders; Z88.0 Allergy status to penicillin; Z91.018 Allergy to other foods; Z91.02 Food additives allergy status; Z91.040 Latex allergy status; Z79.82 Long term (current) use of aspirin; Z79.899 Other long term (current) drug therapy
CPT/HCPCS: 20553; J3301

== ENCOUNTER → 2020-12-14 | Outpatient (REF) | payer MEDICARE ==
[~2020-12-14] MED LIST changes: -BUPIVACAINE HCL 0.25% 10ML VIAL As Ordered ONE; -BUPIVACAINE HCL 0.25% 30ML VIAL As Ordered ONE; -NORCO, ANEXSIA 5/325MG TABLET (HYDROcodone/ACETAMINOPHEN) As Ordered ONE; -TRIAMCINOLONE ACETONIDE SUSP 40 MG/ML VIAL (J3301) As Ordered ONE; -diazePAM 2 MG TAB As Ordered ONE
[2020-12-14 17:03] LABS: ALBUMIN 4.3 GM/DL (3.2-5.2); ALT/SGPT 29 U/L (12-78); BILIRUBIN,DIRECT < 0.1 MG/DL (0.0-0.2); BILIRUBIN,TOTAL 0.3 MG/DL (0.2-1.0); BLOOD UREA NITROGEN 16 MG/DL (7-18); CALCIUM LEVEL 9.6 MG/DL (8.5-10.1); CARBON DIOXIDE LEVEL 32 MEQ/L (21-32); CHLORIDE LEVEL 102 MEQ/L (98-107); CPK CREATINE PHOSPHOKINASE 137 U/L (26-192); CREATININE FOR GFR 1.04 MG/DL (0.55-1.30); GLOMERULAR FILTRATION RATE > 60.0 (>51); GLUCOSE, FASTING 116 MG/DL (70-100); IRON (FE) 37 UG/DL (50-170); MAGNESIUM LEVEL 2.4 MG/DL (1.8-2.4); PHOSPHORUS LEVEL 3.8 MG/DL (2.5-4.9); POTASSIUM SERUM 3.9 MEQ/L (3.5-5.1); SODIUM LEVEL 138 MEQ/L (136-145); TOTAL PROTEIN 8.1 GM/DL (6.4-8.2)
[2020-12-14 17:12] LABS: TOTAL 25(OH) VITAMIN D 12.3 NG/ML (30.0-100.0)
[2020-12-14 17:13] LABS: VITAMIN B12 LEVEL 412 PG/ML (247-911)
== END ==
LOC: M SFHCRHEU 15:54
PROVIDERS: ATTEND Internal Medicine
DX: M79.7 Fibromyalgia (principal); M15.0 Primary generalized (osteo)arthritis; Z79.51 Long term (current) use of inhaled steroids; Z79.899 Other long term (current) drug therapy
CPT/HCPCS: 36415; 80048; 80076; 82306; 82550; 82607; 83540; 83735; 84100; G0463

== ENCOUNTER → 2020-12-29 | Outpatient (CLI) | payer MEDICAID, MEDICARE ==
[~2020-12-29] MED LIST changes: +E-Z-GAS II EFFERVESCENT PACKET (SODIUM BICARB./CITRIC ACID/SIMETHICONE) As Ordered ONE; +E-Z-HD 98% w/w 340GM SUSP BTL As Ordered ONE; +E-Z-PAQUE 96% w/w SUSP 176GM BTL As Ordered ONE
--- NOTE | 2020-12-29 16:16 | REP ---
INDICATION: GERD. COMPARISON: None. TECHNIQUE: This procedure was performed under the direct supervision of Dr. Wilhelm. Images were reviewed with Dr. Wilhelm. Liquid barium and gas producing granules were given in the erect position as well as liquid barium in the prone oblique positions in order to perform a double contrast esophagram examination. A combination of fluoroscopy, spot films and last image hold technology was utilized. 0.7 minutes of fluoro time was utilized for this procedure. FINDINGS: A single view PA chest x-ray is submitted as a college scouting coordinator film. The superior mediastinal structures are midline. The heart size is within normal limits. The lungs are clear. The patient has anterior and posterior cervical fixation devices. During the oral and pharyngeal stages of deglutition there is laryngeal penetration. Esophageal transport is prompt and efficient. In the distal esophagus there is minimal luminal narrowing with mucosal irregularity suggesting ulceration. Consider endoscopy for further evaluation. There is a hiatal hernia. There is gastroesophageal reflux demonstrated to above the level of the tyrel. IMPRESSION: 1. Laryngeal penetration. 2. In the distal esophagus there is minimal luminal narrowing with mucosal irregularity suggesting ulceration. There is a hiatal hernia. There is gastroesophageal reflux demonstrated to above the level of the tyrel. These findings are consistent with reflux esophagitis. Consider endoscopy for further evaluation. <Electronically signed by Robert Bradley > 12/29/20 [id number] <Electronically signed by Lester Wilhelm > 12/29/20 [id number]
== END ==
LOC: M RAD 08:21
PROVIDERS: ATTEND Otolaryngology
DX: K21.9 Gastro-esophageal reflux disease without esophagitis (principal); R93.3 Abnormal findings on diagnostic imaging of other parts of digestive tract; K44.9 Diaphragmatic hernia without obstruction or gangrene

== ENCOUNTER → 2021-02-15 | Outpatient (CLI) | payer MEDICARE ==
[~2021-02-15] MED LIST changes: -E-Z-GAS II EFFERVESCENT PACKET (SODIUM BICARB./CITRIC ACID/SIMETHICONE) As Ordered ONE; -E-Z-HD 98% w/w 340GM SUSP BTL As Ordered ONE; -E-Z-PAQUE 96% w/w SUSP 176GM BTL As Ordered ONE
== END ==
LOC: M PAIN 10:30
PROVIDERS: ATTEND Anesthesiology
DX: M47.816 Spondylosis without myelopathy or radiculopathy, lumbar region (principal); G89.29 Other chronic pain; J45.909 Unspecified asthma, uncomplicated; M79.7 Fibromyalgia; E03.9 Hypothyroidism, unspecified; Z86.59 Personal history of other mental and behavioral disorders; Z88.0 Allergy status to penicillin; Z91.018 Allergy to other foods; Z91.02 Food additives allergy status; Z91.040 Latex allergy status; Z79.82 Long term (current) use of aspirin; Z79.899 Other long term (current) drug therapy

== ENCOUNTER → 2021-03-22 | Outpatient (CLI) | payer MEDICARE | LOC: M PAIN 15:00 | PROVIDERS: ATTEND Anesthesiology | DX: G89.29 Other chronic pain (principal); M47.816 Spondylosis without myelopathy or radiculopathy, lumbar region; F33.1 Major depressive disorder, recurrent, moderate; M79.18 Myalgia, other site; J45.909 Unspecified asthma, uncomplicated; R05.3 Chronic cough; K21.9 Gastro-esophageal reflux disease without esophagitis; G62.9 Polyneuropathy, unspecified; I10 Essential (primary) hypertension; M15.0 Primary generalized (osteo)arthritis; Z79.82 Long term (current) use of aspirin; Z79.899 Other long term (current) drug therapy; Z79.891 Long term (current) use of opiate analgesic; Z88.0 Allergy status to penicillin; Z91.040 Latex allergy status; Z91.018 Allergy to other foods; Z91.048 Other nonmedicinal substance allergy status ==

== ENCOUNTER → 2021-07-20 | Outpatient (REF) | payer MEDICARE ==
[~2021-07-20] MED LIST changes: -FLUC150T PO; +FLUC150T9 PO; -MONT10TA10 PO; +MONT10TA97 PO; +TIZA10TA PO; -TIZA4TAB4 PO; -ZONI100C17 PO; +ZONI100C67 PO
[2021-07-20 17:31] LABS: AMORPHOUS SEDIMENT SMALL (NEGATIVE); APPEARANCE, URINE HAZY (CLEAR); BACTERIA, URINE AUTO NEGATIVE (NEGATIVE); BILIRUBIN, URINE AUTO NEGATIVE (NEGATIVE); BLOOD, URINE BLOOD NEGATIVE (NEGATIVE); COLOR, URINE YELLOW (YELLOW); GLUCOSE, URINE (UA) AUTO NEGATIVE (NEGATIVE); KETONE, URINE AUTO NEGATIVE (NEGATIVE); LEUKOCYTE ESTERASE, URINE AUTO NEGATIVE (NEGATIVE); NITRITE, URINE AUTO NEGATIVE (NEGATIVE); PROTEIN, URINE AUTO NEGATIVE (NEGATIVE); RBC, URINE AUTO 2 /HPF (0-3); SPECIFIC GRAVITY URINE AUTO 1.019 (1.002-1.035); SQUAMOUS EPITHELIAL CELL UR AU 1 /HPF (0-6); UROBILINOGEN, URINE AUTO 0.2 mg/dL (0.0-2.0); WBC, URINE AUTO 1 /HPF (0-3)
== END ==
LOC: M SMT 16:49
PROVIDERS: ATTEND Physician Assistant
DX: R31.21 Asymptomatic microscopic hematuria (principal)

== ENCOUNTER → 2021-08-03 | Outpatient (CLI) | payer MEDICARE ==
[~2021-08-03] MED LIST changes: +ZONI100C17 PO; -ZONI100C67 PO
== END ==
LOC: M PAIN 11:15
PROVIDERS: ATTEND Nurse Practitioner Family
DX: M79.10 Myalgia, unspecified site (principal); J45.909 Unspecified asthma, uncomplicated; E03.9 Hypothyroidism, unspecified; Z86.59 Personal history of other mental and behavioral disorders; Z88.0 Allergy status to penicillin; Z91.018 Allergy to other foods; Z91.02 Food additives allergy status; Z91.040 Latex allergy status; Z79.82 Long term (current) use of aspirin; Z79.899 Other long term (current) drug therapy

== ENCOUNTER → 2021-08-22 | Outpatient (REF) | payer MEDICARE ==
[~2021-08-22] MED LIST changes: -ZONI100C17 PO; +ZONI100C67 PO
[2021-08-22 18:10] LABS: TOTAL 25(OH) VITAMIN D 25.7 NG/ML (30.0-100.0)
== END ==
LOC: M PLALAB 17:07
PROVIDERS: ATTEND Internal Medicine
DX: E61.1 Iron deficiency (principal); E55.9 Vitamin D deficiency, unspecified; Z79.899 Other long term (current) drug therapy

== ENCOUNTER → 2021-08-22 | Outpatient (CLI) | payer MEDICARE ==
[2021-08-22 17:33] LABS: BASO % 0.4 % (0.0-1.0); EOS # 0.2 10^3/uL (0.0-0.5); HEMATOCRIT 32.9 % (36.0-47.0); HEMOGLOBIN 10.6 g/dl (12.0-15.5); LYMPH # 2.7 10^3/uL (1.5-5.0); LYMPH % 34.7 % (24.0-44.0); MEAN CORPUSCULAR HEMOGLOBIN 28.9 pg (27.0-33.0); MEAN CORPUSCULAR HGB CONC 32.2 g/dl (32.0-36.5); MEAN CORPUSCULAR VOLUME 89.6 fl (80.0-96.0); MONO # 0.7 10^3/uL (0.0-0.8); MONO % 9.4 % (2.0-8.0); NEUTROPHILS % 52.2 % (36.0-66.0); PLATELET COUNT, AUTOMATED 243 10^3/uL (150-450); RED BLOOD COUNT 3.67 10^6/uL (4.00-5.40); WHITE BLOOD COUNT 7.6 10^3/uL (4.0-10.0)
[2021-08-22 18:09] LABS: ALBUMIN 3.8 GM/DL (3.2-5.2); ALT/SGPT 18 U/L (12-78); BILIRUBIN,TOTAL 0.3 MG/DL (0.2-1.0); BLOOD UREA NITROGEN 11 MG/DL (7-18); CALCIUM LEVEL 8.8 MG/DL (8.5-10.1); CARBON DIOXIDE LEVEL 32 MEQ/L (21-32); CHLORIDE LEVEL 104 MEQ/L (98-107); CHOLESTEROL LEVEL 186 MG/DL (<200); CHOLESTEROL RISK RATIO 3.263 (<5); CREATININE FOR GFR 0.79 MG/DL (0.55-1.30); FREE T4 1.54 NG/DL (0.76-1.46); GLOMERULAR FILTRATION RATE > 60.0 (>51); GLUCOSE, FASTING 107 MG/DL (70-100); HDL CHOLESTEROL 57 MG/DL (>40); LDL CHOLESTEROL 96 MG/DL (<100); NON-HDL-C 129 MG/DL; POTASSIUM SERUM 4.1 MEQ/L (3.5-5.1); SODIUM LEVEL 139 MEQ/L (136-145); THYROID STIMULATING HORMONE 0.231 uIU/ML (0.358-3.740); TOTAL 25(OH) VITAMIN D 25.2 NG/ML (30.0-100.0); TOTAL PROTEIN 6.9 GM/DL (6.4-8.2); TRIGLYCERIDES LEVEL 165 MG/DL (<150)
== END ==
LOC: M PLALAB 15:48
PROVIDERS: ATTEND Nurse Practitioner Family
DX: E03.9 Hypothyroidism, unspecified (principal); I10 Essential (primary) hypertension; E78.2 Mixed hyperlipidemia; E55.9 Vitamin D deficiency, unspecified; Z79.899 Other long term (current) drug therapy

== ENCOUNTER → 2021-08-24 | Outpatient (CLI) | payer MEDICARE | LOC: M PLAIMG 14:53 | PROVIDERS: ATTEND Physician Assistant Surgical | DX: M17.0 Bilateral primary osteoarthritis of knee (principal); M25.461 Effusion, right knee; M25.761 Osteophyte, right knee; M67.51 Plica syndrome, right knee ==

== ENCOUNTER → 2021-08-27 | Outpatient (CLI) | payer MEDICARE ==
[~2021-08-27] MED LIST changes: +ISOVUE-300 61% 50ML VIAL As Ordered ONE; +LIDOCAINE 1% MDV 20ML VIAL As Ordered ONE; +methylPREDNISolone SUSP 40MG/ML 1ML VIAL (DEPO MEDROL) As Ordered ONE
== END ==
LOC: M RADPRO 11:17
PROVIDERS: ATTEND Physician Assistant Surgical
DX: M25.552 Pain in left hip (principal)
CPT/HCPCS: 20610; 77002; J1030; Q9967

== ENCOUNTER → 2021-09-14 | Outpatient (CLI) | payer MEDICARE ==
[~2021-09-14] MED LIST changes: -ISOVUE-300 61% 50ML VIAL As Ordered ONE; -LIDOCAINE 1% MDV 20ML VIAL As Ordered ONE; -methylPREDNISolone SUSP 40MG/ML 1ML VIAL (DEPO MEDROL) As Ordered ONE
[2021-09-14 17:21] LABS: BASO % 0.6 % (0.0-1.0); EOS # 0.1 10^3/uL (0.0-0.5); EOS % 2.7 % (0.0-3.0); HEMATOCRIT 35.7 % (36.0-47.0); HEMOGLOBIN 11.6 g/dl (12.0-15.5); LYMPH # 1.9 10^3/uL (1.5-5.0); LYMPH % 39.7 % (24.0-44.0); MEAN CORPUSCULAR HEMOGLOBIN 28.7 pg (27.0-33.0); MEAN CORPUSCULAR HGB CONC 32.5 g/dl (32.0-36.5); MEAN CORPUSCULAR VOLUME 88.4 fl (80.0-96.0); MONO # 0.5 10^3/uL (0.0-0.8); MONO % 10.5 % (2.0-8.0); NEUTROPHILS # 2.2 10^3/uL (1.5-8.5); NEUTROPHILS % 46.1 % (36.0-66.0); PLATELET COUNT, AUTOMATED 249 10^3/uL (150-450); RED BLOOD COUNT 4.04 10^6/uL (4.00-5.40); WHITE BLOOD COUNT 4.8 10^3/uL (4.0-10.0)
[2021-09-14 17:40] LABS: PERCENT SATURATION 15.6 % (13.2-45.0)
[2021-09-14 17:49] LABS: FOLATE 5.4 NG/ML
== END ==
LOC: M LAB 16:28
PROVIDERS: ATTEND Nurse Practitioner Family
DX: D64.9 Anemia, unspecified (principal)

== ENCOUNTER → 2021-09-21 | Outpatient (CLI) | payer MEDICARE | LOC: M PLAIMG 11:08 | PROVIDERS: ATTEND Physician Assistant Surgical | DX: M17.0 Bilateral primary osteoarthritis of knee (principal); M25.762 Osteophyte, left knee; M71.22 Synovial cyst of popliteal space [Baker], left knee; M94.262 Chondromalacia, left knee ==

== ENCOUNTER → 2021-10-24 | Outpatient (CLI) | payer MEDICARE ==
[~2021-10-24] MED LIST changes: +BENZ200C70 PO; +FLON1SPR NARES
== END ==
LOC: M PLALAB 14:43 → M PLAIMG 14:43
PROVIDERS: ATTEND Internal Medicine Pulmonary Disease
DX: J45.40 Moderate persistent asthma, uncomplicated (principal); I51.7 Cardiomegaly

== ENCOUNTER 2021-10-26 12:40 | Emergency (ER) | payer MEDICARE ==
[~2021-10-26] VITALS: Ht 152.4 cm; Wt 74.6 kg
[~2021-10-26 12:40] MED LIST changes: -BENZ200C70 PO; -FLON1SPR NARES
[2021-10-26] MEDS ORDERED: FLON1SPR NARES (18:06)
[2021-10-26] MEDS ORDERED: BENZ200C70 PO (18:06)
[2021-10-26 18:09] VITALS: BP 170/86
== END 2021-10-26 18:22 | disposition home or self-care (01) ==
LOC: M ED 12:40
DX: J06.9 Acute upper respiratory infection, unspecified (principal); J02.9 Acute pharyngitis, unspecified; H65.01 Acute serous otitis media, right ear; Z79.82 Long term (current) use of aspirin; Z79.890 Hormone replacement therapy; Z79.899 Other long term (current) drug therapy; Z88.0 Allergy status to penicillin; Z91.89 Other specified personal risk factors, not elsewhere classified; Z91.040 Latex allergy status

== ENCOUNTER → 2021-10-29 | Outpatient (CLI) | payer MEDICARE ==
[~2021-10-29] MED LIST changes: +BENZ200C70 PO; +FLON1SPR NARES
== END ==
LOC: M LABSMTC 11:19
PROVIDERS: ATTEND Anesthesiology
DX: Z01.812 Encounter for preprocedural laboratory examination (principal); Z20.822 Contact with and (suspected) exposure to COVID-19

== ENCOUNTER → 2021-11-01 | Outpatient (CLI) | payer MEDICARE ==
[~2021-11-01] MED LIST changes: +BUPIVACAINE HCL 0.25% 30ML VIAL As Ordered ONE; +ISOVUE-M 300 61% 15ML VIAL As Ordered ONE; +LIDOCAINE 1% SDV 30ML VIAL As Ordered ONE
== END ==
LOC: M PAIN 11:00
PROVIDERS: ATTEND Anesthesiology
DX: M47.816 Spondylosis without myelopathy or radiculopathy, lumbar region (principal); M47.817 Spondylosis without myelopathy or radiculopathy, lumbosacral region; G89.29 Other chronic pain; G47.30 Sleep apnea, unspecified; M79.7 Fibromyalgia; J45.909 Unspecified asthma, uncomplicated; E03.9 Hypothyroidism, unspecified; Z86.14 Personal history of Methicillin resistant Staphylococcus aureus infection; Z86.59 Personal history of other mental and behavioral disorders; Z88.0 Allergy status to penicillin; Z91.02 Food additives allergy status; Z91.018 Allergy to other foods; Z91.040 Latex allergy status; Z79.82 Long term (current) use of aspirin; Z79.899 Other long term (current) drug therapy
CPT/HCPCS: 64493; 64494; Q9967

== ENCOUNTER → 2021-11-12 | Outpatient (CLI) | payer MEDICARE ==
[~2021-11-12] MED LIST changes: -BUPIVACAINE HCL 0.25% 30ML VIAL As Ordered ONE; -ISOVUE-M 300 61% 15ML VIAL As Ordered ONE; -LIDOCAINE 1% SDV 30ML VIAL As Ordered ONE
== END ==
LOC: M WHC 14:26
PROVIDERS: ATTEND Nurse Practitioner Family
DX: M85.851 Other specified disorders of bone density and structure, right thigh (principal)

== ENCOUNTER → 2021-11-20 | Outpatient (CLI) | payer MEDICARE | LOC: M PLALAB 15:51 | PROVIDERS: ATTEND Internal Medicine | DX: E55.9 Vitamin D deficiency, unspecified (principal) ==

== ENCOUNTER → 2021-11-20 | Outpatient (CLI) | payer MEDICARE ==
[~2021-11-20] MED LIST changes: +ISOVUE-300 61% 50ML VIAL ONE; +LIDOCAINE 1% SDV 5ML VIAL ONE; +methylPREDNISolone SUSP 40MG/ML 1ML VIAL (DEPO MEDROL) ONE
== END ==
LOC: M PLARAD 14:58
PROVIDERS: ATTEND Physician Assistant Surgical
DX: M16.11 Unilateral primary osteoarthritis, right hip (principal); Z79.899 Other long term (current) drug therapy
CPT/HCPCS: 36415; 76000; 82306; 86618; J1030; Q9967

== ENCOUNTER → 2021-12-11 | Outpatient (CLI) | payer MEDICARE ==
[~2021-12-11] MED LIST changes: -ISOVUE-300 61% 50ML VIAL ONE; -LIDOCAINE 1% SDV 5ML VIAL ONE; -methylPREDNISolone SUSP 40MG/ML 1ML VIAL (DEPO MEDROL) ONE
[2021-12-11 14:47] LABS: FREE T4 0.81 NG/DL (0.76-1.46); THYROID STIMULATING HORMONE 8.83 uIU/ML (0.358-3.740)
== END ==
LOC: M PLALAB 11:23
PROVIDERS: ATTEND Nurse Practitioner Family
DX: E03.9 Hypothyroidism, unspecified (principal)

== ENCOUNTER → 2022-01-01 | Outpatient (CLI) | payer MEDICARE | LOC: M SOG 08:53 | PROVIDERS: ATTEND Orthopaedic Surgery | DX: M54.50 Low back pain, unspecified (principal); M54.2 Cervicalgia; Z98.1 Arthrodesis status; M47.812 Spondylosis without myelopathy or radiculopathy, cervical region; M47.816 Spondylosis without myelopathy or radiculopathy, lumbar region; M46.06 Spinal enthesopathy, lumbar region ==

== ENCOUNTER → 2022-01-04 | Outpatient (CLI) | payer MEDICARE | LOC: M PAIN 11:15 | PROVIDERS: ATTEND Anesthesiology | DX: M54.2 Cervicalgia (principal); M54.50 Low back pain, unspecified; M79.18 Myalgia, other site; G89.29 Other chronic pain; J45.909 Unspecified asthma, uncomplicated; M79.7 Fibromyalgia; I10 Essential (primary) hypertension; E03.9 Hypothyroidism, unspecified; Z86.14 Personal history of Methicillin resistant Staphylococcus aureus infection; Z86.59 Personal history of other mental and behavioral disorders; Z88.0 Allergy status to penicillin; Z91.018 Allergy to other foods; Z91.02 Food additives allergy status; Z91.040 Latex allergy status; Z79.890 Hormone replacement therapy; Z79.899 Other long term (current) drug therapy ==

== ENCOUNTER → 2022-01-09 | Outpatient (CLI) | payer MEDICARE | LOC: M WHC 13:05 | PROVIDERS: ATTEND Nurse Practitioner Family | DX: Z12.31 Encounter for screening mammogram for malignant neoplasm of breast (principal) ==

== ENCOUNTER → 2022-01-10 | Outpatient (CLI) | payer MEDICARE ==
[~2022-01-10] MED LIST changes: +PROHANCE 279.3MG/ML 15ML VIAL ONE; +PROHANCE 279.3MG/ML 5ML VIAL ONE
== END ==
LOC: M PLAIMG 14:43
PROVIDERS: ATTEND Nurse Practitioner Adult Health
DX: G40.209 Localization-related (focal) (partial) symptomatic epilepsy and epileptic syndromes with complex partial seizures, not intractable, without status epilepticus (principal); G44.209 Tension-type headache, unspecified, not intractable; H74.91 Unspecified disorder of right middle ear and mastoid
CPT/HCPCS: 70553; A9576

== ENCOUNTER → 2022-01-23 | Outpatient (CLI) | payer MEDICARE ==
[~2022-01-23] MED LIST changes: -PROHANCE 279.3MG/ML 15ML VIAL ONE; -PROHANCE 279.3MG/ML 5ML VIAL ONE
== END ==
LOC: M PLAIMG 09:00
PROVIDERS: ATTEND Physician Assistant Surgical
DX: M18.12 Unilateral primary osteoarthritis of first carpometacarpal joint, left hand (principal); M67.834 Other specified disorders of tendon, left wrist

== ENCOUNTER 2022-01-31 11:30 | Outpatient (RCR) | payer MEDICARE | END 2022-02-04 23:59 | disposition home or self-care (01) | LOC: M PT 11:30 | PROVIDERS: ATTEND Internal Medicine | DX: M15.0 Primary generalized (osteo)arthritis (principal) ==

== ENCOUNTER → 2022-02-08 | Outpatient (CLI) | payer MEDICARE ==
[~2022-02-08] MED LIST changes: +ISOVUE-300 61% 50ML VIAL ONE; +LIDOCAINE 1% MDV 20ML VIAL ONE; +methylPREDNISolone SUSP 40MG/ML 1ML VIAL (DEPO MEDROL) ONE
== END ==
LOC: M PLAIMG 14:37
PROVIDERS: ATTEND Physician Assistant Surgical
DX: M16.0 Bilateral primary osteoarthritis of hip (principal)
CPT/HCPCS: 20610; 76000; J1030; Q9967

== ENCOUNTER → 2022-02-12 | Outpatient (CLI) | payer MEDICARE ==
[~2022-02-12] MED LIST changes: -ISOVUE-300 61% 50ML VIAL ONE; -LIDOCAINE 1% MDV 20ML VIAL ONE; -methylPREDNISolone SUSP 40MG/ML 1ML VIAL (DEPO MEDROL) ONE
== END ==
LOC: M LABSMTC 09:52
PROVIDERS: ATTEND Anesthesiology
DX: Z01.812 Encounter for preprocedural laboratory examination (principal); Z20.822 Contact with and (suspected) exposure to COVID-19

== ENCOUNTER 2022-02-14 13:30 | Outpatient (RCR) | payer MEDICARE | END 2022-03-06 | LOC: M PT 13:30 | PROVIDERS: ATTEND Internal Medicine | DX: M15.0 Primary generalized (osteo)arthritis (principal) ==

== ENCOUNTER → 2022-02-15 | Outpatient (CLI) | payer MEDICARE ==
[~2022-02-15] MED LIST changes: +BUPIVACAINE HCL 0.25% 10ML VIAL As Ordered ONE; +BUPIVACAINE HCL 0.25% 30ML VIAL As Ordered ONE; +NORCO, ANEXSIA 5/325MG TABLET (HYDROcodone/ACETAMINOPHEN) As Ordered ONE; +TRIAMCINOLONE ACETONIDE SUSP 40 MG/ML VIAL (J3301) As Ordered ONE; +diazePAM 2 MG TAB As Ordered ONE
== END ==
LOC: M PAIN 16:00
PROVIDERS: ATTEND Anesthesiology
DX: M79.12 Myalgia of auxiliary muscles, head and neck (principal); M79.18 Myalgia, other site; F33.1 Major depressive disorder, recurrent, moderate; J45.909 Unspecified asthma, uncomplicated; R35.0 Frequency of micturition; M79.7 Fibromyalgia; M15.0 Primary generalized (osteo)arthritis; R05.3 Chronic cough; K21.9 Gastro-esophageal reflux disease without esophagitis; G62.9 Polyneuropathy, unspecified; I10 Essential (primary) hypertension; E03.9 Hypothyroidism, unspecified; M43.06 Spondylolysis, lumbar region; M47.816 Spondylosis without myelopathy or radiculopathy, lumbar region; M47.817 Spondylosis without myelopathy or radiculopathy, lumbosacral region; M17.0 Bilateral primary osteoarthritis of knee; G89.29 Other chronic pain; Z79.890 Hormone replacement therapy; Z79.899 Other long term (current) drug therapy; Z79.891 Long term (current) use of opiate analgesic; Z98.1 Arthrodesis status; Z88.0 Allergy status to penicillin; Z91.018 Allergy to other foods; Z91.048 Other nonmedicinal substance allergy status; Z91.010 Allergy to peanuts
CPT/HCPCS: 20552; J3301

== ENCOUNTER → 2022-03-11 | Outpatient (REF) | payer MEDICARE ==
[~2022-03-11] MED LIST changes: -BUPIVACAINE HCL 0.25% 10ML VIAL As Ordered ONE; -BUPIVACAINE HCL 0.25% 30ML VIAL As Ordered ONE; -NORCO, ANEXSIA 5/325MG TABLET (HYDROcodone/ACETAMINOPHEN) As Ordered ONE; +NYST-38 SS; -NYST50SS SS; -TRIAMCINOLONE ACETONIDE SUSP 40 MG/ML VIAL (J3301) As Ordered ONE; -diazePAM 2 MG TAB As Ordered ONE
[2022-03-11 16:59] LABS: BASO % 0.4 % (0.0-1.0); EOS # 0.2 10^3/uL (0.0-0.5); EOS % 1.9 % (0.0-3.0); HEMOGLOBIN 10.9 g/dl (12.0-15.5); LYMPH # 2.3 10^3/uL (1.5-5.0); LYMPH % 29.1 % (24.0-44.0); MEAN CORPUSCULAR HEMOGLOBIN 28.7 pg (27.0-33.0); MEAN CORPUSCULAR HGB CONC 31.1 g/dl (32.0-36.5); MEAN CORPUSCULAR VOLUME 92.1 fl (80.0-96.0); MONO # 0.5 10^3/uL (0.0-0.8); MONO % 6.7 % (2.0-8.0); NEUTROPHILS # 4.8 10^3/uL (1.5-8.5); NEUTROPHILS % 61.5 % (36.0-66.0); PLATELET COUNT, AUTOMATED 247 10^3/uL (150-450); WHITE BLOOD COUNT 7.9 10^3/uL (4.0-10.0)
[2022-03-11 17:35] LABS: HEMOGLOBIN A1c 5.9 % (4.0-6.0)
[2022-03-11 17:46] LABS: FREE T4 0.64 NG/DL (0.89-1.76); MAGNESIUM LEVEL 2.1 MG/DL (1.8-2.4)
[2022-03-11 17:49] LABS: ALBUMIN 3.8 G/DL (3.2-5.2); ALKALINE PHOSPHATASE 68 U/L (46-116); ALT/SGPT 17 U/L (7.0-40); AST/SGOT 12 U/L (<34); BILIRUBIN,TOTAL 0.4 MG/DL (0.3-1.2); BLOOD UREA NITROGEN 10 MG/DL (9-23); CALCIUM LEVEL 8.9 MG/DL (8.5-10.1); CARBON DIOXIDE LEVEL 30 MMOL/L (20-31); CHLORIDE LEVEL 102 MMOL/L (98-107); CHOLESTEROL LEVEL 295 MG/DL (<200); CHOLESTEROL RISK RATIO 4.16 (<5); CREATININE FOR GFR 0.77 MG/DL (0.55-1.30); GLOMERULAR FILTRATION RATE > 60.0 (>51); GLUCOSE, FASTING 99 MG/DL (60-100); HDL CHOLESTEROL 70.8 MG/DL (>40); LDL CHOLESTEROL 202.2 MG/DL (<100); NON-HDL-C 224 MG/DL; POTASSIUM SERUM 4.1 MMOL/L (3.5-5.1); SODIUM LEVEL 140 MMOL/L (136-145); TOTAL PROTEIN 6.9 G/DL (5.7-8.2); TRIGLYCERIDES LEVEL 110 MG/DL (<150)
== END ==
LOC: M LAB REF 16:20
PROVIDERS: ATTEND Nurse Practitioner Family
DX: Z13.228 Encounter for screening for other metabolic disorders (principal); R35.0 Frequency of micturition; R51.9 Headache, unspecified

== ENCOUNTER → 2022-03-18 | Outpatient (CLI) | payer MEDICARE ==
[~2022-03-18] MED LIST changes: -NYST-38 SS; +NYST50SS SS
== END ==
LOC: M PLALAB 09:27
PROVIDERS: ATTEND Internal Medicine
DX: E61.1 Iron deficiency (principal)

== ENCOUNTER → 2022-04-19 | Outpatient (REF) | payer MEDICARE ==
[~2022-04-19] MED LIST changes: +NYST-38 SS; -NYST50SS SS
[2022-04-19 17:19] LABS: FREE T4 1.93 NG/DL (0.89-1.76); THYROID STIMULATING HORMONE 0.665 uIU/ML (0.55-4.78)
== END ==
LOC: M LAB REF 16:23
PROVIDERS: ATTEND Nurse Practitioner Family
DX: E03.9 Hypothyroidism, unspecified (principal)

== ENCOUNTER → 2022-05-07 | Outpatient (CLI) | payer MEDICARE | LOC: M PAIN 14:15 | PROVIDERS: ATTEND Nurse Practitioner Family | DX: M79.10 Myalgia, unspecified site (principal); G89.29 Other chronic pain; J45.909 Unspecified asthma, uncomplicated; I10 Essential (primary) hypertension; E03.9 Hypothyroidism, unspecified; Z86.14 Personal history of Methicillin resistant Staphylococcus aureus infection; Z86.59 Personal history of other mental and behavioral disorders; Z88.0 Allergy status to penicillin; Z91.018 Allergy to other foods; Z91.02 Food additives allergy status; Z91.040 Latex allergy status; Z79.890 Hormone replacement therapy; Z79.899 Other long term (current) drug therapy ==

== ENCOUNTER → 2022-05-31 | Outpatient (CLI) | payer MEDICARE | LOC: M LABSMTC 11:49 | PROVIDERS: ATTEND Anesthesiology | DX: Z01.812 Encounter for preprocedural laboratory examination (principal); Z20.822 Contact with and (suspected) exposure to COVID-19 ==

== ENCOUNTER → 2022-06-10 | Outpatient (CLI) | payer MEDICARE ==
[~2022-06-10] MED LIST changes: +BACI500O8 TOP; +PERC5TAB12 PO
== END ==
LOC: M LABSMTC 12:00
PROVIDERS: ATTEND Anesthesiology
DX: Z01.812 Encounter for preprocedural laboratory examination (principal); Z20.822 Contact with and (suspected) exposure to COVID-19

== ENCOUNTER → 2022-06-10 | Outpatient (CLI) | payer MEDICARE ==
[~2022-06-10] MED LIST changes: +BUPIVACAINE HCL 0.25% 10ML VIAL As Ordered ONE; +BUPIVACAINE HCL 0.25% 30ML VIAL As Ordered ONE; +NORCO, ANEXSIA 5/325MG TABLET (HYDROcodone/ACETAMINOPHEN) As Ordered ONE; +TRIAMCINOLONE ACETONIDE SUSP 40MG/ML 1ML VIAL As Ordered ONE; +diazePAM 2 MG TAB As Ordered ONE
== END ==
LOC: M PAIN 13:00
PROVIDERS: ATTEND Anesthesiology
DX: M79.18 Myalgia, other site (principal); G89.29 Other chronic pain; J45.909 Unspecified asthma, uncomplicated; M79.7 Fibromyalgia; I10 Essential (primary) hypertension; E03.9 Hypothyroidism, unspecified; Z86.59 Personal history of other mental and behavioral disorders; Z88.0 Allergy status to penicillin; Z91.018 Allergy to other foods; Z91.02 Food additives allergy status; Z91.040 Latex allergy status; Z79.890 Hormone replacement therapy; Z79.899 Other long term (current) drug therapy

== ENCOUNTER 2022-06-16 18:54 | Emergency (ER) | payer MEDICARE ==
[~2022-06-16] VITALS: Ht 154.9 cm; Wt 76.3 kg
[~2022-06-16 18:54] MED LIST changes: -BACI500O8 TOP; -BUPIVACAINE HCL 0.25% 10ML VIAL As Ordered ONE; -BUPIVACAINE HCL 0.25% 30ML VIAL As Ordered ONE; -NORCO, ANEXSIA 5/325MG TABLET (HYDROcodone/ACETAMINOPHEN) As Ordered ONE; -PERC5TAB12 PO; -TRIAMCINOLONE ACETONIDE SUSP 40MG/ML 1ML VIAL As Ordered ONE; -diazePAM 2 MG TAB As Ordered ONE
[2022-06-16] MEDS ORDERED: MORPHINE 10 MG/ML 1ML VIAL IM ONE (21:05)
[2022-06-16 21:45] VITALS: BP 168/98
[2022-06-16] MEDS ORDERED: BACI500O8 TOP (21:50)
[2022-06-16] MEDS ORDERED: PERC5TAB12 PO (21:50)
[2022-06-16] MEDS ORDERED: OXYCODONE/APAP 5MG/325MG(HOME DOSE PACK) PO ONE (21:55)
== END 2022-06-16 22:14 | disposition home or self-care (01) ==
LOC: M ED 18:54
DX: T20.16XA Burn of first degree of forehead and cheek, initial encounter (principal); T21.11XA Burn of first degree of chest wall, initial encounter; T23.101A Burn of first degree of right hand, unspecified site, initial encounter; X10.2XXA Contact with fats and cooking oils, initial encounter; Y92.099 Unspecified place in other non-institutional residence as the place of occurrence of the external cause; I10 Essential (primary) hypertension; J44.9 Chronic obstructive pulmonary disease, unspecified; E03.9 Hypothyroidism, unspecified; K21.9 Gastro-esophageal reflux disease without esophagitis; F41.9 Anxiety disorder, unspecified; F32.9 Major depressive disorder, single episode, unspecified; Z79.82 Long term (current) use of aspirin; Z79.899 Other long term (current) drug therapy; Z88.0 Allergy status to penicillin; Z91.02 Food additives allergy status; Z91.040 Latex allergy status
CPT/HCPCS: 96372; 99284; J2270

== ENCOUNTER → 2022-07-03 | Outpatient (CLI) | payer MEDICARE ==
[~2022-07-03] MED LIST changes: +BACI500O8 TOP; +PERC5TAB12 PO
== END ==
LOC: M PAIN 15:30
PROVIDERS: ATTEND Anesthesiology
DX: M54.2 Cervicalgia (principal); M79.18 Myalgia, other site; G89.29 Other chronic pain; J45.909 Unspecified asthma, uncomplicated; M79.7 Fibromyalgia; I10 Essential (primary) hypertension; E03.9 Hypothyroidism, unspecified; Z86.59 Personal history of other mental and behavioral disorders; Z88.0 Allergy status to penicillin; Z91.018 Allergy to other foods; Z91.02 Food additives allergy status; Z91.040 Latex allergy status; Z79.890 Hormone replacement therapy; Z79.899 Other long term (current) drug therapy

== ENCOUNTER → 2022-07-04 | Outpatient (CLI) | payer MEDICARE ==
[2022-07-04 16:34] LABS: HEPATITIS B SURFACE ANTIGEN NEGATIVE (NEGATIVE)
[2022-07-04 16:46] LABS: HIV 1&2 SCREEN ATELLICA NEGATIVE (NEGATIVE)
[2022-07-04 16:53] LABS: HEPATITIS C VIRUS ABY INDEX 0.1 INDEX (<0.8)
[2022-07-04 16:54] LABS: HEPATITIS B CORE ANTIBODY IGM NEGATIVE (NEGATIVE)
== END ==
LOC: M PLALAB 12:14
PROVIDERS: ATTEND Nurse Practitioner Family
DX: Z12.4 Encounter for screening for malignant neoplasm of cervix (principal); Z80.3 Family history of malignant neoplasm of breast; Z11.3 Encounter for screening for infections with a predominantly sexual mode of transmission

== ENCOUNTER → 2022-07-10 | Outpatient (REF) | payer MEDICARE | LOC: M LAB REF 16:25 | PROVIDERS: ATTEND Nurse Practitioner Family | DX: R30.0 Dysuria (principal) ==

== ENCOUNTER → 2022-07-15 | Outpatient (REF) | payer MEDICARE ==
[2022-07-15 18:10] LABS: APPEARANCE, URINE MANUAL CLOUDY (CLEAR); COLOR, URINE MANUAL DK YELLOW (YELLOW)
[2022-07-15 18:11] LABS: BILIRUBIN, URINE MANUAL NEGATIVE (NEGATIVE); BLOOD URINE MANUAL NEGATIVE (NEGATIVE); GLUCOSE, URINE (UA) MANUAL NEGATIVE (NEGATIVE); KETONE, URINE MANUAL NEGATIVE (NEGATIVE); LEUKOCYTE ESTERASE, URINE MAN POSITIVE (NEGATIVE); NITRITE, URINE MANUAL NEGATIVE (NEGATIVE); PROTEIN, URINE MANUAL TRACE mg/dL (NEGATIVE); UROBILINOGEN, URINE MANUAL NORMAL (NORMAL)
[2022-07-15 19:01] LABS: BACTERIA, URINE NONE SEEN; CALCIUM OXALATE CRYSTALS,URINE LARGE AMOUNT /hpf; HYALINE CAST, URINE NONE SEEN /lpf (0-1); RBC, URINE NONE SEEN /hpf (0-3)
[2022-07-15 19:02] LABS: AMORPHOUS SEDIMENT, URINE MOD AMOUNT (NEGATIVE); MUCUS, URINE LARGE AMOUNT (NEGATIVE); SQUAMOUS EPITHELIAL CELL URINE SMALL AMOUNT /hpf (SMALL AMT)
== END ==
LOC: M SMT 16:56
PROVIDERS: ATTEND Physician Assistant
DX: R31.29 Other microscopic hematuria (principal)

== ENCOUNTER → 2022-08-14 | Outpatient (CLI) | payer MEDICARE | LOC: M PLALAB 15:39 | PROVIDERS: ATTEND Nurse Practitioner Family | DX: Z15.01 Genetic susceptibility to malignant neoplasm of breast (principal); Z80.3 Family history of malignant neoplasm of breast ==

== ENCOUNTER → 2022-08-20 | Outpatient (CLI) | payer MEDICARE ==
[~2022-08-20] MED LIST changes: +BUPIVACAINE HCL 0.25% 10ML VIAL As Ordered ONE; +BUPIVACAINE HCL 0.25% 30ML VIAL As Ordered ONE; +NORCO, ANEXSIA 5/325MG TABLET (HYDROcodone/ACETAMINOPHEN) As Ordered ONE; +TRIAMCINOLONE ACETONIDE SUSP 40MG/ML 1ML VIAL As Ordered ONE; +diazePAM 2 MG TAB As Ordered ONE
== END ==
LOC: M PAIN 14:30
PROVIDERS: ATTEND Anesthesiology
DX: M79.12 Myalgia of auxiliary muscles, head and neck (principal); G47.33 Obstructive sleep apnea (adult) (pediatric); J45.909 Unspecified asthma, uncomplicated; M79.7 Fibromyalgia; E03.9 Hypothyroidism, unspecified; Z86.59 Personal history of other mental and behavioral disorders; Z88.0 Allergy status to penicillin; Z91.018 Allergy to other foods; Z91.02 Food additives allergy status; Z91.040 Latex allergy status; Z79.890 Hormone replacement therapy; Z79.899 Other long term (current) drug therapy
CPT/HCPCS: 20552; J3301

== ENCOUNTER → 2022-08-28 | Outpatient (CLI) | payer MEDICARE ==
[~2022-08-28] MED LIST changes: -BUPIVACAINE HCL 0.25% 10ML VIAL As Ordered ONE; -BUPIVACAINE HCL 0.25% 30ML VIAL As Ordered ONE; +ISOVUE-300 61% 100ML VIAL ONE; +LIDOCAINE 1% MDV 20ML VIAL ONE; -NORCO, ANEXSIA 5/325MG TABLET (HYDROcodone/ACETAMINOPHEN) As Ordered ONE; -TRIAMCINOLONE ACETONIDE SUSP 40MG/ML 1ML VIAL As Ordered ONE; -diazePAM 2 MG TAB As Ordered ONE; +methylPREDNISolone SUSP 40MG/ML 1ML VIAL (DEPO MEDROL) ONE
== END ==
LOC: M PLAIMG 15:31
PROVIDERS: ATTEND Physician Assistant Surgical
DX: M16.11 Unilateral primary osteoarthritis, right hip (principal)
CPT/HCPCS: 20610; 76000; J1030; Q9967

== ENCOUNTER → 2022-08-30 | Outpatient (CLI) | payer MEDICARE ==
[~2022-08-30] MED LIST changes: -ISOVUE-300 61% 100ML VIAL ONE; -LIDOCAINE 1% MDV 20ML VIAL ONE; +PROHANCE 279.3MG/ML 15ML VIAL ONE; -methylPREDNISolone SUSP 40MG/ML 1ML VIAL (DEPO MEDROL) ONE
== END ==
LOC: M PLAIMG 09:20
PROVIDERS: ATTEND Nurse Practitioner Family
DX: Z12.39 Encounter for other screening for malignant neoplasm of breast (principal); Z80.3 Family history of malignant neoplasm of breast
CPT/HCPCS: A9576; C8908

== ENCOUNTER → 2022-09-23 | Outpatient (CLI) | payer MEDICARE ==
[~2022-09-23] MED LIST changes: -PROHANCE 279.3MG/ML 15ML VIAL ONE
== END ==
LOC: M PAIN 10:15
PROVIDERS: ATTEND Nurse Practitioner Family
DX: M79.18 Myalgia, other site (principal); G89.29 Other chronic pain; F32.9 Major depressive disorder, single episode, unspecified; J45.909 Unspecified asthma, uncomplicated; M79.7 Fibromyalgia; M15.0 Primary generalized (osteo)arthritis; K21.9 Gastro-esophageal reflux disease without esophagitis; R05.3 Chronic cough; G62.9 Polyneuropathy, unspecified; I10 Essential (primary) hypertension; E03.9 Hypothyroidism, unspecified; M43.06 Spondylolysis, lumbar region; M47.816 Spondylosis without myelopathy or radiculopathy, lumbar region; M47.817 Spondylosis without myelopathy or radiculopathy, lumbosacral region; M17.0 Bilateral primary osteoarthritis of knee; Z79.891 Long term (current) use of opiate analgesic; Z79.890 Hormone replacement therapy; Z79.899 Other long term (current) drug therapy; Z88.0 Allergy status to penicillin; Z91.010 Allergy to peanuts; Z91.018 Allergy to other foods; Z91.040 Latex allergy status; Z91.048 Other nonmedicinal substance allergy status

== ENCOUNTER → 2022-09-27 | Outpatient (REF) | payer MEDICARE ==
[2022-09-27 17:45] LABS: BASO % 0.3 % (0.0-1.0); EOS # 0.1 10^3/uL (0.0-0.5); HEMATOCRIT 35.9 % (36.0-47.0); HEMOGLOBIN 11.8 g/dl (12.0-15.5); LYMPH # 2.1 10^3/uL (1.5-5.0); LYMPH % 34.4 % (24.0-44.0); MEAN CORPUSCULAR HEMOGLOBIN 29.6 pg (27.0-33.0); MEAN CORPUSCULAR HGB CONC 32.9 g/dl (32.0-36.5); MONO # 0.5 10^3/uL (0.0-0.8); MONO % 7.7 % (2.0-8.0); NEUTROPHILS # 3.3 10^3/uL (1.5-8.5); NEUTROPHILS % 55.4 % (36.0-66.0); PLATELET COUNT, AUTOMATED 263 10^3/uL (150-450); RED BLOOD COUNT 3.99 10^6/uL (4.00-5.40)
[2022-09-27 17:47] LABS: PERCENT SATURATION 16.9 % (13.2-45.0)
[2022-09-27 19:03] LABS: HEMOGLOBIN A1c 6.2 % (4.0-6.0)
== END ==
LOC: M LAB REF 16:41
PROVIDERS: ATTEND Nurse Practitioner Family
DX: R58 Hemorrhage, not elsewhere classified (principal); D50.9 Iron deficiency anemia, unspecified; Z71.3 Dietary counseling and surveillance; Z79.899 Other long term (current) drug therapy

== ENCOUNTER → 2022-11-28 | Outpatient (REF) | payer MEDICARE ==
[~2022-11-28] MED LIST changes: +DICL100G10 TOP; -DICL1GEL3 TOP; -ROPI0.5T3 PO; +ROPI0.5T33 PO
== END ==
LOC: M LAB REF 19:05
PROVIDERS: ATTEND Nurse Practitioner Family
DX: J20.9 Acute bronchitis, unspecified (principal); J02.9 Acute pharyngitis, unspecified

== ENCOUNTER → 2022-11-28 | Outpatient (REF) | payer MEDICARE ==
[2022-11-28 18:01] LABS: BASO % 0.4 % (0.0-1.0); EOS # 0.2 10^3/uL (0.0-0.5); EOS % 2.9 % (0.0-3.0); HEMATOCRIT 35.5 % (36.0-47.0); HEMOGLOBIN 11.4 g/dl (12.0-15.5); LYMPH # 2.1 10^3/uL (1.5-5.0); LYMPH % 27.4 % (24.0-44.0); MEAN CORPUSCULAR HEMOGLOBIN 29.2 pg (27.0-33.0); MEAN CORPUSCULAR HGB CONC 32.1 g/dl (32.0-36.5); MEAN CORPUSCULAR VOLUME 90.8 fl (80.0-96.0); MONO # 0.7 10^3/uL (0.0-0.8); MONO % 9.6 % (2.0-8.0); NEUTROPHILS # 4.6 10^3/uL (1.5-8.5); NEUTROPHILS % 59.3 % (36.0-66.0); PLATELET COUNT, AUTOMATED 249 10^3/uL (150-450); RED BLOOD COUNT 3.91 10^6/uL (4.00-5.40); WHITE BLOOD COUNT 7.7 10^3/uL (4.0-10.0)
== END ==
LOC: M LAB REF 17:31
PROVIDERS: ATTEND Nurse Practitioner Family
DX: J02.9 Acute pharyngitis, unspecified (principal)

== ENCOUNTER → 2022-11-29 | Outpatient (CLI) | payer MEDICARE ==
[~2022-11-29] MED LIST changes: +NORCO, ANEXSIA 5/325MG TABLET (HYDROcodone/ACETAMINOPHEN) As Ordered ONE; +TRIAMCINOLONE ACETONIDE SUSP 40MG/ML 1ML VIAL As Ordered ONE; +diazePAM 2 MG TAB As Ordered ONE
== END ==
LOC: M PAIN 08:30
PROVIDERS: ATTEND Anesthesiology
DX: M79.18 Myalgia, other site (principal); G89.29 Other chronic pain; G47.30 Sleep apnea, unspecified; J45.909 Unspecified asthma, uncomplicated; M79.7 Fibromyalgia; I10 Essential (primary) hypertension; E03.9 Hypothyroidism, unspecified; Z86.14 Personal history of Methicillin resistant Staphylococcus aureus infection; Z86.59 Personal history of other mental and behavioral disorders; Z88.0 Allergy status to penicillin; Z91.018 Allergy to other foods; Z91.02 Food additives allergy status; Z91.040 Latex allergy status; Z79.890 Hormone replacement therapy; Z79.899 Other long term (current) drug therapy
CPT/HCPCS: 20553; J0665; J3301

== ENCOUNTER → 2022-12-20 | Outpatient (CLI) | payer MEDICARE ==
[~2022-12-20] MED LIST changes: -NORCO, ANEXSIA 5/325MG TABLET (HYDROcodone/ACETAMINOPHEN) As Ordered ONE; -TRIAMCINOLONE ACETONIDE SUSP 40MG/ML 1ML VIAL As Ordered ONE; -diazePAM 2 MG TAB As Ordered ONE
== END ==
LOC: M PLAIMG 16:35
PROVIDERS: ATTEND Nurse Practitioner Family
DX: J20.9 Acute bronchitis, unspecified (principal)

== ENCOUNTER → 2023-01-14 | Outpatient (CLI) | payer MEDICARE | LOC: M PAIN 15:15 | PROVIDERS: ATTEND Anesthesiology | DX: M79.10 Myalgia, unspecified site (principal); M54.50 Low back pain, unspecified; G89.29 Other chronic pain; Z80.1 Family history of malignant neoplasm of trachea, bronchus and lung; Z88.0 Allergy status to penicillin; Z91.018 Allergy to other foods; Z91.02 Food additives allergy status; Z91.040 Latex allergy status; Z79.899 Other long term (current) drug therapy ==

== ENCOUNTER → 2023-01-17 | Outpatient (REF) | payer MEDICARE ==
[2023-01-17 13:41] LABS: ALKALINE PHOSPHATASE 67 U/L (46-116); ALT/SGPT 11 U/L (7.0-40); AST/SGOT 11 U/L (<34); BILIRUBIN,DIRECT 0.1 MG/DL (<0.4); BILIRUBIN,TOTAL 0.4 MG/DL (0.3-1.2); IMMUNOGLOBULIN A 295.3 MG/DL (40-350); TOTAL PROTEIN 6.9 G/DL (5.7-8.2)
[2023-01-17 13:42] LABS: IMMUNOGLOBULIN G 877 MG/DL (650-1600); IMMUNOGLOBULIN M 75.1 MG/DL (50-300)
[2023-01-17 14:08] LABS: HIV 1&2 SCREEN NEGATIVE (NEGATIVE)
== END ==
LOC: M LAB REF 12:42
PROVIDERS: ATTEND Internal Medicine Pulmonary Disease
DX: J45.50 Severe persistent asthma, uncomplicated (principal)

== ENCOUNTER → 2023-02-04 | Outpatient (CLI) | payer MEDICARE ==
[~2023-02-04] MED LIST changes: +NORCO, ANEXSIA 5/325MG TABLET (HYDROcodone/ACETAMINOPHEN) As Ordered ONE; +TRIAMCINOLONE ACETONIDE SUSP 40MG/ML 1ML VIAL As Ordered ONE; +diazePAM 2 MG TAB As Ordered ONE
== END ==
LOC: M PAIN 10:15
PROVIDERS: ATTEND Anesthesiology
DX: M79.18 Myalgia, other site (principal); G89.29 Other chronic pain; Z86.14 Personal history of Methicillin resistant Staphylococcus aureus infection; Z80.1 Family history of malignant neoplasm of trachea, bronchus and lung; Z88.0 Allergy status to penicillin; Z91.018 Allergy to other foods; Z91.02 Food additives allergy status; Z91.040 Latex allergy status; Z79.84 Long term (current) use of oral hypoglycemic drugs; Z79.899 Other long term (current) drug therapy
CPT/HCPCS: 20552; J0665; J3301

== ENCOUNTER → 2023-02-19 | Outpatient (CLI) | payer MEDICARE ==
[~2023-02-19] MED LIST changes: -NORCO, ANEXSIA 5/325MG TABLET (HYDROcodone/ACETAMINOPHEN) As Ordered ONE; -TRIAMCINOLONE ACETONIDE SUSP 40MG/ML 1ML VIAL As Ordered ONE; -diazePAM 2 MG TAB As Ordered ONE
[2023-02-19 14:54] LABS: BLOOD UREA NITROGEN 9 MG/DL (9-23); CALCIUM LEVEL 9.1 MG/DL (8.5-10.1); CARBON DIOXIDE LEVEL 31 MMOL/L (20-31); CHLORIDE LEVEL 105 MMOL/L (98-107); CHOLESTEROL LEVEL 206 MG/DL (<200); CHOLESTEROL RISK RATIO 3.64 (<5); CREATININE FOR GFR 0.86 MG/DL (0.55-1.30); GLOMERULAR FILTRATION RATE > 60.0 (>51); GLUCOSE, FASTING 98 MG/DL (60-100); HDL CHOLESTEROL 56.5 MG/DL (>40); LDL CHOLESTEROL 130.5 MG/DL (<100); NON-HDL-C 149.5 MG/DL; POTASSIUM SERUM 3.6 MMOL/L (3.5-5.1); SODIUM LEVEL 143 MMOL/L (136-145); TRIGLYCERIDES LEVEL 95 MG/DL (<150)
== END ==
LOC: M PLALAB 09:59
PROVIDERS: ATTEND Physician Assistant
DX: I10 Essential (primary) hypertension (principal); Z13.220 Encounter for screening for lipoid disorders

== ENCOUNTER → 2023-02-19 | Outpatient (CLI) | payer MEDICARE ==
[2023-02-20 23:08] LABS: ANA (HEP2) Negative (.); SSA SJOGRENS A <0.2 AI (0.0-0.9); SSB SJOGRENS B <0.2 AI (0.0-0.9)
== END ==
LOC: M PLALAB 10:01
PROVIDERS: ATTEND Internal Medicine
DX: R68.2 Dry mouth, unspecified (principal); I10 Essential (primary) hypertension; Z13.220 Encounter for screening for lipoid disorders

== ENCOUNTER → 2023-03-06 | Outpatient (CLI) | payer MEDICARE ==
[~2023-03-06] MED LIST changes: +ADV500INH PO; +ALBU8.5H INH; +BUPR300T92 PO; +FERR325T19 PO; +LEVO150T7 PO; +LEVO175T2 PO; +MECL-86 PO; +METF-838 PO; +NAPR-885 PO; +PRED5TA PO; +PREG100C2 PO; +VITA200032 PO
== END ==
LOC: M PAIN 11:45
PROVIDERS: ATTEND Anesthesiology
DX: M79.18 Myalgia, other site (principal); G89.29 Other chronic pain; F33.1 Major depressive disorder, recurrent, moderate; J45.909 Unspecified asthma, uncomplicated; R05.3 Chronic cough; K21.9 Gastro-esophageal reflux disease without esophagitis; G62.9 Polyneuropathy, unspecified; I10 Essential (primary) hypertension; E03.9 Hypothyroidism, unspecified; M47.816 Spondylosis without myelopathy or radiculopathy, lumbar region; M47.817 Spondylosis without myelopathy or radiculopathy, lumbosacral region; M17.0 Bilateral primary osteoarthritis of knee; Z79.02 Long term (current) use of antithrombotics/antiplatelets; Z79.84 Long term (current) use of oral hypoglycemic drugs; Z79.899 Other long term (current) drug therapy; Z88.0 Allergy status to penicillin; Z91.040 Latex allergy status; Z91.010 Allergy to peanuts; Z91.018 Allergy to other foods; Z91.048 Other nonmedicinal substance allergy status

== ENCOUNTER 2023-03-08 08:22 | Observation (INO) | payer MEDICARE ==
[~2023-03-08] VITALS: Ht 154.9 cm; Wt 75.0 kg
[~2023-03-08 08:22] MED LIST changes: -ADV500INH PO; -ALBU8.5H INH; -BUPR300T92 PO; -FERR325T19 PO; -LEVO150T7 PO; -LEVO175T2 PO; -MECL-86 PO; -METF-838 PO; -NAPR-885 PO; -PRED5TA PO; -PREG100C2 PO; -VITA200032 PO
[2023-03-08] MEDS ORDERED: NS 1,000 ML IV ONE (09:05)
[2023-03-08 09:12] LABS: BASO % 0.5 % (0.0-1.0); EOS # 0.1 10^3/uL (0.0-0.5); EOS % 1.7 % (0.0-3.0); HEMATOCRIT 35.6 % (36.0-47.0); HEMOGLOBIN 11.7 g/dl (12.0-15.5); LYMPH # 2.7 10^3/uL (1.5-5.0); LYMPH % 32.3 % (24.0-44.0); MEAN CORPUSCULAR HEMOGLOBIN 29.7 pg (27.0-33.0); MEAN CORPUSCULAR HGB CONC 32.9 g/dl (32.0-36.5); MEAN CORPUSCULAR VOLUME 90.4 fl (80.0-96.0); MONO # 0.7 10^3/uL (0.0-0.8); MONO % 8.8 % (2.0-8.0); NEUTROPHILS # 4.7 10^3/uL (1.5-8.5); PLATELET COUNT, AUTOMATED 226 10^3/uL (150-450); RED BLOOD COUNT 3.94 10^6/uL (4.00-5.40); WHITE BLOOD COUNT 8.4 10^3/uL (4.0-10.0)
[2023-03-08 09:24] LABS: INR 0.95; PARTIAL THROMBOPLASTIN TIME 23.6 SECONDS (24.8-34.2); PROTHROMBIN TIME 12.4 SECONDS (12.5-14.5)
[2023-03-08 09:27] LABS: CK-MB VALUE MASS < 1.0 NG/ML (<3.6)
[2023-03-08 09:30] LABS: BLOOD UREA NITROGEN 10 MG/DL (9-23); CALCIUM LEVEL 8.8 MG/DL (8.5-10.1); CARBON DIOXIDE LEVEL 30 MMOL/L (20-31); CHLORIDE LEVEL 104 MMOL/L (98-107); CPK CREATINE PHOSPHOKINASE 95 U/L (34-145); CREATININE FOR GFR 0.76 MG/DL (0.55-1.30); GLOMERULAR FILTRATION RATE > 60.0 (>51); GLUCOSE, FASTING 110 MG/DL (60-100); MAGNESIUM LEVEL 1.5 MG/DL (1.8-2.4); MB/CK RELATIVE INDEX 1.05 (< OR =4); POTASSIUM SERUM 3.1 MMOL/L (3.5-5.1); SODIUM LEVEL 143 MMOL/L (136-145)
[2023-03-08 09:33] LABS: FREE T4 0.83 NG/DL (0.89-1.76)
[2023-03-08 09:37] LABS: RSV AMPLIFICATION NEGATIVE (NEGATIVE)
[2023-03-08 10:59] LABS: CK-MB VALUE MASS < 1.0 NG/ML (<3.6)
[2023-03-08 11:09] LABS: CPK CREATINE PHOSPHOKINASE 100 U/L (34-145)
[2023-03-08] MEDS ORDERED: MED REC IN PROGRESS XX SCH (11:20)
[2023-03-08] MEDS ORDERED: MAG SULF 1GM/100ML (MAG RUN) 1 GM in IV 1 EA IV ONE (11:40)
[2023-03-08] MEDS ORDERED: PRED5TA PO (11:47)
[2023-03-08] MEDS ORDERED: LEVO175T2 PO (11:47)
[2023-03-08] MEDS ORDERED: FERR325T19 PO (11:47)
[2023-03-08] MEDS ORDERED: MECL-86 PO (11:47)
[2023-03-08] MEDS ORDERED: PREG100C2 PO (11:47)
[2023-03-08] MEDS ORDERED: VITA200032 PO (11:47)
[2023-03-08] MEDS ORDERED: NAPR-885 PO (11:47)
[2023-03-08] MEDS ORDERED: BUPR300T92 PO (11:47)
[2023-03-08] MEDS ORDERED: METF-838 PO (11:47)
[2023-03-08] MEDS ORDERED: ADV500INH PO (11:54)
[2023-03-08] MEDS ORDERED: ALBU8.5H INH (11:54)
[2023-03-08] MEDS ORDERED: FLON1SPR NARES (11:54)
[2023-03-08] MEDS ORDERED: PANT40TA29 PO (11:55)
[2023-03-08] MEDS ORDERED: POTASSIUM CHLORIDE 10MEQ SR TABLET PO ONE (12:00)
[2023-03-08] MEDS ORDERED: HOME MED LIST COMPLETE! XX SCH (12:05)
[2023-03-08] MEDS ORDERED: atenoloL 50 MG TAB PO ONE (12:10)
[2023-03-08] MEDS ORDERED: MOM 30ML SUSPENSION UDC PO PRN (13:15)
[2023-03-08] MEDS ORDERED: ACETAMINOPHEN TAB 650MG DOSE (2X325MG) PO PRN (13:15)
[2023-03-08] MEDS ORDERED: PILL CUTTER 1 EACH XX PRN (14:00)
[2023-03-08 14:25] LABS: PROLACTIN 11.83 NG/ML
[2023-03-08 14:29] LABS: PROCALCITONIN <0.04 ng/ml
[2023-03-08 14:55] LABS: INR 0.95; PROTHROMBIN TIME 12.4 SECONDS (12.5-14.5)
[2023-03-08] MEDS: CLOPIDOGREL 75 MG TAB PO SCH (15:00)
[2023-03-08] MEDS: oxyBUTYnin *DITROPAN XL* 5 MG TABCR PO SCH (15:00)
[2023-03-08] MEDS: PREGABALIN 100 MG CAP (LYRICA) PO SCH ×2 (15:00→21:12)
[2023-03-08] MEDS ORDERED: PROHANCE 279.3MG/ML 15ML VIAL As Ordered ONE (16:12)
[2023-03-08] MEDS: ADVAIR HFA 230/21MCG INHALER INH SCH (20:38)
[2023-03-08] MEDS: ATORVASTATIN 20 MG TAB PO SCH (21:12)
[2023-03-08] MEDS: tiZANidine 4 MG TAB PO SCH (21:12)
[2023-03-08] MEDS: traZODone 100 MG TAB PO SCH (21:12)
[2023-03-08] MEDS: ZONISAMIDE 100 MG CAP (ZONEGRAN) PO SCH (22:00)
[2023-03-09 06:55] LABS: HEMATOCRIT 38.2 % (36.0-47.0); MEAN CORPUSCULAR HGB CONC 31.4 g/dl (32.0-36.5); MEAN CORPUSCULAR VOLUME 92.3 fl (80.0-96.0); PLATELET COUNT, AUTOMATED 269 10^3/uL (150-450); RED BLOOD COUNT 4.14 10^6/uL (4.00-5.40); WHITE BLOOD COUNT 10.6 10^3/uL (4.0-10.0)
[2023-03-09 07:24] LABS: CALCIUM LEVEL 9.6 MG/DL (8.5-10.1); CREATININE FOR GFR 1.33 MG/DL (0.55-1.30); GLOMERULAR FILTRATION RATE 53.6 (>51); POTASSIUM SERUM 4.9 MMOL/L (3.5-5.1)
[2023-03-09] MEDS: CYANOCOBALAMIN 500 MCG TAB PO SCH (08:29)
[2023-03-09 08:30] VITALS: BP_DIAS 63
[2023-03-09] MEDS: buPROPion **XL** TABLET 150MG (WELLBUTRIN XL) PO SCH (08:30)
[2023-03-09] MEDS: predniSONE 5 MG TAB PO SCH (08:30)
[2023-03-09] MEDS: oxyBUTYnin *DITROPAN XL* 5 MG TABCR PO SCH (08:30)
[2023-03-09] MEDS: VITAMIN D 1,000 INTERNATIONAL UNITS TABLET PO SCH (08:30)
[2023-03-09] MEDS: CETIRIZINE (ZyrTEC) 10 MG TAB PO SCH (08:31)
[2023-03-09] MEDS: FOLIC ACID 1MG TAB PO SCH (08:31)
[2023-03-09] MEDS: PANTOPRAZOLE 40MG TAB (PROTONIX) PO SCH (08:31)
[2023-03-09] MEDS: PREGABALIN 100 MG CAP (LYRICA) PO SCH ×3 (08:31→21:36)
[2023-03-09] MEDS: MONTELUKAST 10 MG TAB PO SCH (08:32)
[2023-03-09] MEDS: FERROUS SULFATE 325MG TAB PO SCH (08:32)
[2023-03-09] MEDS: ENOXAPARIN 40MG/0.4ML SYRINGE (J1650 PER 10MG) SC SCH (08:32)
[2023-03-09] MEDS: CLOPIDOGREL 75 MG TAB PO SCH (08:32)
[2023-03-09] MEDS: atenoloL 50 MG TAB PO SCH (08:32)
[2023-03-09] MEDS: ADVAIR HFA 230/21MCG INHALER INH SCH ×2 (08:38→20:23)
[2023-03-09] MEDS: FLUTICASONE PROP 0.05% NASAL SPRAY 16 GM (FLONASE) NARES SCH (09:04)
[2023-03-09] MEDS ORDERED: LR 1,000 ML IV ONE (09:15)
[2023-03-09] MEDS: LEVOTHYROXINE 100MCG TABLET (0.1MG) PO SCH (09:44)
[2023-03-09] MEDS: LR 1,000 ML IV SCH ×2 (10:48→17:45)
[2023-03-09 15:11] VITALS: BP 125/83; TEMP 97.9; O2SAT 96
[2023-03-09 19:30] VITALS: BP 151/86; TEMP 98.2; O2SAT 96
[2023-03-09 19:36] VITALS: BP 168/95
[2023-03-09 19:37] VITALS: BP 154/100
[2023-03-09] MEDS: ZONISAMIDE 100 MG CAP (ZONEGRAN) PO SCH (21:36)
[2023-03-09] MEDS: ATORVASTATIN 20 MG TAB PO SCH (21:36)
[2023-03-09] MEDS: traZODone 100 MG TAB PO SCH (21:36)
[2023-03-09] MEDS: tiZANidine 4 MG TAB PO SCH (21:36)
[2023-03-09] MEDS ORDERED: MAALOX 30 ML SUSP *UDC PO PRN (21:45)
[2023-03-09 23:01] VITALS: BP 140/82; TEMP 98.4; O2SAT 95
[2023-03-10 00:20] VITALS: BP_SYST 140
[2023-03-10] MEDS ORDERED: atenoloL 25 MG TAB PO ONE (01:00)
[2023-03-10 04:59] VITALS: BP 117/74; TEMP 97.3; O2SAT 100
[2023-03-10] MEDS: LEVOTHYROXINE 100MCG TABLET (0.1MG) PO SCH (05:01)
[2023-03-10 07:37] LABS: HEMATOCRIT 33.2 % (36.0-47.0); HEMOGLOBIN 10.7 g/dl (12.0-15.5); MEAN CORPUSCULAR HEMOGLOBIN 29.3 pg (27.0-33.0); MEAN CORPUSCULAR HGB CONC 32.2 g/dl (32.0-36.5); PLATELET COUNT, AUTOMATED 242 10^3/uL (150-450); RED BLOOD COUNT 3.65 10^6/uL (4.00-5.40); WHITE BLOOD COUNT 9.8 10^3/uL (4.0-10.0)
[2023-03-10 07:49] VITALS: BP 124/78; TEMP 98; O2SAT 94
[2023-03-10] MEDS: PREGABALIN 100 MG CAP (LYRICA) PO SCH ×2 (08:00→17:10)
[2023-03-10] MEDS: CLOPIDOGREL 75 MG TAB PO SCH (08:00)
[2023-03-10] MEDS: predniSONE 5 MG TAB PO SCH (08:00)
[2023-03-10] MEDS: VITAMIN D 1,000 INTERNATIONAL UNITS TABLET PO SCH (08:00)
[2023-03-10] MEDS: PANTOPRAZOLE 40MG TAB (PROTONIX) PO SCH (08:01)
[2023-03-10] MEDS: CETIRIZINE (ZyrTEC) 10 MG TAB PO SCH (08:01)
[2023-03-10] MEDS: FOLIC ACID 1MG TAB PO SCH (08:01)
[2023-03-10] MEDS: MONTELUKAST 10 MG TAB PO SCH (08:01)
[2023-03-10] MEDS: oxyBUTYnin *DITROPAN XL* 5 MG TABCR PO SCH (08:01)
[2023-03-10] MEDS: buPROPion **XL** TABLET 150MG (WELLBUTRIN XL) PO SCH (08:01)
[2023-03-10] MEDS: CYANOCOBALAMIN 500 MCG TAB PO SCH (08:01)
[2023-03-10] MEDS: FERROUS SULFATE 325MG TAB PO SCH (08:01)
[2023-03-10] MEDS: ENOXAPARIN 40MG/0.4ML SYRINGE (J1650 PER 10MG) SC SCH (08:02)
[2023-03-10] MEDS: atenoloL 50 MG TAB PO SCH (08:02)
[2023-03-10 08:07] LABS: BLOOD UREA NITROGEN 10 MG/DL (9-23); CALCIUM LEVEL 9.3 MG/DL (8.5-10.1); CARBON DIOXIDE LEVEL 28 MMOL/L (20-31); CHLORIDE LEVEL 106 MMOL/L (98-107); CREATININE FOR GFR 0.81 MG/DL (0.55-1.30); GLOMERULAR FILTRATION RATE > 60.0 (>51); GLUCOSE, FASTING 113 MG/DL (60-100); POTASSIUM SERUM 4.1 MMOL/L (3.5-5.1); SODIUM LEVEL 142 MMOL/L (136-145)
[2023-03-10] MEDS: FLUTICASONE PROP 0.05% NASAL SPRAY 16 GM (FLONASE) NARES SCH (09:00)
[2023-03-10] MEDS: ADVAIR HFA 230/21MCG INHALER INH SCH (09:05)
[2023-03-10 12:04] VITALS: BP 138/74; TEMP 97.9; O2SAT 93
[2023-03-10] MEDS ORDERED: LEVO150T7 PO (12:06)
[2023-03-10] MEDS ORDERED: FERR325T19 PO (12:06)
== END 2023-03-10 19:22 | disposition home or self-care (01) ==
LOC: EDBD 08:22 → M ED 08:22 → M ED INP 08:23 → ENRESERV 03-09 13:07 → M PCU 03-09 14:57
PROVIDERS: ADMIT Student in an Organized Health Care Education/Training Program; ATTEND Student in an Organized Health Care Education/Training Program
DX: R55 Syncope and collapse (principal); E03.9 Hypothyroidism, unspecified; J44.9 Chronic obstructive pulmonary disease, unspecified; G43.909 Migraine, unspecified, not intractable, without status migrainosus; I10 Essential (primary) hypertension; D50.9 Iron deficiency anemia, unspecified; F32.A Depression, unspecified; Z92.3 Personal history of irradiation; E78.5 Hyperlipidemia, unspecified; M79.7 Fibromyalgia; Z79.899 Other long term (current) drug therapy; Z79.02 Long term (current) use of antithrombotics/antiplatelets; J30.9 Allergic rhinitis, unspecified; Z79.84 Long term (current) use of oral hypoglycemic drugs; Z79.52 Long term (current) use of systemic steroids; Z91.010 Allergy to peanuts; Z91.018 Allergy to other foods; Z91.040 Latex allergy status
CPT/HCPCS: 36415; 70450; 70553; 71045; 72125; 80048; 81001; 82550; 82553; 83605; 83735; 84145; 84146; 84439; 84443; 84484; 85025; 85027; 85610; 85730; 87631; 93005; 93041; 93306; 94640; 94760; 95819; 96361; 96372; 96374; 96376; 97161; 97165; 97535; 99285; A9576; G0378; J1650; J3475; J7512

== ENCOUNTER → 2023-03-26 | Outpatient (CLI) | payer MEDICARE ==
[~2023-03-26] MED LIST changes: +ADV500INH PO; +ALBU8.5H INH; +BUPR300T92 PO; +FERR325T19 PO; +LEVO150T7 PO; +LEVO175T2 PO; +MECL-86 PO; +METF-838 PO; +NAPR-885 PO; +PRED5TA PO; +PREG100C2 PO; +VITA200032 PO
[2023-03-26 16:22] LABS: HEMOGLOBIN A1c 6.1 % (4.0-6.0)
== END ==
LOC: M PLALAB 14:53
PROVIDERS: ATTEND Nurse Practitioner Family
DX: R73.03 Prediabetes (principal); E03.9 Hypothyroidism, unspecified

== ENCOUNTER 2023-04-18 11:44 | Emergency (ER) | payer MEDICARE ==
[~2023-04-18] VITALS: Ht 154.9 cm; Wt 75.7 kg
[2023-04-18] MEDS ORDERED: KETOROLAC 60MG 2ML VIAL IM ONE (13:20)
[2023-04-18] MEDS ORDERED: CYCLOBENZAPRINE 10MG TABLET PO ONE (13:20)
[2023-04-18] MEDS ORDERED: LIDOCAINE 5% (LIDODERM) PATCH TD ONE (13:20)
[2023-04-18] MEDS ORDERED: KETO10TAB PO (14:58)
[2023-04-18] MEDS ORDERED: LIDO5DIS41 TOP (14:58)
[2023-04-18] MEDS ORDERED: CYCL-707 PO (14:58)
[2023-04-18 15:05] VITALS: BP 169/85; TEMP 98.5; O2SAT 100
== END 2023-04-18 15:10 | disposition home or self-care (01) ==
LOC: M ED 11:44
DX: M54.50 Low back pain, unspecified (principal); E05.00 Thyrotoxicosis with diffuse goiter without thyrotoxic crisis or storm; Z88.0 Allergy status to penicillin; Z91.040 Latex allergy status; Z91.018 Allergy to other foods; Z79.52 Long term (current) use of systemic steroids; Z79.02 Long term (current) use of antithrombotics/antiplatelets; Z79.1 Long term (current) use of non-steroidal anti-inflammatories (NSAID); Z79.899 Other long term (current) drug therapy
CPT/HCPCS: 96372; 99283; J1885

== ENCOUNTER → 2023-04-24 | Outpatient (REF) | payer MEDICARE ==
[~2023-04-24] MED LIST changes: +CYCL-707 PO; +LIDO5DIS41 TOP
== END ==
LOC: M LAB REF 16:19
PROVIDERS: ATTEND Nurse Practitioner Family
DX: R05.9 Cough, unspecified (principal)

== ENCOUNTER → 2023-06-16 | Outpatient (CLI) | payer MEDICARE ==
[~2023-06-16] MED LIST changes: -RISP-7 PO; +RISP0.5T82 PO
== END ==
LOC: M PAIN 17:00
PROVIDERS: ATTEND Nurse Practitioner Family
DX: M79.18 Myalgia, other site (principal); Z79.891 Long term (current) use of opiate analgesic; G89.29 Other chronic pain; F33.1 Major depressive disorder, recurrent, moderate; J45.909 Unspecified asthma, uncomplicated; K21.9 Gastro-esophageal reflux disease without esophagitis; I10 Essential (primary) hypertension; E03.9 Hypothyroidism, unspecified; M47.817 Spondylosis without myelopathy or radiculopathy, lumbosacral region; M15.9 Polyosteoarthritis, unspecified; Z79.890 Hormone replacement therapy; Z79.02 Long term (current) use of antithrombotics/antiplatelets; Z79.899 Other long term (current) drug therapy; Z88.0 Allergy status to penicillin; Z91.010 Allergy to peanuts; Z91.018 Allergy to other foods; Z91.040 Latex allergy status; Z91.048 Other nonmedicinal substance allergy status

== ENCOUNTER → 2023-06-23 | Outpatient (REF) | payer MEDICARE ==
[2023-06-23 17:18] LABS: HEMOGLOBIN A1c 6.2 % (4.0-6.0)
[2023-06-23 17:25] LABS: BLOOD UREA NITROGEN 11 MG/DL (9-23); CARBON DIOXIDE LEVEL 29 MMOL/L (20-31); CHLORIDE LEVEL 107 MMOL/L (98-107); CREATININE FOR GFR 0.72 MG/DL (0.55-1.30); GLOMERULAR FILTRATION RATE > 60.0 (>51); GLUCOSE, FASTING 133 MG/DL (60-100); POTASSIUM SERUM 3.7 MMOL/L (3.5-5.1); SODIUM LEVEL 141 MMOL/L (136-145)
[2023-06-23 17:29] LABS: THYROID STIMULATING HORMONE 6.704 uIU/ML (0.55-4.78)
== END ==
LOC: M LAB REF 16:34
PROVIDERS: ATTEND Nurse Practitioner Family
DX: R60.0 Localized edema (principal); R73.9 Hyperglycemia, unspecified; E03.9 Hypothyroidism, unspecified

== ENCOUNTER → 2023-07-07 | Outpatient (CLI) | payer MEDICARE | LOC: M WHC 10:12 | PROVIDERS: ATTEND Nurse Practitioner Family | DX: Z01.419 Encounter for gynecological examination (general) (routine) without abnormal findings (principal); Z12.31 Encounter for screening mammogram for malignant neoplasm of breast; R92.323 Mammographic fibroglandular density, bilateral breasts; Z12.39 Encounter for other screening for malignant neoplasm of breast; Z13.820 Encounter for screening for osteoporosis; R10.2 Pelvic and perineal pain; Z80.3 Family history of malignant neoplasm of breast; Z79.899 Other long term (current) drug therapy; Z79.84 Long term (current) use of oral hypoglycemic drugs; Z79.51 Long term (current) use of inhaled steroids; Z79.891 Long term (current) use of opiate analgesic; Z88.0 Allergy status to penicillin; Z91.02 Food additives allergy status; Z91.040 Latex allergy status; Z91.010 Allergy to peanuts; Z80.1 Family history of malignant neoplasm of trachea, bronchus and lung; Z91.018 Allergy to other foods | CPT/HCPCS: 77063; 77067; G0463 ==

== ENCOUNTER → 2023-07-11 | Outpatient (CLI) | payer MEDICARE | LOC: M SOG 08:16 | PROVIDERS: ATTEND Physician Assistant | DX: M25.561 Pain in right knee (principal) ==

== ENCOUNTER → 2023-08-25 | Outpatient (REF) | payer MEDICARE ==
[~2023-08-25] MED LIST changes: +BUPR-597 PO; -BUPR300T92 PO
[2023-08-25 17:25] LABS: AMORPHOUS SEDIMENT SMALL (NEGATIVE); APPEARANCE, URINE TURBID (CLEAR); BACTERIA, URINE AUTO NEGATIVE (NEGATIVE); BILIRUBIN, URINE AUTO NEGATIVE (NEGATIVE); BLOOD, URINE BLOOD 1+ (NEGATIVE); COLOR, URINE YELLOW (YELLOW); GLUCOSE, URINE (UA) AUTO NEGATIVE (NEGATIVE); KETONE, URINE AUTO NEGATIVE (NEGATIVE); LEUKOCYTE ESTERASE, URINE AUTO NEGATIVE (NEGATIVE); MUCUS, URINE SMALL (NEGATIVE); NITRITE, URINE AUTO NEGATIVE (NEGATIVE); PROTEIN, URINE AUTO NEGATIVE (NEGATIVE); RBC, URINE AUTO 2 /HPF (0-3); SPECIFIC GRAVITY URINE AUTO 1.019 (1.002-1.035); SQUAMOUS EPITHELIAL CELL UR AU 14 /HPF (0-6); UROBILINOGEN, URINE AUTO 0.2 mg/dL (0.0-2.0); WBC, URINE AUTO 82 /HPF (0-3)
== END ==
LOC: M SMT 16:55
PROVIDERS: ATTEND Physician Assistant
DX: R31.29 Other microscopic hematuria (principal)

== ENCOUNTER → 2023-09-10 | Outpatient (REF) | payer MEDICARE ==
[2023-09-10 18:28] LABS: CHOLESTEROL RISK RATIO 2.99 (<5); HDL CHOLESTEROL 71.8 MG/DL (>40); LDL CHOLESTEROL 124.8 MG/DL (<100); NON-HDL-C 143.2 MG/DL; PERCENT SATURATION 18.5 % (13.2-45.0)
[2023-09-10 18:29] LABS: TOTAL 25(OH) VITAMIN D 37.7 NG/ML (20.0-100.0)
[2023-09-10 18:30] LABS: THYROID STIMULATING HORMONE 108.323 uIU/ML (0.55-4.78)
== END ==
LOC: M LAB REF 16:40
PROVIDERS: ATTEND Nurse Practitioner Family
DX: E03.9 Hypothyroidism, unspecified (principal); D50.9 Iron deficiency anemia, unspecified; E55.9 Vitamin D deficiency, unspecified; E78.00 Pure hypercholesterolemia, unspecified

== ENCOUNTER 2023-09-21 02:29 | Emergency (ER) | payer MEDICARE ==
[~2023-09-21] VITALS: Ht 154.9 cm; Wt 76.2 kg
[2023-09-21 02:59] LABS: BASO % 0.4 % (0.0-1.0); EOS # 0.1 10^3/uL (0.0-0.5); EOS % 0.8 % (0.0-3.0); HEMOGLOBIN 11.9 g/dl (12.0-15.5); LYMPH # 2.6 10^3/uL (1.5-5.0); LYMPH % 27.8 % (24.0-44.0); MEAN CORPUSCULAR HEMOGLOBIN 29.7 pg (27.0-33.0); MEAN CORPUSCULAR HGB CONC 33.1 g/dl (32.0-36.5); MEAN CORPUSCULAR VOLUME 89.8 fl (80.0-96.0); MONO # 0.6 10^3/uL (0.0-0.8); MONO % 6.9 % (2.0-8.0); NEUTROPHILS # 5.9 10^3/uL (1.5-8.5); NEUTROPHILS % 63.9 % (36.0-66.0); PLATELET COUNT, AUTOMATED 234 10^3/uL (150-450); RED BLOOD COUNT 4.01 10^6/uL (4.00-5.40); WHITE BLOOD COUNT 9.3 10^3/uL (4.0-10.0)
[2023-09-21 03:33] LABS: CK-MB VALUE MASS < 1.0 NG/ML (<3.6)
[2023-09-21 03:36] LABS: ALBUMIN 4.1 G/DL (3.2-5.2); ALKALINE PHOSPHATASE 72 U/L (46-116); ALT/SGPT 14 U/L (7.0-40); AST/SGOT < 8 U/L (<34); BILIRUBIN,TOTAL 0.5 MG/DL (0.3-1.2); BLOOD UREA NITROGEN 9 MG/DL (9-23); CALCIUM LEVEL 9.2 MG/DL (8.5-10.1); CARBON DIOXIDE LEVEL 30 MMOL/L (20-31); CHLORIDE LEVEL 106 MMOL/L (98-107); CREATININE FOR GFR 0.77 MG/DL (0.55-1.30); GLOMERULAR FILTRATION RATE > 60.0 (>51); GLUCOSE, FASTING 111 MG/DL (60-100); POTASSIUM SERUM 4.1 MMOL/L (3.5-5.1); SODIUM LEVEL 140 MMOL/L (136-145); TOTAL PROTEIN 7.3 G/DL (5.7-8.2)
[2023-09-21 03:38] LABS: CPK CREATINE PHOSPHOKINASE 194 U/L (34-145); MB/CK RELATIVE INDEX 0.51 (< OR =4)
[2023-09-21] MEDS: diphenhydrAMINE 50MG/ML VIAL IV ONE (03:39)
[2023-09-21] MEDS: METOCLOPRAMIDE INJ 10MG/2ML VIAL IV ONE (03:40)
[2023-09-21] MEDS: KETOROLAC 30 MG/ML 1ML VIAL IV ONE (03:40)
[2023-09-21] MEDS: NS 1,000 ML IV ONE (03:40)
[2023-09-21 04:26] LABS: CK-MB VALUE MASS < 1.0 NG/ML (<3.6)
[2023-09-21 04:27] LABS: CPK CREATINE PHOSPHOKINASE 191 U/L (34-145); MB/CK RELATIVE INDEX 0.52 (< OR =4)
[2023-09-21 09:30] VITALS: BP 162/66; TEMP 98.6; O2SAT 99
[2023-09-21] MEDS ORDERED: IMIT50TA PO (09:58)
== END 2023-09-21 10:22 | disposition home or self-care (01) ==
LOC: M ED 02:29
DX: I10 Essential (primary) hypertension (principal); R51.9 Headache, unspecified; E78.5 Hyperlipidemia, unspecified; G40.909 Epilepsy, unspecified, not intractable, without status epilepticus; E05.00 Thyrotoxicosis with diffuse goiter without thyrotoxic crisis or storm; F32.A Depression, unspecified; F41.9 Anxiety disorder, unspecified; Z88.0 Allergy status to penicillin; Z91.040 Latex allergy status
CPT/HCPCS: 36415; 70450; 80053; 82550; 82553; 84484; 85025; 85652; 93005; 93041; 94760; 96361; 96374; 96375; 99285; J1200; J1885; J2765

== ENCOUNTER → 2023-10-07 | Outpatient (REF) | payer MEDICARE ==
[~2023-10-07] MED LIST changes: +IMIT50TA PO
[2023-10-22 15:48] LABS: APPEARANCE, URINE HAZY (CLEAR); BILIRUBIN, URINE AUTO NEGATIVE (NEGATIVE); COLOR, URINE YELLOW (YELLOW); GLUCOSE, URINE (UA) AUTO NEGATIVE (NEGATIVE); KETONE, URINE AUTO NEGATIVE (NEGATIVE); PROTEIN, URINE AUTO NEGATIVE (NEGATIVE); SPECIFIC GRAVITY URINE AUTO 1.016 (1.002-1.035); UROBILINOGEN, URINE AUTO 0.2 mg/dL (0.0-2.0)
[2023-10-22 15:49] LABS: BACTERIA, URINE AUTO NEGATIVE (NEGATIVE); BLOOD, URINE BLOOD 1+ (NEGATIVE); LEUKOCYTE ESTERASE, URINE AUTO NEGATIVE (NEGATIVE); NITRITE, URINE AUTO NEGATIVE (NEGATIVE); RBC, URINE AUTO 0 /HPF (0-3); SQUAMOUS EPITHELIAL CELL UR AU 2 /HPF (0-6); WBC, URINE AUTO 0 /HPF (0-3)
[2023-10-22 15:50] LABS: CALCIUM OXALATE CRYSTALS LARGE; MUCUS, URINE SMALL (NEGATIVE)
== END ==
LOC: M LAB REF 09:53
PROVIDERS: ATTEND Nurse Practitioner Family
DX: R10.9 Unspecified abdominal pain (principal)

== ENCOUNTER → 2023-10-21 | Outpatient (CLI) | payer MEDICARE | LOC: M RAD 14:40 | PROVIDERS: ATTEND Nurse Practitioner Family | DX: E03.9 Hypothyroidism, unspecified (principal) ==

== ENCOUNTER → 2023-11-17 | Outpatient (CLI) | payer MEDICARE | LOC: M PLAIMG 10:29 | PROVIDERS: ATTEND Nurse Practitioner Family | DX: M25.551 Pain in right hip (principal) ==

== ENCOUNTER → 2023-11-24 | Outpatient (CLI) | payer MEDICARE ==
[~2023-11-24] MED LIST changes: +ISOVUE-300 61% 100ML VIAL As Ordered ONE; +methylPREDNISolone SUSP 40MG/ML 1ML VIAL (DEPO MEDROL) As Ordered ONE
== END ==
LOC: M RAD 11:11
PROVIDERS: ATTEND Physician Assistant
DX: M25.551 Pain in right hip (principal)
CPT/HCPCS: 20610; 77002; J0665; J1010; Q9967

== ENCOUNTER → 2023-11-24 | Outpatient (CLI) | payer MEDICARE ==
[~2023-11-24] MED LIST changes: -ISOVUE-300 61% 100ML VIAL As Ordered ONE; -methylPREDNISolone SUSP 40MG/ML 1ML VIAL (DEPO MEDROL) As Ordered ONE
== END ==
LOC: M PAIN 17:00
PROVIDERS: ATTEND Nurse Practitioner Family
DX: G89.29 Other chronic pain (principal); M79.18 Myalgia, other site; M51.16 Intervertebral disc disorders with radiculopathy, lumbar region; F33.1 Major depressive disorder, recurrent, moderate; E11.42 Type 2 diabetes mellitus with diabetic polyneuropathy; I10 Essential (primary) hypertension; E03.9 Hypothyroidism, unspecified; M47.816 Spondylosis without myelopathy or radiculopathy, lumbar region; M47.817 Spondylosis without myelopathy or radiculopathy, lumbosacral region; M25.551 Pain in right hip; M15.0 Primary generalized (osteo)arthritis; Z79.891 Long term (current) use of opiate analgesic; Z79.84 Long term (current) use of oral hypoglycemic drugs; Z79.899 Other long term (current) drug therapy; Z79.890 Hormone replacement therapy; Z88.0 Allergy status to penicillin; Z91.040 Latex allergy status; Z91.010 Allergy to peanuts; Z91.018 Allergy to other foods; Z91.048 Other nonmedicinal substance allergy status
CPT/HCPCS: 20610; 77002; G0463; J0665; J1010; Q9967

== ENCOUNTER → 2023-12-03 | Outpatient (CLI) | payer MEDICARE | LOC: M WHC 11-25 09:04 | PROVIDERS: ATTEND Nurse Practitioner Family | DX: Z13.820 Encounter for screening for osteoporosis (principal); M85.852 Other specified disorders of bone density and structure, left thigh ==

== ENCOUNTER → 2023-12-22 | Outpatient (CLI) | payer MEDICARE | LOC: M PAIN 10:15 | PROVIDERS: ATTEND Nurse Practitioner Family | DX: M79.18 Myalgia, other site (principal); Z79.891 Long term (current) use of opiate analgesic; G89.29 Other chronic pain; F33.1 Major depressive disorder, recurrent, moderate; J45.909 Unspecified asthma, uncomplicated; K21.9 Gastro-esophageal reflux disease without esophagitis; I10 Essential (primary) hypertension; E03.9 Hypothyroidism, unspecified; G62.9 Polyneuropathy, unspecified; M47.816 Spondylosis without myelopathy or radiculopathy, lumbar region; M47.817 Spondylosis without myelopathy or radiculopathy, lumbosacral region; M15.0 Primary generalized (osteo)arthritis; Z79.84 Long term (current) use of oral hypoglycemic drugs; Z79.890 Hormone replacement therapy; Z79.899 Other long term (current) drug therapy; Z88.0 Allergy status to penicillin; Z91.010 Allergy to peanuts; Z91.018 Allergy to other foods; Z91.040 Latex allergy status ==

== ENCOUNTER → 2023-12-25 | Outpatient (CLI) | payer MEDICARE ==
[~2023-12-25] MED LIST changes: +NORCO, ANEXSIA 5/325MG TABLET (HYDROcodone/ACETAMINOPHEN) As Ordered ONE; +TRIAMCINOLONE ACETONIDE SUSP 40MG/ML 1ML VIAL As Ordered ONE; +diazePAM 2 MG TAB As Ordered ONE
== END ==
LOC: M PAIN 11:00
PROVIDERS: ATTEND Anesthesiology
DX: M79.18 Myalgia, other site (principal); G89.29 Other chronic pain; J45.909 Unspecified asthma, uncomplicated; F33.1 Major depressive disorder, recurrent, moderate; K21.9 Gastro-esophageal reflux disease without esophagitis; E03.9 Hypothyroidism, unspecified; M47.817 Spondylosis without myelopathy or radiculopathy, lumbosacral region; M47.816 Spondylosis without myelopathy or radiculopathy, lumbar region; E11.42 Type 2 diabetes mellitus with diabetic polyneuropathy; Z79.84 Long term (current) use of oral hypoglycemic drugs; Z79.890 Hormone replacement therapy; Z79.891 Long term (current) use of opiate analgesic; Z79.899 Other long term (current) drug therapy; Z88.0 Allergy status to penicillin; Z91.010 Allergy to peanuts; Z91.018 Allergy to other foods; Z91.040 Latex allergy status; Z91.048 Other nonmedicinal substance allergy status
CPT/HCPCS: 20552; J0665; J3301

== ENCOUNTER → 2023-12-30 | Outpatient (CLI) | payer MEDICARE ==
[~2023-12-30] MED LIST changes: -NORCO, ANEXSIA 5/325MG TABLET (HYDROcodone/ACETAMINOPHEN) As Ordered ONE; -TRIAMCINOLONE ACETONIDE SUSP 40MG/ML 1ML VIAL As Ordered ONE; -diazePAM 2 MG TAB As Ordered ONE
== END ==
LOC: M RAD 11:03
PROVIDERS: ATTEND Nurse Practitioner Family
DX: R10.2 Pelvic and perineal pain (principal); Z90.710 Acquired absence of both cervix and uterus; Z90.722 Acquired absence of ovaries, bilateral

== ENCOUNTER → 2024-01-02 | Outpatient (REF) | payer MEDICARE ==
[2024-01-02 12:58] LABS: FREE T4 1.16 NG/DL (0.89-1.76); THYROID STIMULATING HORMONE 32.37 uIU/ML (0.55-4.78)
[2024-01-02 13:10] LABS: HEMOGLOBIN A1c 5.9 % (4.0-6.0)
== END ==
LOC: M LAB REF 11:35
PROVIDERS: ATTEND Nurse Practitioner Family
DX: E03.9 Hypothyroidism, unspecified (principal); R73.9 Hyperglycemia, unspecified

== ENCOUNTER → 2024-01-07 | Outpatient (CLI) | payer MEDICARE ==
[~2024-01-07] MED LIST changes: +GABA-1172 PO; -GABA-282 PO
== END ==
LOC: M PLAIMG 08:59
PROVIDERS: ATTEND Nurse Practitioner Family
DX: M51.16 Intervertebral disc disorders with radiculopathy, lumbar region (principal); M51.27 Other intervertebral disc displacement, lumbosacral region

== ENCOUNTER → 2024-01-16 | Outpatient (CLI) | payer MEDICARE | LOC: M PAIN 17:30 | PROVIDERS: ATTEND Nurse Practitioner Family | DX: M79.18 Myalgia, other site (principal); M51.16 Intervertebral disc disorders with radiculopathy, lumbar region; G89.29 Other chronic pain; F33.1 Major depressive disorder, recurrent, moderate; J45.909 Unspecified asthma, uncomplicated; K21.9 Gastro-esophageal reflux disease without esophagitis; G62.9 Polyneuropathy, unspecified; I10 Essential (primary) hypertension; E03.9 Hypothyroidism, unspecified; M47.816 Spondylosis without myelopathy or radiculopathy, lumbar region; M47.817 Spondylosis without myelopathy or radiculopathy, lumbosacral region; M15.0 Primary generalized (osteo)arthritis; Z79.84 Long term (current) use of oral hypoglycemic drugs; Z79.890 Hormone replacement therapy; Z79.891 Long term (current) use of opiate analgesic; Z79.899 Other long term (current) drug therapy; Z88.0 Allergy status to penicillin; Z91.010 Allergy to peanuts; Z91.018 Allergy to other foods; Z91.040 Latex allergy status; Z91.048 Other nonmedicinal substance allergy status ==

== ENCOUNTER → 2024-02-02 | Outpatient (CLI) | payer MEDICARE ==
[~2024-02-02] MED LIST changes: +PROHANCE 279.3MG/ML 15ML VIAL ONE
== END ==
LOC: M PLAIMG 13:55
PROVIDERS: ATTEND Nurse Practitioner Family
DX: Z12.39 Encounter for other screening for malignant neoplasm of breast (principal); Z80.3 Family history of malignant neoplasm of breast
CPT/HCPCS: A9576; C8908

== ENCOUNTER → 2024-02-04 | Outpatient (CLI) | payer MEDICARE ==
[~2024-02-04] MED LIST changes: -PROHANCE 279.3MG/ML 15ML VIAL ONE
== END ==
LOC: M PAIN 13:30
PROVIDERS: ATTEND Anesthesiology
DX: M47.816 Spondylosis without myelopathy or radiculopathy, lumbar region (principal); G89.29 Other chronic pain; F33.1 Major depressive disorder, recurrent, moderate; M79.18 Myalgia, other site; M15.0 Primary generalized (osteo)arthritis; K21.9 Gastro-esophageal reflux disease without esophagitis; E11.42 Type 2 diabetes mellitus with diabetic polyneuropathy; I10 Essential (primary) hypertension; E03.9 Hypothyroidism, unspecified; M47.817 Spondylosis without myelopathy or radiculopathy, lumbosacral region; Z79.84 Long term (current) use of oral hypoglycemic drugs; Z79.890 Hormone replacement therapy; Z79.891 Long term (current) use of opiate analgesic; Z79.899 Other long term (current) drug therapy; Z88.0 Allergy status to penicillin; Z91.010 Allergy to peanuts; Z91.018 Allergy to other foods; Z91.040 Latex allergy status; Z91.048 Other nonmedicinal substance allergy status
CPT/HCPCS: 76000; G0463

== ENCOUNTER → 2024-02-10 | Outpatient (REF) | payer MEDICARE ==
[2024-02-10 13:40] LABS: FREE T4 1.44 NG/DL (0.89-1.76); THYROID STIMULATING HORMONE 0.967 uIU/ML (0.55-4.78)
[2024-02-10 13:52] LABS: HEMOGLOBIN A1c 5.9 % (4.0-6.0)
== END ==
LOC: M LAB REF 13:10
PROVIDERS: ATTEND Nurse Practitioner Family
DX: E03.9 Hypothyroidism, unspecified (principal); R73.9 Hyperglycemia, unspecified

== ENCOUNTER → 2024-03-15 | Outpatient (CLI) | payer MEDICARE ==
[2024-03-15 12:11] LABS: BASO % 0.5 % (0.0-1.0); EOS # 0.3 10^3/uL (0.0-0.5); HEMATOCRIT 34.6 % (36.0-47.0); HEMOGLOBIN 11.2 g/dl (12.0-15.5); LYMPH # 2.9 10^3/uL (1.5-5.0); LYMPH % 36.9 % (24.0-44.0); MEAN CORPUSCULAR HEMOGLOBIN 29.6 pg (27.0-33.0); MEAN CORPUSCULAR HGB CONC 32.4 g/dl (32.0-36.5); MEAN CORPUSCULAR VOLUME 91.3 fl (80.0-96.0); MONO # 0.8 10^3/uL (0.0-0.8); MONO % 9.6 % (2.0-8.0); NEUTROPHILS # 3.8 10^3/uL (1.5-8.5); NEUTROPHILS % 48.6 % (36.0-66.0); PLATELET COUNT, AUTOMATED 258 10^3/uL (150-450); RED BLOOD COUNT 3.79 10^6/uL (4.00-5.40); WHITE BLOOD COUNT 7.8 10^3/uL (4.0-10.0)
[2024-03-15 12:25] LABS: INR 0.89; PARTIAL THROMBOPLASTIN TIME 30.3 SECONDS (24.8-34.2); PROTHROMBIN TIME 12.4 SECONDS (12.5-14.5)
[2024-03-15 12:40] LABS: COLLAGEN EPINEPHRINE 150 SECONDS (74-162)
[2024-03-19 19:26] LABS: FACTOR V111 ACTIVITY, CLOTTING 135 % normal (50-180); FACTOR VIII APTT 23 sec (23-32); RISTOCETIN COFACTOR 78 % normal (42-200); VW FACTOR ANTIGEN 92 % (50-217)
== END ==
LOC: M PLALAB 10:47
PROVIDERS: ATTEND Internal Medicine Hematology
DX: R23.3 Spontaneous ecchymoses (principal)

== ENCOUNTER → 2024-04-23 | Outpatient (CLI) | payer MEDICARE ==
[~2024-04-23] MED LIST changes: -ADV500INH PO; +ADVA1AER10 PO; +ISOVUE-M 300 61% 15ML VIAL As Ordered ONE; +LIDOCAINE 1% SDV 30ML VIAL As Ordered ONE; +TRIAMCINOLONE ACETONIDE SUSP 40MG/ML 1ML VIAL As Ordered ONE
== END ==
LOC: M PAIN 10:00
PROVIDERS: ATTEND Anesthesiology
DX: M47.816 Spondylosis without myelopathy or radiculopathy, lumbar region (principal); G89.29 Other chronic pain; M54.50 Low back pain, unspecified; M79.18 Myalgia, other site; M15.0 Primary generalized (osteo)arthritis; K21.9 Gastro-esophageal reflux disease without esophagitis; E11.42 Type 2 diabetes mellitus with diabetic polyneuropathy; I10 Essential (primary) hypertension; E03.9 Hypothyroidism, unspecified; M47.817 Spondylosis without myelopathy or radiculopathy, lumbosacral region; Z79.84 Long term (current) use of oral hypoglycemic drugs; Z79.890 Hormone replacement therapy; Z79.891 Long term (current) use of opiate analgesic; Z79.899 Other long term (current) drug therapy; Z88.0 Allergy status to penicillin; Z91.010 Allergy to peanuts; Z91.018 Allergy to other foods; Z91.040 Latex allergy status; Z91.048 Other nonmedicinal substance allergy status
CPT/HCPCS: 64493; 64494; J0665; J3301; Q9967

== ENCOUNTER → 2024-05-06 | Outpatient (CLI) | payer MEDICARE ==
[~2024-05-06] MED LIST changes: -ISOVUE-M 300 61% 15ML VIAL As Ordered ONE; -LIDOCAINE 1% SDV 30ML VIAL As Ordered ONE; -TRIAMCINOLONE ACETONIDE SUSP 40MG/ML 1ML VIAL As Ordered ONE
== END ==
LOC: M SLEEP 20:00
PROVIDERS: ATTEND Internal Medicine Pulmonary Disease
DX: G47.33 Obstructive sleep apnea (adult) (pediatric) (principal); R06.83 Snoring

== ENCOUNTER → 2024-05-27 | Outpatient (CLI) | payer MEDICARE | LOC: M PAIN 14:30 | PROVIDERS: ATTEND Nurse Practitioner Family | DX: M47.816 Spondylosis without myelopathy or radiculopathy, lumbar region (principal); G89.29 Other chronic pain; Z79.51 Long term (current) use of inhaled steroids; Z79.84 Long term (current) use of oral hypoglycemic drugs; Z79.899 Other long term (current) drug therapy; Z88.0 Allergy status to penicillin; Z91.018 Allergy to other foods; Z91.02 Food additives allergy status; Z91.040 Latex allergy status ==

== ENCOUNTER → 2024-06-03 | Outpatient (REF) | payer MEDICARE | LOC: M LAB REF 12:01 | PROVIDERS: ATTEND Nurse Practitioner Family | DX: J06.9 Acute upper respiratory infection, unspecified (principal) ==

== ENCOUNTER 2024-06-24 09:33 | Emergency (ER) | payer MEDICARE ==
[~2024-06-24] VITALS: Ht 154.9 cm; Wt 77.3 kg
[2024-06-24 10:15] LABS: BASO % 0.4 % (0.0-1.0); EOS # 0.2 10^3/uL (0.0-0.5); EOS % 2.7 % (0.0-3.0); HEMATOCRIT 37.7 % (36.0-47.0); HEMOGLOBIN 12.5 g/dl (12.0-15.5); LYMPH % 30.2 % (24.0-44.0); MEAN CORPUSCULAR HEMOGLOBIN 28.9 pg (27.0-33.0); MEAN CORPUSCULAR HGB CONC 33.2 g/dl (32.0-36.5); MEAN CORPUSCULAR VOLUME 87.3 fl (80.0-96.0); MONO # 0.5 10^3/uL (0.0-0.8); MONO % 7.7 % (2.0-8.0); NEUTROPHILS # 3.9 10^3/uL (1.5-8.5); NEUTROPHILS % 58.7 % (36.0-66.0); PLATELET COUNT, AUTOMATED 274 10^3/uL (150-450); RED BLOOD COUNT 4.32 10^6/uL (4.00-5.40); WHITE BLOOD COUNT 6.7 10^3/uL (4.0-10.0)
[2024-06-24] MEDS: MORPHINE 4 MG/ML 1ML VIAL IV PRN (10:15)
[2024-06-24] MEDS: ONDANSETRON 4MG 2ML VIAL IV ONE (10:15)
[2024-06-24] MEDS: ASPIRIN 81MG CHEW TABLET PO ONE (10:16)
[2024-06-24 10:29] LABS: INR 0.88; PROTHROMBIN TIME 12.3 SECONDS (12.5-14.5)
[2024-06-24] MEDS: NITROGLYCERIN 0.4MG SUBL TABLET SL PRN (10:46)
[2024-06-24] MEDS ORDERED: MORPHINE 2 MG/ML 1ML VIAL IV PRN (10:50)
[2024-06-24 10:52] LABS: LIPASE 31 U/L (12-53)
[2024-06-24 10:54] LABS: ALKALINE PHOSPHATASE 75 U/L (35-104); ALT/SGPT 18 U/L (7.0-40); AST/SGOT 12 U/L (<34); BILIRUBIN,DIRECT 0.2 MG/DL (<0.4); BILIRUBIN,TOTAL 0.5 MG/DL (0.3-1.2); BLOOD UREA NITROGEN 8 MG/DL (9-23); CALCIUM LEVEL 9.4 MG/DL (8.5-10.1); CARBON DIOXIDE LEVEL 27 MMOL/L (20-31); CHLORIDE LEVEL 103 MMOL/L (98-107); CK-MB VALUE MASS < 1.0 NG/ML (<3.6); CPK CREATINE PHOSPHOKINASE 150 U/L (34-145); CREATININE FOR GFR 0.72 MG/DL (0.55-1.30); GLOMERULAR FILTRATION RATE > 60.0 (>51); GLUCOSE, FASTING 107 MG/DL (60-100); MB/CK RELATIVE INDEX 0.66 (< OR =4); POTASSIUM SERUM 3.6 MMOL/L (3.5-5.1); SODIUM LEVEL 141 MMOL/L (136-145); TOTAL PROTEIN 7.5 G/DL (5.7-8.2)
[2024-06-24 10:56] LABS: THYROID STIMULATING HORMONE 7.613 uIU/ML (0.55-4.78)
[2024-06-24 10:57] LABS: FREE T4 1.26 NG/DL (0.89-1.76)
[2024-06-24] MEDS ORDERED: ISOVUE-370 76% 100ML VIAL As Ordered ONE (11:02)
[2024-06-24 12:05] LABS: CK-MB VALUE MASS < 1.0 NG/ML (<3.6)
[2024-06-24 12:07] LABS: CPK CREATINE PHOSPHOKINASE 134 U/L (34-145); MB/CK RELATIVE INDEX 0.74 (< OR =4)
[2024-06-24] MEDS: MAALOX 30 ML SUSP *UDC PO ONE (12:10)
[2024-06-24 12:11] VITALS: BP 163/90
[2024-06-24] MEDS: atenoloL 50 MG TAB PO ONE (12:11)
[2024-06-24 13:07] LABS: KETONE, URINE AUTO RFX NEGATIVE (NEGATIVE); LEUKOCYTE ESTERASE UR AUTO RFX NEGATIVE (NEGATIVE); NITRITE, URINE AUTO RFX NEGATIVE (NEGATIVE); RBC, URINE AUTO RFX 1 /HPF (0-3); SQUAM EPITHELIAL CELL UR AURFX 5 /HPF (0-6); WBC, URINE AUTO RFX 1 /HPF (0-3)
[2024-06-24] MEDS: MORPHINE 4 MG/ML 1ML VIAL IV ONE (13:41)
[2024-06-24] MEDS: KETOROLAC 30 MG/ML 1ML VIAL IV ONE (13:41)
[2024-06-24] MEDS: ONDANSETRON 4MG 2ML VIAL IV STA (15:18)
[2024-06-24] MEDS ORDERED: ONDA-282 PO (15:32)
[2024-06-24] MEDS ORDERED: CARA1TAB6 PO (15:38)
[2024-06-24] MEDS ORDERED: PERC5TAB12 PO (15:40)
[2024-06-24 15:45] VITALS: BP 138/73; TEMP 96.9; O2SAT 96
== END 2024-06-24 15:53 | disposition home or self-care (01) ==
LOC: M ED 09:33
DX: K80.20 Calculus of gallbladder without cholecystitis without obstruction (principal); R07.9 Chest pain, unspecified; K76.0 Fatty (change of) liver, not elsewhere classified; M43.22 Fusion of spine, cervical region; M47.816 Spondylosis without myelopathy or radiculopathy, lumbar region; Z88.0 Allergy status to penicillin; Z91.040 Latex allergy status; Z79.899 Other long term (current) drug therapy; Z79.890 Hormone replacement therapy; Z79.84 Long term (current) use of oral hypoglycemic drugs; E11.9 Type 2 diabetes mellitus without complications; I10 Essential (primary) hypertension; E78.5 Hyperlipidemia, unspecified; G43.909 Migraine, unspecified, not intractable, without status migrainosus; F41.9 Anxiety disorder, unspecified; F32.A Depression, unspecified
CPT/HCPCS: 71045; 71275; 74177; 76705; 80047; 80048; 80076; 81001; 82550; 82553; 83690; 83880; 84439; 84443; 84484; 85025; 85610; 85730; 93005; 93041; 94760; 96374; 96375; 96376; 99285; J1885; J2405; Q9967

== ENCOUNTER → 2024-07-14 | Outpatient (REF) | payer MEDICARE ==
[~2024-07-14] MED LIST changes: +ATOR40TA75 PO; +CARA1TAB6 PO; +FAMO1TAB11 PO; +LEVO200T4 PO; +OLME5TAB24 PO; +ONDA-282 PO; +OXYC1TAB23 PO; +SERT25TA21 PO; +SUCR1TAB56 PO
== END ==
LOC: M SFHCWAGY 13:18
PROVIDERS: ATTEND Nurse Practitioner Family
DX: Z12.72 Encounter for screening for malignant neoplasm of vagina (principal); Z11.51 Encounter for screening for human papillomavirus (HPV)
CPT/HCPCS: 87624; G0123

== ENCOUNTER → 2024-07-14 | Outpatient (CLI) | payer MEDICARE ==
[~2024-07-14] MED LIST changes: -ATOR40TA75 PO; -FAMO1TAB11 PO; -LEVO200T4 PO; -OLME5TAB24 PO; -OXYC1TAB23 PO; -SERT25TA21 PO; -SUCR1TAB56 PO
== END ==
LOC: M WHC 10:16
PROVIDERS: ATTEND Nurse Practitioner Family
DX: Z12.31 Encounter for screening mammogram for malignant neoplasm of breast (principal); R92.323 Mammographic fibroglandular density, bilateral breasts; Z80.3 Family history of malignant neoplasm of breast

== ENCOUNTER → 2024-07-20 | Outpatient (CLI) | payer MEDICARE ==
[~2024-07-20] MED LIST changes: +ATOR40TA75 PO; +FAMO1TAB11 PO; +LEVO200T4 PO; +OLME5TAB24 PO; +OXYC1TAB23 PO; +SERT25TA21 PO; +SUCR1TAB56 PO
== END ==
LOC: M RAD 15:10
PROVIDERS: ATTEND Nurse Practitioner Family
DX: E03.4 Atrophy of thyroid (acquired) (principal)

== ENCOUNTER → 2024-07-29 | Outpatient (CLI) | payer MEDICARE ==
[~2024-07-29] MED LIST changes: -BUPR-597 PO; +BUPR-766 PO; +BUPR150T15 PO; -BUPR1TAB53 PO; +ISOVUE-370 76% 100ML VIAL As Ordered ONE; +PREG-35 PO; -PREG100CA PO; -PREG50CA PO; +PREG50CA87 PO
== END ==
LOC: M RAD 09:10
PROVIDERS: ATTEND Nurse Practitioner Family
DX: R10.2 Pelvic and perineal pain (principal); K80.20 Calculus of gallbladder without cholecystitis without obstruction
CPT/HCPCS: 74177; Q9967

== ENCOUNTER → 2024-08-02 | Outpatient (REF) | payer MEDICARE ==
[~2024-08-02] MED LIST changes: -ISOVUE-370 76% 100ML VIAL As Ordered ONE
== END ==
LOC: M LAB REF 12:22
PROVIDERS: ATTEND Nurse Practitioner Family
DX: E03.9 Hypothyroidism, unspecified (principal)

== ENCOUNTER → 2024-08-02 | Outpatient (CLI) | payer MEDICARE ==
[2024-08-02 11:17] LABS: BASO % 0.4 % (0.0-1.0); EOS # 0.2 10^3/uL (0.0-0.5); HEMATOCRIT 33.5 % (36.0-47.0); HEMOGLOBIN 10.9 g/dl (12.0-15.5); LYMPH # 3.2 10^3/uL (1.5-5.0); LYMPH % 27.8 % (24.0-44.0); MEAN CORPUSCULAR HEMOGLOBIN 29.5 pg (27.0-33.0); MEAN CORPUSCULAR HGB CONC 32.5 g/dl (32.0-36.5); MEAN CORPUSCULAR VOLUME 90.8 fl (80.0-96.0); MONO # 1.1 10^3/uL (0.0-0.8); MONO % 9.5 % (2.0-8.0); NEUTROPHILS # 6.8 10^3/uL (1.5-8.5); NEUTROPHILS % 59.7 % (36.0-66.0); PLATELET COUNT, AUTOMATED 257 10^3/uL (150-450); RED BLOOD COUNT 3.69 10^6/uL (4.00-5.40); WHITE BLOOD COUNT 11.4 10^3/uL (4.0-10.0)
[2024-08-02 11:24] LABS: ERYTHROCYTE SEDIMENTATION RATE 14 mm/hr (0-30)
[2024-08-02 11:31] LABS: ALBUMIN 3.6 G/DL (3.2-5.2); ALKALINE PHOSPHATASE 66 U/L (35-104); ALT/SGPT 18 U/L (7.0-40); AST/SGOT 9 U/L (<34); BILIRUBIN,TOTAL 0.3 MG/DL (0.3-1.2); BLOOD UREA NITROGEN 12 MG/DL (9-23); C REACTIVE PROTEIN QUANTITATIV < 0.50 MG/DL (<1.0); CALCIUM LEVEL 9.3 MG/DL (8.5-10.1); CARBON DIOXIDE LEVEL 30 MMOL/L (20-31); CHLORIDE LEVEL 105 MMOL/L (98-107); CREATININE FOR GFR 1.05 MG/DL (0.55-1.30); GLOMERULAR FILTRATION RATE 62.8 (>51); GLUCOSE, FASTING 99 MG/DL (60-100); POTASSIUM SERUM 4.1 MMOL/L (3.5-5.1); SODIUM LEVEL 143 MMOL/L (136-145); TOTAL PROTEIN 6.5 G/DL (5.7-8.2)
== END ==
LOC: M LAB 09:33
PROVIDERS: ATTEND Nurse Practitioner Adult Health
DX: E87.6 Hypokalemia (principal); M12.9 Arthropathy, unspecified; E03.9 Hypothyroidism, unspecified; D64.9 Anemia, unspecified

== ENCOUNTER 2024-08-04 09:30 | Day surgery (SDC) | payer MEDICARE ==
[~2024-08-04] VITALS: Ht 152.4 cm; Wt 81.6 kg
[2024-08-04] MEDS ORDERED: propofoL 200 MG/20 ML VIAL As Ordered ONE (10:41)
[2024-08-04] MEDS ORDERED: GLYCOPYRROLATE INJ 0.2 MG/ML 2 ML VIAL As Ordered ONE (10:41)
[2024-08-04] MEDS ORDERED: LIDOCAINE 2% 100MG/5ML SDV (FOR ANES.) As Ordered ONE (10:44)
[2024-08-04] MEDS ORDERED: METOPROLOL 5 MG/5 ML VIAL As Ordered ONE (10:44)
[2024-08-04 10:49] VITALS: TEMP 98.1
[2024-08-04 11:06] VITALS: BP 155/99; O2SAT 100
== END 2024-08-04 11:15 | disposition home or self-care (01) ==
LOC: M OPP 09:30
PROVIDERS: ATTEND Internal Medicine Gastroenterology
DX: R13.10 Dysphagia, unspecified (principal); G47.30 Sleep apnea, unspecified; Z88.0 Allergy status to penicillin; Z91.040 Latex allergy status; Z91.018 Allergy to other foods; Z79.899 Other long term (current) drug therapy; Z79.51 Long term (current) use of inhaled steroids; Z79.84 Long term (current) use of oral hypoglycemic drugs; Z79.891 Long term (current) use of opiate analgesic; Z79.52 Long term (current) use of systemic steroids; R56.9 Unspecified convulsions; J44.9 Chronic obstructive pulmonary disease, unspecified
CPT/HCPCS: 43235; J1596

== ENCOUNTER 2024-08-16 10:11 | Day surgery (SDC) | payer MEDICARE ==
[~2024-08-16] VITALS: Ht 152.4 cm; Wt 81.6 kg
[2024-08-16] MEDS ORDERED: LIDOCAINE 2% 100MG/5ML SDV (FOR ANES.) As Ordered ONE (11:48)
[2024-08-16] MEDS ORDERED: propofoL 200 MG/20 ML VIAL As Ordered ONE (11:48)
[2024-08-16] MEDS ORDERED: fentaNYL 100 MCG/2 ML INJECTION As Ordered ONE (11:49)
[2024-08-16 12:54] VITALS: TEMP 98
[2024-08-16 13:18] VITALS: BP 176/97; O2SAT 98
== END 2024-08-16 13:24 | disposition home or self-care (01) ==
LOC: M OPP 10:11
PROVIDERS: ATTEND Internal Medicine Gastroenterology
DX: K22.2 Esophageal obstruction (principal); K44.9 Diaphragmatic hernia without obstruction or gangrene; R13.10 Dysphagia, unspecified; R12 Heartburn; I10 Essential (primary) hypertension; E89.0 Postprocedural hypothyroidism; J44.9 Chronic obstructive pulmonary disease, unspecified; G40.909 Epilepsy, unspecified, not intractable, without status epilepticus; E78.00 Pure hypercholesterolemia, unspecified; R73.03 Prediabetes; Z79.899 Other long term (current) drug therapy; Z79.890 Hormone replacement therapy; Z79.84 Long term (current) use of oral hypoglycemic drugs; Z86.73 Personal history of transient ischemic attack (TIA), and cerebral infarction without residual deficits; G47.30 Sleep apnea, unspecified; Z90.89 Acquired absence of other organs; Z90.710 Acquired absence of both cervix and uterus; Z88.0 Allergy status to penicillin; Z91.018 Allergy to other foods; Z91.040 Latex allergy status; Z91.048 Other nonmedicinal substance allergy status; Z87.19 Personal history of other diseases of the digestive system
CPT/HCPCS: 43450; A4649; J3010

== ENCOUNTER → 2024-08-23 | Outpatient (CLI) | payer MEDICARE ==
[~2024-08-23] MED LIST changes: +AMMO12CR4 TOP; -AMMO12CR7 TOP; +LIDO1ADH93 TOP; -LIDO5DIS41 TOP
== END ==
LOC: M SOG 07:15
PROVIDERS: ATTEND Physician Assistant
DX: M25.561 Pain in right knee (principal); M25.562 Pain in left knee

== ENCOUNTER → 2024-10-12 | Outpatient (CLI) | payer MEDICARE ==
[~2024-10-12] MED LIST changes: +ISOVUE-300 61% 100 ML VIAL As Ordered ONE; +methylPREDNISolone SUSP 40 MG/ML 1 ML VIAL As Ordered ONE
== END ==
LOC: M RAD 15:16
PROVIDERS: ATTEND Physician Assistant
DX: M25.551 Pain in right hip (principal)
CPT/HCPCS: 20610; 77002; J0665; J1010; Q9967

== ENCOUNTER → 2024-10-14 | Outpatient (CLI) | payer MEDICARE ==
[~2024-10-14] MED LIST changes: -ISOVUE-300 61% 100 ML VIAL As Ordered ONE; -methylPREDNISolone SUSP 40 MG/ML 1 ML VIAL As Ordered ONE
[2024-10-14 14:05] LABS: BASO # 0.0 10^3/uL (0.0-0.2); BASO % 0.2 % (0.0-1.0); EOS # 0.0 10^3/uL (0.0-0.5); EOS % 0.1 % (0.0-3.0); LYMPH # 2.2 10^3/uL (1.5-5.0); LYMPH % 13.4 % (24.0-44.0); MONO # 1.1 10^3/uL (0.0-0.8); MONO % 6.9 % (2.0-8.0); NEUTROPHILS # 13.0 10^3/uL (1.5-8.5); NEUTROPHILS % 78.8 % (36.0-66.0); PLATELET COUNT, AUTOMATED 284 10^3/uL (150-450)
[2024-10-14 14:09] LABS: C REACTIVE PROTEIN QUANTITATIV < 0.50 MG/DL (<1.0)
[2024-10-14 14:11] LABS: ALT/SGPT 16 U/L (7.0-40); AST/SGOT 13 U/L (<34); CALCIUM LEVEL 9.7 MG/DL (8.5-10.1); CARBON DIOXIDE LEVEL 29 MMOL/L (20-31); CHLORIDE LEVEL 106 MMOL/L (98-107); CREATININE FOR GFR 0.75 MG/DL (0.55-1.30); GLOMERULAR FILTRATION RATE > 90.0 (>51); POTASSIUM SERUM 3.9 MMOL/L (3.5-5.1); SODIUM LEVEL 145 MMOL/L (136-145)
[2024-10-14 14:13] LABS: ERYTHROCYTE SEDIMENTATION RATE 15 mm/hr (0-30)
== END ==
LOC: M PLALAB 09:58
PROVIDERS: ATTEND Nurse Practitioner Adult Health
DX: M12.9 Arthropathy, unspecified (principal); Z79.899 Other long term (current) drug therapy; D64.9 Anemia, unspecified; R68.89 Other general symptoms and signs; N23 Unspecified renal colic; N39.0 Urinary tract infection, site not specified

== ENCOUNTER → 2025-01-06 | Outpatient (CLI) | payer MEDICARE ==
[2025-01-06 14:53] LABS: BASO # 0.0 10^3/uL (0.0-0.2); BASO % 0.4 % (0.0-1.0); EOS # 0.4 10^3/uL (0.0-0.5); EOS % 4.7 % (0.0-3.0); LYMPH # 2.0 10^3/uL (1.5-5.0); LYMPH % 25.9 % (24.0-44.0); MONO # 0.8 10^3/uL (0.0-0.8); MONO % 9.9 % (2.0-8.0); NEUTROPHILS # 4.5 10^3/uL (1.5-8.5); NEUTROPHILS % 58.6 % (36.0-66.0); PLATELET COUNT, AUTOMATED 290 10^3/uL (150-450)
[2025-01-06 14:55] LABS: ALT/SGPT 24.0 U/L (7.0-40); AST/SGOT 15.0 U/L (<34); CALCIUM LEVEL 9.5 MG/DL (8.5-10.1); CARBON DIOXIDE LEVEL 30.0 MMOL/L (20-31); CHLORIDE LEVEL 105.0 MMOL/L (98-107); CREATININE FOR GFR 0.79 MG/DL (0.55-1.30); GLOMERULAR FILTRATION RATE 87.7 (>51); POTASSIUM SERUM 3.7 MMOL/L (3.5-5.1); SODIUM LEVEL 143.0 MMOL/L (136-145)
== END ==
LOC: M PLALAB 09:39
PROVIDERS: ATTEND Nurse Practitioner Adult Health
DX: E87.6 Hypokalemia (principal)

== ENCOUNTER → 2025-01-13 | Outpatient (CLI) | payer MEDICARE ==
[2025-01-13 13:04] LABS: MONO REFLEX EBV COMP NEGATIVE (NEGATIVE)
[2025-01-17 13:31] LABS: EBV AB TO NUCLEAR ANTIGEN > 600.00 U/mL (<18.00); EBV VIRAL CAPSID AG IGG > 750.00 U/mL (<18.00); EBV VIRAL CAPSID AG IGM < 36.00 U/mL (<36.00)
== END ==
LOC: M PLARAD 09:16
PROVIDERS: ATTEND Student in an Organized Health Care Education/Training Program
DX: J45.40 Moderate persistent asthma, uncomplicated (principal)

== ENCOUNTER → 2025-01-18 | Outpatient (CLI) | payer MEDICARE | LOC: M EKG 11:13 | PROVIDERS: ATTEND Nurse Practitioner Family | DX: R94.31 Abnormal electrocardiogram [ECG] [EKG] (principal); R00.1 Bradycardia, unspecified; Z53.9 Procedure and treatment not carried out, unspecified reason ==

== ENCOUNTER → 2025-02-16 | Outpatient (CLI) | payer MEDICARE ==
[~2025-02-16] MED LIST changes: +BUPR-363 PO; -BUPR75TA5 PO; +PROHANCE 279.3MG/ML 15ML VIAL ONE
== END ==
LOC: M PLAIMG 14:20
PROVIDERS: ATTEND Nurse Practitioner Family
DX: Z12.31 Encounter for screening mammogram for malignant neoplasm of breast (principal); Z80.3 Family history of malignant neoplasm of breast; N64.89 Other specified disorders of breast
CPT/HCPCS: A9579; C8908

== ENCOUNTER → 2025-03-21 | Outpatient (CLI) | payer MEDICARE ==
[~2025-03-21] MED LIST changes: -PROHANCE 279.3MG/ML 15ML VIAL ONE
[2025-03-21 15:52] LABS: IRON (FE) 43.0 UG/DL (50-170); PERCENT SATURATION 15.6 % (13.2-45.0)
[2025-03-21 15:55] LABS: VITAMIN B12 LEVEL 279.0 PG/ML (211-911)
[2025-03-21 16:16] LABS: ESTIMATED AVERAGE GLUCOSE 131.0 MG/DL (60-110)
== END ==
LOC: M LAB 14:13
PROVIDERS: ATTEND Nurse Practitioner Family
DX: K13.0 Diseases of lips (principal); R73.03 Prediabetes; D50.9 Iron deficiency anemia, unspecified